=== PATIENT | female | born 1940 | race Caucasian/White ===

== ENCOUNTER → 2016-08-10 | Outpatient (CLI) | payer MEDICARE, BC ==
[~2016-08-10] MED LIST: ACET-2321 PO; ALEN70TA48 PO; AMLO5TAB PO; ASPI81TA84 PO; CALC-586 PO; CHLO25TA2 PO; DICY20TA54 PO; GADOBUTROL 10mMol/10ml INJECTION IV ONE; HYDR-4246 PO; IPRA3AMP AEROSOL; KETO5DRO27 BOTH EYES; LISI-126 PO; LORA10TA44 PO; MELO-267 PO; MULT-795 PO; SALINE FLUSH 10ml SYRINGE ONE; SODI30SP3 EA NOSTRIL; TETR-47 BOTH EYES
--- NOTE | 2016-08-10 16:51 | DI ---
EXAM: MRI SHOULDER RIGHT W/WO CONTRA LOCATION OF DICTATION: [place] HISTORY: ITS.REASON: M75.91 Shoulder lesion, unspecified, right shoulder COMPARISON: No prior studies available for comparison. FINDINGS: There is diffusely abnormal increased heterogeneous signal demonstrated within the right proximal humeral diaphysis and metaphysis extending up to the humeral neck. There are three focal T1 hypointense, T2 hyperintense lesions within the humeral head all of which measure approximately 1 cm maximum diameter suspicious for malignancy such as lymphoma, myeloma, or metastases. There is moderate soft tissue edema edema surrounding the proximal right humerus. No clear evidence for pathologic fracture. 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 Rotator cuff tendons and labrum appear to be intact. Impression: 1. Diffuse abnormal heterogeneous increased signal throughout the right proximal humeral diaphysis/metaphysis extending to the humeral neck. Within the humeral head there are three suspicious bone lesions correlating with the lytic structures noted on the prior CT scan. Leading consideration is involvement by malignancy such as lymphoma, myeloma, or metastases. No clear evidence for pathologic fracture. .
--- NOTE | 2016-08-10 17:13 | DI ---
EXAM: NM BONE SCAN, WHOLE BODY LOCATION OF DICTATION: [place] HISTORY: ITS.REASON: M75.91 Shoulder lesion, unspecified, right shoulder COMPARISON: No prior studies available for comparison. TECHNIQUE: 27 mCi of Tc-99m MDP was administered intravenously. Anterior and posterior planar whole-body and spot images were obtained. FINDINGS: There is normal physiologic uptake within the bilateral kidneys. There are numerous foci of radiotracer uptake demonstrated scattered throughout the axial and appendicular skeleton including the majority of the thoracic and lumbar vertebra, bilateral ribs, pelvis particularly on the right, proximal right humerus, calvarium, and proximal bilateral femurs and hips. Findings are compatible with widespread osseous metastases. The greatest involvement appears to overlie the proximal right humerus, spine, and right iliac bone. Impression: Numerous osseous metastases involving the axial and appendicular skeleton. .
== END ==
LOC: IMA 08:12
PROVIDERS: ATTEND Orthopaedic Surgery
DX: C79.51 Secondary malignant neoplasm of bone (principal); R93.7 Abnormal findings on diagnostic imaging of other parts of musculoskeletal system; M75.91 Shoulder lesion, unspecified, right shoulder
CPT/HCPCS: 73223; 78306; A9503; A9585

== ENCOUNTER → 2016-08-13 | Outpatient (CLI) | payer MEDICARE, BC ==
[~2016-08-13] MED LIST changes: -GADOBUTROL 10mMol/10ml INJECTION IV ONE; +IOHEXOL 300 MG/ML 75ml INJECTION ONE; +NORMAL SALINE 100 ML ONE
[2016-08-13 11:51] LABS: BASOPHILS # (AUTO) 0.1 T/MM3 (0-0.2); BASOPHILS % (AUTO) 0.5 % (0-2); EOSINOPHILS # (AUTO) 0.3 T/MM3 (0-0.5); EOSINOPHILS % (AUTO) 2.3 % (0-4); HCT - HEMATOCRIT 37.5 % (36-46); HGB - HEMOGLOBIN 12.8 GM/DL (12-16); IMMATURE GRANULOCYTE # (AUTO) 0.04 T/MM3 (0.00-0.03); IMMATURE GRANULOCYTE % (AUTO) 0.3 % (0.0-0.5); LYMPHOCYTES # (AUTO) 1.9 T/MM3 (1-4.8); LYMPHOCYTES % (AUTO) 13.5 % (23-45); MEAN CORPUSCULAR HGB 29.1 UUG (26-34); MEAN CORPUSCULAR HGB CONC(MCHC 34.1 GM/DL (31-37); MEAN CORPUSCULAR VOLUME 85.2 UM3 (80-100); MEAN PLATELET VOLUME 10.5 UM3 (9.4-12.4); MONOCYTES # (AUTO) 1.3 T/MM3 (0-0.8); MONOCYTES % (AUTO) 9.7 % (0-9.0); NEUTROPHILS #(AUTO)-ABSOLUTE 10.1 T/MM3 (1.8-7.7); NEUTROPHILS % (AUTO) 73.7 % (33-66); WBC - WHITE BLOOD COUNT 13.7 T/MM3 (4.5-11.0)
[2016-08-13 12:02] LABS: ALBUMIN 3.8 G/DL (3.5-5.0); ALKALINE PHOSPHATASE 114 U/L (38-126); ALT (SGPT) 29 U/L (9-52); ANION GAP 10 MEQ/L (5-15); AST (SGOT) 29 U/L (14-36); BUN/CREATININE RATIO 24 RATIO (6-26); CALCIUM 9.5 MG/DL (8.4-10.2); CHLORIDE 90 MEQ/L (98-107); CO2 - CARBON DIOXIDE 34 MEQ/L (22-30); CREATININE 0.7 MG/DL (0.7-1.2); GLOMERULAR FILTRATION RATE 81; GLUCOSE 127 MG/DL (65-110); LDH 474 U/L (313-618); POTASSIUM 3.7 MEQ/L (3.6-5); SODIUM 134 MEQ/L (134-144); TOTAL PROTEIN 7.7 G/DL (6.3-8.2)
--- NOTE | 2016-08-13 14:01 | DI ---
EXAM: CT CHEST/ABD/PELVIS WC IV contrast COMPARISON: None available. HISTORY: ITS.REASON: R93.7 Abnormal findings on diagnostic imaging of other parts of m LOCATION OF DICTATION: [facility] [place] TECHNIQUE: With administration of 67 cc Omnipaque 300 helically acquired scans were obtained from the lung apices through the domes of the diaphragms. The study is reviewed in soft tissue, bone and lung windows. The study is reconstructed in thinner axial sections and in coronal reformations. The current CT scan was performed using radiation dose-reduction techniques. FINDINGS: SOFT TISSUES: There are two borderline right axillary lymph nodes noted with one measuring 7 mm x 1.3 cm and the other measuring 9 mm x 1.2 cm . There is bulky lymphadenopathy at the right superior mediastinum at the right paratracheal space with an ovoid soft tissue density structure measuring 3.3 x 4.0 cm. Enlarged precarinal lymph node is also noted measuring 3.5 cm AP x 3.8 cm transverse. There is a borderline right hilar lymph node measuring 9 mm in short axis. Small left hilar lymph nodes are noted. Pericardial reflections are seen. CHEST WALL: Unremarkable. BONES: Multiple lytic and sclerotic lesions are noted . Lytic and sclerotic lesion is seen at the inferior aspect of the T11 vertebral body with slight and cavity to the inferior endplate. At T10 there is a lytic lesion at the right anterolateral aspect of the superior endplate. There is likely concavity to superior endplate of T10. Probable hemangioma is seen within T9 vertebral body. At T8 there is compression deformity with a mixed lytic and sclerotic lesion of the anterior two thirds of the T8 vertebral body. There is 15% loss of height of this vertebral body. Compression deformity is noted at T7 with mixed lytic and sclerotic lesion within the anterior two thirds. There is a pathologic fracture of the posterior right sixth rib with a mixed lytic and sclerotic lesion. Scapula and clavicles visualized appear to be intact. There is also lucency of the posterior aspect of the right third and fourth ribs and fifth ribs, but is uncertain whether the finding represents vessel foramen or fractures. There is a mottled appearance to the proximal diaphysis of the right humerus likely representing metastatic lesion as well. Scattered areas of sclerosis and lucency also seen of the ribs. LUNGS: Centrilobular emphysematous changes are noted. There is an ovoid soft tissue density lesion at the medial aspect of the right upper lobe measuring 1.4 x 1.8 cm. Platelike opacity seen right midlung likely representing atelectasis. Linear atelectatic changes or scarring is also seen at the lung bases. CHEST IMPRESSION: 1. Ovoid soft tissue density seen at the medial aspect of the right upper lobe measuring 1.4 x 1.8 cm. This could represent a bronchogenic lesion. 2. Bulky lymphadenopathy is noted at the right superior mediastinum at the right paratracheal region and precarinal region likely representing metastatic disease. 3. Borderline right axillary lymph nodes are noted. 4. Chronic and edematous changes. 5. Extensive osseous metastasis involving multiple thoracic vertebral bodies, and ribs, and proximal right humerus. Including compression deformities of T7 and T8 and inferior endplate of T11, and a lytic lesion within the T10 vertebral body. Pathologic fracture is noted of the posterior right sixth rib. ABDOMEN AND PELVIS FINDINGS: LIVER: There is an ovoid hypodense lesion at the right lobe of the liver measuring 2.8 x 2.4 cm which could represent a metastatic lesion. Within the lateral segment of the left lobe of the liver there is a rounded hypodense lesion measuring approximately 1.8 cm and has somewhat close to fluid density measurements and may represent a cyst. GALLBLADDER: There is a 7 mm calcific density at the neck of the gallbladder. No other signs of acute cholecystitis is identified. SPLEEN: Unremarkable. PANCREAS: Unremarkable. ADRENAL GLANDS: Unremarkable. AORTA/IVC/VASCULATURE: Calcific atherosclerotic changes is seen of the aorta without evidence for aneurysm. The IVC is unremarkable. LYMPH NODES: No lymphadenopathy is identified. Small lymph nodes are noted, but are not pathologically enlarged. GENITOURINARY: Unremarkable. No renal calculi or obstructive uropathy. The bladder and ureters appear unremarkable. The kidneys perfuse symmetrically. The uterus is unremarkable. No adnexal masses are appreciated. BOWEL: Unremarkable. The stomach, duodenum, small bowel, and colon appear unremarkable. Sigmoid diverticulosis is noted without evidence for acute diverticulitis. Scattered diverticula are also seen within the remainder of the colon. The terminal ileum is unremarkable. Appendix is not visualized with certainty. Small bowel is unremarkable. The stomach and duodenum are unremarkable. ABDOMINAL/PELVIC WALL: Small umbilical defect without herniated loops of bowel. BONES: Pathologic compression deformity is are seen of the L1 and L2 vertebral bodies with underlying mixed lytic and sclerotic lesions. There may be some retropulsion of the superior endplate of L1 flattening the anterior thecal sac. A mixed lytic and sclerotic lesion is seen at the anterolateral aspect of the right L2 vertebral body and there may be a pathologic compression deformity. There is also a lytic lesion at superior endplate of the L4 vertebral body. Lytic and sclerotic lesion is seen within the right iliac bone adjacent to the SI joint. Sclerotic lesion is seen within the left symphysis. There is a sclerotic lesion within the posterior column of the right acetabulum. ABDOMEN AND PELVIS IMPRESSION: 1. 2.8 cm ovoid hypodense lesion is seen at the right lobe of the liver which may represent a metastatic lesion. There is also a 1.8 cm rounded hypodense lesion at the lateral segment of the left lobe of the liver but could represent a cyst. 2. Multiple osseous metastasis involving L1 and L2 vertebral bodies with slight compression deformity, superior endplate of L4, the right iliac bone adjacent to the SI joint, posterior, right acetabulum, the left symphysis. 3. Cholelithiasis without other signs of acute cholecystitis. 4. Colonic diverticula without evidence for acute diverticulitis. NOTE: The results were discussed with the ordering clinician, BRENDEN MCNEIL on 08/13/2016 at noon. .
== END ==
LOC: IMA 09:22
PROVIDERS: ATTEND Internal Medicine Hematology & Oncology
DX: C79.51 Secondary malignant neoplasm of bone (principal); K57.30 Diverticulosis of large intestine without perforation or abscess without bleeding; K76.9 Liver disease, unspecified; K80.20 Calculus of gallbladder without cholecystitis without obstruction; R59.0 Localized enlarged lymph nodes; R60.0 Localized edema; R93.7 Abnormal findings on diagnostic imaging of other parts of musculoskeletal system
CPT/HCPCS: 36415; 71260; 74177; 80053; 83615; 83735; 85025; J7050; Q9967

== ENCOUNTER → 2016-08-16 | Outpatient (CLI) | payer MEDICARE, BC ==
[~2016-08-16] MED LIST changes: +BUPIVACAINE 0.25% (2.5mg/ml) INJ 30ml SDV ONE; +CYCL-375 PO; +HYDR-4072 PO; -IOHEXOL 300 MG/ML 75ml INJECTION ONE; +LIDOCAINE 1% (10mg/ml) 5ml VIAL ONE; -NORMAL SALINE 100 ML ONE; -SALINE FLUSH 10ml SYRINGE ONE
--- NOTE | 2016-08-16 17:34 | DI ---
Indication:ITS.REASON: R93.7 ABN FINDINGS Procedure:CT BIOPSY BN,ILIUM,RODRIGUEZ.RIBSP CT GUIDED BONE BIOPSY/ASPIRATION: The procedure including the benefits, risks, and alternatives were explained in detail to the patient. All of her questions were answered. They stated that they understood and wished to proceed. Informed consent was obtained. A pre-procedural timeout was done to verify the correct patient and procedure. Using sterile technique, local Xylocaine and Marcaine anesthesia, and CT guidance, an 11-gauge bone biopsy needle is advanced from a posterior approach into the sclerotic and lytic lesion located in the posterior aspect of the right iliac bone. A core biopsy, which consisted of a portion of soft tissue and a bone core, was taken and placed in formalin. The needle was removed. There was no complication. Hemostasis was obtained and a compression bandage was applied. Following this the patient was monitored in the CT department for 15 min. They then left the radiology department in good condition. Impression: Successful core biopsy of the mixed lytic and sclerotic lesion seen at the lateral aspect of the right iliac bone. Erick Woodson RPA/SOO performed this under my personal supervision. .
== END ==
LOC: IMA 15:23
PROVIDERS: ATTEND Internal Medicine Hematology & Oncology
DX: C79.51 Secondary malignant neoplasm of bone (principal); R93.7 Abnormal findings on diagnostic imaging of other parts of musculoskeletal system
CPT/HCPCS: 20220; 88307; 88311; 88341; 88342

== ENCOUNTER → 2016-08-19 | Outpatient (CLI) | payer MEDICARE, BC ==
[~2016-08-19] MED LIST changes: -BUPIVACAINE 0.25% (2.5mg/ml) INJ 30ml SDV ONE; -LIDOCAINE 1% (10mg/ml) 5ml VIAL ONE
--- NOTE | 2016-08-19 13:00 | DI ---
Indication: ITS.REASON: C79.51 Secondary malignant neoplasm of bone Comparison: CT chest, abdomen and pelvis dated August 13, 2016 PROCEDURE: CT of the chest without contrast. Technique: Axial CT images were performed through the chest without intravenous contrast. Coronal and sagittal two-dimensional reformats. Automated Exposure Control and Iterative Reconstruction dose lowering techniques were utilized. Findings: Exam is performed for radiation therapy treatment planning purposes. Emphysema is noted. Medial right upper lobe irregular lung nodule is again seen as described on the recent diagnostic CT comparison report. Large right paratracheal lymph nodes are redemonstrated, better seen on the recent contrast-enhanced study. Small pericardial effusion. The visualized upper abdomen shows a probable cyst in the left lobe of the liver and a metastatic focus in the posterior right lobe of the liver. Bone windows show probable pathologic fractures in the midthoracic spine at T7 and T8 with other sclerotic metastatic foci seen in the thoracic and lumbar vertebra. There are also endplate fractures at T11, L1 and L2. There is also a nondisplaced fracture of the right humeral diaphysis with a lytic osseous destructive process seen in the proximal diaphysis. Impression: Radiation therapy treatment planning exam with findings as above. .
== END ==
LOC: IMA 12:25
PROVIDERS: ATTEND Radiology Radiation Oncology
DX: C79.51 Secondary malignant neoplasm of bone (principal); I31.3 Pericardial effusion (noninflammatory)

== ENCOUNTER → 2016-08-23 | Outpatient (CLI) | payer MEDICARE, BC ==
[2016-08-23 11:53] LABS: IGA - IMMUNOGLOBULIN A 311.14 MG/DL (70-400); IGG - IMMUNOGLOBULIN G 1129.45 MG/DL (700-1600); IGM - IMMUNOGLOBULIN M 75.09 MG/DL (40-230)
== END ==
LOC: LAB 10:56
PROVIDERS: ATTEND Internal Medicine Hematology & Oncology
DX: D89.2 Hypergammaglobulinemia, unspecified (principal)
CPT/HCPCS: 36415; 82232; 82784; 82785; 83883; 84155; 84165; 86334

== ENCOUNTER → 2016-08-23 | Outpatient (CLI) | payer MEDICARE, BC ==
[2016-08-23 13:31] LABS: HCT - HEMATOCRIT 35.9 % (36-46); MEAN CORPUSCULAR HGB 28.2 UUG (26-34); MEAN CORPUSCULAR HGB CONC(MCHC 33.4 GM/DL (31-37); MEAN CORPUSCULAR VOLUME 84.5 UM3 (80-100); MEAN PLATELET VOLUME 10.1 UM3 (9.4-12.4); RED BLOOD COUNT 4.25 M/MM3 (4.00-5.20); WBC - WHITE BLOOD COUNT 16.2 T/MM3 (4.5-11.0)
[2016-08-23 13:43] LABS: ALBUMIN 3.6 G/DL (3.5-5.0); ALBUMIN/GLOBULIN RATIO 0.9 RATIO (1.1-2.2); ALKALINE PHOSPHATASE 153 U/L (38-126); AST (SGOT) 24 U/L (14-36); BUN/CREATININE RATIO 16 RATIO (6-26); CALCIUM 9.7 MG/DL (8.4-10.2); CHLORIDE 95 MEQ/L (98-107); CREATININE 0.8 MG/DL (0.7-1.2); GLOMERULAR FILTRATION RATE 70; GLUCOSE 106 MG/DL (65-110); MAGNESIUM 2.1 MG/DL (1.6-2.3); POTASSIUM 4.6 MEQ/L (3.6-5); SODIUM 138 MEQ/L (134-144); TOTAL PROTEIN 7.4 G/DL (6.3-8.2)
[2016-08-23 13:59] LABS: ANION GAP 11 MEQ/L (5-15); BAND NEUTROPHILS # 0.2 T/MM3; CO2 - CARBON DIOXIDE 32 MEQ/L (22-30); EOSINOPHILS # (MANUAL) 0.5 T/MM3 (0-0.5); LYMPHOCYTES # (MANUAL) 3.1 T/MM3 (1-4.8); MONOCYTES # (MANUAL) 1.8 T/MM3 (0-0.8); NEUTROPHILS #(MANUAL)-ABSOLUTE 10.7 T/MM3 (1.8-7.7); TOTAL CELLS COUNTED 100 %
[2016-08-23 14:04] LABS: ALT (SGPT) 31 U/L (9-52); LDH 628 U/L (313-618)
[2016-08-23 23:45] LABS: PHOSPHORUS 4.9 MG/DL (2.5-4.5)
== END ==
LOC: LABN 13:21
PROVIDERS: ATTEND Internal Medicine Hematology & Oncology
DX: C34.11 Malignant neoplasm of upper lobe, right bronchus or lung (principal)
CPT/HCPCS: 80053; 82378; 83615; 83735; 84100; 85025

== ENCOUNTER → 2016-08-23 | Outpatient (CLI) | payer MEDICARE, BC ==
--- NOTE | 2016-08-24 11:55 | DI ---
Indication: ITS.REASON: C79.51 Secondary malignant neoplasm of bone Comparison: CT chest, abdomen and pelvis dated August 13, 2016 PROCEDURE: CT of the abdomen and pelvis without contrast. Technique: Axial CT images were performed through the abdomen and pelvis without intravenous contrast. Coronal and sagittal two-dimensional reformats. Automated Exposure Control and Iterative Reconstruction dose lowering techniques were utilized. Findings: There is a scarring or atelectasis in both lower lobes. The unenhanced contours of the liver show an irregular low-attenuation mass in the posterior right lobe along with a probable cyst in the anterior left lobe. Gallstones again noted. Motion artifact is present. Solid organs are better evaluated on the recent contrast-enhanced diagnostic CT. No definite acute changes from that exam. Bone windows again show multiple lytic and sclerotic foci with pathologic fractures at the L1 and L2 vertebra and the inferior endplate of T11. Sclerotic metastases also noted within the L3-L5 vertebra and sacrum. Prominent area of involvement in the anterosuperior endplate of L4. Lytic and sclerotic lesions in both iliac wings and bones, right greater than left. Sclerotic focus in the left pubic symphysis. Impression: Radiation therapy treatment planning exam with findings as above. .
== END ==
LOC: IMA 13:24
PROVIDERS: ATTEND Radiology Radiation Oncology
DX: C79.51 Secondary malignant neoplasm of bone (principal)

== ENCOUNTER 2016-08-24 13:34 | Observation (INO) | payer MEDICARE, BC ==
[~2016-08-24] VITALS: Ht 149.9 cm; Wt 54.5 kg
[~2016-08-24 13:34] MED LIST changes: -CYCL-375 PO; -HYDR-4072 PO
--- OUTSIDE RECORDS SUMMARY | 2016-08-24 13:38 | XMS REPORT | Continuity of Care Document ---
Author Author [facility] Organization [facility] Address Unknown Phone Unavailable Support Name Relationship Address Phone DEBORAH AMAYA MD Caregiver [facility] [address] [place] [address] Unavailable ANDREW FELICIANO MD Caregiver [address] [place] [address] [place] [phone] SIMI JUAREZ Next Of Kin [address] [place] [address] C Insurance Providers Payer Name Policy Number Subscriber Name Relationship Medicare [id number] Harriet Juarez 18 Self [facility] [id number] Harriet Juarez 18 Self Advance Directives Directive Response Recorded Date/Time Advanced Directives Type None 07/26/14 1:25am Problems Medical Problems Problem Onset Date Status Pharyngitis Unknown Active Sinusitis Unknown Active Anxiety Unknown Active Night terror Unknown Active Tachycardia Unknown Active Medications Medication Dose Route Sig Days/Qty Instructions Order Date Discontinued Date Status Amlodipine Besylate 5 Mg PO DAILY 08/10/08 Active Aspirin 81 Mg PO DAILY 08/10/08 Active Calcium Carbonate/Vitamin D3 2 Tab PO DAILY 08/10/08 Active Multivitamins W-Minerals/Lut 1 Tab PO DAILY 08/10/08 Active Dicyclomine Hcl 20 Mg PO THREE TIMES A DAY 08/10/08 Active Lisinopril 20 Mg PO DAILY 08/10/08 Active Ipratropium [place] 2 [place] EA NOSTRIL NEEDED 08/30/10 Active Social History Social History Problem Response Recorded Date/Time Chewing Tobacco Status No 07/26/2014 1:30am Hx Substance Use No 07/26/2014 1:30am Hx Alcohol Use Y DAILY BEER 07/26/2014 1:30am Query Response Start Date Stop Date Smoking Status Never smoker Hospital Discharge Instructions No hospital discharge instructions. Plan of Care No plan of care. Functional Status Query Response Date Recorded Physical Hygiene Self July 26, 2014 1:30am Disabilities Visual July 26, 2014 1:30am Devices Used Glasses July 26, 2014 1:30am Dressing Self July 26, 2014 1:30am Ambulation Self July 26, 2014 1:30am Diet Self July 26, 2014 1:30am Mental Status Alert July 26, 2014 2:33am Disabilities Visual July 26, 2014 1:30am Devices Used Glasses July 26, 2014 1:30am Physical Hygiene Self July 26, 2014 1:30am Dressing Self July 26, 2014 1:30am Ambulation Self July 26, 2014 1:30am Diet Self July 26, 2014 1:30am Allergies, Adverse Reactions, Alerts Allergen Type Severity Reaction Status Last Updated No Known Drug Allergies Allergy Unknown Active 07/11/11 Immunizations Name Given Type Hx Influenza Vaccination Y 03/11 Historical Hx Pneumococcal Vaccination Y 02/24/11 Historical Hx Influenza Vaccination Y 03/11 Historical Hx Tetanus Diptheria Y 08/10/08 Historical Vital Signs Acute Vital Signs Vital Response Date/Time Temperature (Fahrenheit) 96.4 deg F (96.8 - 99.1) Temperature (Calculated Celsius) 35.17827 degrees C (36.0 - 37.3) Pulse Rate (adult) 78 bpm (60 - 100) Respiratory Rate 16 breaths/min (10 - 20) O2 Sat by Pulse Oximetry 100 % (90 - 100) Blood Pressure 136/72 mm Hg Height 5 ft 0 in Weight 145 lb Body Mass Index 28.0 kg/m^2 Results Test Source Date Result Interp. Ref. Range Comments Alanine Aminotransferase (ALT/SGPT) July 26, 2014 1:52am 22 U/L N 9- 52 Aspartate Amino Transf (AST/SGOT) July 26, 2014 1:52am 22 U/L N 14- 36 Albumin/Globulin Ratio July 26, 2014 1:52am 1.3 RATIO N 1.1-2.2 Globulin July 26, 2014 1:52am 3.2 G/DL N 2.4-3.6 Albumin July 26, 2014 1:52am 4.2 G/DL N 3.5-5.0 Total Protein July 26, 2014 1:52am 7.4 G/DL N 6.3-8.2 Alkaline Phosphatase July 26, 2014 1:52am 55 U/L N 38-126 Total Bilirubin July 26, 2014 1:52am 0.30 MG/DL N 0.20-1.30 Calcium Level July 26, 2014 1:52am 8.9 MG/DL N 8.4-10.2 Calculated Osmolality July 26, 2014 1:52am 276 MOSM/KG N 261-280 Glucose Level July 26, 2014 1:52am 104 MG/DL N 65-110 Glomerular Filtration Rate Calc July 26, 2014 1:52am 82 - BUN/Creatinine Ratio July 26, 2014 1:52am 16 RATIO N 6-26 Creatinine July 26, 2014 1:52am 0.7 MG/DL N 0.7-1.2 Blood Urea Nitrogen July 26, 2014 1:52am 11.0 MG/DL N 7-17 Anion Gap July 26, 2014 1:52am 10 MEQ/L N 5-15 Carbon Dioxide Level July 26, 2014 1:52am 29 MEQ/L N 22-30 Chloride Level July 26, 2014 1:52am 105 MEQ/L N 98-107 Potassium Level July 26, 2014 1:52am 3.7 MEQ/L N 3.6-5 Sodium Level July 26, 2014 1:52am 144 MEQ/L N 134-144 Turbidity July 26, 2014 1:52am < 20 0-20 Chemistry Specimen Hemolysis July 26, 2014 1:52am < 15 0-25 0-25 : No Hemolysis.26-70: Slight Hemolysis - can falsely elevate K and Urine Protein. 71-285: Moderate Hemolysis - can falsely elevate K, Troponin I, CA 19-9, PTH, CSF GLucose, and Urine Protein, and can falsely decrease Phenytoin. 286-999: Gross Hemolysis - can falsely elevate K, Troponin I, CA 19-9, PTH, CSF Glucose, and Urine Protine, and can falsely decrease Phenytoin. Recommend specimen recollection. Icterus Index July 26, 2014 1:52am < 2 0-7 Immature Granulocyte # (Auto) July 26, 2014 1:52am 0.02 T/MM3 N 0.00 -0.03 Basophils # (Auto) July 26, 2014 1:52am 0.1 T/MM3 N 0-0.2 Eosinophils # (Auto) July 26, 2014 1:52am 0.5 T/MM3 N 0-0.5 Monocytes # (Auto) July 26, 2014 1:52am 0.8 T/MM3 N 0-0.8 Lymphocytes # (Auto) July 26, 2014 1:52am 3.0 T/MM3 N 1-4.8 Neutrophils # (Auto) July 26, 2014 1:52am 6.1 T/MM3 N 1.8-7.7 Immature Granulocyte % (Auto) July 26, 2014 1:52am 0.2 % N 0.0-0.5 Basophils (%) (Auto) July 26, 2014 1:52am 0.5 % N 0-2 Eosinophils (%) (Auto) July 26, 2014 1:52am 4.9 % H 0-4 Monocytes (%) (Auto) July 26, 2014 1:52am 7.7 % N 0-9.0 Lymphocytes (%) (Auto) July 26, 2014 1:52am 28.8 % N 23-45 Neutrophils (%) (Auto) July 26, 2014 1:52am 57.9 % N 33-66 Mean Platelet Volume July 26, 2014 1:52am 10.9 UM3 N 9.4-12.4 Platelet Count July 26, 2014 1:52am 254 T/MM3 N 130-400 RDW Standard Deviation July 26, 2014 1:52am 42.8 FL N 36.9-50.2 Mean Corpuscular Hemoglobin Concent July 26, 2014 1:52am 35.4 GM/DL N 31-37 Mean Corpuscular Hemoglobin July 26, 2014 1:52am 31.8 UUG N 26-34 Mean Corpuscular Volume July 26, 2014 1:52am 89.7 UM3 N 80-100 Hematocrit July 26, 2014 1:52am 42.6 % N 36-46 Hemoglobin July 26, 2014 1:52am 15.1 GM/DL N 12-16 Red Blood Count July 26, 2014 1:52am 4.75 M/MM3 N 4.00-5.20 White Blood Count July 26, 2014 1:52am 10.6 T/MM3 N 4.5-11.0 Group A Streptococcus Screen May 30, 2013 10:10am Negative - Strep culture confirmation to follow Influenza Type A Antigen May 30, 2013 10:10am Negative - Negative for Flu A protein antigen. Assay sensitivity isbetween 65-83%. A negative result does not exclude influenza virus infection. "Influenza FA" may be ordered if clinical presentation warrants confirmatory testing. Influenza Type B Antigen May 30, 2013 10:10am Negative - Negative for Flu B protein antigen. Assay sensitivity isbetween 65-83%. A negative result does not exclude influenza virus infection. "Influenza FA" may be ordered if clinical presentation warrants confirmatory testing. Urine Bacteria August 10, 2008 5:07pm Trace - Has specimen been collected/obtained? Y Urine Bilirubin August 10, 2008 5:07pm Negative - Has specimen been collected/obtained? Y Urine Blood August 10, 2008 5:07pm Negative - Has specimen been collected/obtained? Y Urine Collection Type August 10, 2008 5:07pm Voided - Has specimen been collected/obtained? Y Urine Color August 10, 2008 5:07pm Yellow - Has specimen been collected/obtained? Y Urine Glucose (UA) August 10, 2008 5:07pm Negative - Has specimen been collected/obtained? Y Urine Ketones August 10, 2008 5:07pm Negative - Has specimen been collected/obtained? Y Urine Leukocyte Esterase August 10, 2008 5:07pm 1+ H - Has specimen been collected/obtained? Y Urine Nitrite August 10, 2008 5:07pm Negative - Has specimen been collected/obtained? Y Urine Protein August 10, 2008 5:07pm Negative - Has specimen been collected/obtained? Y Urine RBC August 10, 2008 5:07pm 0-1 /HPF - Has specimen been collected/obtained? Y Urine Specific [place] August 10, 2008 5:07pm 1.015 - Has specimen been collected/obtained? Y Urine Squamous Epithelial Cells August 10, 2008 5:07pm Few - Has specimen been collected/obtained? Y Urine Turbidity August 10, 2008 5:07pm Clear - Has specimen been collected/obtained? Y Urine Urobilinogen August 10, 2008 5:07pm Normal EU/DL - Has specimen been collected/obtained? Y Urine WBC August 10, 2008 5:07pm 1-3 /HPF - Has specimen been collected/obtained? Y Urine pH August 10, 2008 5:07pm 8.0 - Has specimen been collected/ obtained? Y Group A Streptococcus Culture Throat May 30, 2013 10:27am Procedures No known history of procedures. Encounters Encounter Location Date/Time Departed Emergency Room [facility] 07/26/14 1:25am Recent Diagnosis
--- OUTSIDE RECORDS SUMMARY | 2016-08-24 13:38 | XMS REPORT | Continuity of Care Document ---
Author Author [facility] Organization [facility] Address Unknown Phone Unavailable Support Name Relationship Address Phone MUKUND HOPKINS II, MD Caregiver [address] [place] [address] Unavailable SEPTEMBERLASHONDA DO Caregiver [address] [place] [address] Unavailable SIMI JUAREZ Next Of Kin [address] [place] [address] [phone] c Insurance Providers Guarantor Harriet Juarez Address [address] [place] [address] C Email DENIED/NO TO PORTAL 16 [employer] Policy Number [id number] Subscriber's Name Harriet Juarez Relationship 18 Self Group Number [id number] Payer Medicare Policy Number [id number] Subscriber's Name Harriet Juarez Relationship 18 Self Advance Directives Directive Response Recorded Date/Time Advanced Directives Type None 08/03/16 8:10pm Chief Complaint and Reason for Visit Chief Complaint Upper Extremity Pain Reason for Visit [id number] Problems Active Problems Medical Problem Onset Date Status Anxiety Unknown Acute Back pain Unknown Acute Low back strain Unknown Acute Night terror Unknown Acute Pharyngitis Unknown Acute Sinusitis Unknown Acute Tachycardia Unknown Acute Past Problems Medical Problem Onset Date Flank pain Unknown Lumbar strain Unknown Right humeral fracture Unknown Tick bite with subsequent removal of tick Unknown Medications Current Home Medications Medication Dose Units Route Directions Days Qty Instructions Start Date Acetaminophen (Tylenol) 325 Mg Tablet 1 Tab Oral Every 4 Hours Prn 30 Tablet 08/03/16 Alendronate Sodium 70 Mg Tablet 70 Mg Oral Weekly 11/05/15 Amlodipine Besylate (Norvasc) 5 Mg Tablet 5 Mg Oral Daily Aspirin (Beronica) 81 Mg Tablet. 81 Mg Oral Daily 08/10/08 Calcium Carbonate/Vitamin D3 (Calcium + D 600 Mg Tablet) 1 Tab Tablet 2 Tab Oral Qd 08/10/08 Chlorthalidone 25 Mg Tablet 12.5 Mg Oral Give With Breakfast 01/12 Dicyclomine Hcl 20 Mg Tablet 20 Mg Oral Three Times A Day Hydrocodone/Acetaminophen ([place]et 5-325 Tablet) 5-325 Tablet 1 Tab Oral Every 6 Hours as needed for Pain 15 Tablet 08/03/16 Ipratropium/Albuterol Sulfate (Iprat-Albut 0.5-3(2.5) Mg/3 Ml) 3 Ml Ampul.neb 1 Vial Aerosol Tx. Every 6 Hours 11/05/15 Ketotifen Fumarate (Eye Itch Relief) 5 Ml Drops 1 Drop Both Eyes Twice A Day 11/05/15 Lisinopril 20 Mg Tablet 20 Mg Oral Daily 08/10/08 Loratadine (Allergy) 10 Mg Tablet 10 Mg Oral Daily 11/05/15 Meloxicam 15 Mg Tablet 15 Mg Oral Qd 08/03/16 Multivitamins W-Minerals/Lut (Centrum Silver Tablet) 1 Tab Tablet 1 Tab Oral Daily 08/10/08 Sodium Chloride (Saline Nasal [place]) 30 Ml [place] 1 [place] Each Nostril Four Times Daily as needed for Prn Orders 11/05/15 Tetrahydrozoline Hcl (Eye Drops) 15 Ml Drops 1 Drop Both Eyes Daily as needed for Prn Orders 11/05/15 Social History Social History Problem Response Recorded Date/Time Onset Date Status Chewing Tobacco Status No 08/03/2016 8:32pm Not Applicable Not Applicable Hx Substance Use No 08/03/2016 8:32pm Not Applicable Not Applicable Hx Alcohol Use Y DAILY BEER 08/03/2016 8:32pm Not Applicable Not Applicable Tobacco Usage none 11/05/2015 12:26pm Not Applicable Not Applicable Query Response Start Date Stop Date Smoking Status Former smoker Hospital Discharge Instructions No hospital discharge instructions. Plan of Care Discharge Date 08/03/16 10:00pm Disposition 01 DISCHARGED HOME, SELF-CARE Condition at Discharge Stable Instructions/Education Provided Proximal Humerus Fracture (ED) Prescriptions See Medication Section Referrals MUKUND HOPKINS II, MD Address: [address] [place] [address] [place] [address] Additional Instructions/Education Keep the sling on until you follow up with orthopedics. Call Dr Barba's office at [phone]. I do want you to follow up with Dr. Hopkins as well to have a further workup to rule out possible causes of the bone having a mottled and irregular appearance at the site of the fracture. Use the [place] as needed for pain. May continue to take all of your other medications as prescribed. Care Plan and Goals Physician Care Plan Problem:Right humeral fracture Goal: Follow up with primary care provider Instructions: Take medications and follow care plan as discussed/written Functional Status No functional status results. Allergies, Adverse Reactions, Alerts Allergen Type Severity Reaction Status Last Updated No Known Drug Allergies Allergy Unknown Active 05/13/16 Immunizations Query Response on File Recorded Date/Time Hx Influenza Vaccination Y 03/1107/26/14 1:30am Hx Pneumococcal Vaccination Y 02/24/11 07/26/14 1:30am Hx Influenza Vaccination Y 03/1107/26/14 1:30am Hx Tetanus Diptheria Y 08/10/08 07/26/14 1:30am Influenza Vaccine Hx 03/11/16 08/03/16 8:32pm Pneumococcal PCV13 Vaccine Hx 02/24/11 08/03/16 8:31pm Tdap Vaccine Hx 08/10/08 08/03/16 8:31pm Vital Signs Acute Vital Signs Vital Response Date/Time Temperature (Fahrenheit) 98.3 deg F (96.8 - 99.1) 08/03/2016 10:00pm Temperature (Calculated Celsius) 36.65308 degrees C (36.0 - 37.3) 08/03/2016 10:00pm Pulse Rate (adult) 92 bpm (60 - 100) 08/03/2016 10:00pm Respiratory Rate 20 breaths/min (10 - 20) 08/03/2016 10:00pm O2 Sat by Pulse Oximetry 91 % (90 - 100) 08/03/2016 10:00pm Blood Pressure 145/65 mm Hg 08/03/2016 10:00pm Height (Feet) 5 feet 08/03/2016 8:10pm Height (Inches) 0 inches 08/03/2016 8:10pm Weight (Kilograms) 58.700 kg 08/03/2016 8:10pm Body Mass Index (BMI) 25.0 08/03/2016 8:10pm Results Laboratory Results Test Name Result Units Flags Reference Collection Date/Time Result Date/ Time Comments Urine Collection Type VOIDED-NOT CC-MIDSTR 05/13/2016 11:41pm 05/13 11:55pm Urine Color YELLOW YELLOW 05/13/2016 11:41pm 05/13/2016 11:55pm Urine Turbidity CLEAR CLEAR 05/13/2016 11:41pm 05/13/2016 11:55pm Urine Specific [place] 1.010 L 1.015-1.025 05/13/2016 11:41pm 2015 11:55pm Urine pH 7.5 5.0-8.0 05/13/2016 11:41pm 05/13/2016 11:55pm Urine Leukocyte Esterase TRACE A NEGATIVE 05/13/2016 11:41pm 2015 11:55pm Urine Nitrite NEGATIVE NEGATIVE 05/13/2016 11:41pm 05/13/2016 11: 55pm Urine Protein NEGATIVE NEGATIVE 05/13/2016 11:41pm 05/13/2016 11: 55pm Urine Glucose (UA) NEGATIVE NEGATIVE 05/13/2016 11:41pm 05/13/2016 11 :55pm Urine Ketones NEGATIVE NEGATIVE 05/13/2016 11:41pm 05/13/2016 11: 55pm Urine Urobilinogen 0.2 EU/DL NORMAL 05/13/2016 11:41pm 05/13/2016 11: 55pm Urine Bilirubin NEGATIVE NEGATIVE 05/13/2016 11:41pm 05/13/2016 11: 55pm Urine Blood NEGATIVE NEGATIVE 05/13/2016 11:41pm 05/13/2016 11:55pm Urinalysis Comment MICROSCOPIC NOT IND. 05/13/2016 11:41pm 2015 11:55pm Procedures Procedure Status Date Provider(s) X-ray exam l-s spine 2/3 vws Completed 05/13/16 Urinalysis auto w/o scope Completed 05/13/16 Emergency dept visit Completed 05/13/16 [id number] ITEM OR SERVICE Completed 05/13/16 PREDNISONE, 10 MG TAB Completed 05/13/16 X-ray exam hip uni 2-3 views Completed 06/11/16 Encounters Encounter Location Arrival/Admit Date Discharge/Depart Date Attending Provider Departed Emergency Room [facility] 08/03/16 8:08pm 08/03/16 10: 00pm SEPTEMBERLASHONDA DO Registered Clinic [facility] 06/11/16 2:00pm MUKUND HOPKINS II, MD Departed Emergency Room [facility] 05/13/16 10:46pm 05/14/16 1: 55am MARCIE SANTANA MD Recent Diagnosis
--- NOTE | 2016-08-24 13:50 | ERPDOC ---
Departure Disposition Decision Date: Aug 24, 2016 Disposition Decision Time: 16:34 (FIONA,LYDIA Rodriguez APRN) Disposition: 01 DISCHARGED HOME, SELF-CARE Impression Impression (FIONA,LYDIA Rodriguez APRN) Impression: Primary Impression: Hypoxia Additional Impression: COPD (chronic obstructive pulmonary disease) COPD type: emphysema Emphysema type: unspecified Qualified Codes: J43.9 - Emphysema, unspecified Severity: Moderate (NOLYDIA ROY APRN) Condition: Stable Seen By: Mid-level only (LYDIA JAIMES APRN) Referrals: MUKUND HOPKINS II, MD (Family) Problems/Meds/Labs Reviewed?: Yes Medications reviewed and manag: Yes (NOLYDIA ROY APRN) Follow up care ordered?: Yes Mental Status: Alert (NOXOCHILT ROYA Michael RICH) HPI - Dyspnea General Chief Complaint: Dyspnea/Respdistress Stated Complaint: NAUSEA,VOMITING,SOB Time Seen by Provider: 13:37 Source: patient, EMS Exam Limitations: no limitations (LYDIA JAIMES APRN) Time Seen by Provider: 13:37 (AYLA BUSH MD) HPI - Dyspnea Initial Comments She had radiation therapy done this morning at Dr Pelayo's office. They did radiation to the right side of her chest as well as her pelvis. She got home and was feeling nauseated and vomited a few times. She felt SOA during the episode of emesis so she called EMS. Was given Zofran en route and her nausea is improved. Has felt well otherwise today. Denies any abdominal pain or chest pain. Occurred At: home Onset/Timing: Rapid Duration: 1-3 hrs Severity: moderate Activities at Onset: none Prior Episodes/Possible Cause: no prior episodes Associated Symptoms: cough, loss of appetite, nausea/vomiting, shortness of breath, DENIES: chest pain, diaphoresis, fever/chills, headaches, malaise, rash , seizure, syncope, weakness Aspirin Treatment Today: unknown Hx of Similar Symptoms: No (NOXOCHILT ROYA N OFFICE RUNNER) Allergies: Coded Allergies: No Known Drug Allergies (Verified Allergy, Unknown, 05/13/16) Past History Past Medical History Metabolic: hypertension ENMT: other Respiratory: COPD GI: IBS (LYDIA JAIMES APRN) Surgical History General: colonoscopy, exploratory laparotomy (NOLD,LYDIA N OFFICE RUNNER) Family History Family PMH: FOUND: other (NOLD,LYDIA N OFFICE RUNNER) Vaccines Hx Influenza Vaccination: Yes (03/11) Hx Pneumococcal Vaccination: Yes (02/24/11) Hx Tetanus Diptheria: Yes (08/10/08) (NOLD,LYDIA N OFFICE RUNNER) Social History Current Occupational Status: retired (NOLD,LYDIA N OFFICE RUNNER) Review of Systems Constitutional Constitutional: DENIES: appetite decrease, chills, dizziness, fatigue, fever, weakness (NOLD,LYDIA N OFFICE RUNNER) Eyes Vision: DENIES: blurring, double vision (NOLD,LYDIA N OFFICE RUNNER) ENMT Ears: DENIES: drainage, pain Sinuses: DENIES: congestion, rhinorrhea Mouth/Throat: DENIES: painful swallowing, scratchy throat, sore throat (NOLD, LYDIA N OFFICE RUNNER) Cardiovascular Cardiac: DENIES: chest pain, dyspnea on exertion, orthopnea Rhythm/Rate: DENIES: irregular beat, palpitations Vascular: DENIES: pedal edema, unilateral swelling (NOLD,LYDIA N OFFICE RUNNER) Pulmonary Respiratory: cough, dyspnea, sputum, DENIES: tachypnea (NOLD,LYDIA N OFFICE RUNNER) GI Upper Abdomen: nausea, vomiting, DENIES: pain Lower Abdomen: DENIES: constipation, diarrhea, pain (NOLD,LYDIA N OFFICE RUNNER) Integumentary Skin: DENIES: rash (NOLD,LYDIA N OFFICE RUNNER) Neurological General: DENIES: headache, numbness, tingling, weakness (NOLD,LYDIA N OFFICE RUNNER) Physical Exam General General Nourishment: well nourished, well developed, appears stated age, no acute distress, adult General Body Habitus: well groomed (NOLD,LYDIA N OFFICE RUNNER) Vitals and Pain First Documented Vital Signs Date Time Temp Pulse Resp B/P Pulse Ox O2 Delivery O2 Flow Rate FiO2 08/24/16 13:35 98.0 106 18 116/57 87 Room Air 08/24/16 13:40 4.00 (AYLA BUSH MD) Vitals and Pain Weight: Kilograms: Height (feet): 5 Height (inches): 0 Triage Pain Scale: (NOLD,LYDIA N OFFICE RUNNER) RN VS reviewed by Provider: Yes (LYDIA JAIMES APRN) Normal Exams: Neck: Full range of motion, without adenopathy, JVD, bruits or thyromegaly Chest/Resp: Clear all marie, with good airflow, and symmetry bilaterally CV: Regular rate and rhythm, without murmur or gallop, Pulses 2+ all extremities, capillary refill, <2 seconds all ext., no pedal edema noted Abdomen: Bowel sounds positive, soft, non-tender, non-distended, no hepatosplenomegaly, masses or bruits noted Lymphatic: No lymphadenopathy, or lymphedema noted Integumentary: No rashes, hives, or bruising noted Neurologic: Patient is alert, and oriented Psychiatric: Patient exhibits, appropriate attention, emotion and affect (LYDIA JAIMES APRN) Differential Diagnoses Considering: Acute Bronchitis, Acute RI, Acute Respiratory Failure, CHF, Pneumonia, Viral Syndrome (LYDIA JAIMES APRN) Progress Results/Orders Orders Procedure Category Date Status Time EKG EKG 08/24/16 Taken Iv Lock (Ed Only) EDM 08/24/16 Transmitted 13:43 Cbc W/Auto LAB 08/24/16 Complete Diff-Reflex Manual Bmp - Basic Metabolic LAB 08/24/16 Complete Panel Troponin I W LAB 08/24/16 Complete Hemolysis Index Chest 1 View RAD 08/24/16 Resulted UA, LAB 08/24/16 Complete Dip&Micro(Complete) & 15:49 Blood Culture CHRIS 08/24/16 In Process 16:19 Lactate - Lactic Acid LAB 08/24/16 In Process Lactate - Lactic Acid LAB 08/24/16 Logged 20:49 Procalcitonin LAB 08/24/16 In Process 16:19 Albuterol/Ipratropium PHA 08/24/16 Complete (Duoneb) 16:30 Methylprednisolone PHA 08/24/16 Complete Sod Succ (Solu-Medrol 16:30 Place In Facility As: ADMIT 08/24/16 Transmitted (AYLA BUSH MD) Lab Results Laboratory Tests Test 08/24/16 13:47 08/24/16 15:49 White Blood Count 18.7T/MM3 Red Blood Count 4.34M/MM3 Hemoglobin 12.3GM/DL Hematocrit 36.6% Mean Corpuscular Volume 84.3UM3 Mean Corpuscular Hemoglobin 28.3UUG Mean Corpuscular Hemoglobin Concent 33.6GM/DL RDW Standard Deviation 43.6FL Platelet Count 670T/MM3 Mean Platelet Volume 10.2UM3 Immature Granulocyte % (Auto) % Neutrophils (%) (Auto) % Lymphocytes (%) (Auto) % Monocytes (%) (Auto) % Eosinophils (%) (Auto) % Basophils (%) (Auto) % Absolute Immature Granulocyte (auto T/MM3 Absolute Neutrophils (auto) T/MM3 Absolute Lymphocytes (auto) T/MM3 Absolute Monocytes (auto) T/MM3 Absolute Eosinophils (auto) T/MM3 Absolute Basophils (auto) T/MM3 Neutrophils % (Manual) 69.0% Lymphocytes % (Manual) 18.0% Monocytes % (Manual) 5.0% Eosinophils % (Manual) 6.0% Basophils % (Manual) 2.0% Absolute Neutrophils (Manual) 12.9T/MM3 Lymphocytes # (Manual) 3.4T/MM3 Monocytes # (Manual) 0.9T/MM3 Eosinophils # (Manual) 1.1T/MM3 Basophils # (Manual) 0.4T/MM3 Red Cell Morphology Comment Normal Turbidity < 20 Sodium Level 137MEQ/L Potassium Level 4.8MEQ/L Chloride Level 95MEQ/L Carbon Dioxide Level 31MEQ/L Anion Gap 11MEQ/L Blood Urea Nitrogen 13.0MG/DL Creatinine 0.8MG/DL Glomerular Filtration Rate Calc 70 BUN/Creatinine Ratio 16RATIO Glucose Level 113MG/DL Calculated Osmolality 265MOSM/KG Calcium Level 10.0MG/DL Icterus Index < 2 Troponin I < 0.012ng/ml Chemistry Specimen Hemolysis < 15 Urine Collection Type Voided-not cc-midstr Urine Color Yellow Urine Turbidity Clear Urine pH 7.0 Urine Specific [place] 1.010 Urine Protein Negative Urine Glucose (UA) Negative Urine Ketones Negative Urine Blood Negative Urine Nitrite Negative Urine Bilirubin Negative Urine Urobilinogen 0.2EU/DL Urine Leukocyte Esterase 1+ Urine RBC 0-1/HPF Urine WBC 1-3/HPF Urine Squamous Epithelial Cells 0-5 Urine Bacteria Trace Urine Culture Indicated Cult not indicated (AYLA BUSH MD) Lab Results Laboratory Tests Test 08/24/16 13:47 08/24/16 15:49 White Blood Count 18.7T/MM3 Red Blood Count 4.34M/MM3 Hemoglobin 12.3GM/DL Hematocrit 36.6% Mean Corpuscular Volume 84.3UM3 Mean Corpuscular Hemoglobin 28.3UUG Mean Corpuscular Hemoglobin Concent 33.6GM/DL RDW Standard Deviation 43.6FL Platelet Count 670T/MM3 Mean Platelet Volume 10.2UM3 Immature Granulocyte % (Auto) % Neutrophils (%) (Auto) % Lymphocytes (%) (Auto) % Monocytes (%) (Auto) % Eosinophils (%) (Auto) % Basophils (%) (Auto) % Absolute Immature Granulocyte (auto T/MM3 Absolute Neutrophils (auto) T/MM3 Absolute Lymphocytes (auto) T/MM3 Absolute Monocytes (auto) T/MM3 Absolute Eosinophils (auto) T/MM3 Absolute Basophils (auto) T/MM3 Neutrophils % (Manual) 69.0% Lymphocytes % (Manual) 18.0% Monocytes % (Manual) 5.0% Eosinophils % (Manual) 6.0% Basophils % (Manual) 2.0% Absolute Neutrophils (Manual) 12.9T/MM3 Lymphocytes # (Manual) 3.4T/MM3 Monocytes # (Manual) 0.9T/MM3 Eosinophils # (Manual) 1.1T/MM3 Basophils # (Manual) 0.4T/MM3 Red Cell Morphology Comment Normal Turbidity < 20 Sodium Level 137MEQ/L Potassium Level 4.8MEQ/L Chloride Level 95MEQ/L Carbon Dioxide Level 31MEQ/L Anion Gap 11MEQ/L Blood Urea Nitrogen 13.0MG/DL Creatinine 0.8MG/DL Glomerular Filtration Rate Calc 70 BUN/Creatinine Ratio 16RATIO Glucose Level 113MG/DL Calculated Osmolality 265MOSM/KG Calcium Level 10.0MG/DL Icterus Index < 2 Troponin I < 0.012ng/ml Chemistry Specimen Hemolysis < 15 Urine Collection Type Voided-not cc-midstr Urine Color Yellow Urine Turbidity Clear Urine pH 7.0 Urine Specific [place] 1.010 Urine Protein Negative Urine Glucose (UA) Negative Urine Ketones Negative Urine Blood Negative Urine Nitrite Negative Urine Bilirubin Negative Urine Urobilinogen 0.2EU/DL Urine Leukocyte Esterase 1+ Urine RBC 0-1/HPF Urine WBC 1-3/HPF Urine Squamous Epithelial Cells 0-5 Urine Bacteria Trace Urine Culture Indicated Cult not indicated (NOLD,LYDIA N OFFICE RUNNER) Medications Current ED Medications Albuterol/ Ipratropium (Duoneb) 3 ml O ONCE AEROSOL Last administered on t 16:26; Start 08/24/16 at 16:30; Stop 08/24/16 at 16:31; Status DC Methylprednisolone Sodium Succinate (Solu-Medrol) 125 mg O ONCE IV ; Start at 16:30; Stop 08/24/16 at 16:31; Status DC (LYDIA JAIMES APRN) Progress Progress Has had no further vomiting in er or nausea. WBC is 18.7 with 69% neutrophils. No bands. I did review labs from the last month and WBC has been elevated up to 14.5. BMP and troponin are normal. UA with 1+LE and trace bacteria. I did attempt to turn off her O2 and sats did drop to 88%. Turned back up to 3L per NC and sats 92%. Her baseline O2 sats from previous ER admits has been 92-93% on RA. Did dicuss with Dr Chapman, will admit at this time. Did draw blood cultures and lactate and procalcitonin in ER. (LYDIA JAIMES APRN) Progress Patient's history and exam discussed with LAYLA. Labs and imaging reviewed. EKG interpreted. Agree with care given in ER and need to admit. (AYLA BUSH MD) EKG EKG : Rate: >100 (103) Rhythm: sinus [place]: normal QRS: normal Intervals: normal ST/T: normal Interpreted by: signing physician (AYLA BUSH MD) Xray Xray : Reason for Exam: dypsnea Xray: CXR PA/Lat Interpretation: Normal (LYDIA JAIMES APRN) LYDIA JAIMES APRN Aug 24, 2016 13:50 AYLA BUSH MD Aug 24, 2016 14:30
[2016-08-24 13:53] LABS: HCT - HEMATOCRIT 36.6 % (36-46); HGB - HEMOGLOBIN 12.3 GM/DL (12-16); MEAN CORPUSCULAR HGB 28.3 UUG (26-34); MEAN CORPUSCULAR HGB CONC(MCHC 33.6 GM/DL (31-37); MEAN CORPUSCULAR VOLUME 84.3 UM3 (80-100); MEAN PLATELET VOLUME 10.2 UM3 (9.4-12.4); RED BLOOD COUNT 4.34 M/MM3 (4.00-5.20); WBC - WHITE BLOOD COUNT 18.7 T/MM3 (4.5-11.0)
--- OUTSIDE RECORDS SUMMARY | 2016-08-24 13:59 | XMS REPORT | Continuity of Care Document ---
Author Author [facility] Organization [facility] Address Unknown Phone Unavailable Support Name Relationship Address Phone DEBORAH AMAYA MD Caregiver [facility] [address] [place] [address] Unavailable ANDREW FELICIANO MD Caregiver [address] [place] [address] [place] [phone] SIMI JUAREZ Next Of Kin [address] [place] [address] C Insurance Providers Payer Name Policy Number Subscriber Name Relationship Medicare [id number] Harriet Juarez 18 Self [facility] [id number] Harriet Juarez 18 Self Advance Directives Directive [...] 20 Mg PO DAILY 08/10/08 Active Ipratropium [place] 2 [place] EA NOSTRIL NEEDED 08/30/10 Active Social History [...] F (96.8 - 99.1) Temperature (Calculated Celsius) 35.17114 degrees C (36.0 - 37.3) Pulse Rate [...] Has specimen been collected/obtained? Y Urine Specific [place] August 10, 2008 5:07pm 1.015 - Has [...] Encounters Encounter Location Date/Time Departed Emergency Room [facility] 07/26/14 1:25am Recent Diagnosis
--- NOTE | 2016-08-24 14:02 | NUR ---
X-RAY TRANSPORTED TO X-RAY VIA STRETCHER PER X-RAY TECH.
[2016-08-24] MEDS ORDERED: HYDR-4072 PO (14:10)
[2016-08-24] MEDS ORDERED: CYCL-375 PO (14:10)
[2016-08-24 14:11] LABS: ANION GAP 11 MEQ/L (5-15); BUN/CREATININE RATIO 16 RATIO (6-26); CHLORIDE 95 MEQ/L (98-107); CO2 - CARBON DIOXIDE 31 MEQ/L (22-30); CREATININE 0.8 MG/DL (0.7-1.2); GLOMERULAR FILTRATION RATE 70; GLUCOSE 113 MG/DL (65-110); POTASSIUM 4.8 MEQ/L (3.6-5); SODIUM 137 MEQ/L (134-144)
--- NOTE | 2016-08-24 14:12 | NUR ---
RETURN RETURNED FROM X-RAY.
--- NOTE | 2016-08-24 14:20 | DI ---
Indication: ITS.REASON: cough, dyspnea PROCEDURE: CHEST 1 VIEW: Encounter: Initial Comparison: Chest CT dated August 13, 2016 Findings: Right upper lobe mass better seen on CT. There is thickening of the right paratracheal stripe consistent with the adenopathy seen on the comparison CT. Emphysema is again noted along with areas of linear scarring in the right upper lobe and lung bases. No pneumothorax or definite pleural effusion. No focal consolidative pneumonia. Heart size and pulmonary vascularity are within normal limits. Bony metastatic disease better evaluated on the CT. Impression: Overall stable appearance of the chest without acute cardiopulmonary disease. .
[2016-08-24 14:23] LABS: BASOPHILS # (MANUAL) 0.4 T/MM3 (0-0.2); EOSINOPHILS # (MANUAL) 1.1 T/MM3 (0-0.5); LYMPHOCYTES # (MANUAL) 3.4 T/MM3 (1-4.8); MONOCYTES # (MANUAL) 0.9 T/MM3 (0-0.8); NEUTROPHILS #(MANUAL)-ABSOLUTE 12.9 T/MM3 (1.8-7.7); TOTAL CELLS COUNTED 100 %
--- NOTE | 2016-08-24 15:45 | NUR ---
ACTIVITY PATIENT AMBULATED TO BATHROOM. UPON ARRIVAL BACK TO ROOM PATIENT'S PULSE OX IN THE 70'S. OXYGEN PLACED BACK ON BACK AND SATURATION BACK UP TO 90'S.
[2016-08-24 15:55] LABS: BLOOD, URINE NEGATIVE (NEGATIVE); COLOR,URINE YELLOW (YELLOW); LEUKOCYTE ESTERASE ,URINE 1+ (NEGATIVE); NITRITE,URINE NEGATIVE (NEGATIVE); UROBILINOGEN,URINE 0.2 EU/DL (NORMAL)
[2016-08-24 16:06] LABS: SQUAMOUS EPITHELIAL CELL,UR 0-5
[2016-08-24 16:07] LABS: BACTERIA,URINE TRACE (NEGATIVE); RBC,URINE 0-1 /HPF (0-3)
[2016-08-24] MEDS ORDERED: ALBUTEROL/IPRATROPIUM INHAL. 2.5mg-0.5mg/3ml Neb. AEROSOL ONE (16:30)
--- OUTSIDE RECORDS SUMMARY | 2016-08-24 16:42 | XMS REPORT | Continuity of Care Document ---
Author Author [facility] Organization [facility] Address Unknown Phone Unavailable Support Name Relationship Address Phone DEBORAH AMAYA MD Caregiver [facility] [address] [place] [address] Unavailable ANDREW FELICIANO MD Caregiver [address] [place] [address] [place] [phone] SIMI JUAREZ Next Of Kin [address] [place] [address] C Insurance Providers Payer Name Policy Number Subscriber Name Relationship Medicare [id number] Harriet Juarez 18 Self [facility] [id number] Harriet Juarez 18 Self Advance Directives Directive [...] 20 Mg PO DAILY 08/10/08 Active Ipratropium [place] 2 [place] EA NOSTRIL NEEDED 08/30/10 Active Social History [...] F (96.8 - 99.1) Temperature (Calculated Celsius) 35.27149 degrees C (36.0 - 37.3) Pulse Rate [...] Has specimen been collected/obtained? Y Urine Specific [place] August 10, 2008 5:07pm 1.015 - Has [...] Encounters Encounter Location Date/Time Departed Emergency Room [facility] 07/26/14 1:25am Recent Diagnosis
--- NOTE | 2016-08-24 16:45 | NUR ---
ADMISSION PATIENT TO BE ADMITTED TO ROOM 132. RUBI DELGADO TO TAKE REPORT AT EXTENSION [id number].
[2016-08-24 17:09] VITALS: BP 115/54; PULSE 103; RESP 20; TEMP 97.8; O2SAT 93
--- NOTE | 2016-08-24 17:10 | NUR ---
ADMISSION PT TO ROOM 132. PT AMBULATED FROM CART TO BED. INITIAL ASSESSMENT DONE. PT ON 3L O2, TOLERATING WELL. LUNGS CTA. FAMILY IN ROOM. PT RESTING IN BED WITH ALARM. CALL LIGHT WITHIN REACH. WILL CONTINUE TO MONITOR.
[2016-08-24 17:15] VITALS: Ht 149.9 cm; Wt 54.5 kg
[2016-08-24 17:20] VITALS: PULSE 103; RESP 20
[2016-08-24] MEDS ORDERED: ONDANSETRON 4mg/2ml INJECTION IV PRN (17:45)
[2016-08-24 20:09] VITALS: BP 122/60; PULSE 97; RESP 20; TEMP 96.7; O2SAT 92
[2016-08-24 21:00] VITALS: PULSE 90; RESP 18
[2016-08-24] MEDS ORDERED: CYCLOBENZAPRINE 10 MG TABLET PO SCH (21:00)
[2016-08-24] MEDS ORDERED: DICYCLOMINE 20 MG TABLET PO SCH (21:00)
[2016-08-24] MEDS: KETOTIFEN 0.025% EYE DROPS 5ml BOTH EYES SCH (21:00)
[2016-08-24] MEDS: ALBUTEROL/IPRATROPIUM INHAL. 2.5mg-0.5mg/3ml Neb. AEROSOL SCH (21:00)
[2016-08-24] MEDS ORDERED: TETRAHYDROZOLINE 0.05% EYE DROP 15ml BOTH EYES PRN (21:00)
[2016-08-24] MEDS ORDERED: HYDROCODONE/APAP 5 mg/325 mg TABLET PO PRN (21:00)
[2016-08-24] MEDS ORDERED: ACETAMINOPHEN 325 MG TABLET PO PRN (21:00)
--- NOTE | 2016-08-24 21:16 | HPPDOC ---
HPI - Adult Date DATE: 08/24/16 TIME: 20:58 General Chief Complaint: I was very short of breath. History of Present Illness I saw Mrs. Juarez in her room today for her history and physical. She has metastatic lung cancer and had received a radiation treatment to her right upper ribs and her right pelvis had the office of her oncologist today. After she left and was going to [facility] she began throwing up. She had at least 3 serious episodes of emesis and then started having the dry heaves. She fell she could not breathe. This all began around 12:30 PM today. She has never had any sort of ill exams after radiation treatment before and this is about her third or fourth radiation treatment. She had manual Betts to the ER they assessed her and decided that she should be admitted to the hospital. Past Medical History Past Medical History Patient has a relatively brief past medical history she does have diagnosed lung cancer with widespread metastasis; she has a spastic colon after her colon was perforated during a colonoscopy; she has hypertension; and she has COPD. Surgical History Patient's Surgical History: Patient surgical history is brief: She has had trigger finger operations on both hands; she has had a pus pocket removed from her right neck; and has had her tubes tied in 1971. She also has surgery for a perforated bowel, cause during a colonoscopy and 2004. Current Medications Home Meds Reported Medications Hydrocodone/Acetaminophen (Hydrocodon-Acetaminoph 7.5-325) 7.5-325 Tablet, 1 TAB PO Q6H Y for PAIN 08/24/16 Cyclobenzaprine HCl (Cyclobenzaprine HCl) 10 Mg Tablet, 5 MG PO TID 08/24/16 Acetaminophen (Tylenol) 325 Mg Tablet, 325 MG PO Q4HR Y for PAIN 08/03/16 Meloxicam (Meloxicam) 15 Mg Tablet, 15 MG PO DAILY 08/03/16 Sodium Chloride (Saline Nasal [place]) 30 Ml [place], 1 SPRAY EA NOSTRIL QID Y for PRN ORDERS 11/05/15 Tetrahydrozoline HCl (Eye Drops) 15 Ml Drops, 1 DROP BOTH EYES DAILY Y for PRN ORDERS 11/05/15 Ketotifen Fumarate (Eye Itch Relief) 5 Ml Drops, 1 DROP BOTH EYES BID 11/05/15 Loratadine (Allergy) 10 Mg Tablet, 10 MG PO DAILY 11/05/15 Ipratropium/Albuterol Sulfate (Iprat-Albut 0.5-3(2.5) mg/3 ml) 3 Ml Ampul.neb, 1 VIAL AEROSOL Q6H 11/05/15 Chlorthalidone (Chlorthalidone) 25 Mg Tablet, 12.5 MG PO WB 11/05/15 Alendronate Sodium (Alendronate Sodium) 70 Mg Tablet, 70 MG PO WEEKLY 11/05/15 Lisinopril (Lisinopril) 20 Mg Tablet, 20 MG PO HS 08/10/08 Dicyclomine Hcl (Dicyclomine Hcl) 20 Mg Tablet, 20 MG PO TID 08/10/08 Multivitamins W-Minerals/Lut (Centrum Silver Tablet) 1 Tab Tablet, 1 TAB PO DAILY 08/10/08 Calcium Carbonate/Vitamin D3 (Calcium + D 600 Mg Tablet) 1 Tab Tablet, 2 TAB PO DAILY 08/10/08 Aspirin (Beronica) 81 Mg Tablet.dr, 81 MG PO DAILY 08/10/08 Amlodipine (Norvasc) 5 Mg Tablet, 5 MG PO HS 08/10/08 Allergies: Coded Allergies: No Known Drug Allergies (Verified Allergy, Unknown, 05/13/16) Family History Family History: Family history tells us that her mother at age 74 from a myocardial infarction and her father of an acute appendicitis attack at age 74. Family history otherwise noncontributory Social History Smoking Status: Former smoker Does patient use chewing tobac: No Second Hand Exposure: No Quit Date: May 30, 2004 Substance Use Type: does not use Alcohol Intake: occasionally Marital Status: Sexuality: male partner Housing: house Number of Children: 4 Service: No Current Occupational Status: retired Occupational Hazard: No Advance Directives: Yes DPOA for Healthcare Only (SIMI JUAREZ) Review of Systems Constitutional: REPORTS: weight loss, DENIES: difficulty falling asleep, early awakening, insomnia Eyes General: DENIES: burning, itching, pain Lids/Accessories: DENIES: erythema, swelling Vision: DENIES: acuity, change in color ENMT Ears: DENIES: drainage, erythema, foreign body, pain Hearing: REPORTS: hearing loss Balance: DENIES: ataxia, falling to one side, vertigo Sinuses: NOT FOUND: rhinorrhea Nose: NOT FOUND: change in smell, pain Mouth/Throat: DENIES: pain, scratchy throat, sore throat ENMT Teeth: DENIES: pain Jaw: DENIES: clicking, limited opening of mouth Cardiovascular DENIES: chest pain, orthopnea, paroxysmal nocturnal dysp Rhythm/Rate: DENIES: irregular beat, palpitations, tachycardia Vascular: DENIES: Raynaud's, atrophy, intermittent claudication Pulmonary Respiratory: cough, DENIES: dyspnea, hyperventilation, tachypnea GI Upper Abdomen: DENIES: dysphagia, food intolerances, nausea Lower Abdomen: DENIES: blood in stool, pain General: DENIES: dysuria, frequency, urgency Female: menopause, DENIES: menometrorrhagia, menorrhagia, metrorrhagia, usual length of period : see HPI Musculoskeletal General: DENIES: cramps, pain, weakness Lumbar: DENIES: pain, spasm Integumentary Skin: DENIES: color change, itching, rash Hair: DENIES: alopecia, dandruff Nails: DENIES: paronychia, subungal hematoma Breasts: lumps Psychiatric Psychiatric: DENIES: anxiety, depression, emotional instability, irritability, nervousness, suicidal ideation/attempt Endocrine DENIES: heat/cold intolerance Hematologic/Lymphatic DENIES: anemia, easy bruising Allergic/Immunological DENIES: sneezing All Other Systems All Other Systems: Reviewed (remainder of 10-point ROS Neg.) Physical Exam General General Nourishment: well nourished, well developed General Body Habitus: well groomed Vital Signs Vital Signs Date Time Temp Pulse Resp B/P Pulse Ox O2 Delivery O2 Flow Rate FiO2 08/24/16 20:09 96.7 97 20 122/60 92 Nasal Cannula 4.00 Height (Feet): 4 Height (Inches): 11.00 Telemetry Rhythm: Sinus Rhythm Eyes Brief: FOUND: PERRL ENMT Brief: NOT FOUND: nasal erythema, nasal exudate, nasal swelling, normal dentition Comments Patient has bilateral hearing aids ENMT Ear/Canal/Mastoid: FOUND: normal color, NOT FOUND: cavities, missing teeth Tympanic Membrane: Both: Normal Hearing: FOUND: normal acuity Nose: NOT FOUND: bleeding, turbinates red Mouth/Dental/Tongue: FOUND: mucosa moist, normal color Pharynx: FOUND: tonsil color, tonsil size Jaw: NOT FOUND: TMJ clicking, tenderness, trismus Neck Brief: NOT FOUND: adenopathy, carotid bruits, thyromegaly Respiratory Brief: FOUND: clear all marie, NOT FOUND: symmetrical, tenderness , wheezes Cardiovascular (brief) Cardiac Brief: FOUND: regular rate, regular rhythm, NOT FOUND: gallop, murmur, pedal edema Abdomen (brief) Abdominal Brief: NOT FOUND: BS normo active x4 Lymphatic (brief) Lymphatic Brief: NOT FOUND: adenopathy, lymphedema Musculoskeletal (brief) Musculoskeletal Brief: NOT FOUND: deformity, spasm, tenderness Neurologic (brief) Neurological Brief: FOUND: cranial 2-12 intact Neurologic RN Documented GCS Eye Opening: Verbal: Motor: Total: Psychiatric (brief) FOUND: alert, attentive, normal affect, oriented Laboratory Laboratory Tests Test 08/24/16 13:47 08/24/16 15:49 08/24/16 16:37 08/24/16 20:34 White Blood Count 18.7T/MM3 Red Blood Count 4.34M/MM3 Hemoglobin 12.3GM/DL Hematocrit 36.6% Mean Corpuscular Volume 84.3UM3 Mean Corpuscular Hemoglobin 28.3UUG Mean Corpuscular Hemoglobin Concent 33.6GM/DL RDW Standard Deviation 43.6FL Platelet Count 670T/MM3 Mean Platelet Volume 10.2UM3 Immature Granulocyte % (Auto) % Neutrophils (%) (Auto) % Lymphocytes (%) (Auto) % Monocytes (%) (Auto) % Eosinophils (%) (Auto) % Basophils (%) (Auto) % Absolute Immature Granulocyte (auto T/MM3 Absolute Neutrophils (auto) T/MM3 Absolute Lymphocytes (auto) T/MM3 Absolute Monocytes (auto) T/MM3 Absolute Eosinophils (auto) T/MM3 Absolute Basophils (auto) T/MM3 Neutrophils % (Manual) 69.0% Lymphocytes % (Manual) 18.0% Monocytes % (Manual) 5.0% Eosinophils % (Manual) 6.0% Basophils % (Manual) 2.0% Absolute Neutrophils (Manual) 12.9T/MM3 Lymphocytes # (Manual) 3.4T/MM3 Monocytes # (Manual) 0.9T/MM3 Eosinophils # (Manual) 1.1T/MM3 Basophils # (Manual) 0.4T/MM3 Red Cell Morphology Comment Normal Turbidity < 20 Sodium Level 137MEQ/L Potassium Level 4.8MEQ/L Chloride Level 95MEQ/L Carbon Dioxide Level 31MEQ/L Anion Gap 11MEQ/L Blood Urea Nitrogen 13.0MG/DL Creatinine 0.8MG/DL Glomerular Filtration Rate Calc 70 BUN/Creatinine Ratio 16RATIO Glucose Level 113MG/DL Calculated Osmolality 265MOSM/KG Calcium Level 10.0MG/DL Icterus Index < 2 Troponin I < 0.012ng/ml Chemistry Specimen Hemolysis < 15 Urine Collection Type Voided-not cc-midstr Urine Color Yellow Urine Turbidity Clear Urine pH 7.0 Urine Specific [place] 1.010 Urine Protein Negative Urine Glucose (UA) Negative Urine Ketones Negative Urine Blood Negative Urine Nitrite Negative Urine Bilirubin Negative Urine Urobilinogen 0.2EU/DL Urine Leukocyte Esterase 1+ Urine RBC 0-1/HPF Urine WBC 1-3/HPF Urine Squamous Epithelial Cells 0-5 Urine Bacteria Trace Urine Culture Indicated Cult not indicated Plasma Lactate 0.8MMOL/L 1.3MMOL/L Procalcitonin 0.06NG/ML Sepsis Diagnostic Criteria Sepsis Confirmed/Suspected Infection: No SIRS Criteria: Pulse >= 90 beats/min, WBC >=12,000 or <=4,000 Severe Sepsis None Seen Assessment & Plan Problems: (1) Nausea & vomiting Status: Resolved (2) Tachycardia Status: Resolved (3) COPD (chronic obstructive pulmonary disease) Status: Chronic Qualifiers: COPD type: emphysema Emphysema type: unspecified Qualified Codes: J43.9 - Emphysema, unspecified (4) Hypoxia Status: Acute (5) Flank pain Status: Chronic (6) Lumbar strain Status: Acute (7) Right humeral fracture Status: Acute Qualifiers: Humerus Location: distal Fracture type: closed Fracture alignment: nondisplaced Fracture healing: with nonunion (8) Tick bite with subsequent removal of tick Status: Resolved Assessment So the diagnoses for Mrs. Juarez are as follows: 1 hypoxia after several episodes of emesis and dry heaves; nausea and vomiting, currently resolved; and 3 COPD, chronic 4. Recent fracture of the distal right humerus. 5. Pulmonary cancer with widespread metastasis, currently being treated with radiation Code Status Full Code Hospital Course Summary Disclaimer The hospital course summary below is not to be considered part of the above Progress Note. GABRIELLE FREEMAN DO Aug 24, 2016 21:01
[2016-08-24] MEDS ORDERED: AMLODIPINE 5 MG TABLET PO SCH (22:00)
[2016-08-24] MEDS ORDERED: LISINOPRIL 20 MG TABLET PO SCH (22:00)
[2016-08-25 04:03] VITALS: BP 101/51; PULSE 79; RESP 16; TEMP 97.5; O2SAT 95
[2016-08-25 05:40] VITALS: O2SAT 96
[2016-08-25] MEDS: ALBUTEROL/IPRATROPIUM INHAL. 2.5mg-0.5mg/3ml Neb. AEROSOL SCH ×2 (05:42→10:24)
--- NOTE | 2016-08-25 05:47 | NUR ---
SHIFT SUMMARY PT ALERT AND ORIENTED X3, VITAL SIGNS STABLE ON 3L 02 VIA NC. DENIES C/P,N/V AND SOA. PT AMBULATES TO AND FROM THE BATHROOM WITH A STANDBY ASSIST. PT HAS HAD MILD PAIN UNDER THE RIGHT RIBCAGE, PT STATES THIS IS FROM FX RIBS THAT OCCURRED DURING A PREVIOUS FALL WHICH CAUSED THE HUMERUS FX IN RT ARM. PRN PAIN MEDICATION GIVEN. WILL CONTINUE TO MONITOR.
[2016-08-25] MEDS ORDERED: CHLORTHALIDONE 25 MG TABLET PO SCH (08:00)
[2016-08-25] MEDS ORDERED: MELOXICAM 15 MG TABLET PO SCH (08:00)
[2016-08-25] MEDS ORDERED: MULTIVITAMIN + MINERAL TABLET PO SCH (09:00)
[2016-08-25] MEDS ORDERED: CYCLOBENZAPRINE 5 MG TABLET PO SCH (09:00)
[2016-08-25] MEDS ORDERED: LORATADINE 10 MG TABLET PO SCH (09:00)
[2016-08-25] MEDS ORDERED: ASPIRIN *EC* 81mg TABLET PO SCH (09:00)
[2016-08-25] MEDS: DICYCLOMINE 20 MG TABLET PO SCH ×2 (10:02→12:06)
[2016-08-25] MEDS: KETOTIFEN 0.025% EYE DROPS 5ml BOTH EYES SCH (10:06)
[2016-08-25 10:24] VITALS: O2SAT 90
[2016-08-25 10:25] VITALS: PULSE 95; RESP 20
[2016-08-25 10:55] VITALS: PULSE 102
--- NOTE | 2016-08-25 10:55 | NUR ---
Resting room air saturation 87%, O2 placed back on and saturation allowed to recover to 92%. Reviewed pursed lip breathing with saturation 93-94% briefly. Upon standing and walking 4 feet saturation decreased to 87% while on 2 LPM. O2 increased to 3 LPM and saturation allowed to recover to 94%. Patient resumed ambulation and walked almost 150 feet with lowest saturation 91% while on 3 LPM. Patient returned to bedside chair with saturation 92-93% while sitting at rest wearing O2 at 3 LPM. O2 setting left at 3 LPM.
--- NOTE | 2016-08-25 11:47 | NUR ---
ANIVAL CM VISITED PT AND DAUGHTER. CM EXPLAINED ROLE AND PROVIDED CONTACT INFORMATION. PT PLANS TO RETURN HOME WITH DAUGHTER WHO IS STAYING WITH HER POST STAY AT [facility] [place]. PT IS AWARE THAT SHE MAY NEED OXYGEN. PT WILL USE [facility] DUE TO SHE HAS A NEBULIZER FROM THERE ALREADY. PT IS AWARE THAT CM WILL SET UP OXYGEN NEEDS. PT/DAUGHTER AWARE TO CONTACT CM IF NEEDS [facility].
[2016-08-25 12:23] VITALS: BP 109/60; PULSE 95; RESP 26; TEMP 96.6; O2SAT 96
--- NOTE | 2016-08-25 13:10 | NUR ---
ANIVAL CM VISITED PT AND EXPLAINED THAT PT WILL NEED HOME OXYGEN. PT IS AWARE THAT SHE WILL D/C HOME TODAY PER DR FREEMAN. PT IS AWARE THAT [facility] WILL [place] [facility] [place]. PT IS AWARE THAT [facility] WILL TAKE CONCENTRATOR TO HER HOME AND ANSWER QUESTIONS RELATED TO EQUIPMENT AND PROVIDED CONTACT INFORMATION. PT IS AWARE TO CONTACT CM IF NEEDS [facility].
--- NOTE | 2016-08-25 13:34 | DSPDOC ---
General Date Date DATE: 08/25/16 TIME: 13:21 Attending Physician Gabrielle Freeman DO Admitting Physician Gabrielle Freeman DO Consulting Physician Admitting Diagnosis hypoxia, cough Discharge Diagnosis hypoxia;nausea and emesis and copd Laboratory Laboratory Tests Test 08/24/16 13:47 08/24/16 15:49 08/24/16 16:37 08/24/16 20:34 White Blood Count 18.7T/MM3 (4.5-11.0) Red Blood Count 4.34M/MM3 (4.00-5.20) Hemoglobin 12.3GM/DL (12-16) Hematocrit 36.6% (36-46) Mean Corpuscular Volume 84.3UM3 (80-100) Mean Corpuscular Hemoglobin 28.3UUG (26-34) Mean Corpuscular Hemoglobin Concent 33.6GM/DL (31-37) RDW Standard Deviation 43.6FL (36.9-50.2) Platelet Count 670T/MM3 (130-400) Mean Platelet Volume 10.2UM3 (9.4-12.4) Immature Granulocyte % (Auto) % (0.0-0.5) Neutrophils (%) (Auto) % (33-66) Lymphocytes (%) (Auto) % (23-45) Monocytes (%) (Auto) % (0-9.0) Eosinophils (%) (Auto) % (0-4) Basophils (%) (Auto) % (0-2) Absolute Immature Granulocyte (auto T/MM3 (0.00-0.03) Absolute Neutrophils (auto) T/MM3 (1.8-7.7) Absolute Lymphocytes (auto) T/MM3 (1-4.8) Absolute Monocytes (auto) T/MM3 (0-0.8) Absolute Eosinophils (auto) T/MM3 (0-0.5) Absolute Basophils (auto) T/MM3 (0-0.2) Neutrophils % (Manual) 69.0% (33-66) Lymphocytes % (Manual) 18.0% (23-45) Monocytes % (Manual) 5.0% (0-9.0) Eosinophils % (Manual) 6.0% (0-4) Basophils % (Manual) 2.0% (0-2) Absolute Neutrophils (Manual) 12.9T/MM3 (1.8-7.7) Lymphocytes # (Manual) 3.4T/MM3 (1-4.8) Monocytes # (Manual) 0.9T/MM3 (0-0.8) Eosinophils # (Manual) 1.1T/MM3 (0-0.5) Basophils # (Manual) 0.4T/MM3 (0-0.2) Red Cell Morphology Comment Normal Turbidity < 20 (0-20) Sodium Level 137MEQ/L (134-144) Potassium Level 4.8MEQ/L (3.6-5) Chloride Level 95MEQ/L (98-107) Carbon Dioxide Level 31MEQ/L (22-30) Anion Gap 11MEQ/L (5-15) Blood Urea Nitrogen 13.0MG/DL (7-17) Creatinine 0.8MG/DL (0.7-1.2) Glomerular Filtration Rate Calc 70 BUN/Creatinine Ratio 16RATIO (6-26) Glucose Level 113MG/DL (65-110) Calculated Osmolality 265MOSM/KG (261-280) Calcium Level 10.0MG/DL (8.4-10.2) Icterus Index < 2 (0-7) Troponin I < 0.012ng/ml (0-0.12) Chemistry Specimen Hemolysis < 15 (0-25) Urine Collection Type Voided-not cc-midstr Urine Color Yellow (YELLOW) Urine Turbidity Clear (CLEAR) Urine pH 7.0 (5.0-8.0) Urine Specific [place] 1.010 (1.015-1.025) Urine Protein Negative (NEGATIVE) Urine Glucose (UA) Negative (NEGATIVE) Urine Ketones Negative (NEGATIVE) Urine Blood Negative (NEGATIVE) Urine Nitrite Negative (NEGATIVE) Urine Bilirubin Negative (NEGATIVE) Urine Urobilinogen 0.2EU/DL (NORMAL) Urine Leukocyte Esterase 1+ (NEGATIVE) Urine RBC 0-1/HPF (0-3) Urine WBC 1-3/HPF (0-5) Urine Squamous Epithelial Cells 0-5 Urine Bacteria Trace (NEGATIVE) Urine Culture Indicated Cult not indicated Plasma Lactate 0.8MMOL/L (0.6-2.2) 1.3MMOL/L (0.6-2.2) Procalcitonin 0.06NG/ML Microbiology Microbiology Date/Time Source Procedure Growth Status 08/24/16 16:38 Peripheral/Iv Start Blood Culture - Preliminary CULTURE INITIATED - RESULTS PENDING Resulted 08/24/16 16:37 Peripheral/Iv Start Blood Culture - Preliminary CULTURE INITIATED - RESULTS PENDING Resulted History of Present Illness I saw Mrs. Juarez in her room today for her history and physical. She has metastatic lung cancer and had received a radiation treatment to her right upper ribs and her right pelvis had the office of her oncologist today. After she left and was going to [facility] she began throwing up. She had at least 3 serious episodes of emesis and then started having the dry heaves. She fell she could not breathe. This all began around 12:30 PM today. She has never had any sort of ill exams after radiation treatment before and this is about her third or fourth radiation treatment. She had manual Betts to the ER they assessed her and decided that she should be admitted to the hospital. Hospital Course pt had a quiet, uneventful night and is ready to go back home today Problems: (1) Nausea & vomiting Status: Resolved (2) Tachycardia Status: Resolved (3) COPD (chronic obstructive pulmonary disease) Status: Chronic (4) Hypoxia Status: Acute (5) Flank pain Status: Chronic (6) Lumbar strain Status: Acute (7) Right humeral fracture Status: Acute (8) Tick bite with subsequent removal of tick Status: Resolved Code Status Full Code Home Meds Reported Medications Hydrocodone/Acetaminophen (Hydrocodon-Acetaminoph 7.5-325) 7.5-325 Tablet, 1 TAB PO Q6H Y for PAIN 08/24/16 Cyclobenzaprine HCl (Cyclobenzaprine HCl) 10 Mg Tablet, 5 MG PO TID 08/24/16 Acetaminophen (Tylenol) 325 Mg Tablet, 325 MG PO Q4HR Y for PAIN 08/03/16 Meloxicam (Meloxicam) 15 Mg Tablet, 15 MG PO DAILY 08/03/16 Sodium Chloride (Saline Nasal [place]) 30 Ml [place], 1 SPRAY EA NOSTRIL QID Y for PRN ORDERS 11/05/15 Tetrahydrozoline HCl (Eye Drops) 15 Ml Drops, 1 DROP BOTH EYES DAILY Y for PRN ORDERS 11/05/15 Ketotifen Fumarate (Eye Itch Relief) 5 Ml Drops, 1 DROP BOTH EYES BID 11/05/15 Loratadine (Allergy) 10 Mg Tablet, 10 MG PO DAILY 11/05/15 Ipratropium/Albuterol Sulfate (Iprat-Albut 0.5-3(2.5) mg/3 ml) 3 Ml Ampul.neb, 1 VIAL AEROSOL Q6H 11/05/15 Chlorthalidone (Chlorthalidone) 25 Mg Tablet, 12.5 MG PO WB 11/05/15 Alendronate Sodium (Alendronate Sodium) 70 Mg Tablet, 70 MG PO WEEKLY 11/05/15 Lisinopril (Lisinopril) 20 Mg Tablet, 20 MG PO HS 08/10/08 Dicyclomine Hcl (Dicyclomine Hcl) 20 Mg Tablet, 20 MG PO TID 08/10/08 Multivitamins W-Minerals/Lut (Centrum Silver Tablet) 1 Tab Tablet, 1 TAB PO DAILY 08/10/08 Calcium Carbonate/Vitamin D3 (Calcium + D 600 Mg Tablet) 1 Tab Tablet, 2 TAB PO DAILY 08/10/08 Aspirin (Beronica) 81 Mg Tablet.dr, 81 MG PO DAILY 08/10/08 Amlodipine (Norvasc) 5 Mg Tablet, 5 MG PO HS 08/10/08 Face to Face Encounter I met with patient on the day of dismissal and discussed follow up appointments , medications, and safety plan. Discharge Disposition pt to home. I saw Mrs. Sujata Juarez in her room today were she spent an uneventful night. We read the restrictive therapy evaluate her for home oxygen and she will have 3 L at home to help her scarred lungs. She is angry when I come into the room because her breakfast is late, however she denies shortness of breath since she does have O2 on, she denies chest pain, she denies any abdominal pain or problems, and denies any confusion or unmet requests. She does continue to complain of various aches and pains in her right arm, her right flank, her back, her low back, and pretty much every worse she has metastases from her lung cancer. Exam shows her lungs to be clear with a few crackles in the bases, heart demonstrates regular rate and rhythm, abdomen is soft, nontender and bowel sounds are physiologic, extremities show no clubbing no cyanosis and no edema , her right arm is in a sling because of the distal humerus fracture which I don't believe liver heel and she says it hurts pretty much all the time integument is pink warm dry and the shows no rash or bruising. Her diagnoses remain as follows: Hypoxemia, 2. Nausea and vomiting, resolved 3. COPD, chronic 4. Flank pain, secondary to bone metastasis I'm sure. 5. Back pain, once again due to metastasis ablated 6. Right distal humerus fracture, nonhealing 7. Tobacco dependence, for greater than 50 years plan is to discharge her to home today, her daughter is staying there with her, and we will have her own personal doctor prescribed her home oxygen for full-time use. I believe again is set at 3 L a minute. Prognosis is very guarded GABRIELLE FREEMAN DO Aug 25, 2016 13:24
--- NOTE | 2016-08-25 14:19 | NUR ---
Upon start of shift pt in bed sitting with legs elevated. O2 on at 2L/NC. O2 sat between 88 and 90%. Dgtr here mid am. Pt seem to have slight increased anxiety with company. A/O x3. Speech is clear, able to voice needs. Lung marie noted with expiratory wheezes. Respirations even, unlabored, shallow. Normoactive BS x4 quads, abd soft, nontender. Trace pitting edema noted at this time. IV lock to left hand flushed, patent, and removed. at 1415
--- NOTE | 2016-08-25 14:32 | NUR ---
DISCHARGE PATIENT IS ALERT AND ORIENTED X3. PATIENT DISCHARGE INSTRUCTIONS INCLUDE: CONTINUED MEDICATIONS, REASONS TO CALL PRIMARY DOCTOR, AND/OR SEEK IMMEDIATE CARE, OXYGEN THERAPY, AND DI FOR HYPOXIA. PERSONAL BELONGINGS RETURNED AND ID BANDS REMOVED. PATIENT LEFT VIA WHEELCHAIR FROM FRONT ENTRANCE WITH NURSING STAFF. PATIENT WAS TRANSPORTED HOME FOR SELF CARE.
--- NOTE | 2016-08-26 16:06 | NUR ---
CM CM LVM
== END 2016-08-25 14:32 | disposition home or self-care (01) ==
LOC: ED 13:34 → EDHOLD 16:26 → SRG 17:50
DX: R09.02 Hypoxemia (principal); J43.9 Emphysema, unspecified; R11.2 Nausea with vomiting, unspecified; R00.0 Tachycardia, unspecified; S39.012A Strain of muscle, fascia and tendon of lower back, initial encounter; X58.XXXA Exposure to other specified factors, initial encounter; Y93.89 Activity, other specified; Y92.89 Other specified places as the place of occurrence of the external cause; Y99.8 Other external cause status; I10 Essential (primary) hypertension; K58.9 Irritable bowel syndrome, unspecified; C34.91 Malignant neoplasm of unspecified part of right bronchus or lung; C79.89 Secondary malignant neoplasm of other specified sites; Z79.1 Long term (current) use of non-steroidal anti-inflammatories (NSAID); Z79.82 Long term (current) use of aspirin; Z79.899 Other long term (current) drug therapy; Z87.891 Personal history of nicotine dependence; S42.401K Unspecified fracture of lower end of right humerus, subsequent encounter for fracture with nonunion; X58.XXXD Exposure to other specified factors, subsequent encounter
CPT/HCPCS: 36415; 71010; 80048; 81001; 83605; 84145; 84484; 85025; 87040; 93005; 94640; 94761; 99284; A9270; G0378; 99218

== ENCOUNTER → 2016-08-30 | Outpatient (CLI) | payer MEDICARE, BC ==
[~2016-08-30] MED LIST changes: +CYCL-375 PO; +HYDR-4072 PO; -HYDR-4246 PO; +IOHEXOL 300 MG/ML 50ml INJECTION ONE; +NORMAL SALINE 100 ML ONE; +SALINE FLUSH 10ml SYRINGE ONE
[2016-08-30 11:56] LABS: BASOPHILS # (AUTO) 0.1 T/MM3 (0-0.2); BASOPHILS % (AUTO) 0.5 % (0-2); EOSINOPHILS # (AUTO) 0.3 T/MM3 (0-0.5); HCT - HEMATOCRIT 34.2 % (36-46); HGB - HEMOGLOBIN 11.5 GM/DL (12-16); IMMATURE GRANULOCYTE # (AUTO) 0.07 T/MM3 (0.00-0.03); IMMATURE GRANULOCYTE % (AUTO) 0.7 % (0.0-0.5); LYMPHOCYTES % (AUTO) 9.5 % (23-45); MEAN CORPUSCULAR HGB 28.6 UUG (26-34); MEAN CORPUSCULAR HGB CONC(MCHC 33.6 GM/DL (31-37); MEAN CORPUSCULAR VOLUME 85.1 UM3 (80-100); MEAN PLATELET VOLUME 9.8 UM3 (9.4-12.4); MONOCYTES # (AUTO) 0.8 T/MM3 (0-0.8); MONOCYTES % (AUTO) 7.6 % (0-9.0); NEUTROPHILS #(AUTO)-ABSOLUTE 8.4 T/MM3 (1.8-7.7); NEUTROPHILS % (AUTO) 78.7 % (33-66); RED BLOOD COUNT 4.02 M/MM3 (4.00-5.20); WBC - WHITE BLOOD COUNT 10.7 T/MM3 (4.5-11.0)
[2016-08-30 12:05] LABS: ALBUMIN 3.9 G/DL (3.5-5.0); ALBUMIN/GLOBULIN RATIO 1.1 RATIO (1.1-2.2); ALKALINE PHOSPHATASE 122 U/L (38-126); ALT (SGPT) 32 U/L (9-52); ANION GAP 11 MEQ/L (5-15); AST (SGOT) 24 U/L (14-36); BUN/CREATININE RATIO 22 RATIO (6-26); CALCIUM 9.8 MG/DL (8.4-10.2); CHLORIDE 94 MEQ/L (98-107); CO2 - CARBON DIOXIDE 32 MEQ/L (22-30); CREATININE 0.6 MG/DL (0.7-1.2); GLOMERULAR FILTRATION RATE 97; GLUCOSE 110 MG/DL (65-110); LDH 455 U/L (313-618); PHOSPHORUS 4.2 MG/DL (2.5-4.5); POTASSIUM 4.3 MEQ/L (3.6-5); SODIUM 137 MEQ/L (134-144); TOTAL PROTEIN 7.5 G/DL (6.3-8.2)
--- NOTE | 2016-08-30 12:34 | DI ---
Indication: ITS.REASON: C34.11 PROCEDURE: CT HEAD W/WO CONTRAST: Comparison: None Technique: Axial CT images through the head were performed without and with IV contrast. Iterative Reconstruction dose reducing technique was utilized. Contrast: Omnipaque 300 50mL FINDINGS: The ventricles are of normal size, shape, and contour for the patient's age. Extensive frontoparietal periventricular white matter low-attenuation is seen consistent with advanced small vessel ischemic disease. The brainstem, cerebellum, and cerebral hemispheres have a normal morphology and CT attenuation. No hemorrhage, mass effect, mass lesions, or edema is evident. No areas of abnormal enhancement are seen. The visualized portions of the skull base, sinuses, and calvarium demonstrate no abnormality. IMPRESSION: No acute intracranial abnormality. No evidence of intracranial metastatic disease. .
== END ==
LOC: IMA 11:35
PROVIDERS: ATTEND Internal Medicine Hematology & Oncology
DX: C34.11 Malignant neoplasm of upper lobe, right bronchus or lung (principal); D89.2 Hypergammaglobulinemia, unspecified
CPT/HCPCS: 36415; 70470; 80053; 83615; 83735; 84100; 85025; J7050; Q9967

== ENCOUNTER 2016-09-13 05:41 | Day surgery (SDC) | payer MEDICARE, BC ==
[2016-09-13] VITALS (10 sets, daily range): BP systolic 103–144; BP diastolic 39–65; PULSE 88–98; RESP 16–24; TEMP 97.5–97.8; O2SAT 92–100; Ht 149.9 cm; Wt 53.9 kg
[~2016-09-13] VITALS: Ht 149.9 cm; Wt 53.9 kg
[~2016-09-13 05:41] MED LIST changes: -ACET-2321 PO; +FOLI1TAB15 PO; -IOHEXOL 300 MG/ML 50ml INJECTION ONE; -MELO-267 PO; +METO-230 PO; -NORMAL SALINE 100 ML ONE; -SALINE FLUSH 10ml SYRINGE ONE
--- OUTSIDE RECORDS SUMMARY | 2016-09-13 05:46 | XMS REPORT | Continuity of Care Document ---
Author Author [facility] Organization [facility] Address Unknown Phone Unavailable Support Name Relationship Address Phone DEBORAH AMAYA MD Caregiver [facility] [address] [place] [address] Unavailable ANDREW FELICIANO MD Caregiver [address] [place] [address] [place] [phone] SIMI JUAREZ Next Of Kin [address] [place] [address] C Insurance Providers Payer Name Policy Number Subscriber Name Relationship Medicare [id number] Harriet Juarez 18 Self [facility] [id number] Harriet Juarez 18 Self Advance Directives Directive [...] 20 Mg PO DAILY 08/10/08 Active Ipratropium [place] 2 [place] EA NOSTRIL NEEDED 08/30/10 Active Social History [...] F (96.8 - 99.1) Temperature (Calculated Celsius) 35.28638 degrees C (36.0 - 37.3) Pulse Rate [...] Has specimen been collected/obtained? Y Urine Specific [place] August 10, 2008 5:07pm 1.015 - Has [...] Encounters Encounter Location Date/Time Departed Emergency Room [facility] 07/26/14 1:25am Recent Diagnosis
--- OUTSIDE RECORDS SUMMARY | 2016-09-13 05:46 | XMS REPORT | Continuity of Care Document ---
Author Author [facility] Organization [facility] Address Unknown Phone Unavailable Support Name Relationship Address Phone AYLA BUSH MD Caregiver [address] [place] [address] Unavailable MUKUND HOPKINS II, MD Caregiver [address] [place] [address] Unavailable GABRIELLE CHAPMAN DO Caregiver [address] [place] [address] Unavailable GABRIELLE CHAPMAN DO Caregiver [address] [place] [address] Unavailable SIMI JUAREZ DPOA Next Of Kin [address] [place] [address] C Insurance Providers Guarantor Harriet Juarez Address [address] [place] [address] C Email DENIED 16 Payer [facility] Policy Number [id number] Subscriber's Name Harriet Juarez Relationship 18 Self Group Number [id number] Payer Medicare Policy Number [id number] Subscriber's Name Harriet Juarez Relationship 18 Self Advance Directives Directive Response Recorded Date/Time Advanced Directives Type None 08/24/16 1:35pm Ordered Resuscitation Status Full Code 08/24/16 4:26pm Resuscitation Documents on File Yes 08/24/16 5:17pm DPOA for Healthcare Only Y SIMI JUAREZ 08/24/16 9:16pm Living Will Yes 08/24/16 5:17pm Advanced Directive or Resuscitation Comments PARTIAL, NO VENTILATOR 08/24/16 5:17pm Problems Active Problems Medical Problem Onset Date Status Anxiety Unknown Acute Back pain Unknown Acute Low back strain Unknown Acute Nausea & vomiting Unknown Resolved Night terror Unknown Acute Pharyngitis Unknown Acute Sinusitis Unknown Acute Tachycardia Unknown Resolved Past Problems Medical Problem Onset Date COPD (chronic obstructive pulmonary disease) Unknown Flank pain Unknown Hypoxia Unknown Lumbar strain Unknown Right humeral fracture Unknown Tick bite with subsequent removal of tick Unknown Medications Current Home Medications Medication Dose Units Route Directions Days Qty Instructions Start Date Acetaminophen (Tylenol) 325 Mg Tablet 325 Mg Oral Every 4 Hours as needed for Pain 08/03/16 Alendronate Sodium 70 Mg Tablet 70 Mg Oral Weekly 11/05/15 Amlodipine Besylate (Norvasc) 5 Mg Tablet 5 Mg Oral Bedtime 08/10 Aspirin (Beronica) 81 Mg Tablet.dr 81 Mg Oral Daily 08/10/08 Calcium Carbonate/Vitamin D3 (Calcium + D 600 Mg Tablet) 1 Tab Tablet 2 Tab Oral Daily 08/10/08 Chlorthalidone 25 Mg Tablet 12.5 Mg Oral Give With Breakfast 01/12 Cyclobenzaprine Hcl 10 Mg Tablet 5 Mg Oral Three Times A Day Dicyclomine Hcl 20 Mg Tablet 20 Mg Oral Three Times A Day Hydrocodone/Acetaminophen (Hydrocodon-Acetaminoph 7.5-325) 7.5-325 Tablet 1 Tab Oral Every 6 Hours as needed for Pain 08/24/16 Ipratropium/Albuterol Sulfate (Iprat-Albut 0.5-3(2.5) Mg/3 Ml) 3 Ml Ampul.neb 1 Vial Aerosol Tx. Every 6 Hours 11/05/15 Ketotifen Fumarate (Eye Itch Relief) 5 Ml Drops 1 Drop Both Eyes Twice A Day 11/05/15 Lisinopril 20 Mg Tablet 20 Mg Oral Bedtime 08/10/08 Loratadine (Allergy) 10 Mg Tablet 10 Mg Oral Daily 11/05/15 Meloxicam 15 Mg Tablet 15 Mg Oral Daily 08/03/16 Multivitamins W-Minerals/Lut (Centrum Silver Tablet) 1 Tab Tablet 1 Tab Oral Daily 08/10/08 Sodium Chloride (Saline Nasal [place]) 30 Ml [place] 1 [place] Each Nostril Four Times Daily as needed for Prn Orders 11/05/15 Tetrahydrozoline Hcl (Eye Drops) 15 Ml Drops 1 Drop Both Eyes Daily as needed for Prn Orders 11/05/15 Social History Social History Problem Response Recorded Date/Time Onset Date Status Reason for Hospitalization HYPOXIA 08/25/2016 2:19pm Not Applicable Not Applicable Hx Substance Use No 08/24/2016 1:35pm Not Applicable Not Applicable Hx Alcohol Use Y DAILY BEER 08/24/2016 1:35pm Not Applicable Not Applicable Has the pt used tobacco in the last 12 months Yes 08/24/2016 5:24pm Not Applicable Not Applicable Tobacco Usage none 11/05/2015 12:26pm Not Applicable Not Applicable Query Response Start Date Stop Date Smoking Status Former smoker Hospital Discharge Instructions Instructions: Care Instructions: I was in the hospital because (patient own words): "BECASUE I WAS THROWING UP VIOLENTLY AND AT ONE POINT I COULDNT CATCH MY BR Discharge Diet: soft Discharge Activity: as tolerated Follow Up Appointments: pt. wants to make it. Pending Lab / Results: No Pending Lab Expected Signs/Symptoms: possible return of nausea and emesis Notify Physician If: you begin feeling ill During Business Hours:: Please call the physician's office at After Business Hours:: Please call [phone] and have the train brake operator page the physician. Pain Management/Treatment: n/a Pain Scale Utilized to Educate Patient: 0-10 Pain Scale Wound/Incision Care: n/a Condition at time of discharge: Good Plan of Care Discharge Date 08/25/16 2:32pm Disposition 01 DISCHARGED HOME, SELF-CARE Instructions/Education Provided Hypoxia (ED) Prescriptions See Medication Section Care Plan and Goals See Discharge Instructions Section Functional Status Query Response Date Recorded Mobility Status Ambulatory August 24, 2016 5:09pm Assistive Devices None August 24, 2016 5:09pm Activity Limitations Weakness Pain August 24, 2016 5:09pm Feeding Ability Independent August 24, 2016 5:09pm Toileting Ability Independent August 24, 2016 5:09pm Grooming Ability Independent August 24, 2016 5:09pm Dressing Ability Independent August 24, 2016 5:09pm Driving Ability Dependent August 24, 2016 5:09pm Housework Ability Assist August 24, 2016 5:09pm Meal Preparation Ability Assist August 24, 2016 5:09pm Stair Climbing Ability Independent August 24, 2016 5:09pm Ability to complete ADL's impeded by Impaired Mobility August 24, 2016 5:17pm Cognitive/Perceptual Impairments Impaired vision August 24, 2016 5:09pm Visual Assistive Devices Glasses August 24, 2016 5:09pm Preferred Method of Learning Reading Pictures August 24, 2016 5:09pm Allergies, Adverse Reactions, Alerts Allergen Type Severity Reaction Status Last Updated No Known Drug Allergies Allergy Unknown Active 05/13/16 Immunizations Query Response on File Recorded Date/Time Hx Influenza Vaccination Y 03-11-16 08/24/16 5:24pm Hx Pneumococcal Vaccination Y 02-24-11,02-11-15 08/24/16 5:24pm Hx Influenza Vaccination Y 03-11-16 08/24/16 5:24pm Hx Tetanus Diptheria Y 08/10/08 07/26/14 1:30am Influenza Vaccine Hx 03/11/16 08/24/16 1:35pm Pneumococcal PCV13 Vaccine Hx 02/24/11 08/03/16 8:31pm Tdap Vaccine Hx 08/10/08 08/03/16 8:31pm Vital Signs Acute Vital Signs Vital Response Date/Time Temperature (Fahrenheit) 96.6 deg F (96.8 - 99.1) 08/25/2016 12:23pm Temperature (Calculated Celsius) 35.81085 degrees C (36.0 - 37.3) 08/25/2016 12:23pm Pulse Rate (adult) 95 bpm (60 - 100) 08/25/2016 12:23pm Respiratory Rate 26 breaths/min (10 - 20) 08/25/2016 12:23pm O2 Sat by Pulse Oximetry 96 % (90 - 100) 08/25/2016 12:23pm Oxygen Delivery Method Nasal Cannula 08/24/2016 8:57pm Oxygen Delivery Method Nasal Cannula 08/25/2016 12:23pm Oxygen Flow Rate 3.00 L/min 08/25/2016 12:23pm Blood Pressure 109/60 mm Hg 08/25/2016 12:23pm Blood Pressure Source Automatic Cuff 08/25/2016 12:23pm Height (Feet) 4 feet 08/24/2016 9:16pm Height (Inches) 11.00 inches 08/24/2016 9:16pm Weight (Kilograms) 54.500 kg 08/25/2016 8:24am Body Mass Index (BMI) 24.6 08/24/2016 5:15pm Results Laboratory Results Test Name Result Units Flags Reference Collection Date/Time Result Date/ Time Comments C-Reactive Protein 57.2 MG/L H 0-9 08/05/2016 12:43pm 08/05/2016 1:05pm Erythrocyte Sedimentation Rate 22 mm/h 0-23 08/05/2016 12:43pm 2016 12:39am Sedimentation Rate performed at [facility] Reference [facility], [address] [place] [address] Vessel Scrapper Helper Bandar Wesley DO Neutrophils (%) (Auto) 73.7 % H 33-66 08/13/2016 11:42am 08/13/2016 11: 51am Lymphocytes (%) (Auto) 13.5 % L 23-45 08/13/2016 11:42am 08/13/2016 11: 51am Monocytes (%) (Auto) 9.7 % H 0-9.0 08/13/2016 11:42am 08/13/2016 11: 51am Eosinophils (%) (Auto) 2.3 % 0-4 08/13/2016 11:42am 08/13/2016 11:51am Basophils (%) (Auto) 0.5 % 0-2 08/13/2016 11:42am 08/13/2016 11:51am Immature Granulocyte % (Auto) 0.3 % 0.0-0.5 08/13/2016 11:42am 2016 11:51am Absolute Neutrophils (auto) 10.1 T/MM3 H 1.8-7.7 08/13/2016 11:42am 11:51am Absolute Lymphocytes (auto) 1.9 T/MM3 1-4.8 08/13/2016 11:42am 2016 11:51am Absolute Monocytes (auto) 1.3 T/MM3 H 0-0.8 08/13/2016 11:42am 2016 11:51am Absolute Eosinophils (auto) 0.3 T/MM3 0-0.5 08/13/2016 11:42am 2016 11:51am Absolute Basophils (auto) 0.1 T/MM3 0-0.2 08/13/2016 11:42am 2016 11:51am Absolute Immature Granulocyte (auto 0.04 T/MM3 H 0.00-0.03 08/13/2016 11: 42am 08/13/2016 11:51am Immunoglobulin G 1129.45 MG/DL 700-1600 08/23/2016 11:12am 08/23/2016 11:53am Immunoglobulin A 311.14 MG/DL 70-400 08/23/2016 11:12am 08/23/2016 11: 53am Immunoglobulin M 75.09 MG/DL 40-230 08/23/2016 11:12am 08/23/2016 11: 53am Fufj-6-Xyseatdcxwcqw 3.16 mcg/mL H 08/23/2016 11:12am 08/25/2016 1: 07pm Reference Range: 1.21 - 2.70 Test Performed by: [facility] [address] [place] [address] Beta-2 Microglobulin, S performed at [facility], [address] [place] [address] Vessel Scrapper Helper Juliana Rob MD Immunoglobulin D 6 mg/dL <=10 08/23/2016 11:12am 08/25/2016 1:54pm Test Performed by: [facility] [address] [place] [address] Immunoglobulin D performed at [facility], [address] [place] [address] Vessel Scrapper Helper Juliana Rob MD Immunoglobulin E 58 IU/mL 0-100 08/23/2016 11:12am 08/23/2016 9:51pm IgE (Immunoglobulin E) performed at [facility], [address] [place] [address] Vessel Scrapper Helper Bandar Wesley DO Serum Total Protein 6.6 g/dL 6.0-7.6 08/23/2016 11:12am 08/23/2016 9: 51pm Immunoelectrophoresis, no IMQ performed at [facility], [address] [place] [address] Vessel Scrapper Helper Bandar Wesley DO Albumin (PEP) 2.9 g/dL 2.6-4.5 08/23/2016 11:1208/25/2016 1:19pm Osjjq-4-Ctegcuasl 0.7 g/dL H 0.3-0.5 08/23/2016 11:1208/25/2016 1: 19pm Beuar-2-Oaqfqvotg 1.1 g/dL 0.6-1.2 08/23/2016 11:1208/25/2016 1: 19pm Ghuo-1-Goseskio 0.4 g/dL 0.4-0.6 08/23/2016 11:1208/25/2016 1:19pm Vtta-4-Hqrzohdy 0.4 g/dL 0.2-0.5 08/23/2016 11:1208/25/2016 1:19pm Gamma Globulins 1.1 g/dL 0.4-1.7 08/23/2016 11:1208/25/2016 1:19pm Albumin % (PEP) 44.1 % L 48.7-61.8 08/23/2016 11:12am 08/25/2016 1:19pm Maeyx-0-Jqxbxhvrm (%) 10.3 % H 3.4-8.3 08/23/2016 11:12am 08/25/2016 1: 19pm Xhgox-3-Bbssejblo (%) 16.6 % 8.4-17.5 08/23/2016 11:12am 08/25/2016 1: 19pm Xyjx-5-Qojubakt (%) 5.6 % 5.4-8.9 08/23/2016 11:12am 08/25/2016 1:19pm Kqsl-4-Olvqvzhc (%) 6.1 % 3.8-7.7 08/23/2016 11:12am 08/25/2016 1:19pm Gamma Globulins (%) 17.3 % 8.1-23.0 08/23/2016 11:12am 08/25/2016 1: 19pm Immunoelectrophoresis, no IMQ performed at [facility], [address] [place] [address] Vessel Scrapper Helper Bandar Wesley DO Protein Electrophoresis Comment - 08/23/2016 11:12am 08/25/2016 1: 19pm Increased alpha-1 fraction. No monoclonal peaks or restricted areas observed by immunofixation. Free Homer/Lambda Light Chain Ratio 1.94 H 08/23/2016 11:12am 2016 1:22pm Reference Range: 0.2600-1.65 Test Performed by: [address] [address] Immunoglobulin Free Light Chains, Serum performed at [facility], [address] [place] [address] Vessel Scrapper Helper Juliana Rob MD Free Homer Light Chains 5.46 mg/dL H 08/23/2016 11:12am 08/25/2016 1: 22pm Reference Range: 0.3300-1.94 Free Lambda Light Chains 2.82 mg/dL H () 08/23/2016 11:12am 08/25/2016 1 :22pm Reference Range: 0.5700-2.63 Test Performed by: [facility] [address] [place] [address] Immunoglobulin Free Light Chains, Serum performed at [facility], [address] [place] [address] Vessel Scrapper Helper Juliana Rob MD Reference Range: 0.5700-2.63 --- 08/25/16 1322 --- IFLCLA previously reported as: 2.82 H mg/dL Reference Range: 0.5700-2.63 Test Performed by: [address] [address] Immunoglobulin Free Light Chains, Serum performed at [facility], [address] [place], [place] [id number] Vessel Scrapper Helper Juliana Rob MD Band Neutrophils % 1.0 % 0-6 08/23/2016 12:45pm 08/23/2016 2:00pm Band Neutrophils # 0.2 T/MM3 08/23/2016 12:45pm 08/23/2016 2:00pm Phosphorus Level 4.9 MG/DL H 2.5-4.5 08/23/2016 12:45pm 08/23/2016 11: 45pm Total Bilirubin 0.60 MG/DL 0.20-1.30 08/23/2016 12:45pm 08/23/2016 1: 43pm Alkaline Phosphatase 153 U/L H 38-126 08/23/2016 12:45pm 08/23/2016 1: 43pm Total Protein 7.4 G/DL 6.3-8.2 08/23/2016 12:45pm 08/23/2016 1:43pm Albumin 3.6 G/DL 3.5-5.0 08/23/2016 12:45pm 08/23/2016 1:43pm Globulin 3.8 G/DL H 2.4-3.6 08/23/2016 12:45pm 08/23/2016 1:43pm Albumin/Globulin Ratio 0.9 RATIO L 1.1-2.2 08/23/2016 12:45pm 2016 1:43pm Aspartate Amino Transf (AST/SGOT) 24 U/L 14-36 08/23/2016 12:45pm 08/23 1:43pm Alanine Aminotransferase (ALT/SGPT) 31 U/L 9-52 08/23/2016 12:45pm 2:04pm Lactate Dehydrogenase 628 U/L H 313-618 08/23/2016 12:45pm 08/23/2016 2: 04pm Magnesium Level 2.1 MG/DL 1.6-2.3 08/23/2016 12:45pm 08/23/2016 1:43pm Carcinoembryonic Antigen 103.00 UG/L H 0-3.0 08/23/2016 12:45pm 2016 2:48pm White Blood Count 18.7 T/MM3 H 4.5-11.0 08/24/2016 1:47pm 08/24/2016 2: 12pm Red Blood Count 4.34 M/MM3 4.00-5.20 08/24/2016 1:47pm 08/24/2016 2: 12pm Hemoglobin 12.3 GM/DL 12-16 08/24/2016 1:47pm 08/24/2016 2:12pm Hematocrit 36.6 % 36-46 08/24/2016 1:47pm 08/24/2016 2:12pm Mean Corpuscular Volume 84.3 UM3 80-100 08/24/2016 1:47pm 08/24/2016 2: 12pm Mean Corpuscular Hemoglobin 28.3 UUG 26-34 08/24/2016 1:47pm 2016 2:12pm Mean Corpuscular Hemoglobin Concent 33.6 GM/DL 31-37 08/24/2016 1:47pm 08/24/2016 2:12pm RDW Standard Deviation 43.6 FL 36.9-50.2 08/24/2016 1:47pm 08/24/2016 2 :12pm Platelet Count 670 T/MM3 H 130-400 08/24/2016 1:47pm 08/24/2016 2:12pm Mean Platelet Volume 10.2 UM3 9.4-12.4 08/24/2016 1:47pm 08/24/2016 2: 12pm Neutrophils % (Manual) 69.0 % H 33-66 08/24/2016 1:47pm 08/24/2016 2: 25pm Lymphocytes % (Manual) 18.0 % L 23-45 08/24/2016 1:47pm 08/24/2016 2: 25pm Monocytes % (Manual) 5.0 % 0-9.0 08/24/2016 1:47pm 08/24/2016 2:25pm Eosinophils % (Manual) 6.0 % H 0-4 08/24/2016 1:47pm 08/24/2016 2:25pm Basophils % (Manual) 2.0 % 0-2 08/24/2016 1:47pm 08/24/2016 2:25pm Absolute Neutrophils (Manual) 12.9 T/MM3 H 1.8-7.7 08/24/2016 1:47pm 2:25pm Lymphocytes # (Manual) 3.4 T/MM3 1-4.8 08/24/2016 1:47pm 08/24/2016 2: 25pm Monocytes # (Manual) 0.9 T/MM3 H 0-0.8 08/24/2016 1:47pm 08/24/2016 2: 25pm Eosinophils # (Manual) 1.1 T/MM3 H 0-0.5 08/24/2016 1:47pm 08/24/2016 2: 25pm Basophils # (Manual) 0.4 T/MM3 H 0-0.2 08/24/2016 1:47pm 08/24/2016 2: 25pm Red Cell Morphology Comment NORMAL 08/24/2016 1:47pm 08/24/2016 2: 25pm Icterus Index < 2 0-7 08/24/2016 1:47pm 08/24/2016 2:11pm Chemistry Specimen Hemolysis < 15 0-25 08/24/2016 1:pm 08/24/2016 2 :11pm 0-25: Specimen Exhibited No Hemolysis. Turbidity < 20 0-20 08/24/2016 1:47pm 08/24/2016 2:11pm Sodium Level 137 MEQ/L 134-144 08/24/2016 1:47pm 08/24/2016 2:11pm Potassium Level 4.8 MEQ/L 3.6-5 08/24/2016 1:4708/24/2016 2:11pm Chloride Level 95 MEQ/L L 98-107 08/24/2016 1:47pm 08/24/2016 2:11pm Carbon Dioxide Level 31 MEQ/L H 22-30 08/24/2016 1:47pm 08/24/2016 2: 11pm Anion Gap 11 MEQ/L 5-15 08/24/2016 1:47pm 08/24/2016 2:11pm Blood Urea Nitrogen 13.0 MG/DL 7-17 08/24/2016 1:47pm 08/24/2016 2: 11pm Creatinine 0.8 MG/DL 0.7-1.2 08/24/2016 1:47pm 08/24/2016 2:11pm BUN/Creatinine Ratio 16 RATIO 6-26 08/24/2016 1:47pm 08/24/2016 2:11pm Glomerular Filtration Rate Calc 70 08/24/2016 1:47pm 08/24/2016 2: 11pm Glucose Level 113 MG/DL H 65-110 08/24/2016 1:47pm 08/24/2016 2:11pm Calculated Osmolality 265 MOSM/KG 261-280 08/24/2016 1:47pm 08/24/2016 2:11pm Calcium Level 10.0 MG/DL 8.4-10.2 08/24/2016 1:47pm 08/24/2016 2:11pm Troponin I < 0.012 ng/ml 0-0.12 08/24/2016 1:47pm 08/24/2016 2:22pm Troponin values with a difference of 55% increase from orginal troponin value represent a true biological DELTA value. (%increase Calc=Orginal Troponin value, divided by subsequent Troponin value, multiplied by 100) Plasma Lactate 1.3 MMOL/L 0.6-2.2 08/24/2016 8:34pm 08/24/2016 8:49pm Procalcitonin 0.06 NG/ML 08/24/2016 4:37pm 08/24/2016 5:16pm PCT </= 0.5 ng/mL - sepsis not likely; PCT >0.5 and </=2 ng/mL - sepsis possible; PCT >2 ng/mL - sepsis likely; PCT >/=10 ng/mL - systemic inflammatory response - sepsis or septic shock highly indicated. Urine Collection Type VOIDED-NOT CC-MIDSTR 08/24/2016 3:49pm 2016 3:55pm Urine Color YELLOW YELLOW 08/24/2016 3:49pm 08/24/2016 3:55pm Urine Turbidity CLEAR CLEAR 08/24/2016 3:49pm 08/24/2016 3:55pm Urine Specific [place] 1.010 L 1.015-1.025 08/24/2016 3:49pm 2016 3:55pm Urine pH 7.0 5.0-8.0 08/24/2016 3:49pm 08/24/2016 3:55pm Urine Leukocyte Esterase 1+ A NEGATIVE 08/24/2016 3:49pm 08/24/2016 3: 55pm Urine Nitrite NEGATIVE NEGATIVE 08/24/2016 3:49pm 08/24/2016 3:55pm Urine Protein NEGATIVE NEGATIVE 08/24/2016 3:49pm 08/24/2016 3:55pm Urine Glucose (UA) NEGATIVE NEGATIVE 08/24/2016 3:49pm 08/24/2016 3: 55pm Urine Ketones NEGATIVE NEGATIVE 08/24/2016 3:49pm 08/24/2016 3:55pm Urine Urobilinogen 0.2 EU/DL NORMAL 08/24/2016 3:49pm 08/24/2016 3: 55pm Urine Bilirubin NEGATIVE NEGATIVE 08/24/2016 3:49pm 08/24/2016 3: 55pm Urine Blood NEGATIVE NEGATIVE 08/24/2016 3:49pm 08/24/2016 3:55pm Urine WBC 1-3 /HPF 0-5 08/24/2016 3:49pm 08/24/2016 4:07pm Urine RBC 0-1 /HPF 0-3 08/24/2016 3:49pm 08/24/2016 4:07pm Urine Squamous Epithelial Cells 0-5 08/24/2016 3:49pm 08/24/2016 4: 07pm Urine Bacteria TRACE H NEGATIVE 08/24/2016 3:49pm 08/24/2016 4:07pm Urine Culture Indicated CULT NOT INDICATED 08/24/2016 3:49pm 2016 4:07pm Microbiology Results Procedure Source Organism/Result Collection Date/Time Result Date/Time Result Status Blood Culture Peripheral/Iv Start CULTURE INITIATED - RESULTS PENDING 08/24 4:38pm 08/24/2016 4:42pm Preliminary Name: HARRIET JUAREZ Unit #: [id number] : [id number] Sex: F DISCHARGE SUMMARY Admit Date: 08/24/16 Report #: [id number] [facility] General Date Date DATE: 3/29/17 TIME: 13:21 Attending Physician Gabrielle Chapman DO Admitting Physician Gabrielle Chapman DO Consulting Physician Admitting Diagnosis hypoxia, cough Discharge Diagnosis hypoxia;nausea and emesis and copd Laboratory Laboratory Tests Test 08/24/16 13:47 08/24/16 15:49 08/24/16 16:37 08/24/16 20:34 White Blood Count 18.7T/MM3 (4.5-11.0) Red Blood Count 4.34M/MM3 (4.00-5.20) Hemoglobin 12.3GM/DL (12-16) Hematocrit 36.6% (36-46) Mean Corpuscular Volume 84.3UM3 (80-100) Mean Corpuscular Hemoglobin 28.3UUG (26-34) Mean Corpuscular Hemoglobin Concent 33.6GM/DL (31-37) RDW Standard Deviation 43.6FL (36.9-50.2) Platelet Count 670T/MM3 (130-400) Mean Platelet Volume 10.2UM3 (9.4-12.4) Immature Granulocyte % (Auto) % (0.0-0.5) Neutrophils (%) (Auto) % (33-66) Lymphocytes (%) (Auto) % (23-45) Monocytes (%) (Auto) % (0-9.0) Eosinophils (%) (Auto) % (0-4) Basophils (%) (Auto) % (0-2) Absolute Immature Granulocyte (auto T/MM3 (0.00-0.03) Absolute Neutrophils (auto) T/MM3 (1.8-7.7) Absolute Lymphocytes (auto) T/MM3 (1-4.8) Absolute Monocytes (auto) T/MM3 (0-0.8) Absolute Eosinophils (auto) T/MM3 (0-0.5) Absolute Basophils (auto) T/MM3 (0-0.2) Neutrophils % (Manual) 69.0% (33-66) Lymphocytes % (Manual) 18.0% (23-45) Monocytes % (Manual) 5.0% (0-9.0) Eosinophils % (Manual) 6.0% (0-4) Basophils % (Manual) 2.0% (0-2) Absolute Neutrophils (Manual) 12.9T/MM3 (1.8-7.7) Lymphocytes # (Manual) 3.4T/MM3 (1-4.8) Monocytes # (Manual) 0.9T/MM3 (0-0.8) Eosinophils # (Manual) 1.1T/MM3 (0-0.5) Basophils # (Manual) 0.4T/MM3 (0-0.2) Red Cell Morphology Comment Normal Turbidity < 20 (0-20) Sodium Level 137MEQ/L (134-144) Potassium Level 4.8MEQ/L (3.6-5) Chloride Level 95MEQ/L (98-107) Carbon Dioxide Level 31MEQ/L (22-30) Anion Gap 11MEQ/L (5-15) Blood Urea Nitrogen 13.0MG/DL (7-17) Creatinine 0.8MG/DL (0.7-1.2) Glomerular Filtration Rate Calc 70 BUN/Creatinine Ratio 16RATIO (6-26) Glucose Level 113MG/DL (65-110) Calculated Osmolality 265MOSM/KG (261-280) Calcium Level 10.0MG/DL (8.4-10.2) Icterus Index < 2 (0-7) Troponin I < 0.012ng/ml (0-0.12) Chemistry Specimen Hemolysis < 15 (0-25) Urine Collection Type Voided-not cc-midstr Urine Color Yellow (YELLOW) Urine Turbidity Clear (CLEAR) Urine pH 7.0 (5.0-8.0) Urine Specific [place] 1.010 (1.015-1.025) Urine Protein Negative (NEGATIVE) Urine Glucose (UA) Negative (NEGATIVE) Urine Ketones Negative (NEGATIVE) Urine Blood Negative (NEGATIVE) Urine Nitrite Negative (NEGATIVE) Urine Bilirubin Negative (NEGATIVE) Urine Urobilinogen 0.2EU/DL (NORMAL) Urine Leukocyte Esterase 1+ (NEGATIVE) Urine RBC 0-1/HPF (0-3) Urine WBC 1-3/HPF (0-5) Urine Squamous Epithelial Cells 0-5 Urine Bacteria Trace (NEGATIVE) Urine Culture Indicated Cult not indicated Plasma Lactate 0.8MMOL/L (0.6-2.2) 1.3MMOL/L (0.6-2.2) Procalcitonin 0.06NG/ML Microbiology Microbiology Date/Time Source Procedure Growth Status 08/24/16 16:38 Peripheral/Iv Start Blood Culture - Preliminary CULTURE INITIATED - RESULTS PENDING Resulted 08/24/16 16:37 Peripheral/Iv Start Blood Culture - Preliminary CULTURE INITIATED - RESULTS PENDING Resulted History of Present Illness I saw Mrs. Juarez in her room today for her history and physical. She has metastatic lung cancer and had received a radiation treatment to her right upper ribs and her right pelvis had the office of her oncologist today. After she left and was going to [facility] she began throwing up. She had at least 3 serious episodes of emesis and then started having the dry heaves. She fell she could not breathe. This all began around 12:30 PM today. She has never had any sort of ill exams after radiation treatment before and this is about her third or fourth radiation treatment. She had manual Betts to the ER they assessed her and decided that she should be admitted to the hospital. Hospital Course pt had a quiet, uneventful night and is ready to go back home today Problems: (1) Nausea & vomiting Status: Resolved (2) Tachycardia Status: Resolved (3) COPD (chronic obstructive pulmonary disease) Status: Chronic (4) Hypoxia Status: Acute (5) Flank pain Status: Chronic (6) Lumbar strain Status: Acute (7) Right humeral fracture Status: Acute (8) Tick bite with subsequent removal of tick Status: Resolved Code Status Full Code Home Meds Reported Medications Hydrocodone/Acetaminophen (Hydrocodon-Acetaminoph 7.5-325) 7.5-325 Tablet, 1 TAB PO Q6H Y for PAIN 08/24/16 Cyclobenzaprine HCl (Cyclobenzaprine HCl) 10 Mg Tablet, 5 MG PO TID 08/24/16 Acetaminophen (Tylenol) 325 Mg Tablet, 325 MG PO Q4HR Y for PAIN 08/03/16 Meloxicam (Meloxicam) 15 Mg Tablet, 15 MG PO DAILY 08/03/16 Sodium Chloride (Saline Nasal [place]) 30 Ml [place], 1 SPRAY EA NOSTRIL QID Y for PRN ORDERS 11/05/15 Tetrahydrozoline HCl (Eye Drops) 15 Ml Drops, 1 DROP BOTH EYES DAILY Y for PRN ORDERS 11/05/15 Ketotifen Fumarate (Eye Itch Relief) 5 Ml Drops, 1 DROP BOTH EYES BID 11/05/15 Loratadine (Allergy) 10 Mg Tablet, 10 MG PO DAILY 11/05/15 Ipratropium/Albuterol Sulfate (Iprat-Albut 0.5-3(2.5) mg/3 ml) 3 Ml Ampul.neb, 1 VIAL AEROSOL Q6H 11/05/15 Chlorthalidone (Chlorthalidone) 25 Mg Tablet, 12.5 MG PO WB 11/05/15 Alendronate Sodium (Alendronate Sodium) 70 Mg Tablet, 70 MG PO WEEKLY 11/05/15 Lisinopril (Lisinopril) 20 Mg Tablet, 20 MG PO HS 08/10/08 Dicyclomine Hcl (Dicyclomine Hcl) 20 Mg Tablet, 20 MG PO TID 08/10/08 Multivitamins W-Minerals/Lut (Centrum Silver Tablet) 1 Tab Tablet, 1 TAB PO DAILY 08/10/08 Calcium Carbonate/Vitamin D3 (Calcium + D 600 Mg Tablet) 1 Tab Tablet, 2 TAB PO DAILY 08/10/08 Aspirin (Beronica) 81 Mg Tablet.dr, 81 MG PO DAILY 08/10/08 Amlodipine (Norvasc) 5 Mg Tablet, 5 MG PO HS 08/10/08 Face to Face Encounter I met with patient on the day of dismissal and discussed follow up appointments , medications, and safety plan. Discharge Disposition pt to home. I saw Mrs. Sujata Juarez in her room today were she spent an uneventful night. We read the restrictive therapy evaluate her for home oxygen and she will have 3 L at home to help her scarred lungs. She is angry when I come into the room because her breakfast is late, however she denies shortness of breath since she does have O2 on, she denies chest pain, she denies any abdominal pain or problems, and denies any confusion or unmet requests. She does continue to complain of various aches and pains in her right arm, her right flank, her back , her low back, and pretty much every worse she has metastases from her lung cancer. Exam shows her lungs to be clear with a few crackles in the bases, heart demonstrates regular rate and rhythm, abdomen is soft, nontender and bowel sounds are physiologic, extremities show no clubbing no cyanosis and no edema , her right arm is in a sling because of the distal humerus fracture which I don' t believe liver heel and she says it hurts pretty much all the time integument is pink warm dry and the shows no rash or bruising. Her diagnoses remain as follows: Hypoxemia, 2. Nausea and vomiting, resolved 3. COPD, chronic 4. Flank pain, secondary to bone metastasis I'm sure. 5. Back pain, once again due to metastasis ablated 6. Right distal humerus fracture, nonhealing 7. Tobacco dependence, for greater than 50 years plan is to discharge her to home today, her daughter is staying there with her, and we will have her own personal doctor prescribed her home oxygen for full-time use. I believe again is set at 3 L a minute. Prognosis is very guarded GABRIELLE CHAPMAN DO Aug 25, 2016 13:24 Procedures Procedure Status Date Provider(s) X-ray exam hip uni 2-3 views Completed 06/11/16 X-ray exam of humerus Completed 08/03/16 Ct upper extremity w/o dye Completed 08/03/16 Emergency dept visit Completed 08/03/16 Mri joint upr extr w/o&w/dye Completed 08/10/16 Bone imaging whole body Completed 08/10/16 [id number]"TECHNETIUM TC-99M MEDRONATE, DIAGNOSTIC, PER STUDY DO Completed GADAVIST 10ML SDV - Contrast,Gadavist 10ml Completed 08/10/16 Routine venipuncture Completed 08/05/16 Comprehen metabolic panel Completed 08/05/16 Lactate (ld) (ldh) enzyme Completed 08/05/16 Complete cbc w/auto diff wbc Completed 08/05/16 Rbc sed rate automated Completed 08/05/16 C-reactive protein Completed 08/05/16 Routine venipuncture Completed 08/13/16 Ct thorax w/dye Completed 08/13/16 Ct abd & pelv w/contrast Completed 08/13/16 Comprehen metabolic panel Completed 08/13/16 Lactate (ld) (ldh) enzyme Completed 08/13/16 Assay of magnesium Completed 08/13/16 Complete cbc w/auto diff wbc Completed 08/13/16 [id number]"INFUSION, NORMAL SALINE SOLUTION , 250 CC" Completed 08/13/16 [id number]"LOW OSMOLAR CONTRAST MATERIAL, 300-399 MG/ML IODINE C Completed Bone biopsy trocar/needle Completed 08/16/[address] scan for needle biopsy Completed 08/16/16 Tissue exam by pathologist Completed 08/16/16 Decalcify tissue Completed 08/16/16 Immunohisto antb addl slide Completed 08/16/16 Immunohisto antb 1st stain Completed 08/16/16 Encounters Encounter Location Arrival/Admit Date Discharge/Depart Date Attending Provider Discharged Inpatient (obs) [facility] 08/24/16 4:26pm 08/25/16 2: 32pm GABRIELLE CHAPMAN DO Registered [facility] 08/23/16 1:24pm EDMUND DONAHUE MD Registered [facility] 08/23/16 1:21pm BRENDEN MCNEIL Registered [facility] 08/23/16 10:56am BRENDEN MCNEIL Registered [facility] 08/19/16 12:25pm EDMUND DONAHUE MD Registered [facility] 08/16/16 3:23pm BRENDEN MCNEIL Registered [facility] 08/13/16 9:22am BRENDEN MCNEIL Registered [facility] 08/10/16 8:12am CELESTINE RUBIN MD Registered [facility] 08/05/16 11:28am CELESTINE RUBIN MD Departed Emergency Room [facility] 08/03/16 8:08pm 08/03/16 10: 00pm LASHONDA BRANNON DO Registered [facility] 06/11/16 2:00pm MUKUND HOPKINS II, MD
[2016-09-13 06:34] LABS: BASOPHILS # (AUTO) 0.1 T/MM3 (0-0.2); BASOPHILS % (AUTO) 0.7 % (0-2); EOSINOPHILS # (AUTO) 0.9 T/MM3 (0-0.5); EOSINOPHILS % (AUTO) 11.6 % (0-4); HCT - HEMATOCRIT 29.7 % (36-46); IMMATURE GRANULOCYTE # (AUTO) 0.08 T/MM3 (0.00-0.03); LYMPHOCYTES # (AUTO) 0.5 T/MM3 (1-4.8); LYMPHOCYTES % (AUTO) 6.7 % (23-45); MEAN CORPUSCULAR HGB 28.7 UUG (26-34); MEAN CORPUSCULAR HGB CONC(MCHC 33.7 GM/DL (31-37); MEAN CORPUSCULAR VOLUME 85.3 UM3 (80-100); MEAN PLATELET VOLUME 10.1 UM3 (9.4-12.4); MONOCYTES # (AUTO) 0.9 T/MM3 (0-0.8); NEUTROPHILS #(AUTO)-ABSOLUTE 5.6 T/MM3 (1.8-7.7); RED BLOOD COUNT 3.48 M/MM3 (4.00-5.20); WBC - WHITE BLOOD COUNT 8.1 T/MM3 (4.5-11.0)
[2016-09-13] MEDS ORDERED: DEXA4TAB PO (06:36)
[2016-09-13] MEDS ORDERED: BUPIVACAINE 0.25%/EPI 1:200,000 30ml SDV ONE (06:36)
[2016-09-13] MEDS ORDERED: SALINE FLUSH *Sterile Field* 10ml SYRINGE ONE (06:36)
[2016-09-13] MEDS ORDERED: LIDOCAINE 1% (10mg/ml) 2ml SDV INJ ONE (07:00)
[2016-09-13] MEDS ORDERED: LR 1,000 ML IV SCH (07:00)
--- NOTE | 2016-09-13 07:13 | ANESPREOP ---
Anesthesia Record Date and Time DATE: 09/13/16 TIME: 07:11 Pre-Op Diagnosis lung ca Proposed Surgical Procedure POWER PORT INSERTION Allergies: Coded Allergies: No Known Drug Allergies (Verified Allergy, Unknown, 09/13/16) Ht/Wt/BMI Height: 4 ' 11.00 " Weight: 53.900 kg BMI: 24.0 kg/m2 Vital Signs Date Time Temp Pulse Resp B/P Pulse Ox O2 Delivery O2 Flow Rate FiO2 09/13/16 06:16 97.8 98 16 122/58 92 Nasal Cannula 2.00 Medications Inpatient Medications Current Medications Medications (Trade) Dose Ordered Sig/Ryan Start Time Stop Time Status Last Admin Dose Admin Lactated Ringer's (Lactated Ringers) 1,000 ml @ 50 mls/hr Q20H 09/13/16 07:00 09/13/16 06:58 50 MLS/HR Amlodipine (Norvasc) 5 Mg Tablet, 5 MG PO HS, (Reported) Last Taken: on 09/12/16 1800 Aspirin (Beronica) 81 Mg Tablet.dr, 81 MG PO DAILY , (Reported) Last Taken: on 09/08/16 Calcium Carbonate/Vitamin D3 (Calcium + D 600 Mg Tablet) 1 Tab Tablet, 2 TAB PO DAILY, (Reported) Last Taken: on 09/12/16 1200 Chlorthalidone (Chlorthalidone) 25 Mg Tablet, 12.5 MG PO WB, (Reported) Last Taken: on 09/12/16 0800 Cyclobenzaprine HCl (Cyclobenzaprine HCl) 10 Mg Tablet, 0.5 MG PO BID PRN for MUSCLE PAIN, (Reported) Last Taken: on Unknown Date & Time Dexamethasone (Dexamethasone) 4 Mg Tablet, 1 TAB PO DAILY, (Reported) Dicyclomine Hcl (Dicyclomine Hcl) 20 Mg Tablet, 20 MG PO TID, (Reported) Last Taken: on 09/12/16 1800 Folic Acid (Folic Acid) 1 Mg Tablet, 1 TAB PO NOON, (Reported) Last Taken: on 09/12/16 1200 Hydrocodone/Acetaminophen (Hydrocodon- Acetaminoph 7.5-325) 7.5-325 Tablet, 1 TAB PO Q6H PRN for PAIN, (Reported) Last Taken: on 09/13/16 0355 Ipratropium/Albuterol Sulfate (Iprat-Albut 0.5- 3(2.5) mg/3 ml) 3 Ml Ampul.neb, 1 VIAL AEROSOL Q6H, (Reported) Last Taken: on 09/13/16 0300 Ketotifen Fumarate (Eye Itch Relief) 5 Ml Drops , 1 DROP BOTH EYES BID PRN for ITCHING, (Reported) Last Taken: on Unknown Date & Time Lisinopril (Lisinopril) 20 Mg Tablet, 20 MG PO HS, (Reported) Last Taken: on 09/12/16 1800 Loratadine (Allergy) 10 Mg Tablet, 10 MG PO DAILY PRN for ALLERY SYMPTOMS, (Reported) Last Taken: on Unknown Date & Time Metoclopramide HCl (Reglan) 10 Mg Tablet , 10 MG PO Q6-8HPRN, (Reported) Take 1 tablet, by mouth, 4 times a day (with meals and bedtime). Last Taken: on 09/12/16 0800 Multivitamins W-Minerals/Lut (Centrum Silver Tablet) 1 Tab Tablet, 1 TAB PO DAILY, (Reported) Last Taken: on 09/12/16 1800 Sodium Chloride (Saline Nasal [place]) 30 Ml [place], 1 SPRAY EA NOSTRIL QID PRN for PRN ORDERS, (Reported) Last Taken: on Unknown Date & Time Discontinued Medications Alendronate Sodium (Alendronate Sodium) 70 Mg Tablet, 70 MG PO WEEKLY, (Reported ) Tetrahydrozoline HCl (Eye Drops) 15 Ml Drops, 1 DROP BOTH EYES DAILY PRN for PRN ORDERS, (Reported) Currently on Beta Ruy: No Medical/Surgical History Anesthesia PMH: Reports: *Dyspnea (AT TIMES), *Hypertension, Arthritis, COPD, Cancer (LUNG METASTISIZED TO BONE, LIVER, LYMPH NODES, SPINE), Denies: *Angina, *Diabetes, *MT, Anesthesia Reactions (NO AIRWAY ISSUES), Asthma, Blood Transfusion Reac, CHF, CVA/Stroke/TIA, Cardiac Arrythmia, Glaucoma, Hepatitis, Hiatal Hernia, Malignant Hyperthermia, Pacemaker, Pneumonia, Reflux, Renal Disease, Rheumatic Fever, Seizures, Sleep Apnea, Thyroid Disease, Tuberculosis Smoking Status: Former smoker Has pt. smoked today?: No Use Chewing Tobacco?: No Second Hand Exposure: No Quit Date: May 30, 2004 Substance Use Type: does not use Substance last used: unknown Alcohol Intake: a few times a month Last Drink: unknown HX of Last Menstrual Period: PT STATES SHE WAS IN HER 40-50'S Past Surgical History Orthopedic Surgeries: Yes - TRIGGER FINGER RELEASE Abdominal Surgeries: Yes Genitourinary Surgeries: No Cardiac Surgeries: No Endocrine Surgeries: No Reproductive Surgeries: Yes - TUBALIGATION 1972 Neurological Surgeries: No Ear Surgeries: No Nose Surgeries: No Throat Surgeries: No Other Surgeries: No - COLONOSCOPY WITH BOWEL PERF. Anesthesia Adverse Reactions: FOUND none Family Hx of Anesthesia Advers: none Hx of Motion Sickness: No Pertinent Findings Laboratory Tests 09/13/16 06:26 EKG Rhythm: Sinus Rhythm Physical Exam Respiratory: Lungs clear Cardiovascular: FOUND Regular rate, rhythm, FOUND No murmur Airway Assessment Mallampati Score: I TMD: 3 Fingerbreadths Neck Extension: Good Teeth: Upper Dentures, Lower Dentures Overall Assessment: No Airway Concerns ASA: 2 Plan Anesthesia Plan: TIVA Discussion Discussed risks/options/alternatives of anesthesia and questions answered. Patient consents. Nursing pain assessment noted. Present: Children Attestation Statement Prior to the delivery of any anesthetic medication, I examined the patient, developed the plan, obtained the patient's consent and discussed the risk and benefits of the procedure with the patient/guardian. NEWTON CANO CRNA Sep 13, 2016 07:13
[2016-09-13] MEDS ORDERED: PROPOFOL 500mg 50 ML IV ONE (07:39)
[2016-09-13] MEDS ORDERED: LIDOCAINE 2% (20mg/ml) 5ml PF SDV ONE (07:39)
[2016-09-13] MEDS ORDERED: FENTANYL 100mcg/2ml INJECTION ONE ×2 (07:41→08:06)
[2016-09-13] MEDS ORDERED: ROCURONIUM 50mg/5ml INJECTION IV ONE (07:43)
[2016-09-13] MEDS ORDERED: ONDANSETRON 4mg/2ml INJECTION ONE (07:51)
[2016-09-13] MEDS ORDERED: GLYCOPYRROLATE 0.4mg/2ml INJECTION ONE (07:51)
[2016-09-13] MEDS ORDERED: CEFAZOLIN 1 GRAM INJECTION IV ONE (08:00)
[2016-09-13] MEDS ORDERED: EPHEDRINE SULFATE 50mg/ml INJECTION ONE (08:17)
[2016-09-13] MEDS ORDERED: SUGAMMADEX 200 MG/2 ML INJECTION IV ONE (08:37)
--- NOTE | 2016-09-13 09:18 | DI ---
EXAM: PORTACATH W FLUORO W 1V CXR LOCATION OF DICTATION: [place] HISTORY: ITS.REASON: PORT INSERTION COMPARISON: No prior studies available for comparison. TECHNIQUE: FINDINGS: Heart size is normal. 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 Mediastinal configuration is within normal limits. Right-sided chest port in place with the tip of the catheter overlying the upper SVC. The lungs are clear. No evidence for pneumothorax or hemothorax. There is a suspected acute/recent nondisplaced fracture involving the right proximal humerus. Subtle callus formation suggest about the fracture site. IMPRESSION: 1. Heart size is normal. Lungs are clear. 2. Right-sided chest port in place with the tip of the catheter overlying the upper SVC. 3. Suspected acute/subacute nondisplaced proximal right humeral fracture. .
[2016-09-13] MEDS: HYDROCODONE/APAP 5 mg/325 mg TABLET PO PRN ×2 (09:30→10:26)
[2016-09-13] MEDS ORDERED: ALBUTEROL/IPRATROPIUM INHAL. 2.5mg-0.5mg/3ml Neb. AEROSOL ONE (09:45)
--- NOTE | 2016-09-13 10:06 | ANESPO ---
Post-Op Note Date 09/13/16 Time: 10:05 Status Pt Participated in Evaluation: Pt participated in person Vital Signs Date Time Temp Pulse Resp B/P Pulse Ox O2 Delivery O2 Flow Rate FiO2 09/13/16 09:44 20 98 09/13/16 08:52 97.5 91 113/39 Nasal Cannula 3.00 Respiratory Function: Airway patent, Regular respirations Cardiovascular Function: Regular pulse Mental Status: Alert/oriented Pain Level Intensity: 4 (4) Hydration: Taking po fluids, IV infusing Complications during Recovery None apparent Post-Anesthesia Notes pt. [email or web address]. well Follow-Up Instructions Instructions Per Surgeon Additional Information none NEWTON CANO CRNA Sep 13, 2016 10:06
[2016-09-13] MEDS ORDERED: KETOROLAC 15mg/ml INJECTION IV PRN (10:15)
--- NOTE | 2016-09-13 11:24 | OPNOTEF ---
DATE OF SERVICE 09/13/2016 SURGEON Silvestre Myrick MD PREOPERATIVE DIAGNOSIS Personal history for metastatic lung cancer, need for long-term central venous access to facilitate chemotherapy. POSTOPERATIVE DIAGNOSIS Personal history for metastatic lung cancer, need for long-term central venous access to facilitate chemotherapy. PROCEDURE Insertion of PowerPort catheter. ANESTHESIA TIVA/local BRIEF HISTORY/INDICATIONS Mrs. Juarez is a 76-year-old female who presents today to [facility] to undergo placement of a PowerPort catheter. The patient has the misfortune of developing metastatic lung cancer. For completeness please refer to notes included in the patient's chart. DESCRIPTION OF OPERATION After informed consent was obtained, the patient was brought to the operative suite, placed on the table in supine fashion. The right lateral neck and anterior chest were then prepped and draped in a sterile fashion. First, the patient was placed in Trendelenburg position and ultrasonography was performed along the right lateral neck. One could see a round hypoechoic structure which collapsed with pressure applied via the ultrasound transducer. This corresponded with the internal jugular vein. 0.25% Marcaine with epinephrine was injected overlying the anatomic location of the internal jugular vein. A Cook needle was then introduced through the area of analgesia and into the underlying internal jugular vein under sonographic guidance. A guidewire was advanced through the Cook needle and the Cook needle was then removed. Fluoroscopy was then performed which revealed the guidewire to be within the atrium and right ventricle. A 5-6 mm incision was then made adjacent to the exit site of the guidewire and extended out laterally. Additional 0.25% Marcaine with epinephrine was injected about two fingerbreadths below the right clavicle. A 3 cm incision was then made through the area of analgesia. A subcutaneous pocket was then created just inferior or caudad to this incision. A PowerPort reservoir was then brought forth into the operative field and placed within the subcutaneous pocket and subsequently imbricated to the underlying pectoralis fascia in a triangulated fashion by placing three simple interrupted sutures of 0-Prolene through the underlying pectoralis fascia and subsequently through the holes within the reservoir itself. The catheter was then tunneled between the two incisions. A dilator and tear-away sheath were then advanced over the guidewire. The guidewire and dilator were then removed. The catheter was then quickly advanced in the tear-away sheath and the tear-away sheath was then removed. Under fluoroscopy, the tip of the catheter was then placed near the junction between the superior vena cava and right atrium and cut to the appropriate length and subsequently attached to the PowerPort reservoir. The PowerPort reservoir was then accessed and was easily aspirated and flushed with heparinized saline. Both skin incisions were then closed in a subcuticular fashion with 4-0 Monocryl. The patient tolerated the procedure without difficulty. A post procedure chest x-ray will be obtained postoperatively. The results of this film are pending at the time of dictation. KURT
== END 2016-09-13 11:10 | disposition home or self-care (01) ==
LOC: SCU 05:41
PROVIDERS: ATTEND Surgery
DX: Z45.2 Encounter for adjustment and management of vascular access device (principal); C34.11 Malignant neoplasm of upper lobe, right bronchus or lung; C79.51 Secondary malignant neoplasm of bone; C78.7 Secondary malignant neoplasm of liver and intrahepatic bile duct; J44.9 Chronic obstructive pulmonary disease, unspecified; I10 Essential (primary) hypertension; Z79.82 Long term (current) use of aspirin; Z79.899 Other long term (current) drug therapy; Z87.891 Personal history of nicotine dependence
CPT/HCPCS: 36415; 36561; 77001; 85025; 94640; A9270; C1788; J0690; J1642; J1885; J2405; J3010; J7120

== ENCOUNTER → 2016-09-22 | Outpatient (CLI) | payer MEDICARE, BC ==
[~2016-09-22] MED LIST changes: -ALEN70TA48 PO; +DEXA4TAB PO; +ONDA-56 PO; +PANT40TA27 PO
[2016-09-22 11:27] LABS: HCT - HEMATOCRIT 30.2 % (36-46); HGB - HEMOGLOBIN 9.9 GM/DL (12-16); MEAN CORPUSCULAR HGB 28.4 UUG (26-34); MEAN CORPUSCULAR HGB CONC(MCHC 32.8 GM/DL (31-37); MEAN CORPUSCULAR VOLUME 86.8 UM3 (80-100); MEAN PLATELET VOLUME 9.3 UM3 (9.4-12.4); RED BLOOD COUNT 3.48 M/MM3 (4.00-5.20); WBC - WHITE BLOOD COUNT 9.7 T/MM3 (4.5-11.0)
[2016-09-22 11:36] LABS: ALBUMIN 3.4 G/DL (3.5-5.0); ALBUMIN/GLOBULIN RATIO 1.3 RATIO (1.1-2.2); ALKALINE PHOSPHATASE 90 U/L (38-126); ALT (SGPT) 35 U/L (9-52); ANION GAP 12 MEQ/L (5-15); AST (SGOT) 29 U/L (14-36); BUN/CREATININE RATIO 45 RATIO (6-26); CHLORIDE 96 MEQ/L (98-107); CO2 - CARBON DIOXIDE 31 MEQ/L (22-30); CREATININE 0.6 MG/DL (0.7-1.2); GLOMERULAR FILTRATION RATE 97; GLUCOSE 115 MG/DL (65-110); LDH 522 U/L (313-618); MAGNESIUM 1.7 MG/DL (1.6-2.3); SODIUM 139 MEQ/L (134-144); TOTAL PROTEIN 6.1 G/DL (6.3-8.2)
[2016-09-22 11:38] LABS: BAND NEUTROPHILS # 0.2 T/MM3; EOSINOPHILS # (MANUAL) 0.4 T/MM3 (0-0.5); LYMPHOCYTES # (MANUAL) 0.1 T/MM3 (1-4.8); MONOCYTES # (MANUAL) 0.2 T/MM3 (0-0.8); NEUTROPHILS #(MANUAL)-ABSOLUTE 8.8 T/MM3 (1.8-7.7); TOTAL CELLS COUNTED 100 %
[2016-09-22 11:39] LABS: ANISOCYTOSIS 1+
== END ==
LOC: LABN 11:22
PROVIDERS: ATTEND Internal Medicine Hematology & Oncology
DX: C34.11 Malignant neoplasm of upper lobe, right bronchus or lung (principal)
CPT/HCPCS: 80053; 83615; 83735; 85025

== ENCOUNTER 2016-09-25 16:46 | Inpatient (IN) | payer MEDICARE, BC ==
[~2016-09-25] VITALS: Ht 149.9 cm; Wt 54.1 kg
[~2016-09-25 16:46] MED LIST changes: -ONDA-56 PO; -PANT40TA27 PO; -TETR-47 BOTH EYES
--- NOTE | 2016-09-25 17:00 | NUR ---
PROVIDER Lawrence JAIMES HYDROELECTRIC SYSTEMS TECHNICIAN IN TO SEE PATIENT.
--- NOTE | 2016-09-25 17:04 | ERPDOC ---
Departure Disposition Decision Date: Sep 25, 2016 Disposition Decision Time: 19:30 (LYDIA JAIMES APRN) Disposition: 02 TO [facility] Impression Impression (LYDIA JAIMES APRN) Impression: Primary Impression: Neutropenic fever Severity: Moderate (LYDIA JAIMES APRN) Condition: Stable Seen By: Mid-level only (LYDIA JAIMES APRN) Referrals: MUKUND HOPKINS II, MD (Family) Problems/Meds/Labs Reviewed?: Yes Medications reviewed and manag: Yes (LYDIA JAIMES APRN) Follow up care ordered?: Yes Mental Status: Alert (LYDIA JAIMES APRN) HPI - General Medical General Chief Complaint: SEPSIS Stated Complaint: VOMITING Time Seen by Provider: 16:52 Source: patient Exam Limitations: no limitations (LYDIA JAIMES APRN) Time Seen by Provider: 16:52 (JEFFERY LEACH MD) HPI - General Medical Initial Comments She has a history of lung cancer with mets to the bone. Was at home today and had onset of nausea/vomiting around 1200pm. She has vomited several times since then with nausea between episodes. Has had some diarrhea but denies any abdominal pain or fever. She has been having chills off and on but they checked her temp at home and she did not have a fever. She did not take her RT tx at 1400 so she is wheezing and noted O2 sats are low on the 2L per NC that she typically wears. Occurred At: home Onset: Gradual Duration: 4-6 hrs (for the last 5 hours) Severity: moderate Associated Symptoms: fever/chills (chills, no fever), nausea/vomiting, shortness of breath, DENIES: chest pain, cough, diaphoresis, headaches, loss of appetite, malaise, rash, seizure, syncope, weakness Hx of Similar Symptoms: No (LYDIA JAIMES APRN) Allergies: Coded Allergies: No Known Drug Allergies (Verified Allergy, Unknown, 09/25/16) Past History Patient Surgical History Patient surgical history is brief: She has had trigger finger operations on both hands; she has had a pus pocket removed from her right neck; and has had her tubes tied in 1971. She also has surgery for a perforated bowel, cause during a colonoscopy and 2004. Right proximal humeral fracture due to bone cancer, lung cancer (NOLD,LYDIA N ANTISQUEAK FILLER) Past Medical History Metabolic: cancer, hypertension ENMT: other Respiratory: COPD GI: IBS (NOLD,LYDIA N ANTISQUEAK FILLER) Surgical History General: colonoscopy, exploratory laparotomy (NOLD,LYDIA N ANTISQUEAK FILLER) Family History Family PMH: FOUND: other (NOLD,LYDIA N ANTISQUEAK FILLER) Vaccines Hx Influenza Vaccination: Yes (03-11-16) Hx Pneumococcal Vaccination: Yes (02-24-11,02-11-15) Hx Tetanus Diptheria: Yes (08/10/08) (NOLD,LYDIA N ANTISQUEAK FILLER) Social History Does patient use chewing tobac: No Second Hand Exposure: No Quit Date: May 30, 2004 Substance Use Type: does not use Substance last used: unknown Alcohol Intake: occasionally Last Drink: unknown Marital Status: Sexuality: male partner Housing: house Number of Children: 4 Service: No Current Occupational Status: retired Occupational Hazard: No (NOLD,LYDIA N ANTISQUEAK FILLER) Review of Systems Constitutional Constitutional: appetite decrease, chills, fatigue, weakness, DENIES: dizziness , fever (NOLD,LYDIA N ANTISQUEAK FILLER) Cardiovascular Cardiac: DENIES: chest pain, orthopnea Rhythm/Rate: DENIES: irregular beat, palpitations (NOLD,LYDIA N ANTISQUEAK FILLER) Pulmonary Respiratory: DENIES: cough, dyspnea, sputum, tachypnea (NOLD,LYDIA N ANTISQUEAK FILLER) GI Upper Abdomen: nausea, vomiting, DENIES: pain Lower Abdomen: DENIES: constipation, diarrhea, pain (NOLD,LYDIA N ANTISQUEAK FILLER) Integumentary Skin: DENIES: rash (NOLD,LYDIA N ANTISQUEAK FILLER) Neurological General: DENIES: headache, numbness, tingling, weakness (NOLD,LYDIA N ANTISQUEAK FILLER) Physical Exam General General Nourishment: well nourished, well developed, appears stated age, no acute distress, adult General Body Habitus: well groomed (NOLD,LYDIA N ANTISQUEAK FILLER) Vitals and Pain First Documented Vital Signs Date Time Temp Pulse Resp B/P Pulse Ox O2 Delivery O2 Flow Rate FiO2 09/25/16 16:48 100.2 106 22 116/52 92 Room Air 09/25/16 17:52 3.00 (JEFFERY LEACH MD) Vitals and Pain Weight: Kilograms: Height (feet): 4 Height (inches): 11.00 Triage Pain Scale: (LYDIA JAIMES APRN) RN VS reviewed by Provider: Yes (LYDIA JAIMES APRN) Normal Exams: Neck: Full range of motion, without adenopathy, JVD, bruits or thyromegaly CV: Regular rate and rhythm, without murmur or gallop, Pulses 2+ all extremities, capillary refill, <2 seconds all ext., no pedal edema noted Abdomen: Bowel sounds positive, soft, non-tender, non-distended, no hepatosplenomegaly, masses or bruits noted Lymphatic: No lymphadenopathy, or lymphedema noted Integumentary: No rashes, hives, or bruising noted Neurologic: Patient is alert, and oriented Psychiatric: Patient exhibits, appropriate attention, emotion and affect (LYDIA JAIMES APRN) Respiratory (brief) Respiratory: FOUND: wheezes (throughout all lobes) (LYDIA JAIMES APRN) Differential Diagnoses Considering: Hypo/Hyperglycemia, Hypo/Hyperkalemia, Hypo/Hypernatremia, Metabolic, Pneumonia, UTI, Other (gastorenteritis, dehydration, pancreatitis) (LYDIA JAIMES APRN) Progress Results/Orders Orders Procedure Category Date Status Time Cbc W/Auto LAB 09/25/16 Complete Diff-Reflex Manual Cmp - Comprehensive LAB 09/25/16 Complete Metabolic Lipase LAB 09/25/16 Complete Iv Lock (Ed Only) EDM 09/25/16 Transmitted 17:01 Ua, Dip Wreflex LAB 09/25/16 Complete Microsc & Whipped Topping Finisher 17:01 Chest 1 View RAD 09/25/16 Taken Normal Saline (Normal PHA 09/25/16 Complete Saline Iv) 17:15 Ondansetron Inj PHA 09/25/16 Complete (Zofran) 17:15 Albuterol/Ipratropium PHA 09/25/16 Complete (Duoneb) 17:15 Prochlorperazine PHA 09/25/16 Complete (Compazine) 17:45 Blood Culture CHRIS 09/25/16 In Process 18:32 Lactate - Lactic Acid LAB 09/25/16 Complete Procalcitonin LAB 09/25/16 Complete 18:32 Lactate - Lactic Acid LAB 09/25/16 Complete 23:02 Implement/Maintain SHMUEL 09/25/16 In Process Precautions 18:43 Cefepime (Maxipime) PHA 09/25/16 Complete 19:00 Tbo-Filgrastim PHA 09/25/16 Complete (Granix) 19:00 Place In Facility As: ADMIT 09/25/16 Transmitted (JEFFERY LEACH MD) Lab Results Laboratory Tests Test 09/25/16 17:27 09/25/16 18:20 09/25/16 19:01 09/25/16 19:05 White Blood Count 1.0T/MM3 Red Blood Count 2.89M/MM3 Hemoglobin 8.2GM/DL Hematocrit 24.6% Mean Corpuscular Volume 85.1UM3 Mean Corpuscular Hemoglobin 28.4UUG Mean Corpuscular Hemoglobin Concent 33.3GM/DL RDW Standard Deviation 53.5FL Platelet Count 132T/MM3 Mean Platelet Volume 9.5UM3 Immature Granulocyte % (Auto) % Neutrophils (%) (Auto) % Lymphocytes (%) (Auto) % Monocytes (%) (Auto) % Eosinophils (%) (Auto) % Basophils (%) (Auto) % Absolute Immature Granulocyte (auto T/MM3 Absolute Neutrophils (auto) T/MM3 Absolute Lymphocytes (auto) T/MM3 Absolute Monocytes (auto) T/MM3 Absolute Eosinophils (auto) T/MM3 Absolute Basophils (auto) T/MM3 Neutrophils % (Manual) 44.0% Band Neutrophils % 2.0% Lymphocytes % (Manual) 10.0% Reactive Lymphocytes % 4.0% Monocytes % (Manual) 6.0% Eosinophils % (Manual) 34.0% Absolute Neutrophils (Manual) 0.4T/MM3 Band Neutrophils # 0.0T/MM3 Lymphocytes # (Manual) 0.1T/MM3 Reactive Lymphocytes # 0.0T/MM3 Monocytes # (Manual) 0.1T/MM3 Eosinophils # (Manual) 0.3T/MM3 Poikilocytosis 1+ Anisocytosis 1+ Red Cell Morphology Comment Abnormal Turbidity < 20 Sodium Level 134MEQ/L Potassium Level 3.7MEQ/L Chloride Level 93MEQ/L Carbon Dioxide Level 30MEQ/L Anion Gap 11MEQ/L Blood Urea Nitrogen 9.0MG/DL Creatinine 0.5MG/DL Glomerular Filtration Rate Calc 120 BUN/Creatinine Ratio 18RATIO Glucose Level 122MG/DL Calculated Osmolality 258MOSM/KG Calcium Level 7.5MG/DL Total Bilirubin 0.90MG/DL Icterus Index < 2 Aspartate Amino Transf (AST/SGOT) 26U/L Alanine Aminotransferase (ALT/SGPT) 41U/L Alkaline Phosphatase 92U/L Total Protein 5.8G/DL Albumin 3.0G/DL Globulin 2.8G/DL Albumin/Globulin Ratio 1.1RATIO Lipase 78U/L Chemistry Specimen Hemolysis < 15 Urine Collection Type Cleancatch-midstream Urine Color Yellow Urine Turbidity Clear Urine pH 6.5 Urine Specific Russell 1.010 Urine Protein Negative Urine Glucose (UA) Negative Urine Ketones 3+ Urine Blood Negative Urine Nitrite Negative Urine Bilirubin Negative Urine Urobilinogen 0.2EU/DL Urine Leukocyte Esterase Negative Urinalysis Comment Microscopic not ind. Plasma Lactate 0.6MMOL/L Procalcitonin 0.07NG/ML (JEFFERY LEACH MD) Medications Current ED Medications Sodium Chloride (Normal Saline IV) 1,000 ml @ 500 mls/hr Q2H ONCE IV Last administered on 09/25/16 17:30; Start 09/25/16 at 17:15; Stop 09/25/16 at 19:14 ; Status DC Ondansetron HCl (Zofran) 4 mg O ONCE IV Last administered on 09/25/16 17:21; Start 09/25/16 at 17:15; Stop 09/25/16 at 17:16; Status DC Albuterol/ Ipratropium (Duoneb) 3 ml O ONCE AEROSOL Last administered on 17:12; Start 09/25/16 at 17:15; Stop 09/25/16 at 17:16; Status DC Prochlorperazine Edisylate 10 mg 10 mg O ONCE IV Last administered on 17:41; Start 09/25/16 at 17:45; Stop 09/25/16 at 17:46; Status DC Cefepime HCl/ Sodium Chloride (Maxipime/NS) 100 ml @ 200 mls/hr O ONCE IV Last administered on 09/25/16 19:05; Start 09/25/16 at 19:00; Stop 09/25/16 at 19:29; Status DC Tbo-Filgrastim (Granix) 300 mcg O ONCE SQ Last administered on 09/25/16t 19:20 ; Start 09/25/16 at 19:00; Stop 09/25/16 at 19:01; Status DC (JEFFERY LEACH MD) Progress Progress 1833- WBC back and is 1.0. Differential is pending. Pulse has decreased from initial VS to the 90s. Blood pressure is stable in the 110 range. Nausea is improved. Recognize risk for sepsis and blood cultures and lactate ordered. She has been vomiting and is likely dehydrated and temp of 100.2 so elevated pulse could be due to these as well as potential elevated lactate. 1852- Did speak with Dr Dorsey. Given neutropenia and frailty of patient would like her admitted to hospitalist for neutropenic fever. 1932- Lactate today is negative. Procalcitonin is pending. Did speak with Dr Bergman who will admit at this time. (LYDIA JAIMES APRN) Xray Xray : Reason for Exam: neutropenic fever Xray: CXR Portable Interpretation: Normal (LYDIA JAIMES APRN) LYDIA JAIMES APRN Sep 25, 2016 17:04 JEFFERY LEACH MD Sep 26, 2016 06:46
--- NOTE | 2016-09-25 17:08 | NUR ---
XRAY PORTABLE BEING DONE AT THIS TIME.
[2016-09-25] MEDS ORDERED: ONDA-56 PO (17:13)
[2016-09-25] MEDS ORDERED: PANT40TA27 PO (17:13)
[2016-09-25] MEDS ORDERED: ONDANSETRON 4mg/2ml INJECTION IV ONE (17:15)
[2016-09-25] MEDS ORDERED: ALBUTEROL/IPRATROPIUM INHAL. 2.5mg-0.5mg/3ml Neb. AEROSOL ONE (17:15)
[2016-09-25] MEDS ORDERED: NORMAL SALINE 1,000 ML IV ONE (17:15)
[2016-09-25] MEDS ORDERED: TETR-47 BOTH EYES (17:17)
--- OUTSIDE RECORDS SUMMARY | 2016-09-25 17:27 | XMS REPORT | Continuity of Care Document ---
Author Author [facility] Organization [facility] Address Unknown Phone Unavailable Support Name Relationship Address Phone DEBORAH AMAYA MD Caregiver [facility] [address] [place] [address] Unavailable ANDREW FELICIANO MD Caregiver [address] [place] [address] [place] [phone] SIMI JUAREZ Next Of Kin [address] [place] [address] C Insurance Providers Payer Name Policy Number Subscriber Name Relationship Medicare [id number] Harriet Juarez [address] [facility] [id number] Harriet Juarez 18 Self Advance Directives Directive [...] 20 Mg PO DAILY 08/10/08 Active Ipratropium [place] 2 [place] EA NOSTRIL NEEDED 08/30/10 Active Social History [...] F (96.8 - 99.1) Temperature (Calculated Celsius) 35.42808 degrees C (36.0 - 37.3) Pulse Rate [...] Has specimen been collected/obtained? Y Urine Specific [place] August 10, 2008 5:07pm 1.015 - Has [...] Encounters Encounter Location Date/Time Departed Emergency Room [facility] 07/26/14 1:25am Recent Diagnosis
--- OUTSIDE RECORDS SUMMARY | 2016-09-25 17:27 | XMS REPORT | Continuity of Care Document ---
Author Author [facility] Organization [facility] Address Unknown Phone Unavailable Support Name Relationship Address Phone MUKUND HOPKINS II, MD Caregiver [address] [facility] [address] [place] [address] Unavailable ELI LEONG FACS, MD Caregiver [address] [place] [address] [place] [address] Unavailable LAWRENCE JUAREZ DPOA Next Of Kin [address] [place], [place] [address] C Insurance Providers Guarantor Nitish Juarez Address [address] [place] [address] C Email DENIED 16 Payer [facility] Policy Number [id number] Subscriber's Name Nitish Juarez Relationship 18 Self Group Number [id number] Payer Medicare Policy Number [id number] Subscriber's Name Nitish Juarez Relationship 18 Self Advance Directives Directive Response Recorded Date/Time Ordered Resuscitation Status Full Code 09/10/16 1:54pm Resuscitation Documents on File Yes 09/13/16 6:49am DPOA for Healthcare Only Y Lawrence Juarez 09/13/16 6:49am Living Will No 09/13/16 6:49am Problems Active Problems Medical Problem Onset Date Status Anxiety Unknown Acute Back pain Unknown Acute COPD (chronic obstructive pulmonary disease) Unknown Chronic HTN (hypertension) Unknown Chronic Low back strain Unknown Acute Lung cancer Unknown Nausea & vomiting Unknown Resolved Night terror Unknown Acute Pharyngitis Unknown Acute Sinusitis Unknown Acute Spastic colon Unknown Tachycardia Unknown Resolved Past Problems Medical Problem Onset Date COPD (chronic obstructive pulmonary disease) Unknown Flank pain Unknown Hypoxia Unknown Lumbar strain Unknown Right humeral fracture Unknown Tick bite with subsequent removal of tick Unknown Medications Current Home Medications Medication Dose Units Route Directions Days Qty Instructions Start Date Amlodipine Besylate (Norvasc) 5 Mg Tablet 5 Mg Oral Bedtime 08/10 Aspirin (Beronica) 81 Mg Tablet. 81 Mg Oral Daily 08/10/08 Calcium Carbonate/Vitamin D3 (Calcium + D 600 Mg Tablet) 1 Tab Tablet 2 Tab Oral Daily 08/10/08 Chlorthalidone 25 Mg Tablet 12.5 Mg Oral Give With Breakfast 01/12 Cyclobenzaprine Hcl 10 Mg Tablet 0.5 Mg Oral Twice A Day as needed for Muscle Pain 08/24/16 Dexamethasone 4 Mg Tablet 1 Tab Oral Daily 09/13/16 Dicyclomine Hcl 20 Mg Tablet 20 Mg Oral Three Times A Day Folic Acid 1 Mg Tablet 1 Tab Oral Give At Noon 09/10/16 Hydrocodone/Acetaminophen (Hydrocodon-Acetaminoph 7.5-325) 7.5-325 Tablet 1 Tab Oral Every 6 Hours as needed for Pain 08/24/16 Ipratropium/Albuterol Sulfate (Iprat-Albut 0.5-3(2.5) Mg/3 Ml) 3 Ml Ampul.neb 1 Vial Aerosol Tx. Every 6 Hours 11/05/15 Ketotifen Fumarate (Eye Itch Relief) 5 Ml Drops 1 Drop Both Eyes Twice A Day as needed for Itching 11/05/15 Lisinopril 20 Mg Tablet 20 Mg Oral Bedtime 08/10/08 Loratadine (Allergy) 10 Mg Tablet 10 Mg Oral Daily as needed for Allery Symptoms 11/05/15 Metoclopramide Hcl (Reglan) 10 Mg Tablet 10 Mg Oral Every 6-8 Hours Prn Take 1 tablet, by mouth, 4 times a day (with meals and bedtime). 09/10/16 Multivitamins W-Minerals/Lut (Centrum Silver Tablet) 1 Tab Tablet 1 Tab Oral Daily 08/10/08 Sodium Chloride (Saline Nasal [place]) 30 Ml [place] 1 [place] Each Nostril Four Times Daily as needed for Prn Orders 11/05/15 Past Home Medications Medication Directions Ordered Status Alendronate Sodium 70 Mg Tablet, 70 Mg Oral Weekly 11/05/15 Discontinued Tetrahydrozoline Hcl (Eye Drops) 15 Ml Drops, 1 Drop Both Eyes Daily as needed for Prn Orders 11/05/15 Discontinued Social History Social History Problem Response Recorded Date/Time Onset Date Status Reason for Hospitalization PLACEMENT OF POWER PORT 09/13/2016 10:32am Not Applicable Not Applicable Hx Substance Use No 09/10/2016 10:59am Not Applicable Not Applicable Hx Alcohol Use Y BEER VERY OCC. 09/10/2016 10:59am Not Applicable Not Applicable Has the pt used tobacco in the last 12 months Yes 09/10/2016 10:59am Not Applicable Not Applicable Tobacco Usage none 11/05/2015 12:26pm Not Applicable Not Applicable Query Response Start Date Stop Date Smoking Status Former smoker Hospital Discharge Instructions Instructions: Care Instructions: I was in the hospital because (patient own words): "place a port" Discharge Diet: REGULAR Discharge Activity: Do not drive, operate machinery for 24 hours after surgery or while taking pain medication. Follow Up Appointments: Follow up with Jacqueline Ojeda APRN/Dr. Leong in 2-3 Weeks Pending Lab / Results: No Pending Lab Expected Signs/Symptoms: tenderness at port site for a week or so. Notify Physician If: 1. Call your surgeon if you are having problems relating to your surgery at [phone]. 2. Problems such as: Temp above 101.5 degrees You develop redness, excessive swelling of the incision, increasing pain or excessive foul smelling drainage. 3. If the office is closed, call [facility] at [phone] and have your Surgeon paged. During Business Hours:: Call your surgeon at at [phone]. After Business Hours:: If the office is closed, call [facility] at [phone] and have your Surgeon paged. Pain Management/Treatment: Follow prescriptions as prescribed Wound/Incision Care: Leave incision open to air. Do not pick or rub off the glue. May shower starting tomorrow Condition at time of discharge: Good Plan of Care Discharge Date 09/13/16 11:10am Instructions/Education Provided [facility] Prescriptions See Medication Section Functional Status Query Response Date Recorded Ability to complete ADL's impeded by No change September 13, 2016 6:49am Allergies, Adverse Reactions, Alerts Allergen Type Severity Reaction Status Last Updated No Known Drug Allergies Allergy Unknown Active 09/13/16 Immunizations Query Response on File Recorded Date/Time Hx Influenza Vaccination Y 03-11-16 09/10/16 10:59am Hx Pneumococcal Vaccination Y 02-24-11,02-11-15 09/10/16 10:59am Hx Influenza Vaccination Y 03-11-16 09/10/16 10:59am Hx Tetanus Diptheria Y 08/10/08 07/26/14 1:30am Influenza Vaccine Hx 03/11/16 08/24/16 1:35pm Pneumococcal PCV13 Vaccine Hx 02/24/11 08/03/16 8:31pm Tdap Vaccine Hx 08/10/08 08/03/16 8:31pm Vital Signs Acute Vital Signs Vital Response Date/Time Temperature (Fahrenheit) 97.5 deg F (96.8 - 99.1) 09/13/2016 8:52am Temperature (Calculated Celsius) 36.28855 degrees C (36.0 - 37.3) 09/13/2016 8:52am Temperature Source Oral 09/13/2016 8:52am Pulse Rate (adult) 95 bpm (60 - 100) 09/13/2016 10:45am Respiratory Rate 22 breaths/min (10 - 20) 09/13/2016 10:45am O2 Sat by Pulse Oximetry 95 % (90 - 100) 09/13/2016 10:45am Oxygen Delivery Method Nasal Cannula 08/24/2016 8:57pm Oxygen Delivery Method Nasal Cannula 09/13/2016 10:45am Oxygen Flow Rate 2.00 L/min 09/13/2016 10:45am Blood Pressure 144/65 mm Hg 09/13/2016 10:45am Blood Pressure Source Automatic Cuff 09/13/2016 10:45am Height (Feet) 4 feet 09/13/2016 6:15am Height (Inches) 11.00 inches 09/13/2016 6:15am Weight (Kilograms) 53.900 kg 09/13/2016 6:15am Body Mass Index (BMI) 24.0 09/13/2016 6:15am Results Laboratory Results Test Name Result Units Flags Reference Collection Date/Time Result Date/ Time Comments C-Reactive Protein 57.2 MG/L H 0-9 08/05/2016 12:43pm 08/05/2016 1:05pm Erythrocyte Sedimentation Rate 22 mm/h 0-23 08/05/2016 12:43pm 2016 12:39am Sedimentation Rate performed at [facility] Reference Lab, [place] [address] Receivable Clerk Bandar Wesley DO Immunoglobulin G 1129.45 MG/DL 700-1600 08/23/2016 11:12am 08/23/2016 11:53am Immunoglobulin A 311.14 MG/DL 70-400 08/23/2016 11:12am 08/23/2016 11: 53am Immunoglobulin M 75.09 MG/DL 40-230 08/23/2016 11:12am 08/23/2016 11: 53am Ieot-6-Ezsjwmalpltkn 3.16 mcg/mL H 08/23/2016 11:12am 08/25/2016 1: 07pm Reference Range: 1.21 - 2.70 Test Performed by: [facility] [address] [place] [address] Beta-2 Microglobulin, S performed at [facility], [address] [place] [address] Receivable Clerk Juliana Rob MD Immunoglobulin D 6 mg/dL <=10 08/23/2016 11:12am 08/25/2016 1:54pm Test Performed by: [facility] [address] [place] [address] Immunoglobulin D performed at [facility], [address] [place] [address] Receivable Clerk Juliana Rob MD Immunoglobulin E 58 IU/mL 0-100 08/23/2016 11:12am 08/23/2016 9:51pm IgE (Immunoglobulin E) performed at [facility] Reference Lab, [address] [place] [address] Receivable Clerk Bandar Wesley DO Serum Total Protein 6.6 g/dL 6.0-7.6 08/23/2016 11:12am 08/23/2016 9: 51pm Immunoelectrophoresis, no IMQ performed at [facility] Reference Lab, [address] [place] [address] Receivable Clerk Bandar Wesley DO Albumin (PEP) 2.9 g/dL 2.6-4.5 08/23/2016 11:12am 08/25/2016 1:19pm Hmgym-5-Hejktplcl 0.7 g/dL H 0.3-0.5 08/23/2016 11:1208/25/2016 1: 19pm Ganeb-7-Sxvjnumik 1.1 g/dL 0.6-1.2 08/23/2016 11:1208/25/2016 1: 19pm Lamo-7-Pehpujpa 0.4 g/dL 0.4-0.6 08/23/2016 11:1208/25/2016 1:19pm Wmpy-4-Kcwurzlz 0.4 g/dL 0.2-0.5 08/23/2016 11:1208/25/2016 1:19pm Gamma Globulins 1.1 g/dL 0.4-1.7 08/23/2016 11:1208/25/2016 1:19pm Albumin % (PEP) 44.1 % L 48.7-61.8 08/23/2016 11:1208/25/2016 1:19pm Ndvqt-3-Wjarwagle (%) 10.3 % H 3.4-8.3 08/23/2016 11:1208/25/2016 1: 19pm Oluug-5-Zuhbmvenl (%) 16.6 % 8.4-17.5 08/23/2016 11:1208/25/2016 1: 19pm Wnps-1-Yimcrnjh (%) 5.6 % 5.4-8.9 08/23/2016 11:1208/25/2016 1:19pm Nmxs-7-Jgzpydlg (%) 6.1 % 3.8-7.7 08/23/2016 11:1208/25/2016 1:19pm Gamma Globulins (%) 17.3 % 8.1-23.0 08/23/2016 11:1208/25/2016 1: 19pm Immunoelectrophoresis, no IMQ performed at [facility] Reference Lab, [address] [place] [address] Receivable Clerk Bandar Wesley DO Protein Electrophoresis Comment - 08/23/2016 11:12am 08/25/2016 1: 19pm Increased alpha-1 fraction. No monoclonal peaks or restricted areas observed by immunofixation. Free [place]/Lambda Light Chain Ratio 1.94 H 08/23/2016 11:122016 1:22pm Reference Range: 0.2600-1.65 Test Performed by: [facility] [address] [place] [address] Immunoglobulin Free Light Chains, Serum performed at [facility], [address] [place] [address] Receivable Clerk Juliana Rob MD Free [place] Light Chains 5.46 mg/dL H 08/23/2016 11:12am 08/25/2016 1: 22pm Reference Range: 0.3300-1.94 Free Lambda Light Chains 2.82 mg/dL H () 08/23/2016 11:1208/25/2016 1 :22pm Reference Range: 0.5700-2.63 Test Performed by: [facility] [address] [place] [address] Immunoglobulin Free Light Chains, Serum performed at [facility], [address] [place] [address] Receivable Clerk Juliana Rob MD Reference Range: 0.5700-2.63 --- 08/25/16 1322 --- IFLCLA previously reported as: 2.82 H mg/dL Reference Range: 0.5700-2.63 Test Performed by: [facility] [address] [place] [address] Immunoglobulin Free Light Chains, Serum performed at [facility], [address] [place] [address] Receivable Clerk Juliana Rob MD Band Neutrophils % 1.0 % 0-6 08/23/2016 12:45pm 08/23/2016 2:00pm Band Neutrophils # 0.2 T/MM3 08/23/2016 12:45pm 08/23/2016 2:00pm Phosphorus Level 4.2 MG/DL 2.5-4.5 08/30/2016 11:51am 08/30/2016 12: 05pm Neutrophils % (Manual) 69.0 % H 33-66 [...] Comment NORMAL 08/24/2016 1:47pm 08/24/2016 2: 25pm Troponin I < 0.012 ng/ml 0-0.12 08/24/2016 [...] CLEAR 08/24/2016 3:49pm 08/24/2016 3:55pm Urine Specific [place] 1.010 L 1.015-1.025 08/24/2016 3:49pm 2016 3:55pm [...] CULT NOT INDICATED 08/24/2016 3:49pm 2016 4:07pm Icterus Index < 2 0-7 09/06/2016 9:18am 09/06/2016 9:34am Chemistry Specimen Hemolysis < 15 0-25 09/06/2016 9:18am 09/06/2016 9 :34am 0-25: Specimen Exhibited No Hemolysis. Turbidity < 20 0-20 09/06/2016 9:18am 09/06/2016 9:34am Sodium Level 142 MEQ/L 134-144 09/06/2016 9:1809/06/2016 9:34am Potassium Level 4.0 MEQ/L 3.6-5 09/06/2016 9:18am 09/06/2016 9:34am Chloride Level 96 MEQ/L L 98-107 09/06/2016 9:1809/06/2016 9:34am Carbon Dioxide Level 32 MEQ/L H 22-30 09/06/2016 9:18am 09/06/2016 9: 34am Anion Gap 14 MEQ/L 5-15 09/06/2016 9:18am 09/06/2016 9:34am Blood Urea Nitrogen 20.0 MG/DL H 7-17 09/06/2016 9:1809/06/2016 9: 34am Creatinine 0.7 MG/DL 0.7-1.2 09/06/2016 9:1809/06/2016 9:34am BUN/Creatinine Ratio 29 RATIO H 6-26 09/06/2016 9:09/06/2016 9: 34am Glomerular Filtration Rate Calc 81 09/06/2016 9:09/06/2016 9: 34am Glucose Level 167 MG/DL H 65-110 09/06/2016 9:1809/06/2016 9:34am Calculated Osmolality 280 MOSM/KG 261-280 09/06/2016 9:09/06/2016 9:34am Calcium Level 9.0 MG/DL 8.4-10.2 09/06/2016 9:09/06/2016 9:34am Total Bilirubin 0.70 MG/DL 0.20-1.30 09/06/2016 9:09/06/2016 9: 34am Alkaline Phosphatase 103 U/L 38-126 09/06/2016 9:09/06/2016 9: 34am Total Protein 7.2 G/DL 6.3-8.2 09/06/2016 9:09/06/2016 9:34am Albumin 3.7 G/DL 3.5-5.0 09/06/2016 9:09/06/2016 9:34am Globulin 3.5 G/DL 2.4-3.6 09/06/2016 9:09/06/2016 9:34am Albumin/Globulin Ratio 1.1 RATIO 1.1-2.2 09/06/2016 9:09/06/2016 9 :34am Aspartate Amino Transf (AST/SGOT) 19 U/L 14-36 09/06/2016 9:2016 9:34am Alanine Aminotransferase (ALT/SGPT) 38 U/L 9-52 09/06/2016 9:09/06 9:34am Lactate Dehydrogenase 365 U/L 313-618 09/06/2016 9:1809/06/2016 9: 34am Magnesium Level 2.0 MG/DL 1.6-2.3 09/06/2016 9:09/06/2016 9:34am Carcinoembryonic Antigen 118.00 UG/L H 0-3.0 09/06/2016 9:2016 10:11am White Blood Count 8.1 T/MM3 4.5-11.0 09/13/2016 6:09/13/2016 6: 34am Red Blood Count 3.48 M/MM3 L 4.00-5.20 09/13/2016 6:09/13/2016 6: 34am Hemoglobin 10.0 GM/DL L 12-16 09/13/2016 6:09/13/2016 6:34am Hematocrit 29.7 % L 36-46 09/13/2016 6:09/13/2016 6:34am Mean Corpuscular Volume 85.3 UM3 80-100 09/13/2016 6:09/13/2016 6: 34am Mean Corpuscular Hemoglobin 28.7 UUG 26-34 09/13/2016 6:2016 6:34am Mean Corpuscular Hemoglobin Concent 33.7 GM/DL 31-37 09/13/2016 6:09/13/2016 6:34am RDW Standard Deviation 49.9 FL 36.9-50.2 09/13/2016 6:09/13/2016 6 :34am Platelet Count 184 T/MM3 130-400 09/13/2016 6:09/13/2016 6:34am Mean Platelet Volume 10.1 UM3 9.4-12.4 09/13/2016 6:09/13/2016 6: 34am Neutrophils (%) (Auto) 69.0 % H 33-66 09/13/2016 6:09/13/2016 6: 34am Lymphocytes (%) (Auto) 6.7 % L 23-45 09/13/2016 6:09/13/2016 6: 34am Monocytes (%) (Auto) 11.0 % H 0-9.0 09/13/2016 6:09/13/2016 6:34am Eosinophils (%) (Auto) 11.6 % H 0-4 09/13/2016 6:09/13/2016 6:34am Basophils (%) (Auto) 0.7 % 0-2 09/13/2016 6:09/13/2016 6:34am Immature Granulocyte % (Auto) 1.0 % H 0.0-0.5 09/13/2016 6:2016 6:34am Absolute Neutrophils (auto) 5.6 T/MM3 1.8-7.7 09/13/2016 6:2016 6:34am Absolute Lymphocytes (auto) 0.5 T/MM3 L 1-4.8 09/13/2016 6:2016 6:34am Absolute Monocytes (auto) 0.9 T/MM3 H 0-0.8 09/13/2016 6:2016 6:34am Absolute Eosinophils (auto) 0.9 T/MM3 H 0-0.5 09/13/2016 6:2016 6:34am Absolute Basophils (auto) 0.1 T/MM3 0-0.2 09/13/2016 6:09/13/2016 6:34am Absolute Immature Granulocyte (auto 0.08 T/MM3 H 0.00-0.03 09/13/2016 6: 09/13/2016 6:34am Microbiology Results Procedure Source Organism/Result Collection Date/Time Result Date/Time Result Status Blood Culture Peripheral/Iv Start NO GROWTH AFTER 5 DAYS 08/24/2016 4:38pm 08/29/2016 4:41pm Final Name: NITISH JUAREZ Unit #: [id number] : 1940 Sex: F Admit Date: Loc / Svc: SCU Discharge Date: DIAGNOSTIC IMAGING REPORT Report #: [id number] [facility] JOE [place] EXAM: PORTACATH W FLUORO W 1V CXR LOCATION OF DICTATION: [place] HISTORY: ITS.REASON: PORT INSERTION COMPARISON: No prior studies available for comparison. TECHNIQUE: FINDINGS: Heart size is normal. 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 Mediastinal configuration is within normal limits. Right-sided chest port in place with the tip of the catheter overlying the upper SVC. The lungs are clear. No evidence for pneumothorax or hemothorax. There is a suspected acute/recent nondisplaced fracture involving the right proximal humerus. Subtle callus formation suggest about the fracture site. IMPRESSION: 1. Heart size is normal. Lungs are clear. 2. Right-sided chest port in place with the tip of the catheter overlying the upper SVC. 3. Suspected acute/subacute nondisplaced proximal right humeral fracture. . Procedures Procedure Status Date Provider(s) X-ray exam of humerus Completed 08/03/16 Ct upper extremity w/o dye Completed 08/03/16 Emergency dept visit Completed 08/03/16 Mri joint upr extr w/o&w/dye Completed 08/10/16 Bone imaging whole body Completed 08/10/16 305740"TECHNETIUM TC-99M MEDRONATE, DIAGNOSTIC, PER STUDY DO Completed [...] Complete cbc w/auto diff wbc Completed 08/13/16 [id number]"INFUSION, NORMAL SALINE SOLUTION , 250 CC" Completed 08/13/16 [id number]"LOW OSMOLAR CONTRAST MATERIAL, 300-399 MG/ML IODINE C Completed Bone biopsy trocar/needle Completed 08/16/[address] scan for needle biopsy Completed 08/16/16 Tissue exam by pathologist Completed 08/16/16 Decalcify tissue Completed 08/16/16 Immunohisto antb addl slide Completed 08/16/16 Immunohisto antb 1st stain Completed 08/16/16 Cat scan follow-up study Completed 08/19/16 Routine venipuncture Completed 08/23/16 Assay of beta-2 protein Completed 08/23/16 Assay iga/igd/igg/igm each Completed 08/23/16 Assay iga/igd/igg/igm each Completed 08/23/16 Assay iga/igd/igg/igm each Completed 08/23/16 Assay iga/igd/igg/igm each Completed 08/23/16 Assay of ige Completed 08/23/16 Assay nephelometry not spec Completed 08/23/16 Assay nephelometry not spec Completed 08/23/16 Assay of protein serum Completed 08/23/16 Protein e-phoresis serum Completed 08/23/16 Immunofix e-phoresis serum Completed 08/23/16 Cat scan follow-up study Completed 08/23/16 Comprehen metabolic panel Completed 08/23/16 Carcinoembryonic antigen Completed 08/23/16 Lactate (ld) (ldh) enzyme Completed 08/23/16 Assay of magnesium Completed 08/23/16 Assay of phosphorus Completed 08/23/16 Complete cbc w/auto diff wbc Completed 08/23/16 Routine venipuncture Completed 08/30/16 Ct head/brain w/o & w/dye Completed 08/30/16 Comprehen metabolic panel Completed 08/30/16 Lactate (ld) (ldh) enzyme Completed 08/30/16 Assay of magnesium Completed 08/30/16 Assay of phosphorus Completed 08/30/16 Complete cbc w/auto diff wbc Completed 08/30/16 114209"INFUSION, NORMAL SALINE SOLUTION , 250 CC" Completed 08/30/16 [id number]"LOW OSMOLAR CONTRAST MATERIAL, 300-399 MG/ML IODINE C Completed Routine venipuncture Completed 08/24/16 Routine venipuncture Completed 08/24/16 Chest x-ray 1 view frontal Completed 08/24/16 Metabolic panel total ca Completed 08/24/16 Urinalysis auto w/scope Completed 08/24/16 Assay of lactic acid Completed 08/24/16 Assay of lactic acid Completed 08/24/16 Procalcitonin (pct) Completed 08/24/16 Assay of troponin quant Completed 08/24/16 Complete cbc w/auto diff wbc Completed 08/24/16 Blood culture for bacteria Completed 08/24/16 Blood culture for bacteria Completed 08/24/16 Electrocardiogram tracing Completed 08/24/16 Airway inhalation treatment Completed 08/24/16 Airway inhalation treatment Completed 08/24/16 Airway inhalation treatment Completed 08/24/16 Airway inhalation treatment Completed 08/24/16 Measure blood oxygen level Completed 08/24/16 Emergency dept visit Completed 08/24/16 [id number] ITEM OR SERVICE Completed 08/24/16 [id number] ITEM OR SERVICE Completed 08/24/16 [id number] ITEM OR SERVICE Completed 08/24/16 [id number] ITEM OR SERVICE Completed 08/24/16 [id number] ITEM OR SERVICE Completed 08/24/16 [id number] ITEM OR SERVICE Completed 08/24/16 [id number] ITEM OR SERVICE Completed 08/24/16 [id number] ITEM OR SERVICE Completed 08/24/16 [id number] ITEM OR SERVICE Completed 08/24/16 [id number] ITEM OR SERVICE Completed 08/24/16 [id number] ITEM OR SERVICE Completed 08/24/16 [id number]"HOSPITAL OBSERVATION SERVICE, PER HOUR" Completed 08/24/16 [id number]"HOSPITAL OBSERVATION SERVICE, PER HOUR" Completed 08/24/16 [id number]"HOSPITAL OBSERVATION SERVICE, PER HOUR" Completed 08/24/16 Insertion of vascular catheter Completed 09/13/16 ELI LEONG MD, FACS , JOHN Encounters Encounter Location Arrival/Admit Date Discharge/Depart Date Attending Provider Departed [facility] Day [facility] 09/13/16 5:41am 09/13/16 11 :10am ELI LEONG FACS, MD Registered [facility] 09/06/16 9:04am BRENDEN MCNEIL [facility] 08/30/16 11:35am BRENDEN MCNEIL Discharged Inpatient (obs) [facility] 08/24/16 4:26pm 08/25/16 2: 32pm GABRIELLE FREEMAN DO [facility] 08/23/16 1:24pm EDMUND DONAHUE MD [facility] 08/23/16 1:21pm BRENDEN MCNEIL [facility] 08/23/16 10:56am BRENDEN MCNEIL [facility] 08/19/16 12:25pm EDMUND DONAHUE MD Registered Clinic [facility] 08/16/16 3:23pm BRENDEN MCNEIL Registered [facility] 08/13/16 9:22am BRENDEN MCNEIL Registered [facility] 08/10/16 8:12am CELESTINE RUBIN MD Registered [facility] 08/05/16 11:28am CELESTINE RUBIN MD Departed Emergency Room [facility] 08/03/16 8:08pm 08/03/16 10: 00pm LASHONDA BRANNON DO
--- OUTSIDE RECORDS SUMMARY | 2016-09-25 17:30 | XMS REPORT | Continuity of Care Document ---
Author Author [facility] Organization [facility] Address Unknown Phone Unavailable Support Name Relationship Address Phone DEBORAH AMAYA MD Caregiver [facility] [address] [place] [address] Unavailable ANDREW FELICIANO MD Caregiver [address] [place] [address] [place] [phone] SIMI JUAREZ Next Of Kin [address] [place] [address] C Insurance Providers Payer Name Policy Number Subscriber Name Relationship Medicare [id number] Harriet Juarez 18 Self [facility] [id number] Harriet Juarez 18 Self Advance Directives Directive [...] 20 Mg PO DAILY 08/10/08 Active Ipratropium [place] 2 [place] EA NOSTRIL NEEDED 08/30/10 Active Social History [...] F (96.8 - 99.1) Temperature (Calculated Celsius) 35.62092 degrees C (36.0 - 37.3) Pulse Rate [...] Has specimen been collected/obtained? Y Urine Specific [place] August 10, 2008 5:07pm 1.015 - Has [...] Encounters Encounter Location Date/Time Departed Emergency Room [facility] 07/26/14 1:25am Recent Diagnosis
[2016-09-25 17:36] LABS: HCT - HEMATOCRIT 24.6 % (36-46); HGB - HEMOGLOBIN 8.2 GM/DL (12-16); MEAN CORPUSCULAR HGB 28.4 UUG (26-34); MEAN CORPUSCULAR HGB CONC(MCHC 33.3 GM/DL (31-37); MEAN CORPUSCULAR VOLUME 85.1 UM3 (80-100); MEAN PLATELET VOLUME 9.5 UM3 (9.4-12.4); RED BLOOD COUNT 2.89 M/MM3 (4.00-5.20)
[2016-09-25 17:42] LABS: ALBUMIN/GLOBULIN RATIO 1.1 RATIO (1.1-2.2); ALKALINE PHOSPHATASE 92 U/L (38-126); ALT (SGPT) 41 U/L (9-52); ANION GAP 11 MEQ/L (5-15); AST (SGOT) 26 U/L (14-36); BUN/CREATININE RATIO 18 RATIO (6-26); CALCIUM 7.5 MG/DL (8.4-10.2); CHLORIDE 93 MEQ/L (98-107); CO2 - CARBON DIOXIDE 30 MEQ/L (22-30); CREATININE 0.5 MG/DL (0.7-1.2); GLOMERULAR FILTRATION RATE 120; GLUCOSE 122 MG/DL (65-110); LIPASE 78 U/L (23-300); POTASSIUM 3.7 MEQ/L (3.6-5); SODIUM 134 MEQ/L (134-144); TOTAL PROTEIN 5.8 G/DL (6.3-8.2)
[2016-09-25] MEDS ORDERED: PROCHLORPERAZINE 10mg/2ml INJECTION IV ONE (17:45)
--- NOTE | 2016-09-25 17:54 | NUR ---
UA PATIENT IS EDUCATED ON NEED FOR UA SPECIMEN. PATIENT REFUSED STRAIGHT CATH AND STATED THAT SHE WOULD TRY TO URINATE VIA BSC SOON SHE COULD.
--- NOTE | 2016-09-25 18:22 | NUR ---
ELIMINATION PATIENT UP TO BSC TO VOID. UA COLLECTED. FAMILY BACK IN ROOM AT BEDSIDE.
[2016-09-25 18:34] LABS: BLOOD, URINE NEGATIVE (NEGATIVE); COLOR,URINE YELLOW (YELLOW); LEUKOCYTE ESTERASE ,URINE NEGATIVE (NEGATIVE); NITRITE,URINE NEGATIVE (NEGATIVE); UROBILINOGEN,URINE 0.2 EU/DL (NORMAL)
[2016-09-25 18:46] LABS: EOSINOPHILS # (MANUAL) 0.3 T/MM3 (0-0.5); LYMPHOCYTES # (MANUAL) 0.1 T/MM3 (1-4.8); MONOCYTES # (MANUAL) 0.1 T/MM3 (0-0.8); NEUTROPHILS #(MANUAL)-ABSOLUTE 0.4 T/MM3 (1.8-7.7); TOTAL CELLS COUNTED 50 %
[2016-09-25 18:47] LABS: ANISOCYTOSIS 1+; POIKILOCYTOSIS 1+
[2016-09-25] MEDS ORDERED: TBO-FILGRASTIM 300mcg/0.5ml INJECTION SQ ONE (19:00)
[2016-09-25] MEDS ORDERED: CEFEPIME 1 G in NORMAL SALINE 100 ML IV ONE ×2 (19:00→20:45)
--- NOTE | 2016-09-25 19:28 | NUR ---
PROVIDER Lawrence JAIMES [employer]LECT[employer]SEM[employer] AND TESTER IN TO SEE PATIENT.
--- OUTSIDE RECORDS SUMMARY | 2016-09-25 19:39 | XMS REPORT | Continuity of Care Document ---
Author Author [facility] Organization [facility] Address Unknown Phone Unavailable Support Name Relationship Address Phone DEBORAH AMAYA MD Caregiver [facility] [address] [place] [address] Unavailable ANDREW FELICIANO MD Caregiver [address] [place] [address] [place] [phone] SIMI JUAREZ Next Of Kin [address] [place] [address] C Insurance Providers Payer Name Policy Number Subscriber Name Relationship Medicare [id number] Harriet Juarez 18 Self [facility] [id number] Harriet Juarez 18 Self Advance Directives Directive [...] 20 Mg PO DAILY 08/10/08 Active Ipratropium Tenstrike 2 Valentines EA NOSTRIL NEEDED 08/30/10 Active Social History [...] F (96.8 - 99.1) Temperature (Calculated Celsius) 35.54350 degrees C (36.0 - 37.3) Pulse Rate [...] Has specimen been collected/obtained? Y Urine Specific [place] August 10, 2008 5:07pm 1.015 - Has [...] Encounters Encounter Location Date/Time Departed Emergency Room [facility] 07/26/14 1:25am Recent Diagnosis
[2016-09-25] MEDS ORDERED: VANCOMYCIN 1,000 MG in NORMAL SALINE 250 ML IV ONE (19:45)
[2016-09-25] MEDS ORDERED: HYDROMORPHONE 2mg/ml INJECTION IV PRN (19:45)
[2016-09-25] MEDS ORDERED: CYCLOBENZAPRINE 10 MG TABLET PO PRN (19:45)
--- NOTE | 2016-09-25 19:47 | NUR ---
REPORT GIVEN TO BABATUNDE VENEGAS. NO QUESTIONS NOTED.
--- NOTE | 2016-09-25 19:55 | NUR ---
Accepted patient from ER per cart. Pt walks from cart to bed without difficulty. Pt is very weak. Pt has fx to her right upper arm. Has been using a sling to her arm and developed an abrasion under her right upper arm. Sling is off, a pillow is supporting her arm at this time.
[2016-09-25 20:03] VITALS: Ht 149.9 cm; Wt 54.1 kg
[2016-09-25] MEDS: NORMAL SALINE 1,000 ML IV SCH (20:25)
[2016-09-25 20:27] VITALS: BP 112/50; PULSE 100; RESP 16; TEMP 99.7; O2SAT 96
[2016-09-25 20:44] VITALS: O2SAT 97
[2016-09-25] MEDS: ALBUTEROL/IPRATROPIUM INHAL. 2.5mg-0.5mg/3ml Neb. AEROSOL SCH (20:44)
--- NOTE | 2016-09-25 20:54 | HPPDOC ---
TONI FRIAS MD 09/25/165: HPI - Adult Date DATE: 09/25/16 TIME: 20:42 General Chief Complaint: nausea and vomiting History of Present Illness This is a 76-year-old female who was recently diagnosed with metastatic lung carcinoma to her pelvis and to her right humerus. The patient is currently receiving chemotherapy. Her first round of chemotherapy was started approximately one week ago. Since beginning her chemotherapy patients had recurrent episodes of nausea and vomiting and diarrhea. During this past week patient was treated in the oncology clinic 3 with IV fluids. The patient continues to have nausea and vomiting and diarrhea. The patients increasing weakness. The patient had low-grade fever chills and sweats at home. Temperature documented as high as 100.2. The patient was referred into the emergency department for evaluation. In the emergency department the patients workup was unremarkable except for neutropenia. The ER provider discussed the case with the on-call oncologist. It was recommended that the patient be admitted for a fever and neutropenia workup. The patients chest x-ray was unremarkable. The patients urine was negative. The patients physical examination does not lend itself to any obvious source of infection other than the nausea and vomiting. Past Medical History Past Medical History Patient has a relatively brief past medical history she does have diagnosed lung cancer with widespread metastasis; she has a spastic colon after her colon was perforated during a colonoscopy; she has hypertension; and she has COPD. Surgical History Patient's Surgical History: Patient surgical history is brief: She has had trigger finger operations on both hands; she has had a pus pocket removed from her right neck; and has had her tubes tied in 1971. She also has surgery for a perforated bowel, cause during a colonoscopy and 2004. Right proximal humeral fracture due to bone cancer, lung cancer Current Medications Home Meds Reported Medications Tetrahydrozoline HCl (Eye Drops) 15 Ml Drops, 1 DROP BOTH EYES DAILY Y for DRY EYES 09/25/16 Pantoprazole Sodium (Pantoprazole Sodium) 40 Mg Tablet.dr, 40 MG PO DAILY 09/25/16 Ondansetron HCl (Ondansetron HCl) 8 Mg Tablet, 8 MG PO Q8H Y for NAUSEA &/OR VOMITING 09/25/16 Dexamethasone (Dexamethasone) 4 Mg Tablet, 4 MG PO as directed TAKE 2 DAYS BEFORE AND AFTER CHEMO 09/13/16 Folic Acid (Folic Acid) 1 Mg Tablet, 1 MG PO NOON 09/10/16 Metoclopramide HCl (Reglan) 10 Mg Tablet, 10 MG PO Q6-8HPRN 09/10/16 Hydrocodone/Acetaminophen (Hydrocodon-Acetaminoph 7.5-325) 7.5-325 Tablet, 1 TAB PO Q6H Y for PAIN 08/24/16 Cyclobenzaprine HCl (Cyclobenzaprine HCl) 10 Mg Tablet, 5 MG PO TID Y for MUSCLE PAIN 08/24/16 Sodium Chloride (Saline Nasal [place]) 30 Ml [place], 1 SPRAY EA NOSTRIL QID Y for PRN ORDERS 11/05/15 Ketotifen Fumarate (Eye Itch Relief) 5 Ml Drops, 1 DROP BOTH EYES BID Y for ITCHING 11/05/15 Loratadine (Allergy) 10 Mg Tablet, 10 MG PO DAILY Y for ALLERY SYMPTOMS 11/05/15 Ipratropium/Albuterol Sulfate (Iprat-Albut 0.5-3(2.5) mg/3 ml) 3 Ml Ampul.neb, 1 VIAL AEROSOL Q6H 11/05/15 Chlorthalidone (Chlorthalidone) 25 Mg Tablet, 12.5 MG PO WB 11/05/15 Lisinopril (Lisinopril) 20 Mg Tablet, 20 MG PO HS 08/10/08 Dicyclomine Hcl (Dicyclomine Hcl) 20 Mg Tablet, 20 MG PO TID 08/10/08 Multivitamins W-Minerals/Lut (Centrum Silver Tablet) 1 Tab Tablet, 1 TAB PO HS 08/10/08 Calcium Carbonate/Vitamin D3 (Calcium + D 600 Mg Tablet) 1 Tab Tablet, 2 TAB PO DAILY 08/10/08 Aspirin (Beronica) 81 Mg Tablet.dr, 81 MG PO DAILY 08/10/08 Amlodipine (Norvasc) 5 Mg Tablet, 5 MG PO HS 08/10/08 Allergies: Coded Allergies: No Known Drug Allergies (Verified Allergy, Unknown, 09/25/16) Family History Family History: Family history tells us that her mother at age 74 from a myocardial infarction and her father of an acute appendicitis attack at age 74. Family history otherwise noncontributory Social History Smoking Status: Former smoker Does patient use chewing tobac: No Second Hand Exposure: No Quit Date: May 30, 2004 Substance Use Type: does not use Substance last used: unknown Alcohol Intake: occasionally Last Drink: unknown Marital Status: Sexuality: male partner Housing: house Number of Children: 4 Service: No Current Occupational Status: retired Occupational Hazard: No Advance Directives: Yes DPOA for Healthcare Only Review of Systems All Other Systems All Other Systems: Reviewed (remainder of 10-point ROS Neg.) Comments No headache, no change in vision, no ear pain, no sore throat or sores in the mouth, no pain with swallowing, no neck pain, no chest pain, no cough, is mildly short of breath, the patient uses oxygen 2 L chronical the patient has had nausea and vomiting at least 8 episodes today, but over the past week numerous episodes of emesis, no blood in emesis, the patient has mild abdominal cramping one or 2 days ago but this is improved, the patient had several loose stools, patient with a history of hemorrhoids and therefore her stools do have blood mixed in, patient denies any skin rashes, denies any focal neurological complaints, his pain the right upper arm status post pathological fracture, a 10 point review of systems is otherwise negative except for described above Physical Exam General General Nourishment: well nourished, thin, apparent age, adult General Body Habitus: well groomed Vital Signs Vital Signs Date Time Temp Pulse Resp B/P Pulse Ox O2 Delivery O2 Flow Rate FiO2 09/25/16 20:27 99.7 100 16 112/50 96 Nasal Cannula 2.50 Height (Feet): 4 Height (Inches): 11.00 Telemetry Rhythm: Sinus Rhythm Eyes Brief: FOUND: PERRL, NOT FOUND: scleral icterus Neck Brief: FOUND: carotid bruits, midline, NOT FOUND: JVD, nuchal rigidity, other, spasm, tenderness, tracheal deviation Comments scattered rhonchi in both lung baes, no whezes, dminished in general Cardiovascular (brief) Cardiac Brief: FOUND: regular rate, regular rhythm, NOT FOUND: click, gallop, murmur, other, pedal edema, peripheral edema, rub Capillary Refill: <2 sec Abdomen (brief) Abdominal Brief: FOUND: BS normo active x4, soft, NOT FOUND: distended, tender Musculoskeletal (brief) Musculoskeletal Brief: NOT FOUND: deformity, extremities move equally, loss of motion, other, spasm, tenderness Integumentary (brief) Integumentary Brief: FOUND: dry, pink, warm Neurologic (brief) Comments no focal deficits Neurologic RN Documented GCS Eye Opening: (4)Spontaneous Verbal: (5)Oriented Motor: (6)Obeys Commands Total: Psychiatric (brief) FOUND: alert, normal affect, oriented Laboratory Laboratory Tests Test 09/25/16 17:27 09/25/16 18:20 09/25/16 19:01 09/25/16 19:05 White Blood Count 1.0T/MM3 Red Blood Count 2.89M/MM3 Hemoglobin 8.2GM/DL Hematocrit 24.6% Mean Corpuscular Volume 85.1UM3 Mean Corpuscular Hemoglobin 28.4UUG Mean Corpuscular Hemoglobin Concent 33.3GM/DL RDW Standard Deviation 53.5FL Platelet Count 132T/MM3 Mean Platelet Volume 9.5UM3 Immature Granulocyte % (Auto) % Neutrophils (%) (Auto) % Lymphocytes (%) (Auto) % Monocytes (%) (Auto) % Eosinophils (%) (Auto) % Basophils (%) (Auto) % Absolute Immature Granulocyte (auto T/MM3 Absolute Neutrophils (auto) T/MM3 Absolute Lymphocytes (auto) T/MM3 Absolute Monocytes (auto) T/MM3 Absolute Eosinophils (auto) T/MM3 Absolute Basophils (auto) T/MM3 Neutrophils % (Manual) 44.0% Band Neutrophils % 2.0% Lymphocytes % (Manual) 10.0% Reactive Lymphocytes % 4.0% Monocytes % (Manual) 6.0% Eosinophils % (Manual) 34.0% Absolute Neutrophils (Manual) 0.4T/MM3 Band Neutrophils # 0.0T/MM3 Lymphocytes # (Manual) 0.1T/MM3 Reactive Lymphocytes # 0.0T/MM3 Monocytes # (Manual) 0.1T/MM3 Eosinophils # (Manual) 0.3T/MM3 Poikilocytosis 1+ Anisocytosis 1+ Red Cell Morphology Comment Abnormal Turbidity < 20 Sodium Level 134MEQ/L Potassium Level 3.7MEQ/L Chloride Level 93MEQ/L Carbon Dioxide Level 30MEQ/L Anion Gap 11MEQ/L Blood Urea Nitrogen 9.0MG/DL Creatinine 0.5MG/DL Glomerular Filtration Rate Calc 120 BUN/Creatinine Ratio 18RATIO Glucose Level 122MG/DL Calculated Osmolality 258MOSM/KG Calcium Level 7.5MG/DL Total Bilirubin 0.90MG/DL Icterus Index < 2 Aspartate Amino Transf (AST/SGOT) 26U/L Alanine Aminotransferase (ALT/SGPT) 41U/L Alkaline Phosphatase 92U/L Total Protein 5.8G/DL Albumin 3.0G/DL Globulin 2.8G/DL Albumin/Globulin Ratio 1.1RATIO Lipase 78U/L Chemistry Specimen Hemolysis < 15 Urine Collection Type Cleancatch-midstream Urine Color Yellow Urine Turbidity Clear Urine pH 6.5 Urine Specific [place] 1.010 Urine Protein Negative Urine Glucose (UA) Negative Urine Ketones 3+ Urine Blood Negative Urine Nitrite Negative Urine Bilirubin Negative Urine Urobilinogen 0.2EU/DL Urine Leukocyte Esterase Negative Urinalysis Comment Microscopic not ind. Plasma Lactate 0.6MMOL/L Procalcitonin 0.07NG/ML Radiology CXR no acute process, port appreciated, copd changes, no discrete infiltratte. Sepsis Diagnostic Criteria Sepsis SIRS Criteria: Pulse >= 90 beats/min, WBC >=12,000 or <=4,000 Severe Sepsis None Seen Assessment & Plan Assessment 1. Fever and neutropenia acute present on admission: Linda the patients absolute neutrophil count is 460, patients MAXIMUM TEMPERATURE is 100.2, oncology recommended treating as a fever and neutropenic patient. Patient had blood cultures obtained. Chest x-ray is negative as noted above. Urinalysis is negative as noted above. Well cover with cefepime, Levaquin, and vancomycin , these have been recommended per oncology. Well adjust as indicated by oncology. Note that patient did receive an injection of a GM CSF agent in the ED to stim WBC production 2. Metastatic lung carcinoma acute present on admission: At this time patient s last chemotherapy was 1 week ago. Obviously no chemotherapy scheduled acutely. To be followed per oncology. Status post radiation therapy to her right humerus and pelvis. 3. COPD chronic present on admission: Patient will continue on DuoNebs, albuterol when necessary, patients chronically O2 dependent, O2 requirement is slightly increased at 3 L. Patient is not exacerbated and does not need steroids currently. 4. Hypertension chronic present on admission: Currently well hold the patient s NELLY inhibitor and Norvasc. Adjust medications as indicated. 5. Sepsis acute present on admission: This is based on low white count, tachycardia. Lactic acid reassuring. IV fluids, repeat markers in the morning 6. Anemia chronic present on admission: Status post chemotherapy, most likely cause, no transfusion indicated 7. Intractable nausea and vomiting acute present on admission: Patient is requiring numerous medications to manage her symptoms. Most likely related to her chemotherapy. Cannot exclude the possibility of an infectious process. See #1. Well follow 8. DVT prophylaxis: SCDs, Lovenox 9. Gastric prophylaxis: PPI DVT Prophylaxis: SCD'S, Lovenox Code Status Do Not Resuscitate Hospital Course Summary Disclaimer The hospital course summary below is not to be considered part of the above Progress Note. CAYETANO DONALDSON MD 09/26/16 1238: Past Medical History Current Medications Home Meds Reported Medications Tetrahydrozoline HCl (Eye Drops) 15 Ml Drops, 1 DROP BOTH EYES DAILY Y for DRY EYES 09/25/16 Pantoprazole Sodium (Pantoprazole Sodium) 40 Mg Tablet.dr, 40 MG PO DAILY 09/25/16 Ondansetron HCl (Ondansetron HCl) 8 Mg Tablet, 8 MG PO Q8H Y for NAUSEA &/OR VOMITING 09/25/16 Dexamethasone (Dexamethasone) 4 Mg Tablet, 4 MG PO as directed TAKE 2 DAYS BEFORE AND AFTER CHEMO 09/13/16 Folic Acid (Folic Acid) 1 Mg Tablet, 1 MG PO NOON 09/10/16 Metoclopramide HCl (Reglan) 10 Mg Tablet, 10 MG PO Q6-8HPRN 09/10/16 Hydrocodone/Acetaminophen (Hydrocodon-Acetaminoph 7.5-325) 7.5-325 Tablet, 1 TAB PO Q6H Y for PAIN 08/24/16 Cyclobenzaprine HCl (Cyclobenzaprine HCl) 10 Mg Tablet, 5 MG PO TID Y for MUSCLE PAIN 08/24/16 Sodium Chloride (Saline Nasal [place]) 30 Ml [place], 1 SPRAY EA NOSTRIL QID Y for PRN ORDERS 11/05/15 Ketotifen Fumarate (Eye Itch Relief) 5 Ml Drops, 1 DROP BOTH EYES BID Y for ITCHING 11/05/15 Loratadine (Allergy) 10 Mg Tablet, 10 MG PO DAILY Y for ALLERY SYMPTOMS 11/05/15 Ipratropium/Albuterol Sulfate (Iprat-Albut 0.5-3(2.5) mg/3 ml) 3 Ml Ampul.neb, 1 VIAL AEROSOL Q6H 11/05/15 Chlorthalidone (Chlorthalidone) 25 Mg Tablet, 12.5 MG PO WB 11/05/15 Lisinopril (Lisinopril) 20 Mg Tablet, 20 MG PO HS 08/10/08 Dicyclomine Hcl (Dicyclomine Hcl) 20 Mg Tablet, 20 MG PO TID 08/10/08 Multivitamins W-Minerals/Lut (Centrum Silver Tablet) 1 Tab Tablet, 1 TAB PO HS 08/10/08 Calcium Carbonate/Vitamin D3 (Calcium + D 600 Mg Tablet) 1 Tab Tablet, 2 TAB PO DAILY 08/10/08 Aspirin (Beronica) 81 Mg Tablet.dr, 81 MG PO DAILY 08/10/08 Amlodipine (Norvasc) 5 Mg Tablet, 5 MG PO HS 08/10/08 Allergies: Coded Allergies: No Known Drug Allergies (Verified Allergy, Unknown, 09/25/16) Assessment & Plan Problems: (1) Neutropenic fever Status: Acute (2) Sepsis Status: Acute Assessment & Plan: Source undetermined. Manifestations: Temp elevation, Tachycardia, Neutropenia (3) Nausea & vomiting Status: Acute Qualifiers: Vomiting type: unspecified Vomiting Intractability: unspecified Qualified Codes: R11.2 - Nausea with vomiting, unspecified (4) Lung cancer Status: Chronic Assessment & Plan: Started chemo 09/20 (5) COPD (chronic obstructive pulmonary disease) Status: Chronic Qualifiers: COPD type: emphysema Emphysema type: unspecified Qualified Codes: J43.9 - Emphysema, unspecified (6) Chronic respiratory insufficiency Status: Chronic Assessment & Plan: Home O2 at 2L per NC. (7) HTN (hypertension) Status: Chronic Qualifiers: Hypertension type: essential hypertension Qualified Codes: I10 - Essential (primary) hypertension (8) Pancytopenia Status: Acute (9) Irritable bowel syndrome (IBS) Status: Chronic Plan/Intensity of Service Have independently interviewed and examined pt. Chart reviewed. Above note reviewed and concur. CC: Nausea/vomiting HPI: 76 y/o WF presents to [facility] ED secondary to n/v and temp elevation. Started Chemo for lung CA 09/20. With treatment for CA, feels breathing better (less congested and SOA). However, has been having significant nausea and vomiting. Received IVF in Onc clinic 3 times. Appetite decreased before chemo and worse since. Anytime tries to eat of drink she becomes very nauseated. Emesis became intractable on 09/25. Also noting f/c. Stools loose - reports bowel movement anytime she goes to urinate. Ab feels very gassy and bloated, but not painful per se. No increase acid reflux or pain with swallowing. No mouth pain. Weak in general, but not falls. In ED, temp elevated and pt neutropenic. Admitted for treatment of neutropenic fever. PMHx: COPD, Chronic resp insufficiency (O2 at 2L), HTN, Irritable bowel, Pathologic arm fracture. Allergies/Meds: reviewed. SHx: . Lives in [place] independently. Quit smoking 2004. Sees Leonarda for PCP and Gita for Onc. FHx: 3 sisters with emphysema (smoked). Daughter with breast CA. Mother diet [address] Father 74 of acute appendicitis ROS: as above. GEN: f/c, weakness, decrease appetite. HEENT: Dry nose with O2, no significant sinus pressure/pain/drainage. No pain with swallowing. Lungs: Denies cough, congestion or pain with breathing. CV: no chest pressure, pain, palpitations. Neuro: globalized weakness without localizing symptoms. Remainder of 10 point ROS reviewed and neg. EXAM: Gen: WDWNWF A&O Communicated well. HEENT: NC/AT PERRLA EOMI MMM No thrush Neck: midline, supple, no tracheal deviation LUNGS: decreased bilaterally. No crackles, wheezes, rhonchi. No distress on O2 CV: regular rate and rhythm AB: soft nt/nd BS present EXT: no clubbing, cyanosis, or edema NEURO: CN II-XII intact. No focal deficits. Psych: awake alert appropriate. Thoughts linear. Communicates well. Skin: warm and dry. Assessment : as above. Plan: Inpatient admission for treatment of neutropenic fever-anticipate greater than 2 midnight of care needed. Neutropenic precautions. Start cefepime, vancomycin, and levofloxacin for empiric antimicrobial coverage. Granix to help increase WBC. IVF for volume support secondary to n/v. Zofran prn nausea. Hold antihypertensives due to sepsis syndrome - monitor BP. SCD and Lovenox for DVT prevention due to CA. Continue supplemental O2 and Neb treatments. Consult with Dr Pelayo for ONC eval. Monitor lab. DNR as per pt's request. Care to return to Dr Brower at time of discharge. Hospital Course Summary Hospital Course Summary 09/25 Inpatient admission for treatment of neutropenic fever-anticipate greater than 2 midnight of care needed. Neutropenic precautions. Start cefepime, vancomycin, and levofloxacin for empiric antimicrobial coverage. Granix to help increase WBC. IVF for volume support secondary to n/v. Zofran prn nausea. Hold antihypertensives due to sepsis syndrome - monitor BP. SCD and Lovenox for DVT prevention due to CA. Continue supplemental O2 and Neb treatments. Consult with Dr Pelayo for ONC eval. Monitor lab. DNR as per pt's request. Care to return to Dr Brower at time of discharge. TONI FRIAS MD Sep 25, 2016 20:45 CAYETANO DONALDSON MD Sep 26, 2016 12:38
[2016-09-25] MEDS ORDERED: DICYCLOMINE 20 MG TABLET PO SCH (21:00)
[2016-09-25] MEDS ORDERED: CEFEPIME IV SCH (21:00)
[2016-09-25] MEDS ORDERED: NORMAL SALINE IV SCH (21:00)
[2016-09-25] MEDS: ENOXAPARIN 40 MG/0.4 ML INJECTION SQ SCH (22:13)
[2016-09-26] VITALS (9 sets, daily range): BP systolic 106–121; BP diastolic 49–60; PULSE 84–97; RESP 16–28; TEMP 96.3–99.7; O2SAT 95–97
[2016-09-26] MEDS: ALBUTEROL/IPRATROPIUM INHAL. 2.5mg-0.5mg/3ml Neb. AEROSOL SCH ×4 (03:02→19:00)
[2016-09-26 05:13] LABS: HCT - HEMATOCRIT 20.6 % (36-46); HGB - HEMOGLOBIN 6.8 GM/DL (12-16); MEAN CORPUSCULAR HGB 28.3 UUG (26-34); MEAN CORPUSCULAR VOLUME 85.8 UM3 (80-100); MEAN PLATELET VOLUME 9.8 UM3 (9.4-12.4)
[2016-09-26 05:25] LABS: ANION GAP 10 MEQ/L (5-15); BUN/CREATININE RATIO 18 RATIO (6-26); CALCIUM 6.8 MG/DL (8.4-10.2); CHLORIDE 98 MEQ/L (98-107); CO2 - CARBON DIOXIDE 27 MEQ/L (22-30); CREATININE 0.4 MG/DL (0.7-1.2); GLOMERULAR FILTRATION RATE 155; GLUCOSE 86 MG/DL (65-110); POTASSIUM 3.3 MEQ/L (3.6-5); SODIUM 135 MEQ/L (134-144)
[2016-09-26] MEDS: NORMAL SALINE 1,000 ML IV SCH (05:35)
[2016-09-26 06:01] LABS: WBC - WHITE BLOOD COUNT 0.9 T/MM3 (4.5-11.0)
[2016-09-26 06:16] LABS: ANISOCYTOSIS 1+; EOSINOPHILS # (MANUAL) 0.3 T/MM3 (0-0.5); HYPOCHROMASIA 1+; LYMPHOCYTES # (MANUAL) 0.1 T/MM3 (1-4.8); NEUTROPHILS #(MANUAL)-ABSOLUTE 0.5 T/MM3 (1.8-7.7); POIKILOCYTOSIS 1+; TOTAL CELLS COUNTED 100 %
[2016-09-26] MEDS: PANTOPRAZOLE 40 MG TABLET PO SCH (06:54)
[2016-09-26] MEDS: LEVOFLOXACIN 750 mg IVPB 750 MG in D5W 150 ML IV SCH (06:56)
--- NOTE | 2016-09-26 07:33 | NUR ---
VANCOMYCIN CONSULT (Day 2) S: 76 y/o F with metastatic lung cancer admitted for neutropenic fever. First round of chemotherapy was approximately 1 week ago. Since that round pt received IV fluids at the oncology clinic three times. Pt with nausea, vomiting, and diarrhea for past week. Increasing weakness. Pt presented to the ED due to low grade fevers, highest being reported as 100.2F. Started on vancomycin, cefepime, and levofloxacin empirically for neutropenic fever. Pharmacy consulted to manage vancomycin therapy. O: Ht=59 inches, Wt=54 kg, adjusted BW~47 kg SCr=0.4 mg/dL, CrCl~90 mL/min WBC=0.9 T/mm3; EQP=067 24-h Xhxs=223.2F UA: no indication of infection, ketones 3 + Blood cultures, 2 of 2: pending A/P: Day 2 vancomycin, cefepime, and levofloxacin empirically for neutropenic fever. Goal vancomycin trough concentration 15-20 mcg/mL. Will order vancomycin 1 g IV q12h, estimated to provide a trough concentration of ~15-17 mcg/mL. Will continue to follow renal function, clinical status, and await cultures. Thank you for the consult, Uma Kruse, PharmD, BCPS
[2016-09-26] MEDS: ENOXAPARIN 40 MG/0.4 ML INJECTION SQ SCH (08:35)
[2016-09-26] MEDS: ASPIRIN *EC* 81mg TABLET PO SCH (08:35)
[2016-09-26] MEDS: DICYCLOMINE 20 MG TABLET PO SCH ×3 (08:35→16:51)
[2016-09-26] MEDS: VANCOMYCIN 1 G in NORMAL SALINE 250 ML IV SCH ×2 (08:36→20:27)
[2016-09-26] MEDS ORDERED: TBO-FILGRASTIM 300mcg/0.5ml INJECTION SQ ONE (09:30)
--- NOTE | 2016-09-26 09:30 | DI ---
Indication: ITS.REASON: chills, vomiting PROCEDURE: CHEST 1 VIEW: Encounter: Initial Comparison: August 24, 2016 Findings: Linear areas of atelectasis or scarring in the left upper and right lower lobes. No focal consolidative pneumonia or pneumothorax. Heart size and mediastinal contours are stable. Probable emphysema. Impression: No pneumonia. .
[2016-09-26] MEDS ORDERED: DiphenhydrAMINE 25 MG CAPSULE PO ONE (09:45)
[2016-09-26] MEDS: CEFEPIME 1 G in NORMAL SALINE 100 ML IV SCH ×3 (10:01→21:11)
[2016-09-26 10:32] LABS: ABSOLUTE RETICS # 0.0029 T/MM3 (0.0300-0.0900); RETICULOCYTE % 0.1 % (0.6-1.7)
--- NOTE | 2016-09-26 10:41 | NUR ---
Order Clarification Per lab's request, RN called physician to clarify what type of blood should be ordered for blood transfusion. Lab stated CMV neg is normally for transplant patients only. This was relayed to physician. Received order to change blood product to packed red blood cells irradiated and leukoreduced. Order changed and lab notified.
[2016-09-26] MEDS: NS KCL 20 MEQ 1,000 ML IV SCH (11:36)
[2016-09-26] MEDS: FOLIC ACID 1 MG TABLET PO SCH (11:47)
[2016-09-26] MEDS: NORMAL SALINE 500 ML IV SCH (11:48)
[2016-09-26] MEDS ORDERED: POTASSIUM CHLORIDE 20 MEQ TABLET PO ONE (12:30)
[2016-09-26] MEDS ORDERED: MAGNESIUM OXIDE 400 MG TABLET PO ONE (12:30)
--- NOTE | 2016-09-26 15:00 | NUR ---
PRBC's Patient received one unit of PRBC's this afternoon. Premedicated with benadryl. Patient tolerated transfusion well without any signs/symptoms of reaction.
--- NOTE | 2016-09-26 15:40 | PNPDOC ---
Subjective Date DATE: 09/26/16 TIME: 15:29 Subjective F/U: Neutropenic Fever Doing okay this afternoon. Not having f/c. Loose stool has stopped - no bowel movements. Feels some rumbling in ab, like she could have stool soon. Nausea decreased. Ate 25% of breakfast and 50% of lunch. Breathing stable - not feeling increased SOA or congestion with IVF. Objective Vital Signs Vital signs Vital Signs Date Time Temp Pulse Resp B/P Pulse Ox O2 Delivery O2 Flow Rate FiO2 09/26/16 15:12 97.9 92 18 115/60 97 Nasal Cannula 2.00 Telemetry Rhythm: Sinus Rhythm Height (Feet): 4 Height (Inches): 11.00 Weight (Kilograms): 53.200 General General Appearance: Alert, Orientated x 3, Well Nourished, Well Developed, Cooperative, Looks Stated Age Eyes (Brief) Eyes: FOUND: EOMI, PERRL, NOT FOUND: scleral icterus ENMT (Brief) ENMT: FOUND: hearing intact, mucosa moist Neck (Brief) Neck: FOUND: midline, NOT FOUND: nuchal rigidity, spasm Respiratory (Brief) Respiratory: FOUND: equal bilaterally, other (No distress on O2 ), NOT FOUND: clear all marie (Decreased breath sounds. ), rales, wheezes Cardiovascular (Brief) Cardiac: FOUND: regular rate, regular rhythm, NOT FOUND: pedal edema Abdomen (Brief) Abdominal: FOUND: BS normo active x4, soft, NOT FOUND: distended, tender Extremities (Brief) Extremity : Side: Bilateral Extremity: leg Extremity Finding: NOT FOUND: edema Musculoskeletal (Brief) Musculoskeletal: FOUND: extremities move equally, NOT FOUND: deformity, spasm Integumentary (Brief) Integumentary: FOUND: dry, warm Neurologic (Brief) Neurological: FOUND: cranial 2-12 intact, motor (Intact ) Psychiatric (Brief) Psychiatric: FOUND: alert, attentive, normal affect, oriented Laboratory Laboratory Laboratory Tests 09/25/16 17:27 09/26/16 03:59 Laboratory Tests 09/25/16 17:27 09/26/16 03:59 Microbiology Microbiology Microbiology Date/Time Source Procedure Growth Status 09/25/16 19:05 Peripheral/Iv Start Blood Culture - Preliminary CULTURE INITIATED - RESULTS PENDING Resulted 09/25/16 19:01 Peripheral/Iv Start Blood Culture - Preliminary CULTURE INITIATED - RESULTS PENDING Resulted Sepsis Diagnostic Criteria Sepsis SIRS Criteria: Pulse >= 90 beats/min, WBC >=12,000 or <=4,000 Severe Sepsis None Seen Assessment & Plan Problems: (1) Neutropenic fever Status: Acute (2) Sepsis Status: Acute Assessment & Plan: Source undetermined. Manifestations: Temp elevation, Tachycardia, Neutropenia (3) Nausea & vomiting Status: Acute Qualifiers: Vomiting type: unspecified Vomiting Intractability: unspecified Qualified Codes: R11.2 - Nausea with vomiting, unspecified (4) Lung cancer Status: Chronic Assessment & Plan: Started chemo 09/20 (5) COPD (chronic obstructive pulmonary disease) Status: Chronic Qualifiers: COPD type: emphysema Emphysema type: unspecified Qualified Codes: J43.9 - Emphysema, unspecified (6) Chronic respiratory insufficiency Status: Chronic Assessment & Plan: Home O2 at 2L per NC. (7) HTN (hypertension) Status: Chronic Qualifiers: Hypertension type: essential hypertension Qualified Codes: I10 - Essential (primary) hypertension (8) Pancytopenia Status: Acute (9) Irritable bowel syndrome (IBS) Status: Chronic Plan/Intensity of Service Continue cefepime, vancomycin, and levofloxacin for empiric antimicrobial coverage. Continue neutropenic precautions. Respiratory PCR panel negative. Stool PCR panel pending (pt not produced sample). Granix 300mcg given this am due to decreased WBC - recheck CBC in am to monitor response. Continue IVF for volume support secondary to n/v. HGB with decreased from admission - transfuse 1 unit pRBC. Hold antihypertensives due to sepsis syndrome - monitor BP. Continue supplemental O2 and Neb treatments. Add nasal saline due to dry nasal passages from O2. Consult with Dr Pelayo for ONC eval. Recheck BMP in am due to medication and IVF use. Repeat CBC in am due to neutropenic fever. DVT Prophylaxis: SCD'S, Lovenox Code Status Do Not Resuscitate Hospital Course Summary Disclaimer The hospital course summary below is not to be considered part of the above Progress Note. Hospital Course Summary 09/25 Admit Inpatient admission for treatment of neutropenic fever-anticipate greater than 2 midnight of care needed. Neutropenic precautions. Start cefepime, vancomycin, and levofloxacin for empiric antimicrobial coverage. Granix to help increase WBC. IVF for volume support secondary to n/v. Zofran prn nausea. Hold antihypertensives due to sepsis syndrome - monitor BP. SCD and Lovenox for DVT prevention due to CA. Continue supplemental O2 and Neb treatments. Consult with Dr Pelayo for ONC eval. Monitor lab. DNR as per pt's request. Care to return to Dr Brower at time of discharge. 09/26 Doing okay this afternoon. Not having f/c. Loose stool has stopped - no bowel movements. Feels some rumbling in ab, like she could have stool soon. Nausea decreased. Ate 25% of breakfast and 50% of lunch. Breathing stable - not feeling increased SOA or congestion with IVF. Continue cefepime, vancomycin, and levofloxacin for empiric antimicrobial coverage. Continue neutropenic precautions. Respiratory PCR panel negative. Stool PCR panel pending (pt not produced sample). Granix 300mcg given this am due to decreased WBC - recheck CBC in am to monitor response. Continue IVF for volume support secondary to n/v. HGB with decreased from admission - transfuse 1 unit pRBC. Hold antihypertensives due to sepsis syndrome - monitor BP. Continue supplemental O2 and Neb treatments. Add nasal saline due to dry nasal passages from O2. Consult with Dr Pelayo for ONC eval. Recheck BMP in am due to medication and IVF use. Repeat CBC in am due to neutropenic fever. CAYETANO DONALDSON MD Sep 26, 2016 15:33
[2016-09-26] MEDS: SALINE NASAL SPRAY 45ml EA NOSTRIL SCH ×2 (16:51→21:12)
--- NOTE | 2016-09-26 17:46 | NUR ---
Status Patient has been resting quietly in bed most of shift. Few visitors in and out today. Appetite has slowly increased today. Denies nausea or pain throughout shift. Ambulates to bathroom with stand by assist. Continent of bowel and bladder. Patient has not had a stool to collect sample yet. Call light within reach.
[2016-09-27] VITALS (12 sets, daily range): BP systolic 117–130; BP diastolic 54–65; PULSE 82–103; RESP 14–26; TEMP 96.1–98; O2SAT 96–98
[2016-09-27 02:03] LABS: IRON 96 UG/DL (37-170)
[2016-09-27 03:12] LABS: FOLATE > 20.0 NG/ML (2.76-20); VITAMIN B12 - BATCH 633 PG/ML (239-931)
[2016-09-27] MEDS: NS KCL 20 MEQ 1,000 ML IV SCH ×3 (03:33→10:45)
[2016-09-27] MEDS: CEFEPIME 1 G in NORMAL SALINE 100 ML IV SCH ×4 (03:33→22:24)
--- NOTE | 2016-09-27 04:05 | NUR ---
RT notified that patient is needing a breathing treatment she has some wheezing. RT will be over to do treatment.
[2016-09-27] MEDS: ALBUTEROL INH.SOLN. 2.5mg/3ml (0.083%) Neb. AEROSOL PRN (04:10)
[2016-09-27 04:22] LABS: FERRITIN 1060 NG/ML (11-264)
[2016-09-27 04:45] LABS: HCT - HEMATOCRIT 22.8 % (36-46); HGB - HEMOGLOBIN 7.7 GM/DL (12-16); MEAN CORPUSCULAR HGB 28.3 UUG (26-34); MEAN CORPUSCULAR HGB CONC(MCHC 33.8 GM/DL (31-37); MEAN CORPUSCULAR VOLUME 83.8 UM3 (80-100); MEAN PLATELET VOLUME 9.6 UM3 (9.4-12.4); RED BLOOD COUNT 2.72 M/MM3 (4.00-5.20)
[2016-09-27 04:51] LABS: ANION GAP 8 MEQ/L (5-15); BUN/CREATININE RATIO 18 RATIO (6-26); CALCIUM 6.7 MG/DL (8.4-10.2); CHLORIDE 103 MEQ/L (98-107); CO2 - CARBON DIOXIDE 27 MEQ/L (22-30); CREATININE 0.4 MG/DL (0.7-1.2); GLOMERULAR FILTRATION RATE 155; GLUCOSE 91 MG/DL (65-110); MAGNESIUM 1.7 MG/DL (1.6-2.3); POTASSIUM 3.1 MEQ/L (3.6-5); SODIUM 138 MEQ/L (134-144)
--- NOTE | 2016-09-27 05:57 | NUR ---
PT did well overnight. She remained on 2 L of oxygen. PT states she takes breathing treatments every 6 hours at home and would like to continue that here. PT states she gets nose bleeds at home. PT had a nose bleed after doing her nasal spray. PT did her own spray and nose started bleeding at this time. RN was called to room. RN kept trying to hold pressure to stop bleed patient kept putting a wet wash cloth and klenex up her nose, once it would stop bleeding she would then shove another klenex up her nostril. RN instructed patient to stop and RN placed a clamp and ice on patient nose and bleeding stopped quickly after and no other bleeding was noted. PT ambulated to restroom without issues. RN called pharmacy about Granix this morning, pharmacy states wants lovenox on hold and wants day RN to discuss nose bleed and the lovenox with hospitalist. RN will pass on in report.
[2016-09-27 05:59] LABS: WBC - WHITE BLOOD COUNT 0.8 T/MM3 (4.5-11.0)
[2016-09-27] MEDS ORDERED: TBO-FILGRASTIM 300mcg/0.5ml INJECTION SQ ONE (06:15)
--- NOTE | 2016-09-27 06:26 | NUR ---
Lab drawn from kath cath at this time. helpdesk technician called lab to verify that it did not need to be a venous stick due to pt/inr. Lab told tech that it is okay to draw from the port.
[2016-09-27 06:27] LABS: RETICULOCYTE % 0.2 % (0.6-1.7); RETICULOCYTE HGB 28.4 PG (30.8-36.6)
[2016-09-27] MEDS: LEVOFLOXACIN 750 mg IVPB 750 MG in D5W 150 ML IV SCH (06:32)
[2016-09-27] MEDS: PANTOPRAZOLE 40 MG TABLET PO SCH (06:32)
[2016-09-27 06:42] LABS: INR 1.37 (0.76-1.04); PROTHROMBIN TIME 14.9 SEC (9.31-12.49)
[2016-09-27 06:43] LABS: EOSINOPHILS # (MANUAL) 0.3 T/MM3 (0-0.5); LYMPHOCYTES # (MANUAL) 0.1 T/MM3 (1-4.8); MONOCYTES # (MANUAL) 0.1 T/MM3 (0-0.8); NEUTROPHILS #(MANUAL)-ABSOLUTE 0.3 T/MM3 (1.8-7.7); TOTAL CELLS COUNTED 50 %
[2016-09-27 06:46] LABS: HELMET CELLS 1+; POIKILOCYTOSIS 1+
[2016-09-27] MEDS: ALBUTEROL/IPRATROPIUM INHAL. 2.5mg-0.5mg/3ml Neb. AEROSOL SCH ×4 (06:46→20:40)
--- NOTE | 2016-09-27 07:02 | CONSPD ---
Consultation Info Date DATE: 09/27/16 TIME: 05:50 Date of Consultation: September 27, 2016 Attending Physician: Dr. Andrews Reason for Consultation: Lung cancer Neutropenia HPI - Adult Date DATE: 09/27/16 TIME: 05:50 General Chief Complaint: nausea and vomiting History of Present Illness This is a 76-year-old female who was recently diagnosed with metastatic lung carcinoma to her pelvis and to her right humerus. The patient is currently receiving chemotherapy. Her first round of chemotherapy was started approximately one week ago. Since beginning her chemotherapy patients had recurrent episodes of nausea and vomiting and diarrhea. During this past week patient was treated in the oncology clinic 3 with IV fluids. The patient continues to have nausea and vomiting and diarrhea. The patients increasing weakness. The patient had low-grade fever chills and sweats at home. Temperature documented as high as 100.2. The patient was referred into the emergency department for evaluation. In the emergency department the patients workup was unremarkable except for neutropenia. The ER provider discussed the case with the on-call oncologist. It was recommended that the patient be admitted for a fever and neutropenia workup. The patients chest x-ray was unremarkable. The patients urine was negative. The patients physical examination does not lend itself to any obvious source of infection other than the nausea and vomiting. Past Medical History Past Medical History Patient has a relatively brief past medical history she does have diagnosed lung cancer with widespread metastasis; she has a spastic colon after her colon was perforated during a colonoscopy; she has hypertension; and she has COPD. Surgical History Patient's Surgical History: Patient surgical history is brief: She has had trigger finger operations on both hands; she has had a pus pocket removed from her right neck; and has had her tubes tied in 1971. She also has surgery for a perforated bowel, cause during a colonoscopy and 2004. Right proximal humeral fracture due to bone cancer, lung cancer Current Medications Home Meds Reported Medications Tetrahydrozoline HCl (Eye Drops) 15 Ml Drops, 1 DROP BOTH EYES DAILY Y for DRY EYES 09/25/16 Pantoprazole Sodium (Pantoprazole Sodium) 40 Mg Tablet.dr, 40 MG PO DAILY 09/25/16 Ondansetron HCl (Ondansetron HCl) 8 Mg Tablet, 8 MG PO Q8H Y for NAUSEA &/OR VOMITING 09/25/16 Dexamethasone (Dexamethasone) 4 Mg Tablet, 4 MG PO as directed TAKE 2 DAYS BEFORE AND AFTER CHEMO 09/13/16 Folic Acid (Folic Acid) 1 Mg Tablet, 1 MG PO NOON 09/10/16 Metoclopramide HCl (Reglan) 10 Mg Tablet, 10 MG PO Q6-8HPRN 09/10/16 Hydrocodone/Acetaminophen (Hydrocodon-Acetaminoph 7.5-325) 7.5-325 Tablet, 1 TAB PO Q6H Y for PAIN 08/24/16 Cyclobenzaprine HCl (Cyclobenzaprine HCl) 10 Mg Tablet, 5 MG PO TID Y for MUSCLE PAIN 08/24/16 Sodium Chloride (Saline Nasal [place]) 30 Ml [place], 1 SPRAY EA NOSTRIL QID Y for PRN ORDERS 11/05/15 Ketotifen Fumarate (Eye Itch Relief) 5 Ml Drops, 1 DROP BOTH EYES BID Y for ITCHING 11/05/15 Loratadine (Allergy) 10 Mg Tablet, 10 MG PO DAILY Y for ALLERY SYMPTOMS 11/05/15 Ipratropium/Albuterol Sulfate (Iprat-Albut 0.5-3(2.5) mg/3 ml) 3 Ml Ampul.neb, 1 VIAL AEROSOL Q6H 11/05/15 Chlorthalidone (Chlorthalidone) 25 Mg Tablet, 12.5 MG PO WB 11/05/15 Lisinopril (Lisinopril) 20 Mg Tablet, 20 MG PO HS 08/10/08 Dicyclomine Hcl (Dicyclomine Hcl) 20 Mg Tablet, 20 MG PO TID 08/10/08 Multivitamins W-Minerals/Lut (Centrum Silver Tablet) 1 Tab Tablet, 1 TAB PO HS 08/10/08 Calcium Carbonate/Vitamin D3 (Calcium + D 600 Mg Tablet) 1 Tab Tablet, 2 TAB PO DAILY 08/10/08 Aspirin (Beronica) 81 Mg Tablet.dr, 81 MG PO DAILY 08/10/08 Amlodipine (Norvasc) 5 Mg Tablet, 5 MG PO HS 08/10/08 Allergies: Coded Allergies: No Known Drug Allergies (Verified Allergy, Unknown, 09/25/16) Family History Family History: Family history tells us that her mother at age 74 from a myocardial infarction and her father of an acute appendicitis attack at age 74. Family history otherwise noncontributory Social History Smoking Status: Former smoker Does patient use chewing tobac: No Second Hand Exposure: No Quit Date: May 30, 2004 Substance Use Type: does not use Substance last used: unknown Alcohol Intake: occasionally Last Drink: unknown Marital Status: Sexuality: male partner Housing: house Number of Children: 4 Service: No Current Occupational Status: retired Occupational Hazard: No Advance Directives: Yes DPOA for Healthcare Only Review of Systems Constitutional: REPORTS: fatigue, weakness, weight loss Eyes Lids/Accessories: DENIES: swelling Vision: REPORTS: acuity (Blurring) ENMT Nose: FOUND: nosebleeds Mouth/Throat: DENIES: sore throat, sores Cardiovascular DENIES: chest pain, orthopnea Pulmonary Respiratory: DENIES: cough, dyspnea GI Upper Abdomen: DENIES: vomiting Lower Abdomen: DENIES: diarrhea General: DENIES: burning, hematuria, urgency Musculoskeletal General: other (Fracture right humerus), DENIES: pain Integumentary Skin: DENIES: itching, rash Neurological General: numbness, DENIES: seizures Endocrine DENIES: heat/cold intolerance Hematologic/Lymphatic anemia, frequent nosebleeds Physical Exam General General Nourishment: apparent age Vital Signs Vital Signs Date Time Temp Pulse Resp B/P Pulse Ox O2 Delivery O2 Flow Rate FiO2 09/27/16 04:13 84 09/27/16 04:04 20 09/27/16 04:00 97.4 123/62 96 Nasal Cannula 2.00 Height (Feet): 4 Height (Inches): 11.00 Telemetry Rhythm: Sinus Rhythm Eyes Brief: FOUND: EOMI, PERRL, NOT FOUND: scleral icterus ENMT Brief: FOUND: lesions ([place] soft palate), NOT FOUND: mucosa moist Neck Brief: NOT FOUND: adenopathy, thyromegaly Respiratory Brief: FOUND: equal bilaterally, other (decreased breath sounds with rhonchi) Cardiovascular (brief) Cardiac Brief: FOUND: regular rate, regular rhythm, NOT FOUND: murmur, pedal edema Abdomen (brief) Abdominal Brief: FOUND: BS normo active x4, soft, NOT FOUND: hepatosplenomegaly , tender Lymphatic (brief) Lymphatic Brief: FOUND: adenopathy Musculoskeletal (brief) Musculoskeletal Brief: FOUND: other (Limited mothion of right arm from fracture of humerus) Integumentary (brief) Integumentary Brief: FOUND: dry, warm Neurologic (brief) Neurological Brief: FOUND: cranial 2-12 intact, motor Neurologic RN Documented GCS Eye Opening: (4)Spontaneous Verbal: (5)Oriented Motor: (6)Obeys Commands Total: Psychiatric (brief) FOUND: alert, oriented Laboratory Item Value Date Time White Blood Count 1.0 T/MM3 *L # 09/25/16 1727 White Blood Count 0.9 T/MM3 *L 09/26/16 0359 Hemoglobin 8.2 GM/DL L # 09/25/16 1727 Hemoglobin 6.8 GM/DL L # 09/26/16 0359 Hemoglobin 9.0 GM/DL L # 09/26/16 1632 Platelet Count 132 T/MM3 09/25/16 1727 Platelet Count 99 T/MM3 L 09/26/16 0359 Neutrophils % (Manual) 44.0 % 09/25/16 172 Neutrophils % (Manual) 56.0 % 09/26/16 035 Absolute Neutrophils (Manual) 0.4 T/MM3 L 09/25/16 172 Absolute Neutrophils (Manual) 0.5 T/MM3 L 09/26/16 0359 Calcium Level 6.8 MG/DL L # 09/26/16 0359 Calcium Level 6.7 MG/DL L 09/27/16 0420 Ferritin 1060 NG/ML H 09/26/16 1021 Iron Level 96 UG/DL 09/26/16 1021 Vitamin B12 Level 633 PG/ML 09/26/16 1021 Folate > 20.0 NG/ML H 09/26/16 1021 Creatinine 0.4 MG/DL L 09/27/16 0420 Potassium Level 3.1 MEQ/L L 09/27/16 0420 Calcium Level 7.5 MG/DL L 09/25/16 1727 Albumin 3.0 G/DL L 09/25/16 1727 Laboratory Tests Test 09/25/16 17:27 09/25/16 18:20 09/25/16 19:01 09/25/16 19:05 White Blood Count 1.0T/MM3 Red Blood Count 2.89M/MM3 Hemoglobin 8.2GM/DL Hematocrit 24.6% Mean Corpuscular Volume 85.1UM3 Mean Corpuscular Hemoglobin 28.4UUG Mean Corpuscular Hemoglobin Concent 33.3GM/DL RDW Standard Deviation 53.5FL Platelet Count 132T/MM3 Mean Platelet Volume 9.5UM3 Immature Granulocyte % (Auto) % Neutrophils (%) (Auto) % Lymphocytes (%) (Auto) % Monocytes (%) (Auto) % Eosinophils (%) (Auto) % Basophils (%) (Auto) % Absolute Immature Granulocyte (auto T/MM3 Absolute Neutrophils (auto) T/MM3 Absolute Lymphocytes (auto) T/MM3 Absolute Monocytes (auto) T/MM3 Absolute Eosinophils (auto) T/MM3 Absolute Basophils (auto) T/MM3 Neutrophils % (Manual) 44.0% Band Neutrophils % 2.0% Lymphocytes % (Manual) 10.0% Reactive Lymphocytes % 4.0% Monocytes % (Manual) 6.0% Eosinophils % (Manual) 34.0% Absolute Neutrophils (Manual) 0.4T/MM3 Band Neutrophils # 0.0T/MM3 Lymphocytes # (Manual) 0.1T/MM3 Reactive Lymphocytes # 0.0T/MM3 Monocytes # (Manual) 0.1T/MM3 Eosinophils # (Manual) 0.3T/MM3 Poikilocytosis 1+ Anisocytosis 1+ Red Cell Morphology Comment Abnormal Turbidity < 20 Sodium Level 134MEQ/L Potassium Level 3.7MEQ/L Chloride Level 93MEQ/L Carbon Dioxide Level 30MEQ/L Anion Gap 11MEQ/L Blood Urea Nitrogen 9.0MG/DL Creatinine 0.5MG/DL Glomerular Filtration Rate Calc 120 BUN/Creatinine Ratio 18RATIO Glucose Level 122MG/DL Calculated Osmolality 258MOSM/KG Calcium Level 7.5MG/DL Total Bilirubin 0.90MG/DL Icterus Index < 2 Aspartate Amino Transf (AST/SGOT) 26U/L Alanine Aminotransferase (ALT/SGPT) 41U/L Alkaline Phosphatase 92U/L Total Protein 5.8G/DL Albumin 3.0G/DL Globulin 2.8G/DL Albumin/Globulin Ratio 1.1RATIO Lipase 78U/L Chemistry Specimen Hemolysis < 15 Urine Collection Type Cleancatch-midstream Urine Color Yellow Urine Turbidity Clear Urine pH 6.5 Urine Specific Mercedes 1.010 Urine Protein Negative Urine Glucose (UA) Negative Urine Ketones 3+ Urine Blood Negative Urine Nitrite Negative Urine Bilirubin Negative Urine Urobilinogen 0.2EU/DL Urine Leukocyte Esterase Negative Urinalysis Comment Microscopic not ind. Plasma Lactate 0.6MMOL/L Procalcitonin 0.07NG/ML Test 09/25/16 22:39 09/26/16 03:59 09/26/16 10:06 09/26/16 10:21 Plasma Lactate 0.6MMOL/L White Blood Count 0.9T/MM3 Red Blood Count 2.40M/MM3 Hemoglobin 6.8GM/DL Hematocrit 20.6% Mean Corpuscular Volume 85.8UM3 Mean Corpuscular Hemoglobin 28.3UUG Mean Corpuscular Hemoglobin Concent 33.0GM/DL RDW Standard Deviation 54.0FL Platelet Count 99T/MM3 Mean Platelet Volume 9.8UM3 Immature Granulocyte % (Auto) % Neutrophils (%) (Auto) % Lymphocytes (%) (Auto) % Monocytes (%) (Auto) % Eosinophils (%) (Auto) % Basophils (%) (Auto) % Absolute Immature Granulocyte (auto T/MM3 Absolute Neutrophils (auto) T/MM3 Absolute Lymphocytes (auto) T/MM3 Absolute Monocytes (auto) T/MM3 Absolute Eosinophils (auto) T/MM3 Absolute Basophils (auto) T/MM3 Neutrophils % (Manual) 56.0% Lymphocytes % (Manual) 13.0% Eosinophils % (Manual) 31.0% Absolute Neutrophils (Manual) 0.5T/MM3 Lymphocytes # (Manual) 0.1T/MM3 Eosinophils # (Manual) 0.3T/MM3 Hypochromasia 1+ Poikilocytosis 1+ Anisocytosis 1+ Red Cell Morphology Comment Abnormal Turbidity < 20 Sodium Level 135MEQ/L Potassium Level 3.3MEQ/L Chloride Level 98MEQ/L Carbon Dioxide Level 27MEQ/L Anion Gap 10MEQ/L Blood Urea Nitrogen 7.0MG/DL Creatinine 0.4MG/DL Glomerular Filtration Rate Calc 155 BUN/Creatinine Ratio 18RATIO Glucose Level 86MG/DL Calculated Osmolality 257MOSM/KG Calcium Level 6.8MG/DL Icterus Index < 2 Chemistry Specimen Hemolysis < 15 Adenovirus (PCR) Negative Bordetella parapertussis DNA (PCR) Negative Chlamydia pneumoniae DNA (PCR) Negative Coronavirus Type OC43 (PCR) Negative Coronavirus Type HKU1 (PCR) Negative Coronavirus Type 229E (PCR) Negative Coronavirus Type NL63 (PCR) Negative Human Metapneumovirus (PCR) Negative Influenza Virus Type A (PCR) Negative Influenza Virus Type B (PCR) Negative Mycoplasma pneumoniae (PCR) Negative Parainfluenza Type 1 (PCR) Negative Parainfluenza Type 2 (PCR) Negative Parainfluenza Type 3 (PCR) Negative Parainfluenza Type 4 (PCR) Negative Respiratory Syncytial Virus (PCR) Negative Enterovirus/Rhinovirus (PCR) Negative Absolute Reticulocyte Count 0.0029T/MM3 Percent Reticulocyte Count 0.1% Immature Reticulocyte Fraction 4.3% Reticulocyte Hgb Content (CHr) PG Iron Level 96UG/DL Ferritin 1060NG/ML Vitamin B12 Level 633PG/ML Folate > 20.0NG/ML Test 09/26/16 16:32 09/26/16 19:57 09/27/16 04:20 Hemoglobin 9.0GM/DL Stool Cyclospora species Detection Negative Stool Rotavirus A PCR Negative Stool Adenovirus (PCR) Negative Stool Astrovirus (PCR) Negative Stool Campylobacter PCR Negative Stool C. difficile Toxin (PCR) Negative Stool Cryptosporidium PCR Negative Stool E. coli Shiga Toxins Negative Stool E coli O157 PCR N/a Stool Enterotoxigenic Ecoli PCR Negative Stool Enteropathogenic E. coli (PCR N/a Stool Enteroaggregative E. coli PCR Negative Stool Entamoeba (PCR) Negative Stool Giardia Lamblia PCR Negative Stool Salmonella PCR Negative Stool Sapovirus (PCR) Negative Stool Plesiomonas shigelloides PCR Negative Stool Shigella/EIEC (PCR) Negative Stool Yersinia enterocolitica (PCR) Negative Stool Vibrio (PCR) Negative Stool Vibrio cholera (PCR) Negative Stool Norovirus GI/GII PCR Negative Turbidity < 20 Sodium Level 138MEQ/L Potassium Level 3.1MEQ/L Chloride Level 103MEQ/L Carbon Dioxide Level 27MEQ/L Anion Gap 8MEQ/L Blood Urea Nitrogen 7.0MG/DL Creatinine 0.4MG/DL Glomerular Filtration Rate Calc 155 BUN/Creatinine Ratio 18RATIO Glucose Level 91MG/DL Calculated Osmolality 264MOSM/KG Calcium Level 6.7MG/DL Magnesium Level 1.7MG/DL Icterus Index < 2 Chemistry Specimen Hemolysis < 15 Radiology DATE OF EXAM: 09/25/16 ORDERING DOCTOR: LYDIA JAIMES APRN TYPE OF EXAM: CHEST 1 VIEW REASON FOR EXAM: chills, vomiting Indication: ITS.REASON: chills, vomiting PROCEDURE: CHEST 1 VIEW: Encounter: Initial Comparison: August 24, 2016 Findings: Linear areas of atelectasis or scarring in the left upper and right lower lobes. No focal consolidative pneumonia or pneumothorax. Heart size and mediastinal contours are stable. Probable emphysema. Impression: No pneumonia. . Impression/Recommendation Impression 1. Neutropenic fever.Presented on 09/25 with temp of 100.2. Admitted with IV antibiotic coverage to include Vancomycin,Levaquin and Cefapine. Filgastrim given on 09/25 and 09/26. ANC still low 09/27/16 with WBC of 0.8 Diff pending. Afebrile. 2. Eosinophilia of 34 % Question etiology. Allergy to med or reactive. 3. Thrombocytopenia. Post chemotherapy suppression vs DIC Platelets 62K this morning. Will follow . Had chemotherapy on 09/20/16 4. Anemia. Hgb 7.7 on 09/27 after transfusion 8.2 on admission. Dropped to 6.8. 9 after transfusion. Suspect Peptic ulcer disease with acute blood loss. Retic count low at 0.1% suggesting marrow suppression from chemotherapy. Ferritin and B 12 elevated. Nosebleeds also contributing and had nosebleed this morning. Bleeding exacerbated by prophylactic lovenox. She weighs 53Kg and had lovenox 40 mg given on 09/25 late in evening and had another 40 mg given at 9 am on 09/26. Will hold and discuss with hospitalist. Will need trasfusion today and would consider EGD after WBC and PLT recovery. 5. 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 S/P radiation to humerus and painful pelvic mets. Completed XRT mid August and then started systemic therapy with Alimta Carboplatin on 09/20/16. 6. N/V have been problem since diagnosiss and with radiation. Had problems last week after chemotherapy. IV fluids and zofran given on Tue, and Tuesday. She also had famitoldine for burning . This has improved but concern for peptic ulcer disease is present. 7. COPD Oxygen dependent 8. Pathologic fracture right humerus 9. Rash after IV contrast and Xgeva. Suspect contrast allergy. 10. Bone metastasis. Pathologic fracture Irradiated. Xgeva given 08/30/16 Due soon. Recommendation Check DIC profile Hold Lovenox and possibly ASA Follow Counts. Transfusion to keep HGB greater than 8.0 G-CSF Continue antibiotics Supportive care BRENDEN MCNEIL September 27, 2016 05:51
[2016-09-27 07:50] LABS: PTT 28.2 SEC (24-36)
[2016-09-27] MEDS: DICYCLOMINE 20 MG TABLET PO SCH ×3 (08:21→17:34)
[2016-09-27] MEDS: ASPIRIN *EC* 81mg TABLET PO SCH (08:21)
[2016-09-27] MEDS: VANCOMYCIN 1 G in NORMAL SALINE 250 ML IV SCH ×2 (08:21→19:49)
[2016-09-27] MEDS: SALINE NASAL SPRAY 45ml EA NOSTRIL SCH ×4 (09:00→21:00)
[2016-09-27] MEDS: NORMAL SALINE 500 ML IV SCH (09:25)
[2016-09-27] MEDS ORDERED: NORMAL SALINE 500 ML IV SCH (09:40)
[2016-09-27] MEDS ORDERED: DiphenhydrAMINE 25 MG CAPSULE PO ONE (09:45)
--- NOTE | 2016-09-27 10:41 | PNPDOC ---
Subjective Date DATE: 09/27/16 TIME: 10:25 Subjective F/U: Neutropenic Fever Rough night-had nose bleed. Notes congestion to nose, but afraid to blow nose due to worry about resumption of bleeding. Breathing feeling well-not SOA or having cough or congestion. No nausea, but appetite decreased. Food doesn't taste right which decreases her appetite. No ab pain or bloating. Passing flatus. Not had stool today. Urinating well. No mouth pain or pain with swallowing. Objective Vital Signs Vital signs Vital Signs Date Time Temp Pulse Resp B/P Pulse Ox O2 Delivery O2 Flow Rate FiO2 09/27/16 09:11 93 09/27/16 09:00 18 98 09/27/16 07:40 97.8 117/58 Nasal Cannula 2.00 Telemetry Rhythm: Sinus Rhythm Height (Feet): 4 Height (Inches): 11.00 Weight (Kilograms): 53.000 General General Appearance: Alert, Orientated x 3, Well Nourished, Well Developed, Cooperative, Looks Stated Age Eyes (Brief) Eyes: FOUND: EOMI, PERRL, NOT FOUND: scleral icterus ENMT (Brief) ENMT: FOUND: hearing intact, mucosa moist (No thrush ) Neck (Brief) Neck: FOUND: midline, NOT FOUND: nuchal rigidity, spasm Respiratory (Brief) Respiratory: FOUND: equal bilaterally, other (No distress on O2 ), NOT FOUND: clear all marie (Decreased ), rales, wheezes Cardiovascular (Brief) Cardiac: FOUND: regular rate, regular rhythm, NOT FOUND: pedal edema Abdomen (Brief) Abdominal: FOUND: BS normo active x4, soft, NOT FOUND: distended, tender Extremities (Brief) Extremity : Side: Bilateral Extremity: leg Extremity Finding: NOT FOUND: edema Musculoskeletal (Brief) Musculoskeletal: FOUND: extremities move equally, NOT FOUND: deformity, spasm Integumentary (Brief) Integumentary: FOUND: dry, warm Neurologic (Brief) Neurological: FOUND: cranial 2-12 intact, motor (Intact ) Psychiatric (Brief) Psychiatric: FOUND: alert, attentive, normal affect, oriented Laboratory Laboratory Laboratory Tests 09/25/16 17:27 09/26/16 03:59 09/27/16 04:20 Laboratory Tests 09/25/16 17:27 09/26/16 03:59 09/26/16 16:32 09/27/16 04:20 Microbiology Microbiology Microbiology Date/Time Source Procedure Growth Status 09/25/16 19:05 Peripheral/Iv Start Blood Culture - Preliminary NO GROWTH AFTER 24 HOURS Resulted 09/25/16 19:01 Peripheral/Iv Start Blood Culture - Preliminary NO GROWTH AFTER 24 HOURS Resulted Sepsis Diagnostic Criteria Sepsis SIRS Criteria: Pulse >= 90 beats/min, WBC >=12,000 or <=4,000 Severe Sepsis None Seen Assessment & Plan Problems: (1) Neutropenic fever Status: Acute (2) Sepsis Status: Acute Assessment & Plan: Source undetermined. Manifestations: Temp elevation, Tachycardia, Neutropenia (3) Nausea & vomiting Status: Resolved Qualifiers: Vomiting type: unspecified Vomiting Intractability: unspecified Qualified Codes: R11.2 - Nausea with vomiting, unspecified (4) Lung cancer Status: Chronic Assessment & Plan: Started chemo 09/20 (5) COPD (chronic obstructive pulmonary disease) Status: Chronic Qualifiers: COPD type: emphysema Emphysema type: unspecified Qualified Codes: J43.9 - Emphysema, unspecified (6) Chronic respiratory insufficiency Status: Chronic Assessment & Plan: Home O2 at 2L per NC. (7) HTN (hypertension) Status: Chronic Qualifiers: Hypertension type: essential hypertension Qualified Codes: I10 - Essential (primary) hypertension (8) Pancytopenia Status: Acute (9) Irritable bowel syndrome (IBS) Status: Chronic (10) Epistaxis Status: Acute (11) Hypokalemia Status: Acute Assessment & Plan: Not POA Plan/Intensity of Service Continue cefepime, vancomycin, and levofloxacin for empiric antimicrobial coverage. Respiratory PCR panel negative. Stool PCR panel negative. Granix 300mcg given this am due to persistent neutropenia - recheck CBC in am to monitor response. Decrease IVF to 75 cc/hr. HGB decreased to 7.7 - transfuse 1 unit pRBC. ONC recommends keeping HGB greater than 8. Stop Lovenox and ASA due to low platelets and nosebleed. Nursing reports pt refusing SCD due to discomfort. Encourage ambulation. Decrease IVF to 75 cc/hr. Oral drive still decreased. Replace potassium - 20mEg today at noon and evening meal. Will give 400mg MagOx at noon as Mg 1.7. BP stable without medication - will continue to hold. Continue supplemental O2 and Neb treatments. Dr Pelayo did evaluate pt this morning. Case discussed with him. Recheck BMP in am due to medication and IVF use. Repeat CBC in am due to neutropenic fever. Case discussed with CM and Dr Pelayo. Time spent with patient care 35 minutes. DVT Prophylaxis: other (Amulation. Lovenox contraindicated with anemia/ bleeding and low platelets; pt refusing SCD due to discomfort. ) Code Status Do Not Resuscitate Hospital Course Summary Disclaimer The hospital course summary below is not to be considered part of the above Progress Note. Hospital Course Summary 09/25 Admit Inpatient admission for treatment of neutropenic fever-anticipate greater than 2 midnight of care needed. Neutropenic precautions. Start cefepime, vancomycin, and levofloxacin for empiric antimicrobial coverage. Granix to help increase WBC. IVF for volume support secondary to n/v. Zofran prn nausea. Hold antihypertensives due to sepsis syndrome - monitor BP. SCD and Lovenox for DVT prevention due to CA. Continue supplemental O2 and Neb treatments. Consult with Dr Pelayo for ONC eval. Monitor lab. DNR as per pt's request. Care to return to Dr Brower at time of discharge. 09/26 Doing okay this afternoon. Not having f/c. Loose stool has stopped - no bowel movements. Feels some rumbling in ab, like she could have stool soon. Nausea decreased. Ate 25% of breakfast and 50% of lunch. Breathing stable - not feeling increased SOA or congestion with IVF. Continue cefepime, vancomycin, and levofloxacin for empiric antimicrobial coverage. Continue neutropenic precautions. Respiratory PCR panel negative. Stool PCR panel pending (pt not produced sample). Granix 300mcg given this am due to decreased WBC - recheck CBC in am to monitor response. Continue IVF for volume support secondary to n/v. HGB with decreased from admission - transfuse 1 unit pRBC. Hold antihypertensives due to sepsis syndrome - monitor BP. Continue supplemental O2 and Neb treatments. Add nasal saline due to dry nasal passages from O2. Consult with Dr Pelayo for ONC eval. Recheck BMP in am due to medication and IVF use. Repeat CBC in am due to neutropenic fever. 09/27 Rough night-had nose bleed. Notes congestion to nose, but afraid to blow nose due to worry about resumption of bleeding. Breathing feeling well-not SOA or having cough or congestion. No nausea, but appetite decreased. Food doesn't taste right which decreases her appetite. No ab pain or bloating. Passing flatus. Not had stool today. Urinating well. No mouth pain or pain with swallowing. Granix 300mcg given this am due to persistent neutropenia - recheck CBC in am to monitor response. Decrease IVF to 75 cc/hr. HGB decreased to 7.7 - transfuse 1 unit pRBC. ONC recommends keeping HGB greater than 8. Stop Lovenox and ASA due to low platelets and nosebleed. Nursing reports pt refusing SCD due to discomfort. Encourage ambulation. Decrease IVF to 75 cc/hr. Oral drive still decreased. Replace potassium - 20mEg today at noon and evening meal. Will give 400mg MagOx at noon as Mg 1.7. BP stable without medication - will continue to hold. Continue supplemental O2 and Neb treatments. Dr Pelayo did evaluate pt this morning. Case discussed with him. Recheck BMP in am due to medication and IVF use. Repeat CBC in am due to neutropenic fever. CAYETANO DONALDSON MD September 27, 2016 10:28
[2016-09-27] MEDS: FOLIC ACID 1 MG TABLET PO SCH (12:09)
--- NOTE | 2016-09-27 12:28 | NUR ---
CM CM IN TO VISIT PT. CM EXPLAINED ROLE AND PROVIDED CONTACT INFORMATION. PT HAS BEEN STAYING HOME ALONE WITH FAMILY ASSISTANCE, SHE IS UNSURE OF HOW SHE WILL FEEL AT TIME OF DC AND MAY WANT HOME HEALTH. PT DOES USE HOME O2 THROUGH [facility]. PT IS AWARE TO CONTACT CM SHOULD NEEDS [facility].
[2016-09-27] MEDS ORDERED: MAGNESIUM OXIDE 400 MG TABLET PO ONE (12:30)
[2016-09-27] MEDS ORDERED: POTASSIUM CHLORIDE 20 MEQ TABLET PO ONE ×2 (12:30→17:30)
--- NOTE | 2016-09-27 13:07 | NUR ---
BBK #1 pt is to receive PRBCs. baseline vitals were taken and entered. blood is transfusing at a rate of 60/mls hr. will continue to monitor pt.
--- NOTE | 2016-09-27 13:22 | NUR ---
BBK #1 pt is receiving PRBCs. first 15 minutes have passed. vitals were taken and entered. pt is tolerating well. rate changed to 120mls/hr. will continue to monitor pt.
--- NOTE | 2016-09-27 13:31 | NUR ---
RENAL DOSING: Today's SCr = 0.4 mg/dl. Calculated CrCl ~ 50 ml/min. Will continue the Cefepime 1 g iv every 6 hours as currently ordered. The pharmacy will continue to review the renal function and adjust the medications accordingly per Pharmacy Renal Monitoring and Adjustment Program. Thanks, Franklyn Banegas RPh.
[2016-09-27 17:07] LABS: HGB - HEMOGLOBIN 9.7 GM/DL (12-16)
--- NOTE | 2016-09-27 17:40 | NUR ---
Status Patient tolerated PRBC with no reaction. Up with assist of 1 and does educational coordinator room to stretch legs on own. Denies dizziness. Boost given this afternoon, states nothing tastes good. Remains in neutropenic precautions.
[2016-09-27] MEDS: ONDANSETRON 4mg/2ml INJECTION IV PRN (18:29)
[2016-09-28] VITALS (11 sets, daily range): BP systolic 111–137; BP diastolic 59–66; PULSE 87–100; RESP 14–18; TEMP 96–97.8; O2SAT 92–97
[2016-09-28] MEDS: ALBUTEROL/IPRATROPIUM INHAL. 2.5mg-0.5mg/3ml Neb. AEROSOL SCH ×4 (02:05→20:53)
[2016-09-28] MEDS: NS KCL 20 MEQ 1,000 ML IV SCH (02:30)
[2016-09-28] MEDS: CEFEPIME 1 G in NORMAL SALINE 100 ML IV SCH ×4 (03:53→20:30)
[2016-09-28 05:22] LABS: HGB - HEMOGLOBIN 8.4 GM/DL (12-16); MEAN CORPUSCULAR HGB 29.1 UUG (26-34); MEAN PLATELET VOLUME 9.6 UM3 (9.4-12.4); RED BLOOD COUNT 2.89 M/MM3 (4.00-5.20)
[2016-09-28 05:27] LABS: ALBUMIN 2.3 G/DL (3.5-5.0); ALKALINE PHOSPHATASE 64 U/L (38-126); ALT (SGPT) 42 U/L (9-52); ANION GAP 9 MEQ/L (5-15); AST (SGOT) 23 U/L (14-36); BUN/CREATININE RATIO 10 RATIO (6-26); CALCIUM 6.3 MG/DL (8.4-10.2); CHLORIDE 104 MEQ/L (98-107); CO2 - CARBON DIOXIDE 27 MEQ/L (22-30); CREATININE 0.4 MG/DL (0.7-1.2); GLOMERULAR FILTRATION RATE 155; GLUCOSE 82 MG/DL (65-110); LDH 499 U/L (313-618); MAGNESIUM 1.5 MG/DL (1.6-2.3); POTASSIUM 3.2 MEQ/L (3.6-5); SODIUM 140 MEQ/L (134-144); TOTAL PROTEIN 4.7 G/DL (6.3-8.2)
--- NOTE | 2016-09-28 05:28 | NUR ---
SHIFT SUMMARY: PT IS A&OX3, COOPERATIVE; EXTREMELY HARD OF HEARING IF HEARING AIDES ARE NOT IN; UP WITH 1 STANDBY ASSIST TO THE BATHROOM; DENIES PAIN; ON NEUTROPENIC PRECAUTIONS; Q4 VITALS; REFUSES TO WEAR SCD'S; ON 2L NC OXYGEN; RIGHT CHEST SAPNA-CATH FLUSHES AND ASPIRATES WELL WITH FLUIDS RUNNING; CALL LIGHT WITHIN REACH, BED ALARM ON.
[2016-09-28 06:00] LABS: WBC - WHITE BLOOD COUNT 0.9 T/MM3 (4.5-11.0)
[2016-09-28] MEDS: PANTOPRAZOLE 40 MG TABLET PO SCH (06:05)
[2016-09-28] MEDS: LEVOFLOXACIN 750 mg IVPB 750 MG in D5W 150 ML IV SCH (06:06)
[2016-09-28 06:47] LABS: EOSINOPHILS # (MANUAL) 0.2 T/MM3 (0-0.5); LYMPHOCYTES # (MANUAL) 0.1 T/MM3 (1-4.8); MONOCYTES # (MANUAL) 0.1 T/MM3 (0-0.8); NEUTROPHILS #(MANUAL)-ABSOLUTE 0.5 T/MM3 (1.8-7.7); TOTAL CELLS COUNTED 50 %
[2016-09-28 06:48] LABS: HELMET CELLS 1+; POIKILOCYTOSIS 1+
[2016-09-28] MEDS ORDERED: TBO-FILGRASTIM 300mcg/0.5ml INJECTION SQ ONE (08:00)
[2016-09-28] MEDS: DICYCLOMINE 20 MG TABLET PO SCH ×3 (08:14→16:55)
[2016-09-28] MEDS: VANCOMYCIN 1 G in NORMAL SALINE 250 ML IV SCH (08:14)
[2016-09-28] MEDS: ONDANSETRON 4mg/2ml INJECTION IV PRN ×2 (08:39→18:34)
[2016-09-28] MEDS: SALINE NASAL SPRAY 45ml EA NOSTRIL SCH ×4 (08:40→20:30)
[2016-09-28] MEDS: NORMAL SALINE 500 ML IV SCH (09:58)
--- NOTE | 2016-09-28 10:23 | NUR ---
VANCOMYCIN CONSULT: Vancomycin Trough = 11.25 mcg/ml. Today's SCr = 0.4 mg/dl. Will give Vancomycin 1,500 mg IV q12hrs. Will continue to monitor and make adjustments accordingly. Thank you.
[2016-09-28] MEDS: MAGNESIUM SULF 1gm / D5W 100ml 100 ML IV SCH ×2 (10:55→12:57)
--- NOTE | 2016-09-28 12:07 | PNPDOC ---
Subjective Date DATE: 09/28/16 TIME: 11:56 Subjective F/U: Neutropenic Fever Feeling rough. Notes congestion and cough. Stools loose-passed blood. More nausea and less appetite. Tired and weak. Not feeling SOA or having pain with breathing. Denies mouth pain or pain with swallowing. No f/c. Urinating well. Objective Vital Signs Vital signs Vital Signs Date Time Temp Pulse Resp B/P Pulse Ox O2 Delivery O2 Flow Rate FiO2 09/28/16 11:47 96.3 99 18 137/66 97 Nasal Cannula 2.00 Telemetry Rhythm: Sinus Rhythm Height (Feet): 4 Height (Inches): 11.00 Weight (Kilograms): 54.500 General General Appearance: Alert, Orientated x 3, Well Nourished, Well Developed, Cooperative, Mild Distress, Looks Stated Age Eyes (Brief) Eyes: FOUND: EOMI, PERRL, NOT FOUND: scleral icterus ENMT (Brief) ENMT: FOUND: hearing intact (ELIM IRA), mucosa moist (No thrush ) Neck (Brief) Neck: FOUND: midline, NOT FOUND: nuchal rigidity, spasm Respiratory (Brief) Respiratory: FOUND: equal bilaterally, NOT FOUND: clear all marie (Decreased ) , rales, wheezes Cardiovascular (Brief) Cardiac: FOUND: regular rate, regular rhythm, NOT FOUND: pedal edema Abdomen (Brief) Abdominal: FOUND: BS normo active x4, soft, NOT FOUND: distended, tender Extremities (Brief) Extremity : Extremity: leg Extremity Finding: NOT FOUND: edema Musculoskeletal (Brief) Musculoskeletal: FOUND: extremities move equally, NOT FOUND: deformity, spasm Neurologic (Brief) Neurological: FOUND: cranial 2-12 intact, motor (Intact ) Psychiatric (Brief) Psychiatric: FOUND: alert, normal affect, oriented Laboratory Laboratory Laboratory Tests 09/27/16 04:20 09/28/16 04:12 Laboratory Tests 09/26/16 16:32 09/27/16 04:20 09/27/16 16:46 09/28/16 04:12 Microbiology Microbiology Microbiology Date/Time Source Procedure Growth Status 09/25/16 19:05 Peripheral/Iv Start Blood Culture - Preliminary NO GROWTH AFTER 48 HOURS Resulted 09/25/16 19:01 Peripheral/Iv Start Blood Culture - Preliminary NO GROWTH AFTER 48 HOURS Resulted Sepsis Diagnostic Criteria Sepsis SIRS Criteria: Pulse >= 90 beats/min, WBC >=12,000 or <=4,000 Severe Sepsis None Seen Assessment & Plan Problems: (1) Neutropenic fever Status: Acute (2) Sepsis Status: Acute Assessment & Plan: Source undetermined. Manifestations: Temp elevation, Tachycardia, Neutropenia (3) Nausea & vomiting Status: Resolved Qualifiers: Vomiting type: unspecified Vomiting Intractability: unspecified Qualified Codes: R11.2 - Nausea with vomiting, unspecified (4) Lung cancer Status: Chronic Assessment & Plan: Started chemo 09/20 (5) COPD (chronic obstructive pulmonary disease) Status: Chronic Qualifiers: COPD type: emphysema Emphysema type: unspecified Qualified Codes: J43.9 - Emphysema, unspecified (6) Chronic respiratory insufficiency Status: Chronic Assessment & Plan: Home O2 at 2L per [place]. (7) HTN (hypertension) Status: Chronic Qualifiers: Hypertension type: essential hypertension Qualified Codes: I10 - Essential (primary) hypertension (8) Pancytopenia Status: Acute (9) Irritable bowel syndrome (IBS) Status: Chronic (10) Epistaxis Status: Acute (11) Hypokalemia Status: Acute Assessment & Plan: Not POA (12) Hypomagnesemia Status: Acute Assessment & Plan: Not POA Plan/Intensity of Service Continue cefepime, vancomycin, and levofloxacin for empiric antimicrobial coverage. Granix 300mcg given this am due to persistent neutropenia - recheck CBC in am to monitor response. Continue IVF at 75 cc/hr. Oral drive still decreased. Replace potassium - 20mEg today at noon and evening meal. IV magnesium 2 grams due to decreased magnesium. BP stable without medication - will continue to hold. Continue supplemental O2 and Neb treatments. Add Mucinex DM BID due to congestion. Change Protonix to 40mg IV BID for enhanced GI protection. Recheck CMP and Mg in am due to medication and IVF use. Repeat CBC in am due to neutropenic fever. Case discussed with CM and nursing. Time spent with patient care 35 minutes. DVT Prophylaxis: other (Ambulation/leg movement: Lovenox contraindicated due to thromobocytopenia and anemia; pt relucant for SCD due to discomfort. ) Code Status Do Not Resuscitate Hospital Course Summary Disclaimer The hospital course summary below is not to be considered part of the above Progress Note. Hospital Course Summary 09/25 Admit Inpatient admission for treatment of neutropenic fever-anticipate greater than 2 midnight of care needed. Neutropenic precautions. Start cefepime, vancomycin, and levofloxacin for empiric antimicrobial coverage. Granix to help increase WBC. IVF for volume support secondary to n/v. Zofran prn nausea. Hold antihypertensives due to sepsis syndrome - monitor BP. SCD and Lovenox for DVT prevention due to CA. Continue supplemental O2 and Neb treatments. Consult with Dr Pelayo for ONC eval. Monitor lab. DNR as per pt's request. Care to return to Dr Brower at time of discharge. 09/26 Doing okay this afternoon. Not having f/c. Loose stool has stopped - no bowel movements. Feels some rumbling in ab, like she could have stool soon. Nausea decreased. Ate 25% of breakfast and 50% of lunch. Breathing stable - not feeling increased SOA or congestion with IVF. Continue cefepime, vancomycin, and levofloxacin for empiric antimicrobial coverage. Continue neutropenic precautions. Respiratory PCR panel negative. Stool PCR panel pending (pt not produced sample). Granix 300mcg given this am due to decreased WBC - recheck CBC in am to monitor response. Continue IVF for volume support secondary to n/v. HGB with decreased from admission - transfuse 1 unit pRBC. Hold antihypertensives due to sepsis syndrome - monitor BP. Continue supplemental O2 and Neb treatments. Add nasal saline due to dry nasal passages from O2. Consult with Dr Pelayo for ONC eval. Recheck BMP in am due to medication and IVF use. Repeat CBC in am due to neutropenic fever. 09/27 Rough night-had nose bleed. Notes congestion to nose, but afraid to blow nose due to worry about resumption of bleeding. Breathing feeling well-not SOA or having cough or congestion. No nausea, but appetite decreased. Food doesn't taste right which decreases her appetite. No ab pain or bloating. Passing flatus. Not had stool today. Urinating well. No mouth pain or pain with swallowing. Granix 300mcg given this am due to persistent neutropenia - recheck CBC in am to monitor response. HGB decreased to 7.7 - transfuse 1 unit pRBC. ONC recommends keeping HGB greater than 8. Stop Lovenox and ASA due to low platelets and nosebleed. Nursing reports pt refusing SCD due to discomfort. Encourage ambulation. Decrease IVF to 75 cc/hr. Oral drive still decreased. Replace potassium - 20mEg today at noon and evening meal. Will give 400mg MagOx at noon as Mg 1.7. BP stable without medication - will continue to hold. Continue supplemental O2 and Neb treatments. Dr Pelayo did evaluate pt this morning. Case discussed with him. Recheck CMP and Mg in am due to medication and IVF use. Repeat CBC in am due to neutropenic fever. 5/2 Feeling rough. Notes congestion and cough. Stools loose-passed blood. More nausea and less appetite. Tired and weak. Not feeling SOA or having pain with breathing. Denies mouth pain or pain with swallowing. No f/c. Urinating well. Magnesium decrease to 1.5. Potassium 3.2. WBC 0.9, HGB 8.4, Platelets 40. Continue cefepime, vancomycin, and levofloxacin for empiric antimicrobial coverage. Granix 300mcg given this am due to persistent neutropenia - recheck CBC in am to monitor response. Continue IVF at 75 cc/hr. Oral drive still decreased. Replace potassium - 20mEg today at noon and evening meal. IV magnesium 2 grams due to decreased magnesium. BP stable without medication - will continue to hold. Continue supplemental O2 and Neb treatments. Add Mucinex DM BID due to congestion. Change Protonix to 40mg IV BID for enhanced GI protection. Recheck CMP and Mg in am due to medication and IVF use. Repeat CBC in am due to neutropenic fever. CAYETANO DONALDSON MD September 28, 2016 11:59
[2016-09-28] MEDS ORDERED: POTASSIUM CHLORIDE 20 MEQ TABLET PO ONE ×2 (12:30→17:30)
[2016-09-28] MEDS: FOLIC ACID 1 MG TABLET PO SCH (12:46)
[2016-09-28] MEDS: GUAIFENESIN DM 600mg/30mg TABLET PO SCH ×2 (12:46→20:29)
[2016-09-28] MEDS: PANTOPRAZOLE 40mg INJECTION IV SCH ×2 (12:47→20:37)
--- NOTE | 2016-09-28 13:04 | PNPDOC ---
KAR GARCIA NECK PINNER 09/28/16 1302: Subjective Date DATE: 09/28/16 TIME: 12:59 Eating lunch at time of intake, reports nausea/vomiting 1 time this morning after breakfast. No nausea/ vomiting currently and has consumed approximately 40 % of her lunch. Intermittent cough, productive at times, but swallows mucus so unsure of color. Shortness of air with exertion, denies currently. No fever or chills. No headache or vision changes. Voiding normally. Reports loose BM 1 today General: No fever, no night sweats Eyes: No redness, no pain, no diplopia ENT: No mouth sores, no trouble swallowing Cardiac: No chest pain no palpitations Pulmonary: Positive intermittent cough, productive at times. Shortness of air with exertion. Abdomen: Positive nausea/vomiting 1 time today. : No urgency, frequency, dysuria, or hematuria Musculoskeletal: No arthritis, no myalgias Neurological: No headaches, no focal weakness Skin: No rash, no sores Psychiatric: No anxiety, no depression Objective Vital Signs Vital Signs 09/28/16 09/28/16 09/28/16 09/28/16 02:04 02:04 02:13 04:23 Temp 97.1 Pulse 86 84 87 Resp 16 16 B/P 120/59 Pulse Ox 96 95 O2 Delivery Nasal Cannula O2 Flow Rate 2.00 09/28/16 09/28/16 09/28/16 09/28/16 07:19 07:45 07:50 09:30 Temp 96.0 Pulse 97 91 100 Resp 18 16 B/P 127/65 Pulse Ox 96 96 O2 Delivery Nasal Cannula O2 Flow Rate 2.00 09/28/16 11:47 Temp 96.3 Pulse 99 Resp 18 B/P 137/66 Pulse Ox 97 O2 Delivery Nasal Cannula O2 Flow Rate 2.00 Height (Feet): 4 Height (Inches): 11.00 Weight (Kilograms): 54.500 General Alert, Orientated x 3, No Acute Distress Eyes (Brief) Eyes: FOUND: EOMI, NOT FOUND: scleral icterus Neck (Brief) Neck: NOT FOUND: adenopathy, tenderness Respiratory (Brief) Respiratory: FOUND: equal bilaterally, other (diminished bilateral posterior throughout. Faint crackles bibasilar) Cardiovascular (Brief) Cardiac: FOUND: regular rate, regular rhythm, NOT FOUND: pedal edema Abdomen (Brief) Abdominal: FOUND: BS normo active x4, soft, NOT FOUND: hepatosplenomegaly Musculoskeletal (Brief) NOT FOUND: tenderness Integumentary (Brief) FOUND: dry, other (pale), warm, NOT FOUND: rash Neurologic (Brief) FOUND: cranial 2-12 intact, motor (no acute motor deficit) Psychiatric (Brief) FOUND: alert, attentive (smiles/interactive), normal affect, oriented Laboratory Laboratory Tests Test 09/27/16 16:46 09/28/16 04:12 09/28/16 06:57 Hemoglobin 9.7GM/DL 8.4GM/DL White Blood Count 0.9T/MM3 Red Blood Count 2.89M/MM3 Hematocrit 24.0% Mean Corpuscular Volume 83.0UM3 Mean Corpuscular Hemoglobin 29.1UUG Mean Corpuscular Hemoglobin Concent 35.0GM/DL RDW Standard Deviation 46.2FL Platelet Count 40T/MM3 Mean Platelet Volume 9.6UM3 Immature Granulocyte % (Auto) % Neutrophils (%) (Auto) % Lymphocytes (%) (Auto) % Monocytes (%) (Auto) % Eosinophils (%) (Auto) % Basophils (%) (Auto) % Absolute Immature Granulocyte (auto T/MM3 Absolute Neutrophils (auto) T/MM3 Absolute Lymphocytes (auto) T/MM3 Absolute Monocytes (auto) T/MM3 Absolute Eosinophils (auto) T/MM3 Absolute Basophils (auto) T/MM3 Neutrophils % (Manual) 56.0% Band Neutrophils % 2.0% Lymphocytes % (Manual) 16.0% Monocytes % (Manual) 6.0% Eosinophils % (Manual) 20.0% Absolute Neutrophils (Manual) 0.5T/MM3 Band Neutrophils # 0.0T/MM3 Lymphocytes # (Manual) 0.1T/MM3 Monocytes # (Manual) 0.1T/MM3 Eosinophils # (Manual) 0.2T/MM3 Poikilocytosis 1+ Helmet Cells 1+ Red Cell Morphology Comment Abnormal Turbidity < 20 Sodium Level 140MEQ/L Potassium Level 3.2MEQ/L Chloride Level 104MEQ/L Carbon Dioxide Level 27MEQ/L Anion Gap 9MEQ/L Blood Urea Nitrogen 4.0MG/DL Creatinine 0.4MG/DL Glomerular Filtration Rate Calc 155 BUN/Creatinine Ratio 10RATIO Glucose Level 82MG/DL Calculated Osmolality 265MOSM/KG Calcium Level 6.3MG/DL Magnesium Level 1.5MG/DL Total Bilirubin 0.70MG/DL Icterus Index < 2 Aspartate Amino Transf (AST/SGOT) 23U/L Alanine Aminotransferase (ALT/SGPT) 42U/L Alkaline Phosphatase 64U/L Lactate Dehydrogenase 499U/L Total Protein 4.7G/DL Albumin 2.3G/DL Globulin 2.4G/DL Albumin/Globulin Ratio 1.0RATIO Chemistry Specimen Hemolysis < 15 Vancomycin Level Trough 11.25UG/ML Microbiology Microbiology Date/Time Source Procedure Growth Status 09/25/16 19:05 Peripheral/Iv Start Blood Culture - Preliminary NO GROWTH AFTER 48 HOURS Resulted 09/25/16 19:01 Peripheral/Iv Start Blood Culture - Preliminary NO GROWTH AFTER 48 HOURS Resulted Sepsis Diagnostic Criteria Sepsis SIRS Criteria: Pulse >= 90 beats/min, WBC >=12,000 or <=4,000 Severe Sepsis None Seen Assessment & Plan Assessment 1. Neutropenic fever.Presented on 09/25 with temp of 100.2. Admitted with IV antibiotic coverage to include Vancomycin,Levaquin and Cefapine. Filgastrim given on 09/25 and 09/26. 2. Eosinophilia of 34 % Question etiology. Allergy to med or reactive. 3. Thrombocytopenia. Post chemotherapy suppression vs DIC Platelets 62K yesterday, 40 K today. Will follow . Had chemotherapy on 09/20/16 4. Anemia. Hgb 7.7 on 09/27 after transfusion 8.2 on admission. Dropped to 6.8. 9 after transfusion. Suspect Peptic ulcer disease with acute blood loss. Retic count low at 0.1% suggesting marrow suppression from chemotherapy. Ferritin and B 12 elevated. Nosebleeds also contributing and had nosebleed this morning. Bleeding exacerbated by prophylactic lovenox. She weighs 53Kg and had lovenox 40 mg given on 09/25 late in evening and had another 40 mg given at 9 am on 09/26. Will hold Lovenox. Consider EGD after WBC and PLT recovery. 5. 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 S/P radiation to humerus and painful pelvic mets. Completed XRT mid August and then started systemic therapy with Alimta Carboplatin on 09/20/16. 6. N/V have been problem since diagnosiss and with radiation. Had problems last week after chemotherapy. IV fluids and zofran given on Tue, and Tuesday. She also had famitoldine for burning . This has improved but concern for peptic ulcer disease is present. 7. COPD Oxygen dependent 8. Pathologic fracture right humerus 9. Rash after IV contrast and Xgeva. Suspect contrast allergy. 10. Bone metastasis. Pathologic fracture Irradiated. Xgeva given 08/30/16 Due soon. Patient asks about Xgeva, likely give as outpatient. Plan/Intensity of Service G-CSF, Granix given yesterday and today. Continue supportive care, antibiotics, close monitoring of CBC, renal and liver function. Code Status Do Not Resuscitate Hospital Course Summary Disclaimer The visit summary below is not to be considered part of the above Progress Note. Hospital Course Summary 09/25 Admit Inpatient admission for treatment of neutropenic fever-anticipate greater than 2 midnight of care needed. Neutropenic precautions. Start cefepime, vancomycin, and levofloxacin for empiric antimicrobial coverage. Granix to help increase WBC. IVF for volume support secondary to n/v. Zofran prn nausea. Hold antihypertensives due to sepsis syndrome - monitor BP. SCD and Lovenox for DVT prevention due to CA. Continue supplemental O2 and Neb treatments. Consult with Dr Pelayo for ONC eval. Monitor lab. DNR as per pt's request. Care to return to Dr Brower at time of discharge. 09/26 Doing okay this afternoon. Not having f/c. Loose stool has stopped - no bowel movements. Feels some rumbling in ab, like she could have stool soon. Nausea decreased. Ate 25% of breakfast and 50% of lunch. Breathing stable - not feeling increased SOA or congestion with IVF. Continue cefepime, vancomycin, and levofloxacin for empiric antimicrobial coverage. Continue neutropenic precautions. Respiratory PCR panel negative. Stool PCR panel pending (pt not produced sample). Granix 300mcg given this am due to decreased WBC - recheck CBC in am to monitor response. Continue IVF for volume support secondary to n/v. HGB with decreased from admission - transfuse 1 unit pRBC. Hold antihypertensives due to sepsis syndrome - monitor BP. Continue supplemental O2 and Neb treatments. Add nasal saline due to dry nasal passages from O2. Consult with Dr Pelayo for ONC eval. Recheck BMP in am due to medication and IVF use. Repeat CBC in am due to neutropenic fever. 5/ Rough night-had nose bleed. Notes congestion to nose, but afraid to blow nose due to worry about resumption of bleeding. Breathing feeling well-not SOA or having cough or congestion. No nausea, but appetite decreased. Food doesn't taste right which decreases her appetite. No ab pain or bloating. Passing flatus. Not had stool today. Urinating well. No mouth pain or pain with swallowing. Granix 300mcg given this am due to persistent neutropenia - recheck CBC in am to monitor response. HGB decreased to 7.7 - transfuse 1 unit pRBC. ONC recommends keeping HGB greater than 8. Stop Lovenox and ASA due to low platelets and nosebleed. Nursing reports pt refusing SCD due to discomfort. Encourage ambulation. Decrease IVF to 75 cc/hr. Oral drive still decreased. Replace potassium - 20mEg today at noon and evening meal. Will give 400mg MagOx at noon as Mg 1.7. BP stable without medication - will continue to hold. Continue supplemental O2 and Neb treatments. Dr Pelayo did evaluate pt this morning. Case discussed with him. Recheck CMP and Mg in am due to medication and IVF use. Repeat CBC in am due to neutropenic fever. 5/ Feeling rough. Notes congestion and cough. Stools loose-passed blood. More nausea and less appetite. Tired and weak. Not feeling SOA or having pain with breathing. Denies mouth pain or pain with swallowing. No f/c. Urinating well. Magnesium decrease to 1.5. Potassium 3.2. WBC 0.9, HGB 8.4, Platelets 40. Continue cefepime, vancomycin, and levofloxacin for empiric antimicrobial coverage. Granix 300mcg given this am due to persistent neutropenia - recheck CBC in am to monitor response. Continue IVF at 75 cc/hr. Oral drive still decreased. Replace potassium - 20mEg today at noon and evening meal. IV magnesium 2 grams due to decreased magnesium. BP stable without medication - will continue to hold. Continue supplemental O2 and Neb treatments. Add Mucinex DM BID due to congestion. Change Protonix to 40mg IV BID for enhanced GI protection. Recheck CMP and Mg in am due to medication and IVF use. Repeat CBC in am due to neutropenic fever. BRENDEN PELAYO 09/28/16 2212: Assessment & Plan Assessment Patient examined at 7:45 am and chart reviewed. Agree with documentation and plan of Suzanne Garcia. I participated in the development of the plan of treatment of this patient. Item Value Date Time Percent Reticulocyte Count 0.1 % L 09/26/16 1021 White Blood Count 0.8 T/MM3 *L 09/27/16 0420 Hemoglobin 7.7 GM/DL L # 09/27/16 0420 Platelet Count 63 T/MM3 L # 09/27/16 0420 Eosinophils % (Manual) 34.0 % H 09/25/16 1727 Eosinophils % (Manual) 31.0 % H 09/26/16 0359 White Blood Count 0.9 T/MM3 *L 09/28/16 0412 Hemoglobin 8.4 GM/DL L # 09/28/16 0412 Platelet Count 40 T/MM3 L # 09/28/16 0412 Eosinophils % (Manual) 40.0 % H 09/27/16 0420 Eosinophils % (Manual) 20.0 % H 09/28/16 0412 Neutrophils % (Manual) 38.0 % 09/27/16 0420 Neutrophils % (Manual) 56.0 % 09/28/16 0412 Absolute Neutrophils (Manual) 0.3 T/MM3 L 09/27/16 0420 Absolute Neutrophils (Manual) 0.5 T/MM3 L 09/28/16 0412 Eosinophilia is decreasing. Platelets decreasing. ANC low but improving. Continue with G CSF. I will be gone till 10/04/16. Dr. Alfredo will cover. Low calcium with no clear etiology. KAR GARCIA APRN September 28, 2016 13:02 BRENDEN PELAYO September 28, 2016 22:12
--- NOTE | 2016-09-28 15:36 | WOUNDPN ---
Nurse to Nurse Wound Consult Pt has rubbed under right arm raw from sling. At this time applied mepilex to that area to protect for rubbing. ERIKA XIONG RN September 28, 2016 15:36
[2016-09-28] MEDS: VANCOMYCIN 1,500 MG in NORMAL SALINE 500 ML IV SCH (16:46)
--- NOTE | 2016-09-28 18:57 | NUR ---
SHIFT SUMMARY PT ALERT AND ORIENTED X3. PT ON 2L/NC, DENIES SOA. PT RATES PAIN /, PRN PAIN MEDS ADMINISTERED EARLIER THIS SHIFT AND PT REPORTS DECREASED PAIN. PRN ZOFRAN AND REGLAN ADMINISTERED FOR N/V. UP WITH STAND BY ASSIST, STEADY ON FEET. IVF INFUSING ORDERED INTO RIGHT CHEST PAC. DRESSINGS TO BUTTOCKS AND UNDER RIGHT ARM C/D/I. ADEQUATE URINE OUTPUT, BMs THIS SHIFT. PT ABLE TO MAKE NEEDS KNOWN. CALL LIGHT WITHIN REACH.
[2016-09-29] VITALS (8 sets, daily range): BP systolic 110–137; BP diastolic 57–67; PULSE 82–102; RESP 18–24; TEMP 96.2–98.4; O2SAT 95–98
[2016-09-29] MEDS: NS KCL 20 MEQ 1,000 ML IV SCH ×4 (02:05→22:47)
[2016-09-29] MEDS: CEFEPIME 1 G in NORMAL SALINE 100 ML IV SCH ×4 (02:28→20:11)
--- NOTE | 2016-09-29 02:29 | NUR ---
STATUS PT UP TO THE BATHROOM WITHOUT DIFFICULT. PT STATES SLEEPING WELL DENIES PAIN. SOA NOTED WHEN UP TO THE BR. WHEN RETURNING TO BED PT ASKED IF RT COULD COME EARLY? CALLED [facility] REQUEST HE COME EARLY PER PT'S.
[2016-09-29] MEDS: ALBUTEROL/IPRATROPIUM INHAL. 2.5mg-0.5mg/3ml Neb. AEROSOL SCH ×4 (02:51→20:25)
[2016-09-29] MEDS: VANCOMYCIN 1,500 MG in NORMAL SALINE 500 ML IV SCH ×2 (03:25→16:22)
--- NOTE | 2016-09-29 03:32 | NUR ---
STATUS PT ALERT AND ORIENTED X 3. PLEASANT AND COOPERATIVE WITH CARES. CALLS FOR ASSIST TO BATHROOM. GAIT IS STEADY WITH STAND BY ASSIST. IVF INFUSING INTO PORT-CATH WITHOUT DIFFICULT. PT DENIES PAIN TO HER RIGHT ARM OR CHEST PAIN. SHE HAD NOSE BLEED THAT STOP BY APPLYING PRESSURE TO BRIDGE OF HER NOSE.
[2016-09-29 05:15] LABS: HCT - HEMATOCRIT 23.6 % (36-46); HGB - HEMOGLOBIN 8.1 GM/DL (12-16); MEAN CORPUSCULAR HGB 28.5 UUG (26-34); MEAN CORPUSCULAR HGB CONC(MCHC 34.3 GM/DL (31-37); MEAN CORPUSCULAR VOLUME 83.1 UM3 (80-100); MEAN PLATELET VOLUME 10.3 UM3 (9.4-12.4); RED BLOOD COUNT 2.84 M/MM3 (4.00-5.20)
[2016-09-29 05:30] LABS: ALBUMIN 2.5 G/DL (3.5-5.0); ALKALINE PHOSPHATASE 67 U/L (38-126); ALT (SGPT) 56 U/L (9-52); ANION GAP 11 MEQ/L (5-15); AST (SGOT) 30 U/L (14-36); BUN/CREATININE RATIO 8 RATIO (6-26); CALCIUM 6.3 MG/DL (8.4-10.2); CHLORIDE 103 MEQ/L (98-107); CO2 - CARBON DIOXIDE 25 MEQ/L (22-30); CREATININE 0.4 MG/DL (0.7-1.2); GLOMERULAR FILTRATION RATE 155; GLUCOSE 88 MG/DL (65-110); LDH 519 U/L (313-618); MAGNESIUM 1.9 MG/DL (1.6-2.3); POTASSIUM 3.1 MEQ/L (3.6-5); SODIUM 139 MEQ/L (134-144); TOTAL PROTEIN 4.9 G/DL (6.3-8.2)
[2016-09-29 05:36] LABS: WBC - WHITE BLOOD COUNT 0.7 T/MM3 (4.5-11.0)
[2016-09-29] MEDS: ONDANSETRON 4mg/2ml INJECTION IV PRN ×3 (05:59→21:33)
--- NOTE | 2016-09-29 06:08 | NUR ---
STATUS NOTIFIED DR DUTTON OF PT'S MORNING LAB. PLT 26, WBC 0.7, Hgb 8.1. NO NEW ORDERS RECEIVED AT THIS TIME. PT UP TO THE BATHROOM, INCONTINENT OF BM, LOOSE STOOL. PT STATES FEELING NAUSEA AND WEAK. STARTING TO HAVE A HEADACHE. REGLAN IV GIVEN FOR NAUSEA.
[2016-09-29] MEDS: LEVOFLOXACIN 750 mg IVPB 750 MG in D5W 150 ML IV SCH (06:55)
[2016-09-29 07:10] LABS: BAND NEUTROPHILS # 0.1 T/MM3; EOSINOPHILS # (MANUAL) 0.2 T/MM3 (0-0.5); MONOCYTES # (MANUAL) 0.2 T/MM3 (0-0.8); NEUTROPHILS #(MANUAL)-ABSOLUTE 0.2 T/MM3 (1.8-7.7); POIKILOCYTOSIS 1+; TOTAL CELLS COUNTED 50 %
[2016-09-29] MEDS: DICYCLOMINE 20 MG TABLET PO SCH ×3 (07:50→17:04)
[2016-09-29] MEDS: PANTOPRAZOLE 40mg INJECTION IV SCH ×2 (09:01→20:12)
[2016-09-29] MEDS: GUAIFENESIN DM 600mg/30mg TABLET PO SCH ×2 (09:01→20:13)
[2016-09-29] MEDS: SALINE NASAL SPRAY 45ml EA NOSTRIL SCH ×4 (09:02→20:13)
[2016-09-29] MEDS: POTASSIUM CHLORIDE 10 MEQ, LIDOCAINE 1% 10 MG in NORMAL SALINE 100 ML IV SCH ×6 (09:58→15:24)
[2016-09-29] MEDS ORDERED: TBO-FILGRASTIM 300mcg/0.5ml INJECTION SQ ONE (11:15)
--- NOTE | 2016-09-29 11:43 | PNPDOC ---
Subjective Date DATE: 09/29/16 TIME: 11:34 Subjective F/U: Neutropenic Fever About the same. Mild, persistent nausea. Minimal appetite. Breathing stable-not having increased SOA, cough or congestion. No chest pressure or pain. Notes some slight swelling to legs. Objective Vital Signs Vital signs Vital Signs Date Time Temp Pulse Resp B/P Pulse Ox O2 Delivery O2 Flow Rate FiO2 09/29/16 08:00 20 96 09/29/16 08:00 100 09/29/16 08:00 Nasal Cannula 2.00 09/29/16 07:57 98.0 134/67 Telemetry Rhythm: Sinus Rhythm Height (Feet): 4 Height (Inches): 11.00 Weight (Kilograms): 55.300 General General Appearance: Alert, Orientated x 3, Well Nourished, Well Developed, Cooperative, Looks Stated Age Eyes (Brief) Eyes: FOUND: EOMI, PERRL, NOT FOUND: scleral icterus ENMT (Brief) ENMT: FOUND: hearing intact, mucosa moist (No thrush ) Neck (Brief) Neck: FOUND: midline, NOT FOUND: nuchal rigidity, spasm Respiratory (Brief) Respiratory: FOUND: equal bilaterally, other (No distress with O2. ), NOT FOUND : clear all marie (Decreased ), rales, wheezes Cardiovascular (Brief) Cardiac: FOUND: pedal edema (Trace ), regular rate, regular rhythm Abdomen (Brief) Abdominal: FOUND: BS normo active x4, soft, NOT FOUND: distended, tender Extremities (Brief) Extremity : Side: Bilateral Extremity: leg Extremity Finding: FOUND: edema (Trace ) Musculoskeletal (Brief) Musculoskeletal: FOUND: extremities move equally, NOT FOUND: deformity, loss of motion, spasm, tenderness Integumentary (Brief) Integumentary: FOUND: dry, warm Neurologic (Brief) Neurological: FOUND: cranial 2-12 intact (Intact ), motor Psychiatric (Brief) Psychiatric: FOUND: alert, attentive, normal affect, oriented Laboratory Laboratory Laboratory Tests 09/28/16 04:12 09/29/16 04:15 Laboratory Tests 09/27/16 16:46 09/28/16 04:12 09/29/16 04:15 Sepsis Diagnostic Criteria Sepsis SIRS Criteria: Pulse >= 90 beats/min, WBC >=12,000 or <=4,000 Severe Sepsis None Seen Assessment & Plan Problems: (1) Neutropenic fever Status: Acute (2) Sepsis Status: Acute Assessment & Plan: Source undetermined. Manifestations: Temp elevation, Tachycardia, Neutropenia (3) Nausea & vomiting Status: Resolved Qualifiers: Vomiting type: unspecified Vomiting Intractability: unspecified Qualified Codes: R11.2 - Nausea with vomiting, unspecified (4) Lung cancer Status: Chronic Assessment & Plan: Started chemo 09/20 (5) COPD (chronic obstructive pulmonary disease) Status: Chronic Qualifiers: COPD type: emphysema Emphysema type: unspecified Qualified Codes: J43.9 - Emphysema, unspecified (6) Chronic respiratory insufficiency Status: Chronic Assessment & Plan: Home O2 at 2L per NC. (7) HTN (hypertension) Status: Chronic Qualifiers: Hypertension type: essential hypertension Qualified Codes: I10 - Essential (primary) hypertension (8) Pancytopenia Status: Acute (9) Irritable bowel syndrome (IBS) Status: Chronic (10) Epistaxis Status: Resolved (11) Hypokalemia Status: Acute Assessment & Plan: Not POA (12) Hypomagnesemia Status: Acute Assessment & Plan: Not POA Plan/Intensity of Service Continue cefepime, vancomycin, and levofloxacin for empiric antimicrobial coverage. Give Granix 300mcg today due to persistent neutropenia. Decrease IVF to 50 cc/hr. Oral drive still decreased. Start Scopolamine patch due to persistent nausea - No Phenergan due to use of Reglan. Replace potassium - IV Boluses x4. Will restart lisinopril at 10mg q hs (home dose 20). Norvasc on hold. Recheck CMP and Mg in am due to medication and IVF use. Repeat CBC in am due to neutropenia. Case discussed with CM and nursing. Time spent with patient care 35 minutes. Code Status Do Not Resuscitate Hospital Course Summary Disclaimer The hospital course summary below is not to be considered part of the above Progress Note. Hospital Course Summary 09/25 Admit Inpatient admission for treatment of neutropenic fever-anticipate greater than 2 midnight of care needed. Neutropenic precautions. Start cefepime, vancomycin, and levofloxacin for empiric antimicrobial coverage. Granix to help increase WBC. IVF for volume support secondary to n/v. Zofran prn nausea. Hold antihypertensives due to sepsis syndrome - monitor BP. SCD and Lovenox for DVT prevention due to CA. Continue supplemental O2 and Neb treatments. Consult with Dr Pelayo for ONC eval. Monitor lab. DNR as per pt's request. Care to return to Dr Brower at time of discharge. 09/26 Doing okay this afternoon. Not having f/c. Loose stool has stopped - no bowel movements. Feels some rumbling in ab, like she could have stool soon. Nausea decreased. Ate 25% of breakfast and 50% of lunch. Breathing stable - not feeling increased SOA or congestion with IVF. Continue cefepime, vancomycin, and levofloxacin for empiric antimicrobial coverage. Continue neutropenic precautions. Respiratory PCR panel negative. Stool PCR panel pending (pt not produced sample). Granix 300mcg given this am due to decreased WBC - recheck CBC in am to monitor response. Continue IVF for volume support secondary to n/v. HGB with decreased from admission - transfuse 1 unit pRBC. Hold antihypertensives due to sepsis syndrome - monitor BP. Continue supplemental O2 and Neb treatments. Add nasal saline due to dry nasal passages from O2. Consult with Dr Pelayo for ONC eval. Recheck BMP in am due to medication and IVF use. Repeat CBC in am due to neutropenic fever. 09/27 Rough night-had nose bleed. Notes congestion to nose, but afraid to blow nose due to worry about resumption of bleeding. Breathing feeling well-not SOA or having cough or congestion. No nausea, but appetite decreased. Food doesn't taste right which decreases her appetite. No ab pain or bloating. Passing flatus. Not had stool today. Urinating well. No mouth pain or pain with swallowing. Granix 300mcg given this am due to persistent neutropenia - recheck CBC in am to monitor response. HGB decreased to 7.7 - transfuse 1 unit pRBC. ONC recommends keeping HGB greater than 8. Stop Lovenox and ASA due to low platelets and nosebleed. Nursing reports pt refusing SCD due to discomfort. Encourage ambulation. Decrease IVF to 75 cc/hr. Oral drive still decreased. Replace potassium - 20mEg today at noon and evening meal. Will give 400mg MagOx at noon as Mg 1.7. BP stable without medication - will continue to hold. Continue supplemental O2 and Neb treatments. Dr Pelayo did evaluate pt this morning. Case discussed with him. Recheck CMP and Mg in am due to medication and IVF use. Repeat CBC in am due to neutropenic fever. 5/2 Feeling rough. Notes congestion and cough. Stools loose-passed blood. More nausea and less appetite. Tired and weak. Not feeling SOA or having pain with breathing. Denies mouth pain or pain with swallowing. No f/c. Urinating well. Magnesium decrease to 1.5. Potassium 3.2. WBC 0.9, HGB 8.4, Platelets 40. Continue cefepime, vancomycin, and levofloxacin for empiric antimicrobial coverage. Granix 300mcg given this am due to persistent neutropenia - recheck CBC in am to monitor response. Continue IVF at 75 cc/hr. Oral drive still decreased. Replace potassium - 20mEg today at noon and evening meal. IV magnesium 2 grams due to decreased magnesium. BP stable without medication - will continue to hold. Continue supplemental O2 and Neb treatments. Add Mucinex DM BID due to congestion. Change Protonix to 40mg IV BID for enhanced GI protection. Recheck CMP and Mg in am due to medication and IVF use. Repeat CBC in am due to neutropenic fever. 09/29 About the same. Mild, persistent nausea. Minimal appetite. Breathing stable-not having increased SOA, cough or congestion. No chest pressure or pain. Some slight swelling to legs. Potassium 3.1. Mg 1.9. WBC 0.7 with ANC 280. HGB 8.1. Platelets 26. Continue cefepime, vancomycin, and levofloxacin for empiric antimicrobial coverage. Give Granix 300mcg today due to persistent neutropenia. Decrease IVF to 50 cc/hr. Oral drive still decreased. Start Scopolamine patch due to persistent nausea - No Phenergan due to use of Reglan. Replace potassium - IV Boluses x4. Will restart lisinopril at 10mg q hs (home dose 20). Norvasc on hold. Recheck CMP and Mg in am due to medication and IVF use. Repeat CBC in am due to neutropenia. CAYETANO DONALDSON MD September 29, 2016 11:38
[2016-09-29] MEDS: SCOPOLAMINE 1.5 MG PATCH TD SCH (12:00)
[2016-09-29] MEDS: FOLIC ACID 1 MG TABLET PO SCH (12:00)
--- NOTE | 2016-09-29 14:12 | PNPDOC ---
Subjective Date DATE: 09/29/16 TIME: 14:00 Sitting on bedside, alone in room. Alert and oriented. Denies chest pain, shortness of air or cough. No further fevers, feels cold often. Intermittent nausea/vomiting persists. Scopolamine has been added. Loose stools. General: No fever, no night sweats Eyes: No redness, no pain, no diplopia ENT: No mouth sores, no trouble swallowing Cardiac: No chest pain no palpitations Pulmonary: No cough, no shortness of breath, no wheezing Abdomen: Positive nausea/vomiting. Positive loose stools. : No urgency, frequency, dysuria, or hematuria Musculoskeletal: No arthritis, no myalgias Neurological: No headaches, no focal weakness Skin: No rash, no sores Psychiatric: No anxiety, no depression Objective Vital Signs Vital Signs 09/29/16 09/29/16 09/29/16 09/29/16 02:46 02:46 02:55 04:00 Temp 97.2 Pulse 113 101 98 Resp 18 18 B/P 137/67 Pulse Ox 95 O2 Delivery Nasal Cannula O2 Flow Rate 2.00 09/29/16 09/29/16 09/29/16 09/29/16 07:57 08:00 08:00 08:00 Temp 98.0 Pulse 102 100 100 Resp 18 B/P 134/67 Pulse Ox 95 O2 Delivery Nasal Cannula Nasal Cannula O2 Flow Rate 2.00 2.00 09/29/16 09/29/16 08:00 11:56 Temp 98.4 Pulse 88 Resp 20 20 B/P 124/62 Pulse Ox 96 98 O2 Delivery Nasal Cannula O2 Flow Rate 2.00 Height (Feet): 4 Height (Inches): 11.00 Weight (Kilograms): 55.300 General Alert, Orientated x 3, No Acute Distress Eyes (Brief) Eyes: FOUND: EOMI, NOT FOUND: scleral icterus ENMT (Brief) ENMT: FOUND: mucosa moist, NOT FOUND: lesions Neck (Brief) Neck: NOT FOUND: adenopathy, tenderness Respiratory (Brief) Respiratory: FOUND: equal bilaterally, other (diminished bilateral posterior throughout. ) Cardiovascular (Brief) Cardiac: FOUND: pedal edema (1+ edema bilateral lower extremities), regular rate, regular rhythm Abdomen (Brief) Abdominal: FOUND: BS normo active x4, soft, NOT FOUND: hepatosplenomegaly Musculoskeletal (Brief) NOT FOUND: tenderness Integumentary (Brief) FOUND: dry, other (pale), warm, NOT FOUND: rash Neurologic (Brief) FOUND: cranial 2-12 intact, motor (no acute motor deficit) Psychiatric (Brief) FOUND: alert, attentive, normal affect, oriented Laboratory Laboratory Tests Test 09/29/16 04:15 White Blood Count 0.7T/MM3 Red Blood Count 2.84M/MM3 Hemoglobin 8.1GM/DL Hematocrit 23.6% Mean Corpuscular Volume 83.1UM3 Mean Corpuscular Hemoglobin 28.5UUG Mean Corpuscular Hemoglobin Concent 34.3GM/DL RDW Standard Deviation 47.9FL Platelet Count 26T/MM3 Mean Platelet Volume 10.3UM3 Immature Granulocyte % (Auto) % Neutrophils (%) (Auto) % Lymphocytes (%) (Auto) % Monocytes (%) (Auto) % Eosinophils (%) (Auto) % Basophils (%) (Auto) % Absolute Immature Granulocyte (auto T/MM3 Absolute Neutrophils (auto) T/MM3 Absolute Lymphocytes (auto) T/MM3 Absolute Monocytes (auto) T/MM3 Absolute Eosinophils (auto) T/MM3 Absolute Basophils (auto) T/MM3 Neutrophils % (Manual) 32.0% Band Neutrophils % 8.0% Monocytes % (Manual) 28.0% Eosinophils % (Manual) 32.0% Absolute Neutrophils (Manual) 0.2T/MM3 Band Neutrophils # 0.1T/MM3 Monocytes # (Manual) 0.2T/MM3 Eosinophils # (Manual) 0.2T/MM3 Poikilocytosis 1+ Red Cell Morphology Comment Abnormal Turbidity < 20 Sodium Level 139MEQ/L Potassium Level 3.1MEQ/L Chloride Level 103MEQ/L Carbon Dioxide Level 25MEQ/L Anion Gap 11MEQ/L Blood Urea Nitrogen 3.0MG/DL Creatinine 0.4MG/DL Glomerular Filtration Rate Calc 155 BUN/Creatinine Ratio 8RATIO Glucose Level 88MG/DL Calculated Osmolality 264MOSM/KG Calcium Level 6.3MG/DL Magnesium Level 1.9MG/DL Total Bilirubin 0.80MG/DL Icterus Index < 2 Aspartate Amino Transf (AST/SGOT) 30U/L Alanine Aminotransferase (ALT/SGPT) 56U/L Alkaline Phosphatase 67U/L Lactate Dehydrogenase 519U/L Total Protein 4.9G/DL Albumin 2.5G/DL Globulin 2.4G/DL Albumin/Globulin Ratio 1.0RATIO Chemistry Specimen Hemolysis < 15 Sepsis Diagnostic Criteria Sepsis SIRS Criteria: Pulse >= 90 beats/min, WBC >=12,000 or <=4,000 Severe Sepsis None Seen Assessment & Plan Assessment 1. Neutropenic fever. Presented on 09/25 with temp of 100.2. Has been afebrile since. Admitted with IV antibiotic coverage to include Vancomycin,Levaquin and Cefapine. Filgastrim given daily since 09/25/2016. 2. Eosinophilia of 34 % Question etiology. Allergy to med or reactive. 3. Thrombocytopenia. Post chemotherapy suppression vs DIC Platelets 62K , 40K 09/28/16, and today platelets 26K Will follow. Alimta/carboplatin chemotherapy, cycle 1 on 09/20/16 4. Anemia. Hgb 7.7 on 09/27 after transfusion 8.2 on admission. Dropped to 6.8. 9 after transfusion. Suspect Peptic ulcer disease with acute blood loss. Retic count low at 0.1% suggesting marrow suppression from chemotherapy. Ferritin and B 12 elevated. Nosebleeds also contributing and had nosebleed this morning. Bleeding exacerbated by prophylactic lovenox. She weighs 53Kg and had lovenox 40 mg given on 09/25 late in evening and had another 40 mg given at 9 am on 09/26. Will hold Lovenox. Consider EGD after WBC and PLT recovery. Hemoglobin 8.1 today, 0503/17. No further nosebleeds. 5. 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 S/P radiation to humerus and painful pelvic mets. Completed XRT mid August and then started systemic therapy with Alimta Carboplatin on 09/20/16. 6. N/V have been problem since diagnosiss and with radiation. Had problems last week after chemotherapy. IV fluids and zofran given on Tue, and Tuesday. She also had famitoldine for burning . This has improved but concern for peptic ulcer disease is present. Continues with intermittent nausea/ vomiting. Scopolamine added today 7. COPD Oxygen dependent 8. Pathologic fracture right humerus 9. Rash after IV contrast and Xgeva. Suspect contrast allergy. 10. Bone metastasis. Pathologic fracture Irradiated. Xgeva given 08/30/16. Plan/Intensity of Service Continue supportive care, antibiotics, close monitoring of CBC, renal and liver function. Granix 300 g given today. Code Status Do Not Resuscitate Hospital Course Summary Disclaimer The visit summary below is not to be considered part of the above Progress Note. Hospital Course Summary 09/25 Admit Inpatient admission for treatment of neutropenic fever-anticipate greater than 2 midnight of care needed. Neutropenic precautions. Start cefepime, vancomycin, and levofloxacin for empiric antimicrobial coverage. Granix to help increase WBC. IVF for volume support secondary to n/v. Zofran prn nausea. Hold antihypertensives due to sepsis syndrome - monitor BP. SCD and Lovenox for DVT prevention due to CA. Continue supplemental O2 and Neb treatments. Consult with Dr Pelayo for ONC eval. Monitor lab. DNR as per pt's request. Care to return to Dr Brower at time of discharge. 09/26 Doing okay this afternoon. Not having f/c. Loose stool has stopped - no bowel movements. Feels some rumbling in ab, like she could have stool soon. Nausea decreased. Ate 25% of breakfast and 50% of lunch. Breathing stable - not feeling increased SOA or congestion with IVF. Continue cefepime, vancomycin, and levofloxacin for empiric antimicrobial coverage. Continue neutropenic precautions. Respiratory PCR panel negative. Stool PCR panel pending (pt not produced sample). Granix 300mcg given this am due to decreased WBC - recheck CBC in am to monitor response. Continue IVF for volume support secondary to n/v. HGB with decreased from admission - transfuse 1 unit pRBC. Hold antihypertensives due to sepsis syndrome - monitor BP. Continue supplemental O2 and Neb treatments. Add nasal saline due to dry nasal passages from O2. Consult with Dr Pelayo for ONC eval. Recheck BMP in am due to medication and IVF use. Repeat CBC in am due to neutropenic fever. 09/27 Rough night-had nose bleed. Notes congestion to nose, but afraid to blow nose due to worry about resumption of bleeding. Breathing feeling well-not SOA or having cough or congestion. No nausea, but appetite decreased. Food doesn't taste right which decreases her appetite. No ab pain or bloating. Passing flatus. Not had stool today. Urinating well. No mouth pain or pain with swallowing. Granix 300mcg given this am due to persistent neutropenia - recheck CBC in am to monitor response. HGB decreased to 7.7 - transfuse 1 unit pRBC. ONC recommends keeping HGB greater than 8. Stop Lovenox and ASA due to low platelets and nosebleed. Nursing reports pt refusing SCD due to discomfort. Encourage ambulation. Decrease IVF to 75 cc/hr. Oral drive still decreased. Replace potassium - 20mEg today at noon and evening meal. Will give 400mg MagOx at noon as Mg 1.7. BP stable without medication - will continue to hold. Continue supplemental O2 and Neb treatments. Dr Pelayo did evaluate pt this morning. Case discussed with him. Recheck CMP and Mg in am due to medication and IVF use. Repeat CBC in am due to neutropenic fever. 09/28 Feeling rough. Notes congestion and cough. Stools loose-passed blood. More nausea and less appetite. Tired and weak. Not feeling SOA or having pain with breathing. Denies mouth pain or pain with swallowing. No f/c. Urinating well. Magnesium decrease to 1.5. Potassium 3.2. WBC 0.9, HGB 8.4, Platelets 40. Continue cefepime, vancomycin, and levofloxacin for empiric antimicrobial coverage. Granix 300mcg given this am due to persistent neutropenia - recheck CBC in am to monitor response. Continue IVF at 75 cc/hr. Oral drive still decreased. Replace potassium - 20mEg today at noon and evening meal. IV magnesium 2 grams due to decreased magnesium. BP stable without medication - will continue to hold. Continue supplemental O2 and Neb treatments. Add Mucinex DM BID due to congestion. Change Protonix to 40mg IV BID for enhanced GI protection. Recheck CMP and Mg in am due to medication and IVF use. Repeat CBC in am due to neutropenic fever. / About the same. Mild, persistent nausea. Minimal appetite. Breathing stable-not having increased SOA, cough or congestion. No chest pressure or pain. Some slight swelling to legs. Potassium 3.1. Mg 1.9. WBC 0.7 with ANC 280. HGB 8.1. Platelets 26. Continue cefepime, vancomycin, and levofloxacin for empiric antimicrobial coverage. Give Granix 300mcg today due to persistent neutropenia. Decrease IVF to 50 cc/hr. Oral drive still decreased. Start Scopolamine patch due to persistent nausea - No Phenergan due to use of Reglan. Replace potassium - IV Boluses x4. Will restart lisinopril at 10mg q hs (home dose 20). Norvasc on hold. Recheck CMP and Mg in am due to medication and IVF use. Repeat CBC in am due to neutropenia. KAR HIRSCH APRN September 29, 2016 14:03
--- NOTE | 2016-09-29 14:47 | NUR ---
CM CM IN TO VISIT PT. PT REQUESTED A CONTACT CARD FOR SON AND THAT I GIVE IT TO HER NURSE. CM PROVIDED CONTACT INFORMATION TO NURSE. PT AWARE TO CONTACT CM SHOULD NEEDS ARISE.
--- NOTE | 2016-09-29 18:28 | NUR ---
status Pt A/O x3, V/S stable on 2L, uses O2 at home. Pt C/O headache, told her not to wait and we can get meds for her, PRN norco given and pt stated it helped with headache. Pt having trouble with occ N/V, seem to coincide with a strong smell, able to eat small amts still. Did teaching on different ideas to help with her nauseas, scolomine patch added but still having emisis. Low appetite but trying to eat at every meal. Ambulating around room with no trouble, denies dizziness or SOA. Urine output good for shift, having loose stools today. PAC flushing and aspirating well. Tolerating ABX and K boluses well today.
[2016-09-29] MEDS: NORMAL SALINE 500 ML IV PRN (20:12)
[2016-09-29] MEDS: CALCIUM 600mg + VIT D 400 TABLET PO SCH (20:13)
[2016-09-29] MEDS ORDERED: LISINOPRIL 10 MG TABLET PO SCH (22:00)
[2016-09-30] VITALS (12 sets, daily range): BP systolic 111–143; BP diastolic 56–71; PULSE 84–108; RESP 14–22; TEMP 95.9–99.4; O2SAT 93–99
[2016-09-30] MEDS: CEFEPIME 1 G in NORMAL SALINE 100 ML IV SCH ×4 (02:57→22:09)
[2016-09-30] MEDS: ALBUTEROL/IPRATROPIUM INHAL. 2.5mg-0.5mg/3ml Neb. AEROSOL SCH ×4 (03:04→21:01)
--- NOTE | 2016-09-30 03:07 | NUR ---
SHIFT SUMMARY PT A/O X3. UP AT [facility]IC IN HER ROOM. ENCOURAGED PT TO CALL FOR STAND BY ASSIST IF SHE FEEL DIZZY OR LITE HEADED. UP TO THE BR TO VOID THROUGH THE NIGHT. NO STOOLS NOTED. REGLAN GIVEN @ 1905 FOR NAUSEA. PT STATES SHE IS UNABLE TO EAT. SHE WAS ABLE TO EAT SOME COOKIES AROUND 2029. STATES FEELING SO MUCH BETTER AND REQUEST TO TAKE BOTH NAUSEA MEDICATIONS TO HELP HER. PT ASKED FOR PAIN MEDICATION FOR HEADACHE RATED 12/06. 3-NORCO 7.5 MG AND ZOFRAN 4 MG GIVEN. REVIEWED WITH PT THE ANTIBIOTIC SHE IS TAKING WITH LOW PLATELETS CAN MAKE HER NAUSEATED AND HAVE A H/A. PT VERBALIZED UNDERSTANDING. STATES SLEEPING WELL SO FAR. PT VISITED WITH FAMILY AND FRIENDS AT THE START OF THE SHIFT. CALL LIGHT WITHIN REACH. BED ALARM OFF, PT REFUSED THE SCD'S STATES IT IS PAINFUL ON HER LEGS.
[2016-09-30] MEDS: VANCOMYCIN 1,500 MG in NORMAL SALINE 500 ML IV SCH ×2 (04:00→17:10)
[2016-09-30 05:37] LABS: HCT - HEMATOCRIT 21.6 % (36-46); HGB - HEMOGLOBIN 7.4 GM/DL (12-16); MEAN CORPUSCULAR HGB 28.6 UUG (26-34); MEAN CORPUSCULAR HGB CONC(MCHC 34.3 GM/DL (31-37); MEAN CORPUSCULAR VOLUME 83.4 UM3 (80-100); MEAN PLATELET VOLUME 9.8 UM3 (9.4-12.4); RED BLOOD COUNT 2.59 M/MM3 (4.00-5.20)
[2016-09-30 05:41] LABS: WBC - WHITE BLOOD COUNT 0.7 T/MM3 (4.5-11.0)
[2016-09-30 05:49] LABS: ALBUMIN 2.4 G/DL (3.5-5.0); ALBUMIN/GLOBULIN RATIO 1.1 RATIO (1.1-2.2); ALKALINE PHOSPHATASE 63 U/L (38-126); ALT (SGPT) 46 U/L (9-52); ANION GAP 7 MEQ/L (5-15); AST (SGOT) 25 U/L (14-36); BLOOD UREA NITROGEN < 2.0 MG/DL (7-17); CHLORIDE 105 MEQ/L (98-107); CO2 - CARBON DIOXIDE 27 MEQ/L (22-30); CREATININE 0.4 MG/DL (0.7-1.2); GLOMERULAR FILTRATION RATE 155; GLUCOSE 92 MG/DL (65-110); LDH 466 U/L (313-618); MAGNESIUM 1.6 MG/DL (1.6-2.3); POTASSIUM 3.2 MEQ/L (3.6-5); SODIUM 139 MEQ/L (134-144); TOTAL PROTEIN 4.6 G/DL (6.3-8.2)
[2016-09-30] MEDS: LEVOFLOXACIN 750 mg IVPB 750 MG in D5W 150 ML IV SCH (06:30)
[2016-09-30 06:42] LABS: BAND NEUTROPHILS # 0.1 T/MM3; EOSINOPHILS # (MANUAL) 0.1 T/MM3 (0-0.5); LYMPHOCYTES # (MANUAL) 0.1 T/MM3 (1-4.8); MONOCYTES # (MANUAL) 0.1 T/MM3 (0-0.8); NEUTROPHILS #(MANUAL)-ABSOLUTE 0.3 T/MM3 (1.8-7.7); TOTAL CELLS COUNTED 50 %
[2016-09-30 06:43] LABS: OVALOCYTES 1+; POIKILOCYTOSIS 1+
--- NOTE | 2016-09-30 07:19 | NUR ---
LAB TIGER TEXT MORNING LABS. NO NEW ORDER RECEIVED. REPORTED TO DAY SHIFT RN.
[2016-09-30] MEDS: DICYCLOMINE 20 MG TABLET PO SCH ×3 (07:54→17:42)
[2016-09-30] MEDS: ONDANSETRON 4mg/2ml INJECTION IV PRN ×2 (07:55→16:34)
[2016-09-30] MEDS ORDERED: NORMAL SALINE 500 ML IV SCH (08:02)
--- NOTE | 2016-09-30 08:14 | NUR ---
blood Suzanne K called with orders for unit of blood and platelets. Ordered and will do when blood received.
[2016-09-30] MEDS ORDERED: ACETAMINOPHEN 325 MG TABLET PO ONE (08:15)
[2016-09-30] MEDS ORDERED: DiphenhydrAMINE 25 MG CAPSULE PO ONE (08:15)
[2016-09-30] MEDS ORDERED: TBO-FILGRASTIM 300mcg/0.5ml INJECTION SQ ONE ×2 (08:15→08:45)
[2016-09-30] MEDS: SALINE NASAL SPRAY 45ml EA NOSTRIL SCH ×4 (08:32→22:10)
[2016-09-30] MEDS: PANTOPRAZOLE 40mg INJECTION IV SCH ×2 (08:32→22:08)
[2016-09-30] MEDS: GUAIFENESIN DM 600mg/30mg TABLET PO SCH ×2 (08:32→22:08)
[2016-09-30] MEDS ORDERED: SPIRONOLACTONE 50 MG TABLET PO ONE (09:00)
[2016-09-30] MEDS: NS KCL 20 MEQ 1,000 ML IV SCH (09:16)
--- NOTE | 2016-09-30 09:40 | PNPDOC ---
Subjective Date DATE: 09/30/16 TIME: 09:12 Subjective F/U: Neutropenic Fever No f/c. Appetite and nausea about the same. Breathing stable without increased congestion or cough. Nasal congestion, but able to use saline without nose bleeds. Urinating well. Note slight increased edema to legs. Not dizzy or unsteady when up. Objective Vital Signs Vital signs Vital Signs Date Time Temp Pulse Resp B/P Pulse Ox O2 Delivery O2 Flow Rate FiO2 09/30/16 08:05 Nasal Cannula 2.00 09/30/16 08:05 99 09/30/16 08:05 18 99 09/30/16 07:59 98.1 131/67 Telemetry Rhythm: Sinus Rhythm Height (Feet): 4 Height (Inches): 11.00 Weight (Kilograms): 57.000 General General Appearance: Alert, Orientated x 3, Well Nourished, Well Developed, Cooperative, Looks Stated Age Eyes (Brief) Eyes: FOUND: EOMI, PERRL, NOT FOUND: scleral icterus ENMT (Brief) ENMT: FOUND: hearing intact, mucosa moist (No thrush ) Neck (Brief) Neck: FOUND: midline, NOT FOUND: nuchal rigidity, spasm Respiratory (Brief) Respiratory: FOUND: equal bilaterally, other (No distress with O2 ), NOT FOUND : clear all marie (Decreased ), rales, wheezes Cardiovascular (Brief) Cardiac: FOUND: pedal edema (+1), regular rate, regular rhythm Abdomen (Brief) Abdominal: FOUND: BS normo active x4, soft, NOT FOUND: distended, tender Extremities (Brief) Extremity : Side: Bilateral Extremity: leg Extremity Finding: FOUND: pain (+1) Musculoskeletal (Brief) Musculoskeletal: FOUND: extremities move equally, NOT FOUND: deformity, loss of motion, spasm, tenderness Integumentary (Brief) Integumentary: FOUND: dry, warm Neurologic (Brief) Neurological: FOUND: cranial 2-12 intact, motor (Intact ) Psychiatric (Brief) Psychiatric: FOUND: alert, attentive, normal affect, oriented Laboratory Laboratory Laboratory Tests 09/29/16 04:15 09/30/16 05:14 Laboratory Tests 09/29/16 04:15 09/30/16 05:14 Sepsis Diagnostic Criteria Sepsis SIRS Criteria: Pulse >= 90 beats/min, WBC >=12,000 or <=4,000 Severe Sepsis None Seen Assessment & Plan Problems: (1) Pancytopenia Status: Acute Assessment & Plan: 09/26: 1 unit pRBC 09/27: 1 unit pRBC 09/30: 1 unit pRBC and platelets (2) Neutropenic fever Status: Resolved Assessment & Plan: Fever resolved - persistent neutropenia. (3) Sepsis Status: Resolved Assessment & Plan: Source undetermined. Manifestations: Temp elevation, Tachycardia, Neutropenia (4) Nausea & vomiting Status: Resolved Qualifiers: Vomiting type: unspecified Vomiting Intractability: unspecified Qualified Codes: R11.2 - Nausea with vomiting, unspecified (5) Lung cancer Status: Chronic Assessment & Plan: Started chemo 09/20 (6) COPD (chronic obstructive pulmonary disease) Status: Chronic Qualifiers: COPD type: emphysema Emphysema type: unspecified Qualified Codes: J43.9 - Emphysema, unspecified (7) Chronic respiratory insufficiency Status: Chronic Assessment & Plan: Home O2 at 2L per NC. (8) HTN (hypertension) Status: Chronic Qualifiers: Hypertension type: essential hypertension Qualified Codes: I10 - Essential (primary) hypertension (9) Irritable bowel syndrome (IBS) Status: Chronic (10) Epistaxis Status: Resolved (11) Hypokalemia Status: Acute Assessment & Plan: Not POA (12) Hypomagnesemia Status: Acute Assessment & Plan: Not POA Plan/Intensity of Service Continue cefepime, vancomycin, and levofloxacin for empiric antimicrobial coverage. Continue Granix 300mcg today due to persistent neutropenia. Transfuse 1 unit of pRBC and Platelets. Decrease IVF to 50 cc/hr. Spironolactone 50mg x1 to help edema and preserve potassium. Will give oral potassium 20mEg with lunch and evening meal today. Increase lisinopril to 20mg q hs. Norvasc on hold. Encourage room activities. Recheck CMP and Mg in am due to medication and IVF use. Repeat CBC in am due to neutropenia. Case discussed with CM. Time spent with patient care 35 minutes. DVT Prophylaxis: other (Ambulation/leg movement: Lovenox contraindicated due to thromobocytopenia and anemia; pt relucant for SCD due to discomfort. ) Code Status Do Not Resuscitate Hospital Course Summary Disclaimer The hospital course summary below is not to be considered part of the above Progress Note. Hospital Course Summary 09/25 Admit Inpatient admission for treatment of neutropenic fever-anticipate greater than 2 midnight of care needed. Neutropenic precautions. Start cefepime, vancomycin, and levofloxacin for empiric antimicrobial coverage. Granix to help increase WBC. IVF for volume support secondary to n/v. Zofran prn nausea. Hold antihypertensives due to sepsis syndrome - monitor BP. SCD and Lovenox for DVT prevention due to CA. Continue supplemental O2 and Neb treatments. Consult with Dr Pelayo for ONC eval. Monitor lab. DNR as per pt's request. Care to return to Dr Brower at time of discharge. 09/26 Doing okay this afternoon. Not having f/c. Loose stool has stopped - no bowel movements. Feels some rumbling in ab, like she could have stool soon. Nausea decreased. Ate 25% of breakfast and 50% of lunch. Breathing stable - not feeling increased SOA or congestion with IVF. Continue cefepime, vancomycin, and levofloxacin for empiric antimicrobial coverage. Continue neutropenic precautions. Respiratory PCR panel negative. Stool PCR panel pending (pt not produced sample). Granix 300mcg given this am due to decreased WBC - recheck CBC in am to monitor response. Continue IVF for volume support secondary to n/v. HGB with decreased from admission - transfuse 1 unit pRBC. Hold antihypertensives due to sepsis syndrome - monitor BP. Continue supplemental O2 and Neb treatments. Add nasal saline due to dry nasal passages from O2. Consult with Dr Pelayo for ONC eval. Recheck BMP in am due to medication and IVF use. Repeat CBC in am due to neutropenic fever. 09/27 Rough night-had nose bleed. Notes congestion to nose, but afraid to blow nose due to worry about resumption of bleeding. Breathing feeling well-not SOA or having cough or congestion. No nausea, but appetite decreased. Food doesn't taste right which decreases her appetite. No ab pain or bloating. Passing flatus. Not had stool today. Urinating well. No mouth pain or pain with swallowing. Granix 300mcg given this am due to persistent neutropenia - recheck CBC in am to monitor response. HGB decreased to 7.7 - transfuse 1 unit pRBC. ONC recommends keeping HGB greater than 8. Stop Lovenox and ASA due to low platelets and nosebleed. Nursing reports pt refusing SCD due to discomfort. Encourage ambulation. Decrease IVF to 75 cc/hr. Oral drive still decreased. Replace potassium - 20mEg today at noon and evening meal. Will give 400mg MagOx at noon as Mg 1.7. BP stable without medication - will continue to hold. Continue supplemental O2 and Neb treatments. Dr Pelayo did evaluate pt this morning. Case discussed with him. Recheck CMP and Mg in am due to medication and IVF use. Repeat CBC in am due to neutropenic fever. 09/28 Feeling rough. Notes congestion and cough. Stools loose-passed blood. More nausea and less appetite. Tired and weak. Not feeling SOA or having pain with breathing. Denies mouth pain or pain with swallowing. No f/c. Urinating well. Magnesium decrease to 1.5. Potassium 3.2. WBC 0.9, HGB 8.4, Platelets 40. Continue cefepime, vancomycin, and levofloxacin for empiric antimicrobial coverage. Granix 300mcg given this am due to persistent neutropenia - recheck CBC in am to monitor response. Continue IVF at 75 cc/hr. Oral drive still decreased. Replace potassium - 20mEg today at noon and evening meal. IV magnesium 2 grams due to decreased magnesium. BP stable without medication - will continue to hold. Continue supplemental O2 and Neb treatments. Add Mucinex DM BID due to congestion. Change Protonix to 40mg IV BID for enhanced GI protection. Recheck CMP and Mg in am due to medication and IVF use. Repeat CBC in am due to neutropenic fever. 09/29 About the same. Mild, persistent nausea. Minimal appetite. Breathing stable-not having increased SOA, cough or congestion. No chest pressure or pain. Some slight swelling to legs. Potassium 3.1. Mg 1.9. WBC 0.7 with ANC 280. HGB 8.1. Platelets 26. Continue cefepime, vancomycin, and levofloxacin for empiric antimicrobial coverage. Give Granix 300mcg today due to persistent neutropenia. Start Scopolamine patch due to persistent nausea - No Phenergan due to use of Reglan. Replace potassium - IV Boluses x4. Will restart lisinopril at 10mg q hs (home dose 20). Norvasc on hold. Recheck CMP and Mg in am due to medication and IVF use. Repeat CBC in am due to neutropenia. 09/30 No f/c. Appetite and nausea about the same. Breathing stable without increased congestion or cough. Nasal congestion, but able to use saline without nose bleeds. Urinating well. Note slight increased edema to legs. Not dizzy or unsteady when up. Continue cefepime, vancomycin, and levofloxacin for empiric antimicrobial coverage. Continue Granix 300mcg today due to persistent neutropenia. Transfuse 1 unit of pRBC and Platelets. Decrease IVF to 50 cc/hr. Spironolactone 50mg x1 to help edema and preserve potassium. Will give oral potassium 20mEg with lunch and evening meal today. Increase lisinopril to 20mg q hs. Norvasc on hold. Encourage room activities. Recheck CMP and Mg in am due to medication and IVF use. Repeat CBC in am due to neutropenia. CAYETANO DONALDSON MD September 30, 2016 09:15
[2016-09-30] MEDS: CALCIUM 600mg + VIT D 400 TABLET PO SCH ×2 (10:01→22:08)
[2016-09-30] MEDS: FOLIC ACID 1 MG TABLET PO SCH (12:10)
--- NOTE | 2016-09-30 12:16 | PNPDOC ---
Subjective Date DATE: 09/30/16 TIME: 12:05 Sitting on bedside, alone in room. Alert and oriented, pleasant affect. Denies fever, chills. Cough intermittently, feels Mucinex is helping "loosen it up." Denies shortness of air, no chest pain. Nausea/vomiting one time this morning before breakfast. None since. Voiding normally. States loose stool one time today. General: No fever, no night sweats Eyes: No redness, no pain, no diplopia ENT: Positive single mouth sore, no trouble swallowing Cardiac: No chest pain no palpitations Pulmonary: Positive intermittent cough, no shortness of breath, no wheezing Abdomen: Nausea/vomiting one time today. Loose stools 1 : No urgency, frequency, dysuria, or hematuria Musculoskeletal: No arthritis, no myalgias Neurological: No headaches, no focal weakness Skin: Small area of skin breakdown knows where nasal cannula rests Psychiatric: No anxiety, no depression Objective Vital Signs Vital Signs 09/30/16 09/30/16 09/30/16 09/30/16 02:59 02:59 03:08 04:00 Temp 97.0 Pulse 90 90 90 Resp 18 20 B/P 134/66 Pulse Ox 96 97 O2 Flow Rate 2.00 09/30/16 09/30/16 09/30/16 09/30/16 07:59 08:05 08:05 08:05 Temp 98.1 Pulse 108 96 99 Resp 16 18 B/P 131/67 Pulse Ox 95 99 O2 Delivery Nasal Cannula O2 Flow Rate 2.00 09/30/16 08:05 O2 Delivery Nasal Cannula O2 Flow Rate 2.00 Height (Feet): 4 Height (Inches): 11.00 Weight (Kilograms): 57.000 General Alert, Orientated x 3, No Acute Distress Eyes (Brief) Eyes: FOUND: EOMI, other (conjunctiva pale), NOT FOUND: scleral icterus ENMT (Brief) ENMT: FOUND: mucosa moist, NOT FOUND: lesions Neck (Brief) Neck: NOT FOUND: adenopathy, tenderness Respiratory (Brief) Respiratory: FOUND: equal bilaterally, other (diminished bilateral posterior throughout. ), NOT FOUND: wheezes Cardiovascular (Brief) Cardiac: FOUND: pedal edema (1+ edema bilateral lower ankles), regular rate, regular rhythm Abdomen (Brief) Abdominal: FOUND: BS normo active x4, soft, NOT FOUND: hepatosplenomegaly Musculoskeletal (Brief) NOT FOUND: tenderness Integumentary (Brief) FOUND: dry, lesions (small area of skin breakdown nose, where nasal cannula rests), other (pale), warm, NOT FOUND: rash Neurologic (Brief) FOUND: cranial 2-12 intact, motor (no acute motor deficit) Psychiatric (Brief) FOUND: alert, attentive, normal affect, oriented Laboratory Laboratory Tests Test 09/30/16 05:14 White Blood Count 0.7T/MM3 Red Blood Count 2.59M/MM3 Hemoglobin 7.4GM/DL Hematocrit 21.6% Mean Corpuscular Volume 83.4UM3 Mean Corpuscular Hemoglobin 28.6UUG Mean Corpuscular Hemoglobin Concent 34.3GM/DL RDW Standard Deviation 48.3FL Platelet Count 13T/MM3 Mean Platelet Volume 9.8UM3 Neutrophils % (Manual) 40.0% Band Neutrophils % 16.0% Lymphocytes % (Manual) 16.0% Monocytes % (Manual) 8.0% Eosinophils % (Manual) 20.0% Absolute Neutrophils (Manual) 0.3T/MM3 Band Neutrophils # 0.1T/MM3 Lymphocytes # (Manual) 0.1T/MM3 Monocytes # (Manual) 0.1T/MM3 Eosinophils # (Manual) 0.1T/MM3 Poikilocytosis 1+ Ovalocytes 1+ Red Cell Morphology Comment Abnormal Turbidity < 20 Sodium Level 139MEQ/L Potassium Level 3.2MEQ/L Chloride Level 105MEQ/L Carbon Dioxide Level 27MEQ/L Anion Gap 7MEQ/L Blood Urea Nitrogen < 2.0MG/DL Creatinine 0.4MG/DL Glomerular Filtration Rate Calc 155 BUN/Creatinine Ratio RATIO Glucose Level 92MG/DL Calculated Osmolality MOSM/KG Calcium Level 6.0MG/DL Magnesium Level 1.6MG/DL Total Bilirubin 0.60MG/DL Icterus Index < 2 Aspartate Amino Transf (AST/SGOT) 25U/L Alanine Aminotransferase (ALT/SGPT) 46U/L Alkaline Phosphatase 63U/L Lactate Dehydrogenase 466U/L Total Protein 4.6G/DL Albumin 2.4G/DL Globulin 2.2G/DL Albumin/Globulin Ratio 1.1RATIO Chemistry Specimen Hemolysis < 15 Sepsis Diagnostic Criteria Sepsis SIRS Criteria: Pulse >= 90 beats/min, WBC >=12,000 or <=4,000 Severe Sepsis None Seen Assessment & Plan Assessment 1. Neutropenic fever. Presented on 09/25 with temp of 100.2. Has been afebrile since. Admitted with IV antibiotic coverage to include Vancomycin,Levaquin and Cefapine. Filgastrim given daily since 09/25/2016. Repeated today. 2. Eosinophilia of 34 % Question etiology. Allergy to med or reactive. 3. Thrombocytopenia. Post chemotherapy suppression vs DIC Platelets 62K , 40K 09/28/16, and today platelets 26K Will follow. Alimta/carboplatin chemotherapy, cycle 1 on 09/20/16. Platelets 13K today. 4. Anemia. Hgb 7.7 on 09/27 after transfusion 8.2 on admission. Dropped to 6.8. 9 after transfusion. Suspect Peptic ulcer disease with acute blood loss. Retic count low at 0.1% suggesting marrow suppression from chemotherapy. Ferritin and B 12 elevated. Nosebleeds also contributing and had nosebleed this morning. Bleeding exacerbated by prophylactic lovenox. She weighs 53Kg and had lovenox 40 mg given on 09/25 late in evening and had another 40 mg given at 9 am on 09/26. Will hold Lovenox. Consider EGD after WBC and PLT recovery. Hemoglobin 8.1 on , 7. 4 today. 5. 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 S/P radiation to humerus and painful pelvic mets. Completed XRT mid August and then started systemic therapy with Alimta Carboplatin on 09/20/16. 6. N/V have been problem since diagnosiss and with radiation. Had problems last week after chemotherapy. IV fluids and zofran given on Tue, and Tuesday. She also had famitoldine for burning . This has improved but concern for peptic ulcer disease is present. Continues with intermittent nausea/ vomiting. Scopolamine added today 7. COPD Oxygen dependent 8. Bone metastasis. Pathologic fracture, right humerus. Irradiated. Xgeva given 08/30/16. 9. Rash after IV contrast and Xgeva. Suspect contrast allergy. Plan/Intensity of Service Continue supportive care, antibiotics. Given 1 unit packed RBCs, 1 unit platelets, and Granix 300 g today. Continue close monitoring of CBC, renal, and liver function. Reinforced to patient report bleeding, new signs/symptoms immediately. Reinforced neutropenic precautions, good handwashing. Do not touch nose lesion with fingers; use Q-tip when applies moisturizer to area. Code Status Do Not Resuscitate Hospital Course Summary Disclaimer The visit summary below is not to be considered part of the above Progress Note. Hospital Course Summary 09/25 Admit Inpatient admission for treatment of neutropenic fever-anticipate greater than 2 midnight of care needed. Neutropenic precautions. Start cefepime, vancomycin, and levofloxacin for empiric antimicrobial coverage. Granix to help increase WBC. IVF for volume support secondary to n/v. Zofran prn nausea. Hold antihypertensives due to sepsis syndrome - monitor BP. SCD and Lovenox for DVT prevention due to CA. Continue supplemental O2 and Neb treatments. Consult with Dr Pelayo for ONC eval. Monitor lab. DNR as per pt's request. Care to return to Dr Brower at time of discharge. 09/26 Doing okay this afternoon. Not having f/c. Loose stool has stopped - no bowel movements. Feels some rumbling in ab, like she could have stool soon. Nausea decreased. Ate 25% of breakfast and 50% of lunch. Breathing stable - not feeling increased SOA or congestion with IVF. Continue cefepime, vancomycin, and levofloxacin for empiric antimicrobial coverage. Continue neutropenic precautions. Respiratory PCR panel negative. Stool PCR panel pending (pt not produced sample). Granix 300mcg given this am due to decreased WBC - recheck CBC in am to monitor response. Continue IVF for volume support secondary to n/v. HGB with decreased from admission - transfuse 1 unit pRBC. Hold antihypertensives due to sepsis syndrome - monitor BP. Continue supplemental O2 and Neb treatments. Add nasal saline due to dry nasal passages from O2. Consult with Dr Pelayo for ONC eval. Recheck BMP in am due to medication and IVF use. Repeat CBC in am due to neutropenic fever. 09/27 Rough night-had nose bleed. Notes congestion to nose, but afraid to blow nose due to worry about resumption of bleeding. Breathing feeling well-not SOA or having cough or congestion. No nausea, but appetite decreased. Food doesn't taste right which decreases her appetite. No ab pain or bloating. Passing flatus. Not had stool today. Urinating well. No mouth pain or pain with swallowing. Granix 300mcg given this am due to persistent neutropenia - recheck CBC in am to monitor response. HGB decreased to 7.7 - transfuse 1 unit pRBC. ONC recommends keeping HGB greater than 8. Stop Lovenox and ASA due to low platelets and nosebleed. Nursing reports pt refusing SCD due to discomfort. Encourage ambulation. Decrease IVF to 75 cc/hr. Oral drive still decreased. Replace potassium - 20mEg today at noon and evening meal. Will give 400mg MagOx at noon as Mg 1.7. BP stable without medication - will continue to hold. Continue supplemental O2 and Neb treatments. Dr Pelayo did evaluate pt this morning. Case discussed with him. Recheck CMP and Mg in am due to medication and IVF use. Repeat CBC in am due to neutropenic fever. / Feeling rough. Notes congestion and cough. Stools loose-passed blood. More nausea and less appetite. Tired and weak. Not feeling SOA or having pain with breathing. Denies mouth pain or pain with swallowing. No f/c. Urinating well. Magnesium decrease to 1.5. Potassium 3.2. WBC 0.9, HGB 8.4, Platelets 40. Continue cefepime, vancomycin, and levofloxacin for empiric antimicrobial coverage. Granix 300mcg given this am due to persistent neutropenia - recheck CBC in am to monitor response. Continue IVF at 75 cc/hr. Oral drive still decreased. Replace potassium - 20mEg today at noon and evening meal. IV magnesium 2 grams due to decreased magnesium. BP stable without medication - will continue to hold. Continue supplemental O2 and Neb treatments. Add Mucinex DM BID due to congestion. Change Protonix to 40mg IV BID for enhanced GI protection. Recheck CMP and Mg in am due to medication and IVF use. Repeat CBC in am due to neutropenic fever. / About the same. Mild, persistent nausea. Minimal appetite. Breathing stable-not having increased SOA, cough or congestion. No chest pressure or pain. Some slight swelling to legs. Potassium 3.1. Mg 1.9. WBC 0.7 with ANC 280. HGB 8.1. Platelets 26. Continue cefepime, vancomycin, and levofloxacin for empiric antimicrobial coverage. Give Granix 300mcg today due to persistent neutropenia. Start Scopolamine patch due to persistent nausea - No Phenergan due to use of Reglan. Replace potassium - IV Boluses x4. Will restart lisinopril at 10mg q hs (home dose 20). Norvasc on hold. Recheck CMP and Mg in am due to medication and IVF use. Repeat CBC in am due to neutropenia. 09/30 No f/c. Appetite and nausea about the same. Breathing stable without increased congestion or cough. Nasal congestion, but able to use saline without nose bleeds. Urinating well. Note slight increased edema to legs. Not dizzy or unsteady when up. Continue cefepime, vancomycin, and levofloxacin for empiric antimicrobial coverage. Continue Granix 300mcg today due to persistent neutropenia. Transfuse 1 unit of pRBC and Platelets. Decrease IVF to 50 cc/hr. Spironolactone 50mg x1 to help edema and preserve potassium. Will give oral potassium 20mEg with lunch and evening meal today. Increase lisinopril to 20mg q hs. Norvasc on hold. Encourage room activities. Recheck CMP and Mg in am due to medication and IVF use. Repeat CBC in am due to neutropenia. KAR HIRSCH APRN September 30, 2016 12:09
[2016-09-30] MEDS: METOCLOPRAMIDE 10mg/2ml INJECTION IV PRN ×2 (12:18→22:08)
[2016-09-30] MEDS ORDERED: MAGNESIUM OXIDE 400 MG TABLET PO ONE (12:30)
[2016-09-30] MEDS ORDERED: POTASSIUM CHLORIDE 20 MEQ TABLET PO ONE ×2 (12:30→17:30)
--- NOTE | 2016-09-30 14:00 | NUR ---
Blood 1 unit of blood started at 1141 and ended at 1330. Pt tolerated well, V/S stable on 2L. Flush ended at 1400, PAC flushing and aspirating good after.
--- NOTE | 2016-09-30 16:30 | NUR ---
platelets Started at 1500, ended at 1600 with flush after. Pt tolerated well, V/S remained stable.
[2016-09-30 17:09] LABS: HGB - HEMOGLOBIN 9.2 GM/DL (12-16)
--- NOTE | 2016-09-30 17:24 | NUR ---
Status Staff alerted patient needed help. RN went to check on patient and patient was founding kneeling on ground by side of bed facing the bed. RN asked what happened and patient stated she bent down to pick something off the floor and was too weak to get back up. She ended up going fully down on knees and waiting for help. Patient denied hitting head or any other symptoms of dizziness. Patient was stood with two assist and assisted back to bed. Neuro assessment unremarkable, extremities checked with normal range of motion noted. Skin dry and intact. Vital signs checked and were stable. Patient's primary nurse present in room and took over care.
--- NOTE | 2016-09-30 20:00 | NUR ---
status Pt A/O x3, V/S stable on 2L. Pain rated at 7/10, PRN meds given 1x with pt stating it helped. C/O N/V with emesis 1x this morning, keeping up with PRN IV nausea meds every few hrs to help. Appetite low, stating doesn't feel hungry and food starting not to taste well. Urine output good for shift, having soft small stools with every time to bathroom. PAC flushing and aspirating well, blood draw from port today. Pt remains on neutro precautions.
--- NOTE | 2016-09-30 20:30 | NUR ---
status Other pt family member alerted to this pt kneeling on floor. Staff to room, helped pt to bed, V/S taken and stable. After talking to pt to find out why she was kneeling of floor, determined not a fall after discussion with community music therapist. Pt had been reaching for something on floor, bending over knees hurt so she knelt down and got on floor to reach item. This is when family member from another room had seen her.
[2016-09-30] MEDS: NORMAL SALINE 500 ML IV PRN (22:09)
[2016-09-30] MEDS: LISINOPRIL 20 MG TABLET PO SCH (22:09)
[2016-10-01] VITALS (10 sets, daily range): BP systolic 115–139; BP diastolic 56–67; PULSE 87–98; RESP 16–24; TEMP 96.9–98.5; O2SAT 94–98
[2016-10-01] MEDS: ONDANSETRON 4mg/2ml INJECTION IV PRN ×2 (00:11→07:58)
[2016-10-01] MEDS: ALBUTEROL/IPRATROPIUM INHAL. 2.5mg-0.5mg/3ml Neb. AEROSOL SCH ×4 (02:55→21:07)
[2016-10-01] MEDS: CEFEPIME 1 G in NORMAL SALINE 100 ML IV SCH ×4 (03:09→20:34)
[2016-10-01] MEDS: VANCOMYCIN 1,500 MG in NORMAL SALINE 500 ML IV SCH ×2 (04:00→16:43)
[2016-10-01] MEDS: NS KCL 20 MEQ 1,000 ML IV SCH ×2 (04:19→06:32)
[2016-10-01 05:30] LABS: HCT - HEMATOCRIT 23.9 % (36-46); HGB - HEMOGLOBIN 8.3 GM/DL (12-16); MEAN CORPUSCULAR HGB 29.3 UUG (26-34); MEAN CORPUSCULAR HGB CONC(MCHC 34.7 GM/DL (31-37); MEAN CORPUSCULAR VOLUME 84.5 UM3 (80-100); MEAN PLATELET VOLUME 8.4 UM3 (9.4-12.4); RED BLOOD COUNT 2.83 M/MM3 (4.00-5.20)
[2016-10-01] MEDS: METOCLOPRAMIDE 10mg/2ml INJECTION IV PRN (05:34)
[2016-10-01 05:38] LABS: WBC - WHITE BLOOD COUNT 1.3 T/MM3 (4.5-11.0)
[2016-10-01 05:43] LABS: ALBUMIN 2.4 G/DL (3.5-5.0); ALKALINE PHOSPHATASE 63 U/L (38-126); ALT (SGPT) 41 U/L (9-52); ANION GAP 10 MEQ/L (5-15); AST (SGOT) 19 U/L (14-36); BLOOD UREA NITROGEN < 2.0 MG/DL (7-17); CALCIUM 6.1 MG/DL (8.4-10.2); CHLORIDE 104 MEQ/L (98-107); CO2 - CARBON DIOXIDE 26 MEQ/L (22-30); CREATININE 0.4 MG/DL (0.7-1.2); GLOMERULAR FILTRATION RATE 155; GLUCOSE 88 MG/DL (65-110); MAGNESIUM 1.3 MG/DL (1.6-2.3); SODIUM 140 MEQ/L (134-144); TOTAL PROTEIN 4.7 G/DL (6.3-8.2)
[2016-10-01 05:48] LABS: POTASSIUM 2.9 MEQ/L (3.6-5)
[2016-10-01] MEDS: LEVOFLOXACIN 750 mg IVPB 750 MG in D5W 150 ML IV SCH (06:32)
[2016-10-01 06:36] LABS: EOSINOPHILS # (MANUAL) 0.1 T/MM3 (0-0.5); LYMPHOCYTES # (MANUAL) 0.2 T/MM3 (1-4.8); MONOCYTES # (MANUAL) 0.2 T/MM3 (0-0.8); NEUTROPHILS #(MANUAL)-ABSOLUTE 0.7 T/MM3 (1.8-7.7); TOTAL CELLS COUNTED 100 %
--- NOTE | 2016-10-01 07:15 | NUR ---
STATUS PT A/Ox3. HAD SOME NAUSEA DURING NIGHT. ADMINISTERED ZOFRAN IV AND REGLAN IV CHARTED. PT HAS PAINFUL HEMORRHOIDS. WET WARM WASHCLOTHS HELPED DECREASE SWELLING AND PAIN, PER PT. PT UP TO TOILET FREQUENTLY WITH LIQUID STOOLS. PAC FLUSHES AND ASPIRATES EASILY. UP WITH SBA DURING NIGHT. PT HAD LOW GRADE FEVER AT 99.4 F AT 0000. PT AFEBRILE THIS MORNING AT 0400. SHIFT REPORT GIVEN TO DAY SHIFT NURSE.
--- NOTE | 2016-10-01 07:45 | NUR ---
STATUS PT FEELING NAUSEOUS, HAD A FEW DRY HEAVE EPISODES, PT WILL BE MEDICATED WITH ZOFRAN IV.
[2016-10-01] MEDS: DICYCLOMINE 20 MG TABLET PO SCH ×3 (07:56→16:44)
[2016-10-01] MEDS: POTASSIUM CHLORIDE 20 MEQ TABLET PO SCH ×3 (07:57→16:44)
[2016-10-01] MEDS: GUAIFENESIN DM 600mg/30mg TABLET PO SCH ×2 (08:00→20:33)
[2016-10-01] MEDS: PANTOPRAZOLE 40mg INJECTION IV SCH ×2 (08:00→20:34)
[2016-10-01] MEDS: CALCIUM 600mg + VIT D 400 TABLET PO SCH ×2 (08:00→20:33)
[2016-10-01] MEDS: SALINE NASAL SPRAY 45ml EA NOSTRIL SCH ×4 (08:01→20:35)
--- NOTE | 2016-10-01 09:30 | NUR ---
STATUS PT TOLERATED BREAKFAST WELL, NO VOMITING EPISODES. PT ALSO PROVIDED WITH A SITZ BATH TO HELP WITH HEMORRHOID PAIN.
[2016-10-01] MEDS: MAGNESIUM SULF 1gm / D5W 100ml 100 ML IV SCH ×2 (10:30→12:40)
--- NOTE | 2016-10-01 11:27 | PNPDOC ---
Subjective Date DATE: 10/01/16 TIME: 11:18 Subjective F/U: Neutropenic Fever, pancytopenia secondary to chemo About the same. No f/c. Breathing stable-starting to mobilize some secretions. No nose bleeds. No nausea, but appetite low. Not having ab pain. Ambulating well -not dizzy or unsteady when up. Objective Vital Signs Vital signs Vital Signs Date Time Temp Pulse Resp B/P Pulse Ox O2 Delivery O2 Flow Rate FiO2 10/01/16 10:12 92 10/01/16 10:01 20 96 10/01/16 08:00 98.5 139/67 Nasal Cannula 2.00 Telemetry Rhythm: Sinus Rhythm Height (Feet): 4 Height (Inches): 11.00 Weight (Kilograms): 58.100 General General Appearance: Alert, Orientated x 3, Well Nourished, Well Developed, Cooperative, Looks Stated Age Eyes (Brief) Eyes: FOUND: EOMI, PERRL, NOT FOUND: scleral icterus ENMT (Brief) ENMT: FOUND: hearing intact, mucosa moist Neck (Brief) Neck: FOUND: midline, NOT FOUND: nuchal rigidity, spasm Respiratory (Brief) Respiratory: FOUND: equal bilaterally, other (No distress ), NOT FOUND: clear all marie (Decreased ), rales, wheezes Cardiovascular (Brief) Cardiac: FOUND: pedal edema (+2 ), regular rate, regular rhythm Abdomen (Brief) Abdominal: FOUND: BS normo active x4, soft, NOT FOUND: distended, tender Extremities (Brief) Extremity : Side: Bilateral Extremity: leg Extremity Finding: NOT FOUND: edema Musculoskeletal (Brief) Musculoskeletal: FOUND: extremities move equally, NOT FOUND: deformity, spasm Integumentary (Brief) Integumentary: FOUND: dry, warm Neurologic (Brief) Neurological: FOUND: cranial 2-12 intact, motor (Intact ) Psychiatric (Brief) Psychiatric: FOUND: alert, attentive, normal affect, oriented Laboratory Laboratory Laboratory Tests 09/30/16 05:14 10/01/16 05:02 Laboratory Tests 09/30/16 05:14 09/30/16 17:01 10/01/16 05:02 Sepsis Diagnostic Criteria Sepsis SIRS Criteria: Pulse >= 90 beats/min, WBC >=12,000 or <=4,000 Severe Sepsis None Seen Assessment & Plan Problems: (1) Pancytopenia Status: Acute Assessment & Plan: 09/26: 1 unit pRBC 09/27: 1 unit pRBC 09/30: 1 unit pRBC and platelets (2) Neutropenic fever Status: Resolved Assessment & Plan: Fever resolved - persistent neutropenia. (3) Sepsis Status: Resolved Assessment & Plan: Source undetermined. Manifestations: Temp elevation, Tachycardia, Neutropenia (4) Nausea & vomiting Status: Resolved Qualifiers: Vomiting type: unspecified Vomiting Intractability: unspecified Qualified Codes: R11.2 - Nausea with vomiting, unspecified (5) Lung cancer Status: Chronic Assessment & Plan: Started chemo 09/20 (6) COPD (chronic obstructive pulmonary disease) Status: Chronic Qualifiers: COPD type: emphysema Emphysema type: unspecified Qualified Codes: J43.9 - Emphysema, unspecified (7) Chronic respiratory insufficiency Status: Chronic Assessment & Plan: Home O2 at 2L per NC. (8) HTN (hypertension) Status: Chronic Qualifiers: Hypertension type: essential hypertension Qualified Codes: I10 - Essential (primary) hypertension (9) Irritable bowel syndrome (IBS) Status: Chronic (10) Epistaxis Status: Resolved (11) Hypokalemia Status: Acute Assessment & Plan: Not POA (12) Hypomagnesemia Status: Acute Assessment & Plan: Not POA Plan/Intensity of Service Continue cefepime, vancomycin, and levofloxacin for empiric antimicrobial coverage. Continue Granix 300mcg SQ daily until ANC greater than 1500. Will give 2 grams magnesium IV due to low magnesium. Potassium IV bolus and start Oral KCl 20mEq TID with meals - monitor potassium due to lisinopril use. Will d/c IVF. Continue lisinopril 20mg q hs. Norvasc on hold. BP stable. Encourage room activities. Recheck CMP and Mg in am due to hypokalemia, hypomagnesemia, and medication use. Repeat CBC in am due to pancytopenia. Case discussed with ANIVAL and Suzanne Garcia with Dr Pelayo. Time spent with patient care 35 minutes. DVT Prophylaxis: other (Ambulation/leg movement: Lovenox contraindicated due to thromobocytopenia and anemia; pt relucant for SCD due to discomfort.) Code Status Do Not Resuscitate Hospital Course Summary Disclaimer The hospital course summary below is not to be considered part of the above Progress Note. Hospital Course Summary 09/25 Admit Inpatient admission for treatment of neutropenic fever-anticipate greater than 2 midnight of care needed. Neutropenic precautions. Start cefepime, vancomycin, and levofloxacin for empiric antimicrobial coverage. Granix to help increase WBC. IVF for volume support secondary to n/v. Zofran prn nausea. Hold antihypertensives due to sepsis syndrome - monitor BP. SCD and Lovenox for DVT prevention due to CA. Continue supplemental O2 and Neb treatments. Consult with Dr Pelayo for ONC eval. Monitor lab. DNR as per pt's request. Care to return to Dr Brower at time of discharge. 09/26 Doing okay this afternoon. Not having f/c. Loose stool has stopped - no bowel movements. Feels some rumbling in ab, like she could have stool soon. Nausea decreased. Ate 25% of breakfast and 50% of lunch. Breathing stable - not feeling increased SOA or congestion with IVF. Continue cefepime, vancomycin, and levofloxacin for empiric antimicrobial coverage. Continue neutropenic precautions. Respiratory PCR panel negative. Stool PCR panel pending (pt not produced sample). Granix 300mcg given this am due to decreased WBC - recheck CBC in am to monitor response. Continue IVF for volume support secondary to n/v. HGB with decreased from admission - transfuse 1 unit pRBC. Hold antihypertensives due to sepsis syndrome - monitor BP. Continue supplemental O2 and Neb treatments. Add nasal saline due to dry nasal passages from O2. Consult with Dr Pelayo for ONC eval. Recheck BMP in am due to medication and IVF use. Repeat CBC in am due to neutropenic fever. 09/27 Rough night-had nose bleed. Notes congestion to nose, but afraid to blow nose due to worry about resumption of bleeding. Breathing feeling well-not SOA or having cough or congestion. No nausea, but appetite decreased. Food doesn't taste right which decreases her appetite. No ab pain or bloating. Passing flatus. Not had stool today. Urinating well. No mouth pain or pain with swallowing. Granix 300mcg given this am due to persistent neutropenia - recheck CBC in am to monitor response. HGB decreased to 7.7 - transfuse 1 unit pRBC. ONC recommends keeping HGB greater than 8. Stop Lovenox and ASA due to low platelets and nosebleed. Nursing reports pt refusing SCD due to discomfort. Encourage ambulation. Decrease IVF to 75 cc/hr. Oral drive still decreased. Replace potassium - 20mEg today at noon and evening meal. Will give 400mg MagOx at noon as Mg 1.7. BP stable without medication - will continue to hold. Continue supplemental O2 and Neb treatments. Dr Pelayo did evaluate pt this morning. Case discussed with him. Recheck CMP and Mg in am due to medication and IVF use. Repeat CBC in am due to neutropenic fever. 09/28 Feeling rough. Notes congestion and cough. Stools loose-passed blood. More nausea and less appetite. Tired and weak. Not feeling SOA or having pain with breathing. Denies mouth pain or pain with swallowing. No f/c. Urinating well. Magnesium decrease to 1.5. Potassium 3.2. WBC 0.9, HGB 8.4, Platelets 40. Continue cefepime, vancomycin, and levofloxacin for empiric antimicrobial coverage. Granix 300mcg given this am due to persistent neutropenia - recheck CBC in am to monitor response. Continue IVF at 75 cc/hr. Oral drive still decreased. Replace potassium - 20mEg today at noon and evening meal. IV magnesium 2 grams due to decreased magnesium. BP stable without medication - will continue to hold. Continue supplemental O2 and Neb treatments. Add Mucinex DM BID due to congestion. Change Protonix to 40mg IV BID for enhanced GI protection. Recheck CMP and Mg in am due to medication and IVF use. Repeat CBC in am due to neutropenic fever. 09/29 About the same. Mild, persistent nausea. Minimal appetite. Breathing stable-not having increased SOA, cough or congestion. No chest pressure or pain. Some slight swelling to legs. Potassium 3.1. Mg 1.9. WBC 0.7 with ANC 280. HGB 8.1. Platelets 26. Continue cefepime, vancomycin, and levofloxacin for empiric antimicrobial coverage. Give Granix 300mcg today due to persistent neutropenia. Start Scopolamine patch due to persistent nausea - No Phenergan due to use of Reglan. Replace potassium - IV Boluses x4. Will restart lisinopril at 10mg q hs (home dose 20). Norvasc on hold. Recheck CMP and Mg in am due to medication and IVF use. Repeat CBC in am due to neutropenia. 09/30 No f/c. Appetite and nausea about the same. Breathing stable without increased congestion or cough. Nasal congestion, but able to use saline without nose bleeds. Urinating well. Note slight increased edema to legs. Not dizzy or unsteady when up. Continue cefepime, vancomycin, and levofloxacin for empiric antimicrobial coverage. Continue Granix 300mcg today due to persistent neutropenia. Transfuse 1 unit of pRBC and Platelets. Decrease IVF to 50 cc/hr. Spironolactone 50mg x1 to help edema and preserve potassium. Will give oral potassium 20mEg with lunch and evening meal today. Increase lisinopril to 20mg q hs. Norvasc on hold. Encourage room activities. Recheck CMP and Mg in am due to medication and IVF use. Repeat CBC in am due to neutropenia. 10/01 About the same. No f/c. Breathing stable-starting to mobilize some secretions. No nose bleeds. No nausea, but appetite low. Not having ab pain. Ambulating well -not dizzy or unsteady when up. LAB: WBC 1.3 with ANC 767. HGB 8.3. Platelets 25. Potassium 2.9. Mg 1.3. Continue cefepime, vancomycin, and levofloxacin for empiric antimicrobial coverage. Continue Granix 300mcg SQ daily until ANC greater than 1500. Will give 2 grams magnesium IV due to low magnesium. Potassium IV bolus and start Oral KCl 20mEq TID with meals - monitor potassium due to lisinopril use. Will d/c IVF. Continue lisinopril 20mg q hs. Norvasc on hold. BP stable. Encourage room activities. Recheck CMP and Mg in am due to hypokalemia, hypomagnesemia, and medication use. Repeat CBC in am due to pancytopenia. CAYETANO DONALDSON MD October 01, 2016 11:22
[2016-10-01] MEDS: FOLIC ACID 1 MG TABLET PO SCH (11:36)
[2016-10-01] MEDS ORDERED: POTASSIUM CHLORIDE 20 MEQ TABLET PO SCH (12:00)
[2016-10-01] MEDS: POTASSIUM CHLORIDE 10 MEQ in WATER FOR INJECTION 100 ML IV SCH ×5 (13:30→23:36)
--- NOTE | 2016-10-01 13:37 | PNPDOC ---
KAR GARCIA DRY [employer] GRADER 10/01/16 1331: Subjective Date DATE: 10/01/16 TIME: 13:28 Reclining in hospital bed, alone in room. Denies fever, chills, night sweats. Complains of generalized fatigue. Denies chest pain. Cough intermittently, productive at times of clear mucus. Continues with intermittent nausea. Denies emesis, no abdominal pain currently. Loose stools persist. Voiding normally. General: No fever, no night sweats Eyes: No redness, no pain, no diplopia ENT: No mouth sores, no trouble swallowing Cardiac: No chest pain no palpitations Pulmonary: Positive cough, no shortness of breath, no wheezing Abdomen: Positive nausea, no vomiting, intermittent watery/loose stools : No urgency, frequency, dysuria, or hematuria Musculoskeletal: No arthritis, no myalgias Neurological: No headaches, no focal weakness Skin: No rash, no sores Psychiatric: No anxiety, no depression Objective Vital Signs Vital Signs 10/01/16 10/01/16 10/01/16 10/01/16 02:51 02:51 03:00 03:39 Temp 97.8 Pulse 85 85 98 Resp 18 20 B/P 127/61 Pulse Ox 98 94 O2 Delivery Room Air O2 Flow Rate 2.00 10/01/16 10/01/16 10/01/16 10/01/16 08:00 08:00 10:01 10:01 Temp 98.5 Pulse 96 96 88 Resp 19 16 20 B/P 139/67 Pulse Ox 96 96 O2 Delivery Nasal Cannula O2 Flow Rate 2.00 10/01/16 10/01/16 10:12 12:00 Temp 97.3 Pulse 92 93 Resp 17 B/P 135/66 Pulse Ox 94 O2 Delivery Nasal Cannula O2 Flow Rate 2.00 Height (Feet): 4 Height (Inches): 11.00 Weight (Kilograms): 58.100 General Alert, Orientated x 3, No Acute Distress Eyes (Brief) Eyes: FOUND: EOMI, NOT FOUND: scleral icterus ENMT (Brief) ENMT: FOUND: mucosa moist Neck (Brief) Neck: NOT FOUND: adenopathy, tenderness Respiratory (Brief) Respiratory: FOUND: equal bilaterally, other Cardiovascular (Brief) Cardiac: FOUND: pedal edema (12 + pedal edema bilateral lower extremities), regular rate, regular rhythm Abdomen (Brief) Abdominal: FOUND: BS normo active x4, soft Lymphatic (Brief) NOT FOUND: adenopathy Musculoskeletal (Brief) NOT FOUND: tenderness Integumentary (Brief) FOUND: dry, warm, NOT FOUND: rash Neurologic (Brief) FOUND: cranial 2-12 intact, NOT FOUND: motor (no acute motor deficit) Psychiatric (Brief) FOUND: alert, attentive, normal affect, oriented Laboratory Laboratory Tests Test 09/30/16 17:01 10/01/16 05:02 Hemoglobin 9.2GM/DL 8.3GM/DL White Blood Count 1.3T/MM3 Red Blood Count 2.83M/MM3 Hematocrit 23.9% Mean Corpuscular Volume 84.5UM3 Mean Corpuscular Hemoglobin 29.3UUG Mean Corpuscular Hemoglobin Concent 34.7GM/DL RDW Standard Deviation 49.5FL Platelet Count 25T/MM3 Mean Platelet Volume 8.4UM3 Neutrophils % (Manual) 56.0% Band Neutrophils % 3.0% Lymphocytes % (Manual) 12.0% Monocytes % (Manual) 15.0% Eosinophils % (Manual) 10.0% Metamyelocytes % 3.0% Myelocytes % 1.0% Absolute Neutrophils (Manual) 0.7T/MM3 Band Neutrophils # 0.0T/MM3 Lymphocytes # (Manual) 0.2T/MM3 Monocytes # (Manual) 0.2T/MM3 Eosinophils # (Manual) 0.1T/MM3 Metamyelocytes # 0.0T/MM3 Myelocytes # 0.0T/MM3 Red Cell Morphology Comment Normal Turbidity < 20 Sodium Level 140MEQ/L Potassium Level 2.9MEQ/L Chloride Level 104MEQ/L Carbon Dioxide Level 26MEQ/L Anion Gap 10MEQ/L Blood Urea Nitrogen < 2.0MG/DL Creatinine 0.4MG/DL Glomerular Filtration Rate Calc 155 BUN/Creatinine Ratio RATIO Glucose Level 88MG/DL Calculated Osmolality MOSM/KG Calcium Level 6.1MG/DL Magnesium Level 1.3MG/DL Total Bilirubin 0.80MG/DL Icterus Index < 2 Aspartate Amino Transf (AST/SGOT) 19U/L Alanine Aminotransferase (ALT/SGPT) 41U/L Alkaline Phosphatase 63U/L Total Protein 4.7G/DL Albumin 2.4G/DL Globulin 2.3G/DL Albumin/Globulin Ratio 1.0RATIO Chemistry Specimen Hemolysis < 15 Sepsis Diagnostic Criteria Sepsis SIRS Criteria: Pulse >= 90 beats/min, WBC >=12,000 or <=4,000 Severe Sepsis None Seen Assessment & Plan Assessment 1. Neutropenic fever. Presented on 09/25 with temp of 100.2. Has been afebrile since. Admitted with IV antibiotic coverage to include Vancomycin,Levaquin and Cefapine. Filgastrim given daily since 09/25/2016. Will continue until ANC is greater than 1.5 2. Eosinophilia of 34 % Question etiology. Allergy to med or reactive. 3. Thrombocytopenia. Post chemotherapy suppression vs DIC Platelets 62K , 40K 09/28/16, and today platelets 26K Will follow. Alimta/carboplatin chemotherapy, cycle 1 on 09/20/16. Platelets 13K yesterday. Was given one unit platelets. Platelets 25K today. 4. Anemia. Hgb 7.7 on 09/27 after transfusion 8.2 on admission. Dropped to 6.8. 9 after transfusion. Suspect Peptic ulcer disease with acute blood loss. Retic count low at 0.1% suggesting marrow suppression from chemotherapy. Ferritin and B 12 elevated. Nosebleeds also contributing and had nosebleed this morning. Bleeding exacerbated by prophylactic lovenox. She weighs 53Kg and had lovenox 40 mg given on 09/25 late in evening and had another 40 mg given at 9 am on 09/26. Will hold Lovenox. Consider EGD after WBC and PLT recovery. Hemoglobin 8.1 on 502/, 7. 4 yesterday. Given 1 unit packed RBCs. Hemoglobin today is 8.3. 5. 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 S/P radiation to humerus and painful pelvic mets. Completed XRT mid August and then started systemic therapy with Alimta Carboplatin on 09/20/16. 6. N/V have been problem since diagnosiss and with radiation. Had problems last week after chemotherapy. IV fluids and zofran given on Tue, and Tuesday. She also had famitoldine for burning . This has improved but concern for peptic ulcer disease is present. Continues with intermittent nausea/ vomiting. Scopolamine added. 7. COPD Oxygen dependent 8. Bone metastasis. Pathologic fracture, right humerus. Irradiated. Xgeva given 4/3/17. 9. Rash after IV contrast and Xgeva. Suspect contrast allergy. Plan/Intensity of Service Continue supportive care, antibiotics. Continue Granix until ANC is greater than 1.5. Follow counts, liver, kidney function closely. Will discuss with Dr. Andrews, patient with persistent loose/watery stools. Consider holding oral magnesium, give IV. Code Status Do Not Resuscitate Hospital Course Summary Disclaimer The visit summary below is not to be considered part of the above Progress Note. Hospital Course Summary 09/25 Admit Inpatient admission for treatment of neutropenic fever-anticipate greater than 2 midnight of care needed. Neutropenic precautions. Start cefepime, vancomycin, and levofloxacin for empiric antimicrobial coverage. Granix to help increase WBC. IVF for volume support secondary to n/v. Zofran prn nausea. Hold antihypertensives due to sepsis syndrome - monitor BP. SCD and Lovenox for DVT prevention due to CA. Continue supplemental O2 and Neb treatments. Consult with Dr Pelayo for ONC eval. Monitor lab. DNR as per pt's request. Care to return to Dr Brower at time of discharge. 09/26 Doing okay this afternoon. Not having f/c. Loose stool has stopped - no bowel movements. Feels some rumbling in ab, like she could have stool soon. Nausea decreased. Ate 25% of breakfast and 50% of lunch. Breathing stable - not feeling increased SOA or congestion with IVF. Continue cefepime, vancomycin, and levofloxacin for empiric antimicrobial coverage. Continue neutropenic precautions. Respiratory PCR panel negative. Stool PCR panel pending (pt not produced sample). Granix 300mcg given this am due to decreased WBC - recheck CBC in am to monitor response. Continue IVF for volume support secondary to n/v. HGB with decreased from admission - transfuse 1 unit pRBC. Hold antihypertensives due to sepsis syndrome - monitor BP. Continue supplemental O2 and Neb treatments. Add nasal saline due to dry nasal passages from O2. Consult with Dr Pelayo for ONC eval. Recheck BMP in am due to medication and IVF use. Repeat CBC in am due to neutropenic fever. 09/27 Rough night-had nose bleed. Notes congestion to nose, but afraid to blow nose due to worry about resumption of bleeding. Breathing feeling well-not SOA or having cough or congestion. No nausea, but appetite decreased. Food doesn't taste right which decreases her appetite. No ab pain or bloating. Passing flatus. Not had stool today. Urinating well. No mouth pain or pain with swallowing. Granix 300mcg given this am due to persistent neutropenia - recheck CBC in am to monitor response. HGB decreased to 7.7 - transfuse 1 unit pRBC. ONC recommends keeping HGB greater than 8. Stop Lovenox and ASA due to low platelets and nosebleed. Nursing reports pt refusing SCD due to discomfort. Encourage ambulation. Decrease IVF to 75 cc/hr. Oral drive still decreased. Replace potassium - 20mEg today at noon and evening meal. Will give 400mg MagOx at noon as Mg 1.7. BP stable without medication - will continue to hold. Continue supplemental O2 and Neb treatments. Dr Pelayo did evaluate pt this morning. Case discussed with him. Recheck CMP and Mg in am due to medication and IVF use. Repeat CBC in am due to neutropenic fever. 09/28 Feeling rough. Notes congestion and cough. Stools loose-passed blood. More nausea and less appetite. Tired and weak. Not feeling SOA or having pain with breathing. Denies mouth pain or pain with swallowing. No f/c. Urinating well. Magnesium decrease to 1.5. Potassium 3.2. WBC 0.9, HGB 8.4, Platelets 40. Continue cefepime, vancomycin, and levofloxacin for empiric antimicrobial coverage. Granix 300mcg given this am due to persistent neutropenia - recheck CBC in am to monitor response. Continue IVF at 75 cc/hr. Oral drive still decreased. Replace potassium - 20mEg today at noon and evening meal. IV magnesium 2 grams due to decreased magnesium. BP stable without medication - will continue to hold. Continue supplemental O2 and Neb treatments. Add Mucinex DM BID due to congestion. Change Protonix to 40mg IV BID for enhanced GI protection. Recheck CMP and Mg in am due to medication and IVF use. Repeat CBC in am due to neutropenic fever. 09/29 About the same. Mild, persistent nausea. Minimal appetite. Breathing stable-not having increased SOA, cough or congestion. No chest pressure or pain. Some slight swelling to legs. Potassium 3.1. Mg 1.9. WBC 0.7 with ANC 280. HGB 8.1. Platelets 26. Continue cefepime, vancomycin, and levofloxacin for empiric antimicrobial coverage. Give Granix 300mcg today due to persistent neutropenia. Start Scopolamine patch due to persistent nausea - No Phenergan due to use of Reglan. Replace potassium - IV Boluses x4. Will restart lisinopril at 10mg q hs (home dose 20). Norvasc on hold. Recheck CMP and Mg in am due to medication and IVF use. Repeat CBC in am due to neutropenia. 09/30 No f/c. Appetite and nausea about the same. Breathing stable without increased congestion or cough. Nasal congestion, but able to use saline without nose bleeds. Urinating well. Note slight increased edema to legs. Not dizzy or unsteady when up. Continue cefepime, vancomycin, and levofloxacin for empiric antimicrobial coverage. Continue Granix 300mcg today due to persistent neutropenia. Transfuse 1 unit of pRBC and Platelets. Decrease IVF to 50 cc/hr. Spironolactone 50mg x1 to help edema and preserve potassium. Will give oral potassium 20mEg with lunch and evening meal today. Increase lisinopril to 20mg q hs. Norvasc on hold. Encourage room activities. Recheck CMP and Mg in am due to medication and IVF use. Repeat CBC in am due to neutropenia. 10/01 About the same. No f/c. Breathing stable-starting to mobilize some secretions. No nose bleeds. No nausea, but appetite low. Not having ab pain. Ambulating well -not dizzy or unsteady when up. LAB: WBC 1.3 with ANC 767. HGB 8.3. Platelets 25. Potassium 2.9. Mg 1.3. Continue cefepime, vancomycin, and levofloxacin for empiric antimicrobial coverage. Continue Granix 300mcg SQ daily until ANC greater than 1500. Will give 2 grams magnesium IV due to low magnesium. Potassium IV bolus and start Oral KCl 20mEq TID with meals - monitor potassium due to lisinopril use. Will d/c IVF. Continue lisinopril 20mg q hs. Norvasc on hold. BP stable. Encourage room activities. Recheck CMP and Mg in am due to hypokalemia, hypomagnesemia, and medication use. Repeat CBC in am due to pancytopenia. ELAMIN,ELSHAMI M MD 10/01/16 5500: Assessment & Plan Plan/Intensity of Service I have seen and examined the patient. I agree with the plan of care outlined by Suzanne Garcia APRN. KAR GARCIA APRN October 01, 2016 13:31 WILMA EDWARDS MD October 01, 2016 18:30
--- NOTE | 2016-10-01 14:05 | NUR ---
CM CM IN TO VISIT WITH PT. PT DENIES NEEDS AT THIS TIME AND IS AWARE TO CONTACT CM SHOULD NEEDS ARISE.
[2016-10-01] MEDS: TBO-FILGRASTIM 300mcg/0.5ml INJECTION SQ SCH (15:41)
--- NOTE | 2016-10-01 16:37 | NUR ---
VANCOMYCIN CONSULT: Vancomycin Trough = 15.3 mcg/ml. Today's SCr = 0.4 mg/dl. Will give Vancomycin 1500 mg IV q12hrs. Will continue to monitor and make adjustments accordingly. Thank you.
--- NOTE | 2016-10-01 17:56 | NUR ---
SHIFT SUMMARY PT HAS BEEN PLEASANT AND COOPERATIVE TODAY. THE CONTINUOUS IV FLUIDS NS WITH 20MEW OF KCL WERE DC'D DURING THE AFTERNOON. PT IS CURRENTLY ON HER SECOND BOLUS OF 10MEQ KCL ON 100ML OF SALINE DUE TO NOT HAVING THE MEDICATION AVAILABLE WHEN SCHEDULED. PT HAS BEEN RECEIVING THE CEFEPIME SCHEDULED. VANCO WAS STARTED ABOUT 40 MINS LATER WAITING FOR VANCO THROUGH CONSULT. PT HAS BEEN TO RESTROOM TO URINATE MULTIPLE TIME DURING THE DAY AND HAS CONTINUES TO HAVE DIARRHEA. PT REPORTED THE USE OF THE SITZ BATH WAS VERY HELPFUL FOR THE HEMORRHOIDS AND WOULD LIKE TO CONTINUE TO USE IT. PT HAS EATEN ALL HER MEALS TODAY AND VISITED WITH FRIENDS AND FAMILY MEMBERS TODAY.WILL CONTINUE TO MONITOR.
[2016-10-01] MEDS: LISINOPRIL 20 MG TABLET PO SCH (20:33)
[2016-10-02] VITALS (12 sets, daily range): BP systolic 121–137; BP diastolic 61–79; PULSE 83–100; RESP 18–24; TEMP 95.9–98.9; O2SAT 92–98
[2016-10-02] MEDS: ALBUTEROL/IPRATROPIUM INHAL. 2.5mg-0.5mg/3ml Neb. AEROSOL SCH ×4 (02:13→20:58)
[2016-10-02] MEDS: CEFEPIME 1 G in NORMAL SALINE 100 ML IV SCH ×2 (03:59→10:11)
[2016-10-02] MEDS: NORMAL SALINE 500 ML IV PRN (04:04)
--- NOTE | 2016-10-02 04:24 | NUR ---
Status Pt continues on 2 L O2. VS's stable. Up with SBA during night and steady on feet. Pt denied nausea during shift so far. Stated that stomach felt better today than it has in several days. Gave PRN [place] for generalized aches and aches in R. Arm. Some relief noted. Good urine output. IV locked. No new concerns at this time.
[2016-10-02] MEDS: VANCOMYCIN 1,500 MG in NORMAL SALINE 500 ML IV SCH (04:58)
[2016-10-02 05:13] LABS: HCT - HEMATOCRIT 24.1 % (36-46); HGB - HEMOGLOBIN 8.4 GM/DL (12-16); MEAN CORPUSCULAR HGB 29.5 UUG (26-34); MEAN CORPUSCULAR HGB CONC(MCHC 34.9 GM/DL (31-37); MEAN CORPUSCULAR VOLUME 84.6 UM3 (80-100); MEAN PLATELET VOLUME 9.8 UM3 (9.4-12.4); RED BLOOD COUNT 2.85 M/MM3 (4.00-5.20); WBC - WHITE BLOOD COUNT 2.2 T/MM3 (4.5-11.0)
[2016-10-02 05:23] LABS: ALBUMIN 2.7 G/DL (3.5-5.0); ALBUMIN/GLOBULIN RATIO 1.3 RATIO (1.1-2.2); ALKALINE PHOSPHATASE 68 U/L (38-126); ALT (SGPT) 43 U/L (9-52); ANION GAP 7 MEQ/L (5-15); AST (SGOT) 18 U/L (14-36); BLOOD UREA NITROGEN < 2.0 MG/DL (7-17); CALCIUM 6.3 MG/DL (8.4-10.2); CHLORIDE 104 MEQ/L (98-107); CO2 - CARBON DIOXIDE 28 MEQ/L (22-30); CREATININE 0.4 MG/DL (0.7-1.2); GLOMERULAR FILTRATION RATE 155; GLUCOSE 93 MG/DL (65-110); MAGNESIUM 1.5 MG/DL (1.6-2.3); POTASSIUM 3.5 MEQ/L (3.6-5); SODIUM 139 MEQ/L (134-144); TOTAL PROTEIN 4.8 G/DL (6.3-8.2)
[2016-10-02 06:21] LABS: BAND NEUTROPHILS # 0.5 T/MM3; LYMPHOCYTES # (MANUAL) 0.2 T/MM3 (1-4.8); MONOCYTES # (MANUAL) 0.2 T/MM3 (0-0.8); NEUTROPHILS #(MANUAL)-ABSOLUTE 1.2 T/MM3 (1.8-7.7); TOTAL CELLS COUNTED 50 %
[2016-10-02] MEDS ORDERED: MAGNESIUM SULFATE 1 G in D5W 100 ML IV ONE (08:00)
[2016-10-02] MEDS: LEVOFLOXACIN 750 mg IVPB 750 MG in D5W 150 ML IV SCH (08:33)
[2016-10-02] MEDS: GUAIFENESIN DM 600mg/30mg TABLET PO SCH ×2 (08:33→22:33)
[2016-10-02] MEDS: CALCIUM 600mg + VIT D 400 TABLET PO SCH ×2 (08:33→22:33)
[2016-10-02] MEDS: DICYCLOMINE 20 MG TABLET PO SCH ×3 (08:33→17:11)
[2016-10-02] MEDS: SALINE NASAL SPRAY 45ml EA NOSTRIL SCH ×4 (08:34→22:34)
[2016-10-02] MEDS ORDERED: NORMAL SALINE 500 ML IV SCH (08:36)
[2016-10-02] MEDS: ALBUTEROL INH.SOLN. 2.5mg/3ml (0.083%) Neb. AEROSOL PRN (09:43)
[2016-10-02] MEDS: PANTOPRAZOLE 40mg INJECTION IV SCH ×2 (10:11→22:32)
[2016-10-02] MEDS: POTASSIUM CHLORIDE 20 MEQ TABLET PO SCH ×2 (10:12→13:13)
[2016-10-02] MEDS: TBO-FILGRASTIM 300mcg/0.5ml INJECTION SQ SCH (10:12)
[2016-10-02] MEDS: SCOPOLAMINE 1.5 MG PATCH TD SCH (10:13)
[2016-10-02] MEDS: SCOPOLAMINE PATCH REMOVAL TD SCH (10:13)
--- NOTE | 2016-10-02 13:07 | PNPDOC ---
CONSTANTINE AGUAYO FINANCIAL CONSULTANT 10/02/16 1236: Subjective Date DATE: 10/02/16 TIME: 12:31 Subjective Harriet is still feeling puny. She is nauseated today, and states she wasn't yesterday. She hasn't felt like eating anything today. She feels very tired today. She still has diarrhea, but denies abdominal pain. She is worried about her right arm - it's more painful and swollen. It became worse 2 days ago. She asks if Dr. Siddiqui could check on it. She also has increased swelling in both legs. She is also worried about her port-a-cath and has a f/u appt scheduled with Dr. Myrick early next week. She denies feeling short of breath. She denies dizziness. Objective Vital Signs Vital signs Vital Signs Date Time Temp Pulse Resp B/P Pulse Ox O2 Delivery O2 Flow Rate FiO2 10/02/16 12:07 95.9 97 20 137/64 92 Nasal Cannula 2.00 Telemetry Rhythm: Sinus Rhythm Height (Feet): 4 Height (Inches): 11.00 Weight (Kilograms): 58.400 General General Appearance: Alert, Orientated x 3, Well Nourished, Well Developed, No Acute Distress Eyes (Brief) Eyes: FOUND: PERRL, NOT FOUND: scleral icterus ENMT (Brief) ENMT: FOUND: mucosa moist, NOT FOUND: lesions, pharnyx erythema Respiratory (Brief) Respiratory: FOUND: clear all marie, equal bilaterally Cardiovascular (Brief) Cardiac: FOUND: regular rate, regular rhythm Abdomen (Brief) Abdominal: FOUND: BS normo active x4 (hypoactive), soft, NOT FOUND: distended, tender Extremities (Brief) Extremity : Comments 2+ b/l pitting edema to both legs swelling to right arm Musculoskeletal (Brief) Musculoskeletal: FOUND: extremities move equally Integumentary (Brief) Integumentary: FOUND: dry, other (petechiae to both feet), warm Psychiatric (Brief) Psychiatric: FOUND: alert, attentive, normal affect, oriented Laboratory Laboratory Laboratory Tests 10/01/16 05:02 10/02/16 04:02 Laboratory Tests 09/30/16 17:01 10/01/16 05:02 10/02/16 04:02 Sepsis Diagnostic Criteria Sepsis SIRS Criteria: Pulse >= 90 beats/min, WBC >=12,000 or <=4,000 Severe Sepsis None Seen Assessment & Plan Problems: (1) Pancytopenia Status: Acute Assessment & Plan: 09/26: 1 unit pRBC 09/27: 1 unit pRBC 09/30: 1 unit pRBC and 1 platelet pack 10/02: 1 platelet pack (2) Hypomagnesemia Status: Acute Assessment & Plan: Not POA (3) Hypokalemia Status: Acute Assessment & Plan: Not POA (4) Neutropenic fever Status: Resolved Assessment & Plan: Fever resolved - persistent neutropenia. (5) Sepsis Status: Resolved Assessment & Plan: Source undetermined. Manifestations: Temp elevation, Tachycardia, Neutropenia (6) Nausea & vomiting Status: Resolved Qualifiers: Vomiting type: unspecified Vomiting Intractability: unspecified Qualified Codes: R11.2 - Nausea with vomiting, unspecified (7) Lung cancer Status: Chronic Assessment & Plan: Started chemo 09/20 On oxygen x3 months (8) COPD (chronic obstructive pulmonary disease) Status: Chronic Qualifiers: COPD type: emphysema Emphysema type: unspecified Qualified Codes: J43.9 - Emphysema, unspecified (9) Chronic respiratory insufficiency Status: Chronic Assessment & Plan: Home O2 at 2L per NC. (10) HTN (hypertension) Status: Chronic Qualifiers: Hypertension type: essential hypertension Qualified Codes: I10 - Essential (primary) hypertension (11) Irritable bowel syndrome (IBS) Status: Chronic (12) Epistaxis Status: Resolved Plan/Intensity of Service Neutropenic fever - no fever since 09/25/16. No evidence of infection. Today tineo day 7 of triple abx therapy. Will DC Vancomycin and Cefepime; continue with Levaquin. Still pancytopenic - platelets are 16K and a platelet pack has been ordered. WBC improved to 2.2 and hgb is 8.4. Rt arm swelling & pain - venous duplex to r/o VTE. Consult Dr. Siddiqui on Tuesday to evaluate. She also has pitting edema to both legs. She is fluid positive 14.6L since admission and her weight has increased by >4 kg. IVF have already been dc'd. Will give Lasix 20 mg IV x1. Hypokalemia and hypomg - continue KDur TID frequency; IV mg has already been ordered by Dr. Forman. Port-a-cath f/u - will need to ask Dr. Myrick about f/u on Tuesday. Nausea - more intense today. Continue PRNs. Start Culturelle d/t diarrhea and abx use. GI panel was negative. Hypocalcemia - continue oral Vit D + Ca. Consider IV replacement. Is receiving Xgeva. D/W Dr. Calle (web content writer for [employer]) - recommends oral replacement (no need for IV) - most important is to replace mg. [facility] records reviewed - last note from Dr. Brower was 07/12/16 when she was dx with back muscle strain and Rx Flexeril Code Status Do Not Resuscitate Hospital Course Summary Disclaimer The hospital course summary below is not to be considered part of the above Progress Note. Hospital Course Summary 09/25 Admit Inpatient admission for treatment of neutropenic fever-anticipate greater than 2 midnight of care needed. Neutropenic precautions. Start cefepime, vancomycin, and levofloxacin for empiric antimicrobial coverage. Granix to help increase WBC. IVF for volume support secondary to n/v. Zofran prn nausea. Hold antihypertensives due to sepsis syndrome - monitor BP. SCD and Lovenox for DVT prevention due to CA. Continue supplemental O2 and Neb treatments. Consult with Dr Pelayo for ONC eval. Monitor lab. DNR as per pt's request. Care to return to Dr Brower at time of discharge. 09/26 Doing okay this afternoon. Not having f/c. Loose stool has stopped - no bowel movements. Feels some rumbling in ab, like she could have stool soon. Nausea decreased. Ate 25% of breakfast and 50% of lunch. Breathing stable - not feeling increased SOA or congestion with IVF. Continue cefepime, vancomycin, and levofloxacin for empiric antimicrobial coverage. Continue neutropenic precautions. Respiratory PCR panel negative. Stool PCR panel pending (pt not produced sample). Granix 300mcg given this am due to decreased WBC - recheck CBC in am to monitor response. Continue IVF for volume support secondary to n/v. HGB with decreased from admission - transfuse 1 unit pRBC. Hold antihypertensives due to sepsis syndrome - monitor BP. Continue supplemental O2 and Neb treatments. Add nasal saline due to dry nasal passages from O2. Consult with Dr Pelayo for ONC eval. Recheck BMP in am due to medication and IVF use. Repeat CBC in am due to neutropenic fever. 5/ Rough night-had nose bleed. Notes congestion to nose, but afraid to blow nose due to worry about resumption of bleeding. Breathing feeling well-not SOA or having cough or congestion. No nausea, but appetite decreased. Food doesn't taste right which decreases her appetite. No ab pain or bloating. Passing flatus. Not had stool today. Urinating well. No mouth pain or pain with swallowing. Granix 300mcg given this am due to persistent neutropenia - recheck CBC in am to monitor response. HGB decreased to 7.7 - transfuse 1 unit pRBC. ONC recommends keeping HGB greater than 8. Stop Lovenox and ASA due to low platelets and nosebleed. Nursing reports pt refusing SCD due to discomfort. Encourage ambulation. Decrease IVF to 75 cc/hr. Oral drive still decreased. Replace potassium - 20mEg today at noon and evening meal. Will give 400mg MagOx at noon as Mg 1.7. BP stable without medication - will continue to hold. Continue supplemental O2 and Neb treatments. Dr Pelayo did evaluate pt this morning. Case discussed with him. Recheck CMP and Mg in am due to medication and IVF use. Repeat CBC in am due to neutropenic fever. / Feeling rough. Notes congestion and cough. Stools loose-passed blood. More nausea and less appetite. Tired and weak. Not feeling SOA or having pain with breathing. Denies mouth pain or pain with swallowing. No f/c. Urinating well. Magnesium decrease to 1.5. Potassium 3.2. WBC 0.9, HGB 8.4, Platelets 40. Continue cefepime, vancomycin, and levofloxacin for empiric antimicrobial coverage. Granix 300mcg given this am due to persistent neutropenia - recheck CBC in am to monitor response. Continue IVF at 75 cc/hr. Oral drive still decreased. Replace potassium - 20mEg today at noon and evening meal. IV magnesium 2 grams due to decreased magnesium. BP stable without medication - will continue to hold. Continue supplemental O2 and Neb treatments. Add Mucinex DM BID due to congestion. Change Protonix to 40mg IV BID for enhanced GI protection. Recheck CMP and Mg in am due to medication and IVF use. Repeat CBC in am due to neutropenic fever. 09/29 About the same. Mild, persistent nausea. Minimal appetite. Breathing stable-not having increased SOA, cough or congestion. No chest pressure or pain. Some slight swelling to legs. Potassium 3.1. Mg 1.9. WBC 0.7 with ANC 280. HGB 8.1. Platelets 26. Continue cefepime, vancomycin, and levofloxacin for empiric antimicrobial coverage. Give Granix 300mcg today due to persistent neutropenia. Start Scopolamine patch due to persistent nausea - No Phenergan due to use of Reglan. Replace potassium - IV Boluses x4. Will restart lisinopril at 10mg q hs (home dose 20). Norvasc on hold. 09/30 No f/c. Appetite and nausea about the same. Breathing stable without increased congestion or cough. Nasal congestion, but able to use saline without nose bleeds. Urinating well. Note slight increased edema to legs. Not dizzy or unsteady when up. Continue cefepime, vancomycin, and levofloxacin for empiric antimicrobial coverage. Continue Granix 300mcg today due to persistent neutropenia. Transfuse 1 unit of pRBC and Platelets. Decrease IVF to 50 cc/hr. Spironolactone 50mg x1 to help edema and preserve potassium. Will give oral potassium 20mEg with lunch and evening meal today. Increase lisinopril to 20mg q hs. Norvasc on hold. 10/01 About the same. No f/c. Breathing stable-starting to mobilize some secretions. No nose bleeds. No nausea, but appetite low. Not having ab pain. Ambulating well -not dizzy or unsteady when up. LAB: WBC 1.3 with ANC 767. HGB 8.3. Platelets 25. Potassium 2.9. Mg 1.3. Continue cefepime, vancomycin, and levofloxacin for empiric antimicrobial coverage. Continue Granix 300mcg SQ daily until ANC greater than 1500. Will give 2 grams magnesium IV due to low magnesium. Potassium IV bolus and start Oral KCl 20mEq TID with meals - monitor potassium due to lisinopril use. Will d/c IVF. Continue lisinopril 20mg q hs. Norvasc on hold. BP stable. 10/02/16 Neutropenic fever - no fever since 09/25/16. No evidence of infection. Today tineo day 7 of triple abx therapy. Will DC Vancomycin and Cefepime; continue with Levaquin. Still pancytopenic - platelets are 16K and a platelet pack has been ordered. WBC improved to 2.2 and hgb is 8.4. Rt arm swelling & pain - venous duplex to r/o VTE. Consult Dr. Siddiqui on Tuesday to evaluate. She also has pitting edema to both legs. She is fluid positive 14.6L since admission and her weight has increased by >4 kg. IVF have already been dc'd. Will give Lasix 20 mg IV x1. Hypokalemia and hypomg - continue KDur TID frequency; IV mg has already been ordered by Dr. Forman. Port-a-cath f/u - will need to ask Dr. Myrick about f/u on Tuesday. Nausea - more intense today. Continue PRNs. Start Culturelle d/t diarrhea and abx use. GI panel was negative. Hypocalcemia - continue oral Vit D + Ca. Consider IV replacement. Is receiving Xgeva. D/W Dr. Calle (web content writer for [facility]) - recommends oral replacement (no need for IV) - most important is to replace mg. [facility] records reviewed - last note from Dr. Brower was 07/12/16 when she was dx with back muscle strain and Rx Flexeril LAUREEN FORMAN MD 10/02/161946: Assessment & Plan Assessment 10/02/2016-I reviewed this chart, the patient history, and the FINANCIAL CONSULTANT's/PA's documented findings as above. We discussed and formulated the assessment and plan as above with the additions below.-Dr. Forman Patient was seen this evening accompanied by her son and [id number]. She states she is feeling okay today. She continues to have some diarrhea. She denies any abdominal pain. She does have some chronic low back pain and some pain from a fracture in her right arm. She states that her right arm has become more edematous. She has edema in the bilateral lower extremities as well and was given Lasix this afternoon with good urine output. She denies any recent problems with feverishness. She's had no reported fevers since she was initially admitted. She had some shortness of breath this morning but that resolved after breathing treatment. She has had no further epistaxis. She denies any other bleeding. On exam she is alert and oriented 3 and in no acute distress. Chest is clear to auscultation. Cardiovascular reveals a regular rate and rhythm. Abdomen is soft and nontender. Extremities reveal +1 edema in the right upper extremity, 2 + edema in the lower extremities bilaterally. Skin is warm and dry. Lab this morning showed white count of 2.2, ANC 1.2, hemoglobin 8.4, platelets 16. I did call and talk with Dr. Cardona and he recommended transfusing with 1 unit of platelets which the patient has received without difficulties. Regarding neutropenic fever, neutropenia has improved with [place] chest and she has had no fever since admission. Blood cultures are negative. Will discontinue Vanco and cefepime which are currently day 7. Will continue Levaquin for now. We'll check a GI panel of the stool because of her diarrhea. Recheck CBC and basic metabolic profile tomorrow. Regarding hypomagnesemia, the patient was given IV magnesium Regarding hypocalcemia, patient is on oral calcium and vitamin D. Patient is on potassium for hypokalemia Continue current treatment for COPD Regarding right upper extremity edema we'll check a venous Doppler Eosinophilia is better today Greater than 40 minutes of time was spent seeing and evaluating the patient, updating family and patient, in reviewing the chart. DVT Prophylaxis: SCD'S CONSTANTINE AGUAYO APRN October 02, 2016 12:36 LAUREEN FORMAN MD October 02, 2016 19:47
--- NOTE | 2016-10-02 13:10 | NUR ---
PRN PT REQUIRED PRN MEDICATION FOR NAUSEA SEE EMAR.
[2016-10-02] MEDS: FOLIC ACID 1 MG TABLET PO SCH (13:13)
--- NOTE | 2016-10-02 13:25 | PNPDOC ---
Subjective Date DATE: 10/02/16 TIME: 13:20 wf with met NSCLC, now s/p XRT. Pt with fever/neutropenia/thrombocytopenia PT on Granix with rising WBC count, Ordered plts today no new c/o. Pt had known bone mets s/p xrt. now s/p chemo with Carbo/alimta. Objective Vital Signs Vital Signs 10/02/16 10/02/16 10/02/16 10/02/16 02:11 02:11 02:21 03:16 Temp 96.5 Pulse 92 88 97 Resp 22 20 B/P 133/67 Pulse Ox 95 95 O2 Delivery Nasal Cannula O2 Flow Rate 2.00 10/02/16 10/02/16 10/02/16 10/02/16 07:10 07:10 08:00 08:00 Temp 96.6 Pulse 91 83 87 Resp 22 24 18 B/P 121/61 Pulse Ox 98 96 O2 Delivery Nasal Cannula O2 Flow Rate 2.00 10/02/16 10/02/16 09:43 12:07 Temp 95.9 Pulse 97 Resp 22 20 B/P 137/64 Pulse Ox 98 92 O2 Delivery Nasal Cannula O2 Flow Rate 2.00 Height (Feet): 4 Height (Inches): 11.00 Weight (Kilograms): 58.400 General Comments no c/o Eyes (Brief) Eyes: FOUND: EOMI, NOT FOUND: scleral icterus ENMT (Brief) ENMT: FOUND: mucosa moist Neck (Brief) Neck: NOT FOUND: adenopathy, tenderness Respiratory (Brief) Respiratory: FOUND: clear all marie, equal bilaterally, other, rales, spasm, symmetrical, tenderness, wheezes Cardiovascular (Brief) Cardiac: FOUND: click, gallop, murmur, other, pedal edema (12 + pedal edema bilateral lower extremities), peripheral edema, regular rate, regular rhythm, rub Abdomen (Brief) Abdominal: FOUND: BS normo active x4, distended, hepatosplenomegaly, other, pulsatile mass, soft, tender Lymphatic (Brief) NOT FOUND: adenopathy Musculoskeletal (Brief) NOT FOUND: tenderness Integumentary (Brief) FOUND: dry, warm, NOT FOUND: rash Neurologic (Brief) FOUND: Babinski, DTR 2/4 all extremities, cerebellar, cranial 2-12 intact, other , patellar DTR 2/4, sensory, NOT FOUND: motor (no acute motor deficit) Psychiatric (Brief) FOUND: alert, attentive, normal affect, oriented Laboratory Laboratory Tests Test 10/01/16 15:40 10/02/16 04:02 Vancomycin Level Trough 15.29UG/ML White Blood Count 2.2T/MM3 Red Blood Count 2.85M/MM3 Hemoglobin 8.4GM/DL Hematocrit 24.1% Mean Corpuscular Volume 84.6UM3 Mean Corpuscular Hemoglobin 29.5UUG Mean Corpuscular Hemoglobin Concent 34.9GM/DL RDW Standard Deviation 50.6FL Platelet Count 16T/MM3 Mean Platelet Volume 9.8UM3 Immature Granulocyte % (Auto) % Neutrophils (%) (Auto) % Lymphocytes (%) (Auto) % Monocytes (%) (Auto) % Eosinophils (%) (Auto) % Basophils (%) (Auto) % Absolute Immature Granulocyte (auto T/MM3 Absolute Neutrophils (auto) T/MM3 Absolute Lymphocytes (auto) T/MM3 Absolute Monocytes (auto) T/MM3 Absolute Eosinophils (auto) T/MM3 Absolute Basophils (auto) T/MM3 Neutrophils % (Manual) 56.0% Band Neutrophils % 24.0% Lymphocytes % (Manual) 8.0% Monocytes % (Manual) 10.0% Eosinophils % (Manual) 2.0% Absolute Neutrophils (Manual) 1.2T/MM3 Band Neutrophils # 0.5T/MM3 Lymphocytes # (Manual) 0.2T/MM3 Monocytes # (Manual) 0.2T/MM3 Eosinophils # (Manual) 0.0T/MM3 Red Cell Morphology Comment Normal Turbidity < 20 Sodium Level 139MEQ/L Potassium Level 3.5MEQ/L Chloride Level 104MEQ/L Carbon Dioxide Level 28MEQ/L Anion Gap 7MEQ/L Blood Urea Nitrogen < 2.0MG/DL Creatinine 0.4MG/DL Glomerular Filtration Rate Calc 155 BUN/Creatinine Ratio RATIO Glucose Level 93MG/DL Calculated Osmolality MOSM/KG Calcium Level 6.3MG/DL Magnesium Level 1.5MG/DL Total Bilirubin 0.80MG/DL Icterus Index < 2 Aspartate Amino Transf (AST/SGOT) 18U/L Alanine Aminotransferase (ALT/SGPT) 43U/L Alkaline Phosphatase 68U/L Total Protein 4.8G/DL Albumin 2.7G/DL Globulin 2.1G/DL Albumin/Globulin Ratio 1.3RATIO Chemistry Specimen Hemolysis < 15 Sepsis Diagnostic Criteria Sepsis SIRS Criteria: Pulse >= 90 beats/min, WBC >=12,000 or <=4,000 Severe Sepsis None Seen Assessment & Plan Assessment 1. Neutropenic fever. Presented on 09/25 with temp of 100.2. Has been afebrile since. Admitted with IV antibiotic coverage to include Vancomycin,Levaquin and Cefapine. Filgastrim given daily since 09/25/2016. Will continue until ANC is greater than 1.5 2. Eosinophilia of 34 % Question etiology. Allergy to med or reactive. 3. Thrombocytopenia. Post chemotherapy suppression vs DIC Platelets 62K , 40K 09/28/16, and today platelets 26K Will follow. Alimta/carboplatin chemotherapy, cycle 1 on 09/20/16. Platelets 13K yesterday. Was given one unit platelets. Platelets 25K today. 4. Anemia. Hgb 7.7 on 09/27 after transfusion 8.2 on admission. Dropped to 6.8. 9 after transfusion. Suspect Peptic ulcer disease with acute blood loss. Retic count low at 0.1% suggesting marrow suppression from chemotherapy. Ferritin and B 12 elevated. Nosebleeds also contributing and had nosebleed this morning. Bleeding exacerbated by prophylactic lovenox. She weighs 53Kg and had lovenox 40 mg given on 09/25 late in evening and had another 40 mg given at 9 am on 09/26. Will hold Lovenox. Consider EGD after WBC and PLT recovery. Hemoglobin 8.1 on , 7. 4 yesterday. Given 1 unit packed RBCs. Hemoglobin today is 8.3. 5. 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 S/P radiation to humerus and painful pelvic mets. Completed XRT mid August and then started systemic therapy with Alimta Carboplatin on 09/20/16. 6. N/V have been problem since diagnosiss and with radiation. Had problems last week after chemotherapy. IV fluids and zofran given on Tue, and Tuesday. She also had famitoldine for burning . This has improved but concern for peptic ulcer disease is present. Continues with intermittent nausea/ vomiting. Scopolamine added. 7. COPD Oxygen dependent 8. Bone metastasis. Pathologic fracture, right humerus. Irradiated. Xgeva given 08/30/16. 9. Rash after IV contrast and Xgeva. Suspect contrast allergy. 10. H/o HTN 10/02/2016 Pt with rising wbc. afebrile pt now to receive plts no new c/o eating well on O2 on IV antibiotics vanc/levaquin/cefapine on granix Consider check IgG levels too. ? has she been a smoker? Plan/Intensity of Service I have seen and examined the patient. I agree with the plan of care outlined by Suzanne Garcia APRN. Code Status Do Not Resuscitate Hospital Course Summary Disclaimer The visit summary below is not to be considered part of the above Progress Note. Hospital Course Summary 09/25 Admit Inpatient admission for treatment of neutropenic fever-anticipate greater than 2 midnight of care needed. Neutropenic precautions. Start cefepime, vancomycin, and levofloxacin for empiric antimicrobial coverage. Granix to help increase WBC. IVF for volume support secondary to n/v. Zofran prn nausea. Hold antihypertensives due to sepsis syndrome - monitor BP. SCD and Lovenox for DVT prevention due to CA. Continue supplemental O2 and Neb treatments. Consult with Dr Pelayo for ONC eval. Monitor lab. DNR as per pt's request. Care to return to Dr Brower at time of discharge. 09/26 Doing okay this afternoon. Not having f/c. Loose stool has stopped - no bowel movements. Feels some rumbling in ab, like she could have stool soon. Nausea decreased. Ate 25% of breakfast and 50% of lunch. Breathing stable - not feeling increased SOA or congestion with IVF. Continue cefepime, vancomycin, and levofloxacin for empiric antimicrobial coverage. Continue neutropenic precautions. Respiratory PCR panel negative. Stool PCR panel pending (pt not produced sample). Granix 300mcg given this am due to decreased WBC - recheck CBC in am to monitor response. Continue IVF for volume support secondary to n/v. HGB with decreased from admission - transfuse 1 unit pRBC. Hold antihypertensives due to sepsis syndrome - monitor BP. Continue supplemental O2 and Neb treatments. Add nasal saline due to dry nasal passages from O2. Consult with Dr Pelayo for ONC eval. Recheck BMP in am due to medication and IVF use. Repeat CBC in am due to neutropenic fever. 09/27 Rough night-had nose bleed. Notes congestion to nose, but afraid to blow nose due to worry about resumption of bleeding. Breathing feeling well-not SOA or having cough or congestion. No nausea, but appetite decreased. Food doesn't taste right which decreases her appetite. No ab pain or bloating. Passing flatus. Not had stool today. Urinating well. No mouth pain or pain with swallowing. Granix 300mcg given this am due to persistent neutropenia - recheck CBC in am to monitor response. HGB decreased to 7.7 - transfuse 1 unit pRBC. ONC recommends keeping HGB greater than 8. Stop Lovenox and ASA due to low platelets and nosebleed. Nursing reports pt refusing SCD due to discomfort. Encourage ambulation. Decrease IVF to 75 cc/hr. Oral drive still decreased. Replace potassium - 20mEg today at noon and evening meal. Will give 400mg MagOx at noon as Mg 1.7. BP stable without medication - will continue to hold. Continue supplemental O2 and Neb treatments. Dr Pelayo did evaluate pt this morning. Case discussed with him. Recheck CMP and Mg in am due to medication and IVF use. Repeat CBC in am due to neutropenic fever. / Feeling rough. Notes congestion and cough. Stools loose-passed blood. More nausea and less appetite. Tired and weak. Not feeling SOA or having pain with breathing. Denies mouth pain or pain with swallowing. No f/c. Urinating well. Magnesium decrease to 1.5. Potassium 3.2. WBC 0.9, HGB 8.4, Platelets 40. Continue cefepime, vancomycin, and levofloxacin for empiric antimicrobial coverage. Granix 300mcg given this am due to persistent neutropenia - recheck CBC in am to monitor response. Continue IVF at 75 cc/hr. Oral drive still decreased. Replace potassium - 20mEg today at noon and evening meal. IV magnesium 2 grams due to decreased magnesium. BP stable without medication - will continue to hold. Continue supplemental O2 and Neb treatments. Add Mucinex DM BID due to congestion. Change Protonix to 40mg IV BID for enhanced GI protection. Recheck CMP and Mg in am due to medication and IVF use. Repeat CBC in am due to neutropenic fever. 09/29 About the same. Mild, persistent nausea. Minimal appetite. Breathing stable-not having increased SOA, cough or congestion. No chest pressure or pain. Some slight swelling to legs. Potassium 3.1. Mg 1.9. WBC 0.7 with ANC 280. HGB 8.1. Platelets 26. Continue cefepime, vancomycin, and levofloxacin for empiric antimicrobial coverage. Give Granix 300mcg today due to persistent neutropenia. Start Scopolamine patch due to persistent nausea - No Phenergan due to use of Reglan. Replace potassium - IV Boluses x4. Will restart lisinopril at 10mg q hs (home dose 20). Norvasc on hold. 09/30 No f/c. Appetite and nausea about the same. Breathing stable without increased congestion or cough. Nasal congestion, but able to use saline without nose bleeds. Urinating well. Note slight increased edema to legs. Not dizzy or unsteady when up. Continue cefepime, vancomycin, and levofloxacin for empiric antimicrobial coverage. Continue Granix 300mcg today due to persistent neutropenia. Transfuse 1 unit of pRBC and Platelets. Decrease IVF to 50 cc/hr. Spironolactone 50mg x1 to help edema and preserve potassium. Will give oral potassium 20mEg with lunch and evening meal today. Increase lisinopril to 20mg q hs. Norvasc on hold. 10/01 About the same. No f/c. Breathing stable-starting to mobilize some secretions. No nose bleeds. No nausea, but appetite low. Not having ab pain. Ambulating well -not dizzy or unsteady when up. LAB: WBC 1.3 with ANC 767. HGB 8.3. Platelets 25. Potassium 2.9. Mg 1.3. Continue cefepime, vancomycin, and levofloxacin for empiric antimicrobial coverage. Continue Granix 300mcg SQ daily until ANC greater than 1500. Will give 2 grams magnesium IV due to low magnesium. Potassium IV bolus and start Oral KCl 20mEq TID with meals - monitor potassium due to lisinopril use. Will d/c IVF. Continue lisinopril 20mg q hs. Norvasc on hold. BP stable. 10/02/16 Neutropenic fever - no fever since 09/25/16. No evidence of infection. Today tineo day 7 of triple abx therapy. Will DC Vancomycin and Cefepime; continue with Levaquin. Still pancytopenic - platelets are 16K and a platelet pack has been ordered. WBC improved to 2.2 and hgb is 8.4. Rt arm swelling & pain - venous duplex to r/o VTE. Consult Dr. Siddiqui on Tuesday to evaluate. She also has pitting edema to both legs. She is fluid positive 14.6L since admission and her weight has increased by >4 kg. IVF have already been dc'd. Will discuss diuresis with Dr. Forman. Hypokalemia and hypomg - continue KDur TID frequency; IV mg has already been ordered by Dr. Forman. Port-a-cath f/u - will need to ask Dr. Myrick about f/u on Tuesday. Nausea - more intense today. Continue PRNs. Start Culturelle d/t diarrhea and abx use. GI panel was negative. Hypocalcemia - continue oral Vit D + Ca. Consider IV replacement. Is receiving Xgeva. [place] records reviewed - last note from Dr. Brower was 07/12/16 when she was dx with back muscle strain and Rx Flexeril SAMANTHA DRUMMOND October 02, 2016 13:24
--- NOTE | 2016-10-02 13:53 | NUR ---
PAC dressing change PAC complete change- needle and dressing. 3/4 in needle used. Pt tolerated well. Sterile technique used.
--- NOTE | 2016-10-02 14:18 | NUR ---
STATUS PT RESTING IN BED WITH EYES CLOSED. PT APPEARS TO BE SLEEPING. PT REMAINS SAFE WITH RAILS UP X2 BED LOW POSITIONS CALL LIGHT IN REACH AND BED ALARM ON DOOR CLOSED TO MINIMIZE DISTRACTIONS.
[2016-10-02] MEDS ORDERED: FUROSEMIDE 20 MG/2 ML INJECTION IV ONE (14:30)
[2016-10-02] MEDS: LACTOBACILLUS (15B cfu) CAPSULE PO SCH (17:12)
--- NOTE | 2016-10-02 18:16 | NUR ---
SUMMARY PT ALERT AND ORIENTED X3. PT PLEASANT AND COOPERATIVE WITH CARE. PT BEING SEEN FOR DIAGNOSIS OF CANCER. PT REPORTS PAIN AND SWELLING IN RIGHT ELBOW, STATUS POST FRACTURE PT HAS NOT SEEN ORTHO DOCTOR FOR FRACTURE YET. PT WEARING 2L NC OXYGEN MAINTAIN SATURATIONS ABOVE 90%. PT HAS PORT IN RIGHT CHEST THAT IS ACCESSED AND FLUSHES FLOWS WELL. PT RECEIVED PLATELETS DUE TO LAB RESULTS. PT COMPLAINT OF NAUSEA GIVEN PRN MEDICATION SEE EMAR. PT HAS BILATERAL FOOT EDEMA, GIVEN DOSE OF LASIX PT URINE OUTPUT HAS DRAMATICALLY IMPROVED SINCE LASIX. PT REPORTS PAIN OCCASIONALLY IN RIGHT ARM AND ABDOMEN. PT DENIED NEED FOR MEDICATION TO CONTROL PAIN. PT REMAINED PLEASANT AND COOPERATIVE. PT AWARE OF HER LIMITATIONS HOWEVER FOLLOWING LASIX PT REPORTS FREQUENT URGE TO USE RESTROOM AND DOES NOT THINK SHE NEEDS TO WAIT FOR HELP. PT AMBULATES WITH STAND BY ASSIST WITH NO DIFFICULTY. PT HAS FAMILY AT BEDSIDE VISITING AT THIS TIME. PT ON NEUTROPENIC PRECAUTIONS.
[2016-10-02] MEDS ORDERED: POTASSIUM CHLORIDE 20 MEQ TABLET PO ONE (18:30)
[2016-10-02] MEDS: LISINOPRIL 20 MG TABLET PO SCH (22:34)
[2016-10-03] VITALS (13 sets, daily range): BP systolic 111–130; BP diastolic 57–68; PULSE 83–101; RESP 16–40; TEMP 96.2–98.3; O2SAT 94–98
[2016-10-03] MEDS: METOCLOPRAMIDE 10mg/2ml INJECTION IV PRN ×2 (01:33→07:53)
[2016-10-03] MEDS: ALBUTEROL/IPRATROPIUM INHAL. 2.5mg-0.5mg/3ml Neb. AEROSOL SCH ×4 (02:39→20:51)
--- NOTE | 2016-10-03 04:15 | NUR ---
PORT-A-CATH Needle and dressing change completed using sterile pack and implementing sterile technique. #20 guage 1-inch needle used, Flushes easily with excellent blood return. Lab in. Blood drawn from portacath without difficulty.
--- NOTE | 2016-10-03 05:11 | NUR ---
Alert and orientated. Air movement through out lung marie diminished, mostly, RRL. Wears O2 at 3/L per NC. Heart rate 90s. Edema in lower legs decreased since yesterday. Uses call light correctly; able to voice needs, thoughts and concerns. Assisted to bathroom; pt. uses walker. Voids without difficulty. Has has a few diarehha stols during the night. Stool sample taken to Lab. Warm moist cloth applied to hemmroids at pt. request. Feels nauseated often. Saltine crackers and lemon-[place] soda given . "Helps some", reports, patient. Portacath needle and dressing changed last night. Abrasion type skin integrity cleansed; Mepalex dressing applied to buttocks crease.
[2016-10-03 05:35] LABS: HCT - HEMATOCRIT 24.5 % (36-46); HGB - HEMOGLOBIN 8.5 GM/DL (12-16); MEAN CORPUSCULAR HGB 29.2 UUG (26-34); MEAN CORPUSCULAR HGB CONC(MCHC 34.7 GM/DL (31-37); MEAN CORPUSCULAR VOLUME 84.2 UM3 (80-100); MEAN PLATELET VOLUME 9.9 UM3 (9.4-12.4); RED BLOOD COUNT 2.91 M/MM3 (4.00-5.20)
[2016-10-03 05:47] LABS: ALBUMIN 2.9 G/DL (3.5-5.0); ANION GAP 9 MEQ/L (5-15); BLOOD UREA NITROGEN < 2.0 MG/DL (7-17); CHLORIDE 103 MEQ/L (98-107); CO2 - CARBON DIOXIDE 29 MEQ/L (22-30); CREATININE 0.4 MG/DL (0.7-1.2); GLOMERULAR FILTRATION RATE 155; GLUCOSE 90 MG/DL (65-110); MAGNESIUM 1.6 MG/DL (1.6-2.3); PHOSPHORUS 1.4 MG/DL (2.5-4.5); POTASSIUM 3.4 MEQ/L (3.6-5); SODIUM 141 MEQ/L (134-144)
[2016-10-03 06:12] LABS: BAND NEUTROPHILS # 0.6 T/MM3; EOSINOPHILS # (MANUAL) 0.2 T/MM3 (0-0.5); LYMPHOCYTES # (MANUAL) 0.6 T/MM3 (1-4.8); MONOCYTES # (MANUAL) 0.3 T/MM3 (0-0.8); NEUTROPHILS #(MANUAL)-ABSOLUTE 2.2 T/MM3 (1.8-7.7); TOTAL CELLS COUNTED 100 %
[2016-10-03] MEDS: LEVOFLOXACIN 750 mg IVPB 750 MG in D5W 150 ML IV SCH (06:54)
[2016-10-03] MEDS ORDERED: POTASSIUM CHLORIDE 20 MEQ TABLET PO ONE ×3 (07:30→18:00)
[2016-10-03] MEDS ORDERED: POTASSIUM PHOSPHATE IV ONE (07:30)
[2016-10-03] MEDS ORDERED: NORMAL SALINE IV ONE (07:30)
[2016-10-03] MEDS: DICYCLOMINE 20 MG TABLET PO SCH ×3 (07:54→17:19)
[2016-10-03] MEDS: TBO-FILGRASTIM 300mcg/0.5ml INJECTION SQ SCH (09:00)
[2016-10-03] MEDS: GUAIFENESIN DM 600mg/30mg TABLET PO SCH ×2 (09:50→21:52)
[2016-10-03] MEDS: CALCIUM 600mg + VIT D 400 TABLET PO SCH ×2 (09:50→21:52)
[2016-10-03] MEDS: PANTOPRAZOLE 40mg INJECTION IV SCH ×2 (09:50→21:51)
[2016-10-03] MEDS: LACTOBACILLUS (15B cfu) CAPSULE PO SCH ×3 (09:51→17:19)
[2016-10-03] MEDS: SALINE NASAL SPRAY 45ml EA NOSTRIL SCH ×4 (09:51→21:52)
--- NOTE | 2016-10-03 10:49 | PNPDOC ---
CONSTANTINE AGUAYO [employer]ARD 10/03/16 1043: Subjective Date DATE: 10/03/16 TIME: 10:40 Subjective Harriet was having her right arm venous doppler being done. She states that her right arm is still painful and is relieved that I consulted Dr. Siddiqui to see her. She doesn't have nausea right now, but did earlier this morning. She notes some reproducible left sternal chest pain - it's come and went for the last 6 months and worsens when she coughs. It also was reproduced by palpation. She added that this was where her cancer was located also. She diuresed well yesterday and her weight has decreased to 56.1 kg. WBC improved to 4. She feels like her leg swelling has improved. Objective Vital Signs Vital signs Vital Signs Date Time Temp Pulse Resp B/P Pulse Ox O2 Delivery O2 Flow Rate FiO2 10/03/16 09:03 16 98 10/03/16 08:59 84 10/03/16 07:43 96.2 127/66 Nasal Cannula 2.00 Telemetry Rhythm: Sinus Rhythm Height (Feet): 4 Height (Inches): 11.00 Weight (Kilograms): 56.100 General General Appearance: Alert, Orientated x 3, Well Nourished, Well Developed, No Acute Distress Eyes (Brief) Eyes: FOUND: PERRL, NOT FOUND: scleral icterus ENMT (Brief) ENMT: FOUND: mucosa moist, NOT FOUND: pharnyx erythema Respiratory (Brief) Respiratory: FOUND: clear all marie, equal bilaterally Cardiovascular (Brief) Cardiac: FOUND: regular rate, regular rhythm Abdomen (Brief) Abdominal: FOUND: BS normo active x4, soft, NOT FOUND: distended, tender Extremities (Brief) Extremity : Side: Bilateral Extremity: leg Extremity Finding: FOUND: edema (1-2+) Musculoskeletal (Brief) Musculoskeletal: NOT FOUND: tenderness Integumentary (Brief) Integumentary: FOUND: dry, other (petechiae to both feet), warm Psychiatric (Brief) Psychiatric: FOUND: alert, attentive, normal affect, oriented Laboratory Laboratory Laboratory Tests 10/02/16 04:02 10/03/16 04:19 Laboratory Tests 10/02/16 04:02 10/03/16 04:19 Sepsis Diagnostic Criteria Sepsis SIRS Criteria: Pulse >= 90 beats/min, WBC >=12,000 or <=4,000 Severe Sepsis None Seen Assessment & Plan Problems: (1) Pancytopenia Status: Acute Assessment & Plan: 09/26: 1 unit pRBC 09/27: 1 unit pRBC 09/30: 1 unit pRBC and 1 platelet pack 10/02: 1 platelet pack (2) Hypomagnesemia Status: Acute Assessment & Plan: Not POA (3) Hypokalemia Status: Acute Assessment & Plan: Not POA (4) Neutropenic fever Status: Resolved Assessment & Plan: Fever resolved - persistent neutropenia. (5) Sepsis Status: Resolved Assessment & Plan: Source undetermined. Manifestations: Temp elevation, Tachycardia, Neutropenia (6) Nausea & vomiting Status: Resolved Qualifiers: Vomiting type: unspecified Vomiting Intractability: unspecified Qualified Codes: R11.2 - Nausea with vomiting, unspecified (7) Lung cancer Status: Chronic Assessment & Plan: Started chemo 09/20 On oxygen x3 months (8) COPD (chronic obstructive pulmonary disease) Status: Chronic Qualifiers: COPD type: emphysema Emphysema type: unspecified Qualified Codes: J43.9 - Emphysema, unspecified (9) Chronic respiratory insufficiency Status: Chronic Assessment & Plan: Home O2 at 2L per NC. (10) HTN (hypertension) Status: Chronic Qualifiers: Hypertension type: essential hypertension Qualified Codes: I10 - Essential (primary) hypertension (11) Irritable bowel syndrome (IBS) Status: Chronic (12) Epistaxis Status: Resolved Plan/Intensity of Service Neutropenic fever - WBC improved to 4 today. Continues on Levaquin; Vanco and cefepime were dc'd yesterday. Afebrile. Platelets improved to 30 following transfusion. Rt arm swelling & pain - venous duplex this morning. Consult Dr. Siddiqui on Tuesday to evaluate. Diuresed well with Lasix 20 mg yesterday. Weight decreased to 56.1 kg. Leg swelling improved. Hypokalemia and hypomg - being replaced IV. Port-a-cath f/u - will need to ask Dr. Myrick about f/u on Tuesday. Nausea - improved today. Continue supportive care. Hypocalcemia - continue oral Vit D + Ca. Improved to 7. Code Status Do Not Resuscitate Hospital Course Summary Disclaimer The hospital course summary below is not to be considered part of the above Progress Note. Hospital Course Summary 09/25 Admit Inpatient admission for treatment of neutropenic fever-anticipate greater than 2 midnight of care needed. Neutropenic precautions. Start cefepime, vancomycin, and levofloxacin for empiric antimicrobial coverage. Granix to help increase WBC. IVF for volume support secondary to n/v. Zofran prn nausea. Hold antihypertensives due to sepsis syndrome - monitor BP. SCD and Lovenox for DVT prevention due to CA. Continue supplemental O2 and Neb treatments. Consult with Dr Pelayo for ONC eval. Monitor lab. DNR as per pt's request. Care to return to Dr Brower at time of discharge. 09/26 Doing okay this afternoon. Not having f/c. Loose stool has stopped - no bowel movements. Feels some rumbling in ab, like she could have stool soon. Nausea decreased. Ate 25% of breakfast and 50% of lunch. Breathing stable - not feeling increased SOA or congestion with IVF. Continue cefepime, vancomycin, and levofloxacin for empiric antimicrobial coverage. Continue neutropenic precautions. Respiratory PCR panel negative. Stool PCR panel pending (pt not produced sample). Granix 300mcg given this am due to decreased WBC - recheck CBC in am to monitor response. Continue IVF for volume support secondary to n/v. HGB with decreased from admission - transfuse 1 unit pRBC. Hold antihypertensives due to sepsis syndrome - monitor BP. Continue supplemental O2 and Neb treatments. Add nasal saline due to dry nasal passages from O2. Consult with Dr Pelayo for ONC eval. Recheck BMP in am due to medication and IVF use. Repeat CBC in am due to neutropenic fever. 09/27 Rough night-had nose bleed. Notes congestion to nose, but afraid to blow nose due to worry about resumption of bleeding. Breathing feeling well-not SOA or having cough or congestion. No nausea, but appetite decreased. Food doesn't taste right which decreases her appetite. No ab pain or bloating. Passing flatus. Not had stool today. Urinating well. No mouth pain or pain with swallowing. Granix 300mcg given this am due to persistent neutropenia - recheck CBC in am to monitor response. HGB decreased to 7.7 - transfuse 1 unit pRBC. ONC recommends keeping HGB greater than 8. Stop Lovenox and ASA due to low platelets and nosebleed. Nursing reports pt refusing SCD due to discomfort. Encourage ambulation. Decrease IVF to 75 cc/hr. Oral drive still decreased. Replace potassium - 20mEg today at noon and evening meal. Will give 400mg MagOx at noon as Mg 1.7. BP stable without medication - will continue to hold. Continue supplemental O2 and Neb treatments. Dr Pelayo did evaluate pt this morning. Case discussed with him. Recheck CMP and Mg in am due to medication and IVF use. Repeat CBC in am due to neutropenic fever. 09/28 Feeling rough. Notes congestion and cough. Stools loose-passed blood. More nausea and less appetite. Tired and weak. Not feeling SOA or having pain with breathing. Denies mouth pain or pain with swallowing. No f/c. Urinating well. Magnesium decrease to 1.5. Potassium 3.2. WBC 0.9, HGB 8.4, Platelets 40. Continue cefepime, vancomycin, and levofloxacin for empiric antimicrobial coverage. Granix 300mcg given this am due to persistent neutropenia - recheck CBC in am to monitor response. Continue IVF at 75 cc/hr. Oral drive still decreased. Replace potassium - 20mEg today at noon and evening meal. IV magnesium 2 grams due to decreased magnesium. BP stable without medication - will continue to hold. Continue supplemental O2 and Neb treatments. Add Mucinex DM BID due to congestion. Change Protonix to 40mg IV BID for enhanced GI protection. Recheck CMP and Mg in am due to medication and IVF use. Repeat CBC in am due to neutropenic fever. 09/29 About the same. Mild, persistent nausea. Minimal appetite. Breathing stable-not having increased SOA, cough or congestion. No chest pressure or pain. Some slight swelling to legs. Potassium 3.1. Mg 1.9. WBC 0.7 with ANC 280. HGB 8.1. Platelets 26. Continue cefepime, vancomycin, and levofloxacin for empiric antimicrobial coverage. Give Granix 300mcg today due to persistent neutropenia. Start Scopolamine patch due to persistent nausea - No Phenergan due to use of Reglan. Replace potassium - IV Boluses x4. Will restart lisinopril at 10mg q hs (home dose 20). Norvasc on hold. 09/30 No f/c. Appetite and nausea about the same. Breathing stable without increased congestion or cough. Nasal congestion, but able to use saline without nose bleeds. Urinating well. Note slight increased edema to legs. Not dizzy or unsteady when up. Continue cefepime, vancomycin, and levofloxacin for empiric antimicrobial coverage. Continue Granix 300mcg today due to persistent neutropenia. Transfuse 1 unit of pRBC and Platelets. Decrease IVF to 50 cc/hr. Spironolactone 50mg x1 to help edema and preserve potassium. Will give oral potassium 20mEg with lunch and evening meal today. Increase lisinopril to 20mg q hs. Norvasc on hold. 10/01 About the same. No f/c. Breathing stable-starting to mobilize some secretions. No nose bleeds. No nausea, but appetite low. Not having ab pain. Ambulating well -not dizzy or unsteady when up. LAB: WBC 1.3 with ANC 767. HGB 8.3. Platelets 25. Potassium 2.9. Mg 1.3. Continue cefepime, vancomycin, and levofloxacin for empiric antimicrobial coverage. Continue Granix 300mcg SQ daily until ANC greater than 1500. Will give 2 grams magnesium IV due to low magnesium. Potassium IV bolus and start Oral KCl 20mEq TID with meals - monitor potassium due to lisinopril use. Will d/c IVF. Continue lisinopril 20mg q hs. Norvasc on hold. BP stable. 10/02/16 Neutropenic fever - no fever since 09/25/16. No evidence of infection. Today tineo day 7 of triple abx therapy. Will DC Vancomycin and Cefepime; continue with Levaquin. Still pancytopenic - platelets are 16K and a platelet pack has been ordered. WBC improved to 2.2 and hgb is 8.4. Rt arm swelling & pain - venous duplex to r/o VTE. Consult Dr. Siddiqui on Tuesday to evaluate. She also has pitting edema to both legs. She is fluid positive 14.6L since admission and her weight has increased by >4 kg. IVF have already been dc'd. Will give Lasix 20 mg IV x1. Hypokalemia and hypomg - continue KDur TID frequency; IV mg has already been ordered by Dr. Forman. Port-a-cath f/u - will need to ask Dr. Myrick about f/u on Tuesday. Nausea - more intense today. Continue PRNs. Start Culturelle d/t diarrhea and abx use. GI panel was negative. Hypocalcemia - continue oral Vit D + Ca. Consider IV replacement. Is receiving Xgeva. 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 [facility] records reviewed - last note from Dr. Brower was 07/12/16 when she was dx with back muscle strain and Rx Flexeril 10/03/16 Neutropenic fever - WBC improved to 4 today. Continues on Levaquin; Vanco and cefepime were dc'd yesterday. Afebrile. Platelets improved to 30 following transfusion. Rt arm swelling & pain - venous duplex this morning. Consult Dr. Siddiqui on Tuesday to evaluate. Diuresed well with Lasix 20 mg yesterday. Weight decreased to 56.1 kg. Leg swelling improved. Hypokalemia and hypomg - being replaced IV. Port-a-cath f/u - will need to ask Dr. Myrick about f/u on Tuesday. Nausea - improved today. Continue supportive care. Hypocalcemia - continue oral Vit D + Ca. Improved to 7. LAUREEN FORMAN MD 10/03/16 1213: Assessment & Plan Assessment 10/03/2016-I reviewed this chart, the patient history, and the [employer]ARD's/PA's documented findings as above. We discussed and formulated the assessment and plan as above with the additions below.-Dr. Forman Patient states she's feeling better today. She feels stronger when she is up and around. She has a chronic cough which is productive and unchanged. She denies any shortness of breath. She is eating okay but trying to eat bland foods. She continues to have some pain in her right arm or she suffered a fracture. She denies any epistaxis or any other bleeding. She diuresed well yesterday with Lasix but still has significant lower extremity edema. On exam she is alert and oriented and in no acute distress. HEENT reveals sclerae to be anicteric and oropharynx is moist. Neck is supple. Chest reveals some mild rhonchi in the bases. Cardiovascular reveals a regular rate and rhythm. Abdomen is soft and nontender. Extremities reveal +1-2 pedal and pretibial edema. Skin is warm and dry. She does have petechiae in the lower legs. GI panel was negative including for all infections tested including C. difficile Venous Doppler of the right upper extremity was negative for DVT Lab shows phosphorus is low at 1.4. Calcium is 7.0. Potassium is 3.4. White count, hemoglobin and platelets are all improved today. ANC is 2.2. Regarding pancytopenia, the patient appears to be improving and she's had no further bleeding. Recheck CBC tomorrow. Regarding low potassium, calcium and phosphorus will replace and recheck tomorrow. The patient was given IV potassium phosphate today. Regarding fluid overload with edema, will give another dose of Lasix today. Increase activity as tolerated. Continue current treatment for COPD. Continue on Levaquin for now, possibly discontinue tomorrow. She is no longer neutropenic. Greater than 35 minutes of time was spent seeing and evaluating the patient, reviewing the chart and making care plans. DVT Prophylaxis: SCD'S CONSTANTINE AGUAYO APRN October 03, 2016 10:43 LAUREEN FORMAN MD October 03, 2016 12:13
[2016-10-03] MEDS ORDERED: FUROSEMIDE 20 MG/2 ML INJECTION IV ONE (12:00)
[2016-10-03] MEDS: FOLIC ACID 1 MG TABLET PO SCH (12:17)
--- NOTE | 2016-10-03 13:31 | PNPDOC ---
Subjective Date DATE: 10/03/16 TIME: 13:25 wf in nad, armindaf[place]. c/o leg edema, elevated now Objective Vital Signs Vital Signs 10/03/16 10/03/16 10/03/16 10/03/16 02:27 02:37 02:37 04:00 Temp 96.9 Pulse 85 86 88 Resp 16 20 B/P 121/59 Pulse Ox 98 95 O2 Delivery Nasal Cannula O2 Flow Rate 2.00 10/03/16 10/03/16 10/03/16 10/03/16 07:43 08:00 08:59 09:03 Temp 96.2 Pulse 94 84 Resp 40 40 16 B/P 127/66 Pulse Ox 94 98 O2 Delivery Nasal Cannula O2 Flow Rate 2.00 10/03/16 12:26 Temp 96.3 Pulse 92 B/P 129/68 Pulse Ox 96 O2 Delivery Nasal Cannula O2 Flow Rate 2.00 Height (Feet): 4 Height (Inches): 11.00 Weight (Kilograms): 56.100 General Comments no c/o , nad Eyes (Brief) Eyes: FOUND: EOMI, NOT FOUND: scleral icterus ENMT (Brief) ENMT: FOUND: mucosa moist Neck (Brief) Neck: NOT FOUND: adenopathy, tenderness Respiratory (Brief) Respiratory: FOUND: clear all marie, equal bilaterally, symmetrical Cardiovascular (Brief) Cardiac: FOUND: regular rate, regular rhythm Abdomen (Brief) Abdominal: FOUND: BS normo active x4, soft Extremities (Brief) Extremity : Extremity Finding: FOUND: clubbing, cyanosis, deformity, discoloration, edema, laceration, other, pain, reddened, warm Lymphatic (Brief) NOT FOUND: adenopathy Musculoskeletal (Brief) NOT FOUND: tenderness Integumentary (Brief) FOUND: dry, warm, NOT FOUND: rash Neurologic (Brief) FOUND: Babinski, DTR 2/4 all extremities, cerebellar, cranial 2-12 intact, other , patellar DTR 2/4, sensory, NOT FOUND: motor (no acute motor deficit) Psychiatric (Brief) FOUND: alert, attentive, normal affect, oriented Laboratory Laboratory Tests Test 10/02/16 15:11 10/02/16 22:04 10/03/16 04:19 Ionized Calcium (Measured) 0.91MMOL/L Stool Cyclospora species Detection Negative Stool Rotavirus A PCR Negative Stool Adenovirus (PCR) Negative Stool Astrovirus (PCR) Negative Stool Campylobacter PCR Negative Stool C. difficile Toxin (PCR) Negative Stool Cryptosporidium PCR Negative Stool E. coli Shiga Toxins Negative Stool E coli O157 PCR N/a Stool Enterotoxigenic Ecoli PCR Negative Stool Enteropathogenic E. coli (PCR Negative Stool Enteroaggregative E. coli PCR Negative Stool Entamoeba (PCR) Negative Stool Giardia Lamblia PCR Negative Stool Salmonella PCR Negative Stool Sapovirus (PCR) Negative Stool Plesiomonas shigelloides PCR Negative Stool Shigella/EIEC (PCR) Negative Stool Yersinia enterocolitica (PCR) Negative Stool Vibrio (PCR) Negative Stool Vibrio cholera (PCR) Negative Stool Norovirus GI/GII PCR Negative White Blood Count 4.0T/MM3 Red Blood Count 2.91M/MM3 Hemoglobin 8.5GM/DL Hematocrit 24.5% Mean Corpuscular Volume 84.2UM3 Mean Corpuscular Hemoglobin 29.2UUG Mean Corpuscular Hemoglobin Concent 34.7GM/DL RDW Standard Deviation 51.1FL Platelet Count 30T/MM3 Mean Platelet Volume 9.9UM3 Neutrophils % (Manual) 55.0% Band Neutrophils % 16.0% Lymphocytes % (Manual) 16.0% Monocytes % (Manual) 8.0% Eosinophils % (Manual) 5.0% Absolute Neutrophils (Manual) 2.2T/MM3 Band Neutrophils # 0.6T/MM3 Lymphocytes # (Manual) 0.6T/MM3 Monocytes # (Manual) 0.3T/MM3 Eosinophils # (Manual) 0.2T/MM3 Red Cell Morphology Comment Normal Turbidity < 20 Sodium Level 141MEQ/L Potassium Level 3.4MEQ/L Chloride Level 103MEQ/L Carbon Dioxide Level 29MEQ/L Anion Gap 9MEQ/L Blood Urea Nitrogen < 2.0MG/DL Creatinine 0.4MG/DL Glomerular Filtration Rate Calc 155 BUN/Creatinine Ratio RATIO Glucose Level 90MG/DL Calculated Osmolality MOSM/KG Calcium Level 7.0MG/DL Phosphorus Level 1.4MG/DL Magnesium Level 1.6MG/DL Icterus Index < 2 Albumin 2.9G/DL Chemistry Specimen Hemolysis < 15 Sepsis Diagnostic Criteria Sepsis SIRS Criteria: Pulse >= 90 beats/min, WBC >=12,000 or <=4,000 Severe Sepsis None Seen Assessment & Plan Assessment 1. Neutropenic fever. Presented on 09/25 with temp of 100.2. Has been afebrile since. Admitted with IV antibiotic coverage to include Vancomycin,Levaquin and Cefapine. Filgastrim given daily since 09/25/2016. Will continue until ANC is greater than 1.5 2. Eosinophilia of 34 % Question etiology. Allergy to med or reactive. 3. Thrombocytopenia. Post chemotherapy suppression vs DIC Platelets 62K , 40K 09/28/16, and today platelets 26K Will follow. Alimta/carboplatin chemotherapy, cycle 1 on 09/20/16. Platelets 13K yesterday. Was given one unit platelets. Platelets 25K today. 4. Anemia. Hgb 7.7 on 09/27 after transfusion 8.2 on admission. Dropped to 6.8. 9 after transfusion. Suspect Peptic ulcer disease with acute blood loss. Retic count low at 0.1% suggesting marrow suppression from chemotherapy. Ferritin and B 12 elevated. Nosebleeds also contributing and had nosebleed this morning. Bleeding exacerbated by prophylactic lovenox. She weighs 53Kg and had lovenox 40 mg given on 09/25 late in evening and had another 40 mg given at 9 am on 09/26. Will hold Lovenox. Consider EGD after WBC and PLT recovery. Hemoglobin 8.1 on , 7. 4 yesterday. Given 1 unit packed RBCs. Hemoglobin today is 8.3. 5. 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 S/P radiation to humerus and painful pelvic mets. Completed XRT mid August and then started systemic therapy with Alimta Carboplatin on 09/20/16. 6. N/V have been problem since diagnosiss and with radiation. Had problems last week after chemotherapy. IV fluids and zofran given on Tue, and Tuesday. She also had famitoldine for burning . This has improved but concern for peptic ulcer disease is present. Continues with intermittent nausea/ vomiting. Scopolamine added. 7. COPD Oxygen dependent 8. Bone metastasis. Pathologic fracture, right humerus. Irradiated. Xgeva given 08/30/16. 9. Rash after IV contrast and Xgeva. Suspect contrast allergy. 10. H/o HTN 10/02/2016 Pt with rising wbc. afebrile pt now to receive plts no new c/o eating well on O2 on IV antibiotics vanc/levaquin/cefapine on granix Consider check IgG levels too. ? has she been a smoker? 10/03/16 WF in nad in with neutropenic fever. now with improving counts, afebrile, no source of infx on levaquin only now. renal function ok Plan continue granix d/c levaquin observe plts also obesrve anemia likely reduce dose of carbo alimta next cycle, renal function ok. pt to be placed on folic acid and b12 po also. Plan/Intensity of Service I have seen and examined the patient. I agree with the plan of care outlined by Suzanne Garcia APRN. Code Status Do Not Resuscitate Hospital Course Summary Disclaimer The visit summary below is not to be considered part of the above Progress Note. Hospital Course Summary 09/25 Admit Inpatient admission for treatment of neutropenic fever-anticipate greater than 2 midnight of care needed. Neutropenic precautions. Start cefepime, vancomycin, and levofloxacin for empiric antimicrobial coverage. Granix to help increase WBC. IVF for volume support secondary to n/v. Zofran prn nausea. Hold antihypertensives due to sepsis syndrome - monitor BP. SCD and Lovenox for DVT prevention due to CA. Continue supplemental O2 and Neb treatments. Consult with Dr Pelayo for ONC eval. Monitor lab. DNR as per pt's request. Care to return to Dr Brower at time of discharge. 09/26 Doing okay this afternoon. Not having f/c. Loose stool has stopped - no bowel movements. Feels some rumbling in ab, like she could have stool soon. Nausea decreased. Ate 25% of breakfast and 50% of lunch. Breathing stable - not feeling increased SOA or congestion with IVF. Continue cefepime, vancomycin, and levofloxacin for empiric antimicrobial coverage. Continue neutropenic precautions. Respiratory PCR panel negative. Stool PCR panel pending (pt not produced sample). Granix 300mcg given this am due to decreased WBC - recheck CBC in am to monitor response. Continue IVF for volume support secondary to n/v. HGB with decreased from admission - transfuse 1 unit pRBC. Hold antihypertensives due to sepsis syndrome - monitor BP. Continue supplemental O2 and Neb treatments. Add nasal saline due to dry nasal passages from O2. Consult with Dr Nanney for ONC eval. Recheck BMP in am due to medication and IVF use. Repeat CBC in am due to neutropenic fever. 5/1 Rough night-had nose bleed. Notes congestion to nose, but afraid to blow nose due to worry about resumption of bleeding. Breathing feeling well-not SOA or having cough or congestion. No nausea, but appetite decreased. Food doesn't taste right which decreases her appetite. No ab pain or bloating. Passing flatus. Not had stool today. Urinating well. No mouth pain or pain with swallowing. Granix 300mcg given this am due to persistent neutropenia - recheck CBC in am to monitor response. HGB decreased to 7.7 - transfuse 1 unit pRBC. ONC recommends keeping HGB greater than 8. Stop Lovenox and ASA due to low platelets and nosebleed. Nursing reports pt refusing SCD due to discomfort. Encourage ambulation. Decrease IVF to 75 cc/hr. Oral drive still decreased. Replace potassium - 20mEg today at noon and evening meal. Will give 400mg MagOx at noon as Mg 1.7. BP stable without medication - will continue to hold. Continue supplemental O2 and Neb treatments. Dr Pelayo did evaluate pt this morning. Case discussed with him. Recheck CMP and Mg in am due to medication and IVF use. Repeat CBC in am due to neutropenic fever. 5/2 Feeling rough. Notes congestion and cough. Stools loose-passed blood. More nausea and less appetite. Tired and weak. Not feeling SOA or having pain with breathing. Denies mouth pain or pain with swallowing. No f/c. Urinating well. Magnesium decrease to 1.5. Potassium 3.2. WBC 0.9, HGB 8.4, Platelets 40. Continue cefepime, vancomycin, and levofloxacin for empiric antimicrobial coverage. Granix 300mcg given this am due to persistent neutropenia - recheck CBC in am to monitor response. Continue IVF at 75 cc/hr. Oral drive still decreased. Replace potassium - 20mEg today at noon and evening meal. IV magnesium 2 grams due to decreased magnesium. BP stable without medication - will continue to hold. Continue supplemental O2 and Neb treatments. Add Mucinex DM BID due to congestion. Change Protonix to 40mg IV BID for enhanced GI protection. Recheck CMP and Mg in am due to medication and IVF use. Repeat CBC in am due to neutropenic fever. 09/29 About the same. Mild, persistent nausea. Minimal appetite. Breathing stable-not having increased SOA, cough or congestion. No chest pressure or pain. Some slight swelling to legs. Potassium 3.1. Mg 1.9. WBC 0.7 with ANC 280. HGB 8.1. Platelets 26. Continue cefepime, vancomycin, and levofloxacin for empiric antimicrobial coverage. Give Granix 300mcg today due to persistent neutropenia. Start Scopolamine patch due to persistent nausea - No Phenergan due to use of Reglan. Replace potassium - IV Boluses x4. Will restart lisinopril at 10mg q hs (home dose 20). Norvasc on hold. 09/30 No f/c. Appetite and nausea about the same. Breathing stable without increased congestion or cough. Nasal congestion, but able to use saline without nose bleeds. Urinating well. Note slight increased edema to legs. Not dizzy or unsteady when up. Continue cefepime, vancomycin, and levofloxacin for empiric antimicrobial coverage. Continue Granix 300mcg today due to persistent neutropenia. Transfuse 1 unit of pRBC and Platelets. Decrease IVF to 50 cc/hr. Spironolactone 50mg x1 to help edema and preserve potassium. Will give oral potassium 20mEg with lunch and evening meal today. Increase lisinopril to 20mg q hs. Norvasc on hold. 10/01 About the same. No f/c. Breathing stable-starting to mobilize some secretions. No nose bleeds. No nausea, but appetite low. Not having ab pain. Ambulating well -not dizzy or unsteady when up. LAB: WBC 1.3 with ANC 767. HGB 8.3. Platelets 25. Potassium 2.9. Mg 1.3. Continue cefepime, vancomycin, and levofloxacin for empiric antimicrobial coverage. Continue Granix 300mcg SQ daily until ANC greater than 1500. Will give 2 grams magnesium IV due to low magnesium. Potassium IV bolus and start Oral KCl 20mEq TID with meals - monitor potassium due to lisinopril use. Will d/c IVF. Continue lisinopril 20mg q hs. Norvasc on hold. BP stable. 10/02/16 Neutropenic fever - no fever since 4/29/17. No evidence of infection. Today tineo day 7 of triple abx therapy. Will DC Vancomycin and Cefepime; continue with Levaquin. Still pancytopenic - platelets are 16K and a platelet pack has been ordered. WBC improved to 2.2 and hgb is 8.4. Rt arm swelling & pain - venous duplex to r/o VTE. Consult Dr. Siddiqui on Tuesday to evaluate. She also has pitting edema to both legs. She is fluid positive 14.6L since admission and her weight has increased by >4 kg. IVF have already been dc'd. Will give Lasix 20 mg IV x1. Hypokalemia and hypomg - continue KDur TID frequency; IV mg has already been ordered by Dr. Forman. Port-a-cath f/u - will need to ask Dr. Myrick about f/u on Tuesday. Nausea - more intense today. Continue PRNs. Start Culturelle d/t diarrhea and abx use. GI panel was negative. Hypocalcemia - continue oral Vit D + Ca. Consider IV replacement. Is receiving Xgeva. D/W Dr. Drummond (director [facility] for [facility]) - recommends oral replacement (no need for IV) - most important is to replace mg. [place] records reviewed - last note from Dr. Brower was 07/12/16 when she was dx with back muscle strain and Rx Flexeril 10/03/16 Neutropenic fever - WBC improved to 4 today. Continues on Levaquin; Vanco and cefepime were dc'd yesterday. Afebrile. Platelets improved to 30 following transfusion. Rt arm swelling & pain - venous duplex this morning. Consult Dr. Siddiqui on Tuesday to evaluate. Diuresed well with Lasix 20 mg yesterday. Weight decreased to 56.1 kg. Leg swelling improved. Hypokalemia and hypomg - being replaced IV. Port-a-cath f/u - will need to ask Dr. Myrick about f/u on Tuesday. Nausea - improved today. Continue supportive care. Hypocalcemia - continue oral Vit D + Ca. Improved to 7. SAMANTHA DRUMMOND October 03, 2016 13:29
[2016-10-03] MEDS: CYANOCOBALAMIN (B-12) 500mcg TABLET PO SCH (13:54)
[2016-10-03] MEDS: MAGNESIUM SULFATE 1 G in D5W 100 ML IV SCH ×2 (13:55→15:24)
--- NOTE | 2016-10-03 17:45 | DI ---
Indication: ITS.REASON: rt arm swelling PROCEDURE: US VENOUS DUPLEX, UPPER EXT RT: Encounter: Initial Comparison: None Technique: Color Doppler duplex and grayscale sonographic imaging of the right upper extremity was performed. FINDINGS: There is no evidence for acute deep venous thrombosis in the right arm. The right internal jugular, subclavian, axillary and paired brachial veins were evaluated; compression and augmentation were applied where possible. In addition, color and pulsed Doppler demonstrate appropriate spontaneous flow, cardiac pulsatility and variation with respiration. Images were taken of the patient's port region without obvious sonographic abnormality. IMPRESSION: No evidence of acute DVT in the right upper extremity. There is a preliminary report by [facility]. .
--- NOTE | 2016-10-03 18:32 | NUR ---
Shift Summary Patient alert and oriented x3. VSS. On 2L NC, which is baseline. Patient calm and cooperative with cares. Up with standby assist in room. Patient ambulated in halls with family and this nurse today. Patient states she is fatigued but no complaints of pain. Patient nauseated once this morning, otherwise no complaints of n/v. Adequate intake and output today. IV locked right PAC, flushed and aspirated today. Currently resting in bed.
[2016-10-03] MEDS: LISINOPRIL 20 MG TABLET PO SCH (21:53)
[2016-10-04] VITALS (10 sets, daily range): BP systolic 109–125; BP diastolic 58–67; PULSE 86–97; RESP 18–20; TEMP 95.5–97.2; O2SAT 94–97
[2016-10-04] MEDS: ALBUTEROL/IPRATROPIUM INHAL. 2.5mg-0.5mg/3ml Neb. AEROSOL SCH ×4 (02:47→20:47)
[2016-10-04 05:00] LABS: HCT - HEMATOCRIT 24.3 % (36-46); HGB - HEMOGLOBIN 8.2 GM/DL (12-16); MEAN CORPUSCULAR HGB 28.7 UUG (26-34); MEAN CORPUSCULAR HGB CONC(MCHC 33.7 GM/DL (31-37); RED BLOOD COUNT 2.86 M/MM3 (4.00-5.20); WBC - WHITE BLOOD COUNT 4.9 T/MM3 (4.5-11.0)
--- NOTE | 2016-10-04 05:26 | NUR ---
Shift A/O x3, 2L/NC, VSS, up with SBA- gait steady. No c/o, PAC to R chest CDI- was able to draw lab from it and flushes well.
[2016-10-04 05:27] LABS: ALBUMIN 2.8 G/DL (3.5-5.0); ANION GAP 8 MEQ/L (5-15); BLOOD UREA NITROGEN < 2.0 MG/DL (7-17); CHLORIDE 102 MEQ/L (98-107); CO2 - CARBON DIOXIDE 30 MEQ/L (22-30); CREATININE 0.4 MG/DL (0.7-1.2); GLOMERULAR FILTRATION RATE 155; GLUCOSE 97 MG/DL (65-110); MAGNESIUM 1.9 MG/DL (1.6-2.3); PHOSPHORUS 2.3 MG/DL (2.5-4.5); POTASSIUM 3.4 MEQ/L (3.6-5); SODIUM 140 MEQ/L (134-144)
[2016-10-04 06:18] LABS: BAND NEUTROPHILS # 1.1 T/MM3; LYMPHOCYTES # (MANUAL) 0.3 T/MM3 (1-4.8); METAMYELOCYTES # 0.1 T/MM3; MONOCYTES # (MANUAL) 0.7 T/MM3 (0-0.8); MYELOCYTES # 0.1 T/MM3; NEUTROPHILS #(MANUAL)-ABSOLUTE 2.5 T/MM3 (1.8-7.7); TOTAL CELLS COUNTED 100 %
[2016-10-04] MEDS: CALCIUM 600mg + VIT D 400 TABLET PO SCH ×2 (08:41→21:11)
[2016-10-04] MEDS: LACTOBACILLUS (15B cfu) CAPSULE PO SCH ×3 (08:42→17:06)
[2016-10-04] MEDS: GUAIFENESIN DM 600mg/30mg TABLET PO SCH ×2 (08:42→21:11)
[2016-10-04] MEDS: DICYCLOMINE 20 MG TABLET PO SCH ×3 (08:42→17:06)
[2016-10-04] MEDS: CYANOCOBALAMIN (B-12) 500mcg TABLET PO SCH (08:42)
[2016-10-04] MEDS: PANTOPRAZOLE 40mg INJECTION IV SCH (08:43)
[2016-10-04] MEDS: TBO-FILGRASTIM 300mcg/0.5ml INJECTION SQ SCH (08:43)
[2016-10-04] MEDS: SALINE NASAL SPRAY 45ml EA NOSTRIL SCH ×4 (08:48→21:12)
--- NOTE | 2016-10-04 09:38 | DI ---
Indication: ITS.REASON: Pathologic fx, increase pain PROCEDURE: SHOULDER RIGHT 2-3 VIEWS: Encounter: Initial Comparison: None Findings: There is a probable pathologic fracture of the proximal humerus diaphysis with moderate the appearance of the cortical and medullary bone. No definite periosteal reaction. No dislocation. Impression: Acute pathologic fracture of the proximal humeral diaphysis with underlying bony destructive process. .
--- NOTE | 2016-10-04 10:16 | CONSPD ---
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 I suspect this has slightly displaced her fracture causing her increase in pain and swelling. Recommend resuming sling use at this time. Discussed surgical options with the patient, with the possibility of intramedullary nail. She is rightly concerned about the possibility of danial- operative complications such as bleeding and infection. I also spoke about the same with Dr. Forman. With her pancytopenia and thrombocytopenia, I recommended continued conservative management with her sling and pain medication prn. Dr. Forman was planning to speak with the Dr. Pelayo regarding the chemo schedule, but unlikely that would be delayed or discontinued to allow for improvement in WBC or Platelets. Ice and or heat prn to shoulder. TID elbow and wrist ROM. (2) Lung cancer Status: Chronic (3) COPD (chronic obstructive pulmonary disease) Status: Chronic Qualifiers: COPD type: emphysema Emphysema type: unspecified Qualified Codes: J43.9 - Emphysema, unspecified (4) HTN (hypertension) Status: Chronic Qualifiers: Hypertension type: essential hypertension Qualified Codes: I10 - Essential (primary) hypertension (5) Neutropenic fever Status: Resolved (6) Pancytopenia Status: Acute Ortho HPI HPI Elements Location: FOUND shoulder (right) Injury: Yes (DOI 08/03/16) Pain: FOUND throbbing, FOUND ache Onset: Sudden Radiating: Yes (Biceps) Severity: FOUND mild, FOUND moderate Duration: FOUND several days Previous Surgery: No Previous Injury: Yes (Pathologic Right Proximal Humerus Fx, 08-03-16) Aggrevated by: FOUND pushing, FOUND getting out of a chair, FOUND reaching shoes/socks, FOUND overhead use Associated Symptoms: FOUND swelling, FOUND warmth, NOT FOUND numbness Treatments Tried: FOUND bracing, FOUND pain medications X-ray Findings: FOUND other (Pathologic proximal humerus fx, mildly displaced from previous, delayed healing, osteopenia) Recommendation: FOUND other (Not a good surgical candidate with pancytopenia. Recommend resuming sling.) HPI 76 yo female, known to my outpatient practice for pathologic right proximal humerus fx secondary to lung mets. c/o worsening right shoulder pain and swelling. Patient has been out of her sling since admission last week and has been using the arm for pushing out of bed and other activities. Unknown why the sling was discontinued. Had doppler and ruled out UE DVT. Review of Systems Constitutional: REPORTS: fatigue, weakness, weight loss Cardiovascular DENIES: chest pain, orthopnea Pulmonary Respiratory: DENIES: cough, dyspnea GI Upper Abdomen: DENIES: vomiting Lower Abdomen: DENIES: diarrhea General: DENIES: burning, hematuria, urgency Musculoskeletal General: other (Fracture right humerus), DENIES: pain Integumentary Skin: DENIES: itching, rash Neurological General: numbness, DENIES: seizures Endocrine DENIES: heat/cold intolerance Hematologic/Lymphatic anemia, frequent nosebleeds All Other Systems Reviewed (remainder of 10-point ROS Neg.) Past Medical History Adult Problem List Updates Patient has a relatively brief past medical history she does have diagnosed lung cancer with widespread metastasis; she has a spastic colon after her colon was perforated during a colonoscopy; she has hypertension; and she has COPD. Surgical History Patient's Surgical History: Patient surgical history is brief: She has had trigger finger operations on both hands; she has had a pus pocket removed from her right neck; and has had her tubes tied in 1971. She also has surgery for a perforated bowel, cause during a colonoscopy and 2004. Right proximal humeral fracture due to bone cancer, lung cancer Current Medications Amlodipine (Norvasc) 5 Mg Tablet, 5 MG PO HS, (Reported) Last Taken: Unknown Dose on 09/24/161999 Aspirin (Beronica) 81 Mg Tablet.dr, 81 MG PO DAILY, (Reported) Last Taken: Unknown Dose on 09/25/16 0800 Calcium Carbonate/Vitamin D3 ( Calcium + D 600 Mg Tablet) 1 Tab Tablet, 2 TAB PO DAILY, (Reported) Last Taken: Unknown Dose on 09/25/16 0800 Chlorthalidone (Chlorthalidone) 25 Mg Tablet, 12.5 MG PO WB, (Reported) Last Taken: Unknown Dose on 09/25/16 0800 Cyclobenzaprine HCl ( Cyclobenzaprine HCl) 10 Mg Tablet, 5 MG PO TID PRN for MUSCLE PAIN, (Reported) Last Taken: Unknown Dose on Unknown Date & Time Dexamethasone (Dexamethasone ) 4 Mg Tablet, 4 MG PO as directed, (Reported) TAKE 2 DAYS BEFORE AND AFTER CHEMO Last Taken: Unknown Dose on 09/21/16 Dicyclomine Hcl (Dicyclomine Hcl) 20 Mg Tablet, 20 MG PO TID, (Reported) Last Taken: Unknown Dose on 09/25/16 0800 Folic Acid (Folic Acid) 1 Mg Tablet , 1 MG PO NOON, (Reported) Last Taken: Unknown Dose on 09/24/16 1200 Hydrocodone/Acetaminophen ( Hydrocodon-Acetaminoph 7.5-325) 7.5-325 Tablet, 1 TAB PO Q6H PRN for PAIN, ( Reported) Last Taken: Unknown Dose on 09/25/16 1030 Ipratropium/Albuterol Sulfate ( Iprat-Albut 0.5-3(2.5) mg/3 ml) 3 Ml Ampul.neb, 1 VIAL AEROSOL Q6H, (Reported) Last Taken: Unknown Dose on 09/25/16 0900 Ketotifen Fumarate (Eye Itch Relief ) 5 Ml Drops, 1 DROP BOTH EYES BID PRN for ITCHING, (Reported) Last Taken: Unknown Dose on Unknown Date & Time Lisinopril (Lisinopril) 20 Mg Tablet, 20 MG PO HS, (Reported) Last Taken: Unknown Dose on 09/24/161999 Loratadine (Allergy) 10 Mg Tablet, 10 MG PO DAILY PRN for ALLERY SYMPTOMS, (Reported) Last Taken: Unknown Dose on Unknown Date & Time Metoclopramide HCl (Reglan) 10 Mg Tablet, 10 MG PO Q6-8HPRN, (Reported) Last Taken: Unknown Dose on 09/25/16 1210 Multivitamins W-Minerals/Lut ( Centrum Silver Tablet) 1 Tab Tablet, 1 TAB PO HS, (Reported) Last Taken: Unknown Dose on 09/24/161999 Ondansetron HCl (Ondansetron HCl) 8 Mg Tablet, 8 MG PO Q8H PRN for NAUSEA &/OR VOMITING, (Reported) Last Taken: Unknown Dose on Unknown Date & Time Pantoprazole Sodium ( Pantoprazole Sodium) 40 Mg Tablet.dr, 40 MG PO DAILY, (Reported) Last Taken: Unknown Dose on 09/25/16 0300 Sodium Chloride (Saline Nasal [place] ) 30 Ml [place], 1 SPRAY EA NOSTRIL QID PRN for PRN ORDERS, (Reported) Last Taken: Unknown Dose on Unknown Date & Time Tetrahydrozoline HCl (Eye Drops) 15 Ml Drops, 1 DROP BOTH EYES DAILY PRN for DRY EYES, (Reported) Last Taken: Unknown Dose on Unknown Date & Time Allergies Allergies: Coded Allergies: No Known Drug Allergies (Verified Allergy, Unknown, 09/25/16) Family History Family History: Family history tells us that her mother at age 74 from a myocardial infarction and her father of an acute appendicitis attack at age 74. Family history otherwise noncontributory Vaccines 03/11/16 02/24/11,02/11/15 02-24-11,02-11-15 08/10/08 Social History Smoking Status: Former smoker Does patient use chewing tobac: No Second Hand Exposure: No Quit Date: May 30, 2004 Substance Use Type: does not use Substance last used: unknown Alcohol Intake: occasionally Last Drink: unknown Marital Status: Sexuality: male partner Housing: house Number of Children: 4 Service: No Current Occupational Status: retired Occupational Hazard: No Advance Directives: Yes DPOA for Healthcare Only Physical Exam General General: well developed, no acute distress Respiratory FOUND non-labored Cardiovascular FOUND regular rate, FOUND regular rhythm Capillary Refill: <2 sec Abdomen Abdominal: FOUND soft, NOT FOUND distended, NOT FOUND tender Musculoskeletal Musculoskeletal : Side: Right (shoulder) Comments TTP proximal R humerus. Mild swelling upper arm. No deformity. Skin intact. NVI. Shoulder ROM not assessed. Musculoskeletal Brief: FOUND: loss of motion, tenderness Integumentary FOUND dry, FOUND pink, FOUND warm Neurologic FOUND intact to light touch, FOUND no deficits Psychiatric FOUND alert, FOUND attentive, FOUND normal affect, FOUND oriented Laboratory Laboratory Tests Test 10/04/16 03:57 White Blood Count 4.9T/MM3 Red Blood Count 2.86M/MM3 Hemoglobin 8.2GM/DL Hematocrit 24.3% Mean Corpuscular Volume 85.0UM3 Mean Corpuscular Hemoglobin 28.7UUG Mean Corpuscular Hemoglobin Concent 33.7GM/DL RDW Standard Deviation 52.8FL Platelet Count 22T/MM3 Mean Platelet Volume UM3 Immature Granulocyte % (Auto) % Neutrophils (%) (Auto) % Lymphocytes (%) (Auto) % Monocytes (%) (Auto) % Eosinophils (%) (Auto) % Basophils (%) (Auto) % Absolute Immature Granulocyte (auto T/MM3 Absolute Neutrophils (auto) T/MM3 Absolute Lymphocytes (auto) T/MM3 Absolute Monocytes (auto) T/MM3 Absolute Eosinophils (auto) T/MM3 Absolute Basophils (auto) T/MM3 Neutrophils % (Manual) 51.0% Band Neutrophils % 22.0% Lymphocytes % (Manual) 7.0% Monocytes % (Manual) 14.0% Basophils % (Manual) 1.0% Metamyelocytes % 3.0% Myelocytes % 2.0% Absolute Neutrophils (Manual) 2.5T/MM3 Band Neutrophils # 1.1T/MM3 Lymphocytes # (Manual) 0.3T/MM3 Monocytes # (Manual) 0.7T/MM3 Basophils # (Manual) 0.0T/MM3 Metamyelocytes # 0.1T/MM3 Myelocytes # 0.1T/MM3 Red Cell Morphology Comment Normal Turbidity < 20 Sodium Level 140MEQ/L Potassium Level 3.4MEQ/L Chloride Level 102MEQ/L Carbon Dioxide Level 30MEQ/L Anion Gap 8MEQ/L Blood Urea Nitrogen < 2.0MG/DL Creatinine 0.4MG/DL Glomerular Filtration Rate Calc 155 BUN/Creatinine Ratio RATIO Glucose Level 97MG/DL Calculated Osmolality MOSM/KG Calcium Level 7.0MG/DL Phosphorus Level 2.3MG/DL Magnesium Level 1.9MG/DL Icterus Index < 2 Albumin 2.8G/DL Parathyroid Hormone (Intact) Pending Chemistry Specimen Hemolysis < 15 ERICK RUBIN MD October 04, 2016 09:59
[2016-10-04] MEDS ORDERED: POTASSIUM CHLORIDE 20 MEQ TABLET PO ONE (11:30)
--- NOTE | 2016-10-04 11:32 | PNPDOC ---
CONSTANTINE AGUAYO PHOTOGRAPHY EDITOR 10/04/16 1117: Subjective Date DATE: 10/04/16 TIME: 11:13 Subjective Harriet is doing a bit better this morning. She had some mild nausea earlier this morning, but it has resolved. She complains of right shoulder pain, and it is now placed in a sling. She states that Dr. Siddiqui stopped in and told her that it isn't healing up as well as hoped, and she might need to have surgery on it. She has been urinating frequently, ever since she received an extra dose of diuresis this morning. She notes that her legs have been looking better, and her weight has gone down. Objective Vital Signs Vital signs Vital Signs Date Time Temp Pulse Resp B/P Pulse Ox O2 Delivery O2 Flow Rate FiO2 10/04/16 10:03 91 10/04/16 09:50 24 96 10/04/16 07:31 97.2 119/63 Nasal Cannula 2.00 Telemetry Rhythm: Sinus Rhythm Height (Feet): 4 Height (Inches): 11.00 Weight (Kilograms): 55.600 General General Appearance: Alert, Orientated x 3, No Acute Distress Eyes (Brief) Eyes: NOT FOUND: scleral icterus ENMT (Brief) ENMT: FOUND: mucosa moist Respiratory (Brief) Respiratory: FOUND: clear all marie, equal bilaterally Cardiovascular (Brief) Cardiac: FOUND: regular rate, regular rhythm Abdomen (Brief) Abdominal: FOUND: BS normo active x4, soft, NOT FOUND: tender Extremities (Brief) Extremity : Side: Bilateral Extremity: leg Extremity Finding: FOUND: edema Comments Swelling to right arm Musculoskeletal (Brief) Musculoskeletal: FOUND: loss of motion (right arm has been placed in a sling), tenderness (right arm) Integumentary (Brief) Integumentary: FOUND: dry, rash (petechiae to Feet), warm Psychiatric (Brief) Psychiatric: FOUND: alert, attentive, normal affect, oriented Laboratory Laboratory Laboratory Tests 10/03/16 04:19 10/04/16 03:57 Laboratory Tests 10/03/16 04:19 10/04/16 03:57 Sepsis Diagnostic Criteria Sepsis SIRS Criteria: Pulse >= 90 beats/min, WBC >=12,000 or <=4,000 Severe Sepsis None Seen Assessment & Plan Problems: (1) Fluid overload Status: Acute Assessment & Plan: Lasix 20 mg IV x2 occasions (2) Pancytopenia Status: Acute Assessment & Plan: 09/26: 1 unit pRBC 09/27: 1 unit pRBC 09/30: 1 unit pRBC and 1 platelet pack 10/02: 1 platelet pack (3) Hypokalemia Status: Acute Assessment & Plan: Not POA (4) 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 (7) Sepsis Status: Resolved Assessment & Plan: Source undetermined. Manifestations: Temp elevation, Tachycardia, Neutropenia (8) Nausea & vomiting Status: Resolved Qualifiers: Vomiting type: unspecified Vomiting Intractability: unspecified Qualified Codes: R11.2 - Nausea with vomiting, unspecified (9) Lung cancer Status: Chronic Assessment & Plan: Started chemo 09/20 On oxygen x3 months (10) COPD (chronic obstructive pulmonary disease) Status: Chronic Qualifiers: COPD type: emphysema Emphysema type: unspecified Qualified Codes: J43.9 - Emphysema, unspecified (11) Chronic respiratory insufficiency Status: Chronic Assessment & Plan: Home O2 at 2L per NC. (12) HTN (hypertension) Status: Chronic Qualifiers: Hypertension type: essential hypertension Qualified Codes: I10 - Essential (primary) hypertension (13) Irritable bowel syndrome (IBS) Status: Chronic (14) Epistaxis Status: Resolved Plan/Intensity of Service Pathologic right humerus fracture: Dr. Siddiqui evaluated Sujata. This morning , and recommends using the sling, and discussed the possibility of surgery. Venous Doppler was negative for DVT. Neutropenic fever has resolved, and white count is 4.9. She is no longer neutropenic. Given lack of identified infectious etiology, and normal vital signs without fever - discontinue Levaquin. Thrombocytopenia: Platelets have decreased again today to 22. Fluid overload: She was given a second dose of Lasix 20 mg IV yesterday, and diuresed well. Her weight has decreased to 55.6 kg. Discussed Port-A-Cath with Dr. Myrick, he is not concerned about follow-up appointment at this time, and will try to stop by the patient's room for reassurance. Hypokalemia and hypomagnesemia: Potassium is still slightly low at 3.4, magnesium has improved to a normal level of 1.9. Hypophosphatemia: Phosphorus improved from 1.4 to 2.3 today following IV replacement yesterday. Hypocalcemia: PTH was found to be elevated at 177. Vitamin D levels are pending. Continue oral vitamin D plus calcium. Consider endocrinology consult. Of note, she was on a thiazide diuretic at home, which is also associated with hypocalcemia. Code Status Do Not Resuscitate Hospital Course Summary Disclaimer The hospital course summary below is not to be considered part of the above Progress Note. Hospital Course Summary 09/25 Admit Inpatient admission for treatment of neutropenic fever-anticipate greater than 2 midnight of care needed. Neutropenic precautions. Start cefepime, vancomycin, and levofloxacin for empiric antimicrobial coverage. Granix to help increase WBC. IVF for volume support secondary to n/v. Zofran prn nausea. Hold antihypertensives due to sepsis syndrome - monitor BP. SCD and Lovenox for DVT prevention due to CA. Continue supplemental O2 and Neb treatments. Consult with Dr Pelayo for ONC eval. Monitor lab. DNR as per pt's request. Care to return to Dr Brower at time of discharge. 09/26 Doing okay this afternoon. Not having f/c. Loose stool has stopped - no bowel movements. Feels some rumbling in ab, like she could have stool soon. Nausea decreased. Ate 25% of breakfast and 50% of lunch. Breathing stable - not feeling increased SOA or congestion with IVF. Continue cefepime, vancomycin, and levofloxacin for empiric antimicrobial coverage. Continue neutropenic precautions. Respiratory PCR panel negative. Stool PCR panel pending (pt not produced sample). Granix 300mcg given this am due to decreased WBC - recheck CBC in am to monitor response. Continue IVF for volume support secondary to n/v. HGB with decreased from admission - transfuse 1 unit pRBC. Hold antihypertensives due to sepsis syndrome - monitor BP. Continue supplemental O2 and Neb treatments. Add nasal saline due to dry nasal passages from O2. Consult with Dr Pelayo for ONC eval. Recheck BMP in am due to medication and IVF use. Repeat CBC in am due to neutropenic fever. / Rough night-had nose bleed. Notes congestion to nose, but afraid to blow nose due to worry about resumption of bleeding. Breathing feeling well-not SOA or having cough or congestion. No nausea, but appetite decreased. Food doesn't taste right which decreases her appetite. No ab pain or bloating. Passing flatus. Not had stool today. Urinating well. No mouth pain or pain with swallowing. Granix 300mcg given this am due to persistent neutropenia - recheck CBC in am to monitor response. HGB decreased to 7.7 - transfuse 1 unit pRBC. ONC recommends keeping HGB greater than 8. Stop Lovenox and ASA due to low platelets and nosebleed. Nursing reports pt refusing SCD due to discomfort. Encourage ambulation. Decrease IVF to 75 cc/hr. Oral drive still decreased. Replace potassium - 20mEg today at noon and evening meal. Will give 400mg MagOx at noon as Mg 1.7. BP stable without medication - will continue to hold. Continue supplemental O2 and Neb treatments. Dr Pelayo did evaluate pt this morning. Case discussed with him. Recheck CMP and Mg in am due to medication and IVF use. Repeat CBC in am due to neutropenic fever. 09/28 Feeling rough. Notes congestion and cough. Stools loose-passed blood. More nausea and less appetite. Tired and weak. Not feeling SOA or having pain with breathing. Denies mouth pain or pain with swallowing. No f/c. Urinating well. Magnesium decrease to 1.5. Potassium 3.2. WBC 0.9, HGB 8.4, Platelets 40. Continue cefepime, vancomycin, and levofloxacin for empiric antimicrobial coverage. Granix 300mcg given this am due to persistent neutropenia - recheck CBC in am to monitor response. Continue IVF at 75 cc/hr. Oral drive still decreased. Replace potassium - 20mEg today at noon and evening meal. IV magnesium 2 grams due to decreased magnesium. BP stable without medication - will continue to hold. Continue supplemental O2 and Neb treatments. Add Mucinex DM BID due to congestion. Change Protonix to 40mg IV BID for enhanced GI protection. Recheck CMP and Mg in am due to medication and IVF use. Repeat CBC in am due to neutropenic fever. 09/29 About the same. Mild, persistent nausea. Minimal appetite. Breathing stable-not having increased SOA, cough or congestion. No chest pressure or pain. Some slight swelling to legs. Potassium 3.1. Mg 1.9. WBC 0.7 with ANC 280. HGB 8.1. Platelets 26. Continue cefepime, vancomycin, and levofloxacin for empiric antimicrobial coverage. Give Granix 300mcg today due to persistent neutropenia. Start Scopolamine patch due to persistent nausea - No Phenergan due to use of Reglan. Replace potassium - IV Boluses x4. Will restart lisinopril at 10mg q hs (home dose 20). Norvasc on hold. 09/30 No f/c. Appetite and nausea about the same. Breathing stable without increased congestion or cough. Nasal congestion, but able to use saline without nose bleeds. Urinating well. Note slight increased edema to legs. Not dizzy or unsteady when up. Continue cefepime, vancomycin, and levofloxacin for empiric antimicrobial coverage. Continue Granix 300mcg today due to persistent neutropenia. Transfuse 1 unit of pRBC and Platelets. Decrease IVF to 50 cc/hr. Spironolactone 50mg x1 to help edema and preserve potassium. Will give oral potassium 20mEg with lunch and evening meal today. Increase lisinopril to 20mg q hs. Norvasc on hold. 10/01 About the same. No f/c. Breathing stable-starting to mobilize some secretions. No nose bleeds. No nausea, but appetite low. Not having ab pain. Ambulating well -not dizzy or unsteady when up. LAB: WBC 1.3 with ANC 767. HGB 8.3. Platelets 25. Potassium 2.9. Mg 1.3. Continue cefepime, vancomycin, and levofloxacin for empiric antimicrobial coverage. Continue Granix 300mcg SQ daily until ANC greater than 1500. Will give 2 grams magnesium IV due to low magnesium. Potassium IV bolus and start Oral KCl 20mEq TID with meals - monitor potassium due to lisinopril use. Will d/c IVF. Continue lisinopril 20mg q hs. Norvasc on hold. BP stable. 10/02/16 Neutropenic fever - no fever since 09/25/16. No evidence of infection. Today tineo day 7 of triple abx therapy. Will DC Vancomycin and Cefepime; continue with Levaquin. Still pancytopenic - platelets are 16K and a platelet pack has been ordered. WBC improved to 2.2 and hgb is 8.4. Rt arm swelling & pain - venous duplex to r/o VTE. Consult Dr. Siddiqui on Tuesday to evaluate. She also has pitting edema to both legs. She is fluid positive 14.6L since admission and her weight has increased by >4 kg. IVF have already been dc'd. Will give Lasix 20 mg IV x1. Hypokalemia and hypomg - continue KDur TID frequency; IV mg has already been ordered by Dr. Forman. Port-a-cath f/u - will need to ask Dr. Myrick about f/u on Tuesday. Nausea - more intense today. Continue PRNs. Start Culturelle d/t diarrhea and abx use. GI panel was negative. Hypocalcemia - continue oral Vit D + Ca. Consider IV replacement. Is receiving Xgeva. D/W Dr. Calle (application spec for [facility]) - recommends oral replacement (no need for IV) - most important is to replace mg. [facility] records reviewed - last note from Dr. Brower was 07/12/16 when she was dx with back muscle strain and Rx Flexeril 10/03/16 Neutropenic fever - WBC improved to 4 today. Continues on Levaquin; Vanco and cefepime were dc'd yesterday. Afebrile. Platelets improved to 30 following transfusion. Rt arm swelling & pain - venous duplex this morning. Consult Dr. Siddiqui on Tuesday to evaluate. Fluid overload: Diuresed well with Lasix 20 mg yesterday. Weight decreased to 56.1 kg. Leg swelling improved. Hypokalemia and hypomg - being replaced IV. Port-a-cath f/u - will need to ask Dr. Myrick about f/u on Tuesday. Nausea - improved today. Continue supportive care. Hypocalcemia - continue oral Vit D + Ca. Improved to 7. 10/04/16 Pathologic right humerus fracture: Dr. Siddiqui evaluated Sujata. This morning , and recommends using the sling, and discussed the possibility of surgery. Venous Doppler was negative for DVT. Neutropenic fever has resolved, and white count is 4.9. She is no longer neutropenic. Given lack of identified infectious etiology, and normal vital signs without fever - discontinue Levaquin. Thrombocytopenia: Platelets have decreased again today to 22. She was given a second dose of Lasix 20 mg IV yesterday, and diuresed well. Her weight has decreased to 55.6 kg. Discussed Port-A-Cath with Dr. Myrick, he is not concerned about follow-up appointment at this time, and will try to stop by the patient's room for reassurance. Hypokalemia and hypomagnesemia: Potassium is still slightly low at 3.4, magnesium has improved to a normal level of 1.9. Hypophosphatemia: Phosphorus improved from 1.4 to 2.3 today following IV replacement yesterday. Hypocalcemia: PTH was found to be elevated at 177. Vitamin D levels are pending. Continue oral vitamin D plus calcium. Consider endocrinology consult. Of note, she was on a thiazide diuretic at home, which is also associated with hypocalcemia. LAUREEN FORMAN MD 10/04/16 1551: Assessment & Plan Assessment 10/04/2016-I reviewed this chart, the patient history, and the PHOTOGRAPHY EDITOR's/PA's documented findings as above. We discussed and formulated the assessment and plan as above with the additions below.-Dr. Forman Patient states she's feeling well. Her arm feels better up in a sling and after taking some pain medication. She denies any other pain other than some occasional chest discomfort which she relates to her lung cancer. She denies feeling short of breath. She is eating and drinking okay. Stools are not as loose. She is urinating without difficulties. She denies any recent bleeding problems. On exam she is alert and oriented and in no acute distress. Chest is clear to auscultation. Cardiovascular reveals a regular rate and rhythm. Abdomen is soft and nontender. Extremities reveal 1-2+ pedal and pretibial edema, but it is improved from yesterday. She does have petechial rash on the lower shins and feet. Her skin is very dry and sloughing. No ulcerations or open areas. Lab was reviewed including potassium of 3.4, phosphorus 2.3, calcium 7.0, magnesium 1.9, albumin 2.8, hemoglobin 8.2, white count 4.9, platelets 22. Regarding pancytopenia, white count continues to improve. Hemoglobin is fairly stable. Platelets are down a little to 22 but no bleeding. Will discuss with Dr. Pelayo. Regarding febrile neutropenia, neutropenia has resolved. Workup for infectious source has been negative. Levaquin was discontinued. Patient has no signs or symptoms of infection at this time. Regarding mild hypophosphatemia, will replace orally. Regarding hypocalcemia, PTH is elevated. She is on calcium and vitamin D. Will increase calcium orally. Regarding right humeral fracture, Dr. Siddiqui stated that one could consider pinning to help with healing when she is medically stable for surgery. I will discuss this with Dr. Pelayo. Continue to follow labs closely. DVT Prophylaxis: SCD'S CONSTANTINE AGUAYO APRN October 04, 2016 11:17 LAUREEN FORMAN MD October 04, 2016 15:51
[2016-10-04] MEDS: FOLIC ACID 1 MG TABLET PO SCH (12:07)
--- NOTE | 2016-10-04 16:19 | NUR ---
CM CM IN TO VISIT WITH PT. SON SIMI CALLED AND SPOKE WITH THIS CM, SON EXPRESSES CONCERN ABOUT MOM BEING HOME ALONE. PT REPORTS DAUGHTER MAY COME BACK FROM [place] TO HELP BUT SHE ISN'T SURE. CM TO SPEAK WITH SON TOMORROW TO DISCUSS FURTHER ABOUT DC PLANS. PT AWARE TO CALL CM SHOULD NEEDS ARISE.
--- NOTE | 2016-10-04 16:56 | PNPDOC ---
Subjective Date DATE: 10/04/16 TIME: 16:41 Patient is feeling stronger. White blood cell count has improved. She is developed rash on her feet. It has the appearance of petechiae. It is dry and scaly and itchy. She continues with nausea. She awoke this morning nauseated and this, away with 1 dose of IV nausea medicine. Review of systems: Gen.: Negative for fever or chills, malaise Eyes: Negative eye discharge, eye pain ENT: Negative for nosebleeds, mouth sores Lymph: Negative enlarged lymph nodes, no night sweats Respiratory: Negative for cough, positive for shortness of breath, negative for hemoptysis, Cardiac: Negative for for chest pain, palpitations, positive for swelling GI: Positive for for nausea, negative for vomiting, negative for diarrhea this is improved since being hospitalized Genitourinary: No urgency, no dysuria, no hematuria Musculoskeletal: Positive for weakness, no joint pain Neurologic: Negative for headache, negative for focal weakness, negative for numbness Objective Vital Signs Vital Signs 10/04/16 10/04/16 10/04/16 10/04/16 07:30 07:31 09:50 09:50 Temp 97.2 Pulse 95 89 88 Resp 18 18 24 B/P 119/63 Pulse Ox 97 96 O2 Delivery Nasal Cannula O2 Flow Rate 2.00 10/04/16 10/04/16 10/04/16 10/04/16 10:03 13:20 15:03 15:08 Temp 95.9 Pulse 91 86 81 Resp 18 24 B/P 120/58 Pulse Ox 97 97 O2 Delivery Nasal Cannula O2 Flow Rate 2.00 10/04/16 15:58 Temp 96.1 Pulse 90 Resp 18 B/P 116/63 Pulse Ox 96 O2 Delivery Nasal Cannula O2 Flow Rate 2.00 Height (Feet): 4 Height (Inches): 11.00 Weight (Kilograms): 55.600 General Alert, No Acute Distress Eyes (Brief) Eyes: FOUND: EOMI, PERRL, NOT FOUND: scleral icterus ENMT (Brief) ENMT: FOUND: mucosa moist, NOT FOUND: lesions Neck (Brief) Neck: NOT FOUND: adenopathy, tenderness Respiratory (Brief) Respiratory: FOUND: clear all marie, equal bilaterally, symmetrical Cardiovascular (Brief) Cardiac: FOUND: regular rate, regular rhythm, NOT FOUND: murmur Abdomen (Brief) Abdominal: FOUND: soft, NOT FOUND: distended, hepatosplenomegaly, tender Extremities (Brief) Extremity : Extremity Finding: FOUND: deformity (right arm in sling), discoloration ( petechiae on the dorsum of both feet), pain, reddened (rash over the top of both feet) Lymphatic (Brief) NOT FOUND: adenopathy Musculoskeletal (Brief) FOUND: loss of motion (right arm in sling), tenderness (right shoulder) Integumentary (Brief) FOUND: dry, warm, NOT FOUND: rash Neurologic (Brief) FOUND: cranial 2-12 intact, sensory, NOT FOUND: motor (no acute motor deficit) Psychiatric (Brief) FOUND: alert, attentive, normal affect, oriented Laboratory Item Value Date Time Platelet Count 22 T/MM3 *L 10/04/16356 Platelet Count 30 T/MM3 L # 10/03/169 Platelet Count 16 T/MM3 *L # 10/02/16 0402 Platelet Count 25 T/MM3 *L # 10/01/16 0502 White Blood Count 2.2 T/MM3 L # 10/02/16 0402 White Blood Count 4.0 T/MM3 L # 10/03/16 0419 White Blood Count 4.9 T/MM3 10/04/16356 Hemoglobin 8.2 GM/DL L 10/04/16356 Hemoglobin 8.5 GM/DL L 10/03/16 041 Calcium Level 7.0 MG/DL L 10/04/16356 Phosphorus Level 2.3 MG/DL L 10/04/16356 Phosphorus Level 1.4 MG/DL L 10/03/16418 Calcium Level 7.0 MG/DL L # 10/03/16 041 Parathyroid Hormone (Intact) 177.3 PG/ML H 10/04/16356 Potassium Level 3.4 MEQ/L L 10/04/16356 Creatinine 0.4 MG/DL L 10/04/16356 Laboratory Tests Test 10/04/16 03:57 10/04/16 10:06 White Blood Count 4.9T/MM3 Red Blood Count 2.86M/MM3 Hemoglobin 8.2GM/DL Hematocrit 24.3% Mean Corpuscular Volume 85.0UM3 Mean Corpuscular Hemoglobin 28.7UUG Mean Corpuscular Hemoglobin Concent 33.7GM/DL RDW Standard Deviation 52.8FL Platelet Count 22T/MM3 Mean Platelet Volume UM3 Immature Granulocyte % (Auto) % Neutrophils (%) (Auto) % Lymphocytes (%) (Auto) % Monocytes (%) (Auto) % Eosinophils (%) (Auto) % Basophils (%) (Auto) % Absolute Immature Granulocyte (auto T/MM3 Absolute Neutrophils (auto) T/MM3 Absolute Lymphocytes (auto) T/MM3 Absolute Monocytes (auto) T/MM3 Absolute Eosinophils (auto) T/MM3 Absolute Basophils (auto) T/MM3 Neutrophils % (Manual) 51.0% Band Neutrophils % 22.0% Lymphocytes % (Manual) 7.0% Monocytes % (Manual) 14.0% Basophils % (Manual) 1.0% Metamyelocytes % 3.0% Myelocytes % 2.0% Absolute Neutrophils (Manual) 2.5T/MM3 Band Neutrophils # 1.1T/MM3 Lymphocytes # (Manual) 0.3T/MM3 Monocytes # (Manual) 0.7T/MM3 Basophils # (Manual) 0.0T/MM3 Metamyelocytes # 0.1T/MM3 Myelocytes # 0.1T/MM3 Red Cell Morphology Comment Normal Turbidity < 20 Sodium Level 140MEQ/L Potassium Level 3.4MEQ/L Chloride Level 102MEQ/L Carbon Dioxide Level 30MEQ/L Anion Gap 8MEQ/L Blood Urea Nitrogen < 2.0MG/DL Creatinine 0.4MG/DL Glomerular Filtration Rate Calc 155 BUN/Creatinine Ratio RATIO Glucose Level 97MG/DL Calculated Osmolality MOSM/KG Calcium Level 7.0MG/DL Phosphorus Level 2.3MG/DL Magnesium Level 1.9MG/DL Icterus Index < 2 Albumin 2.8G/DL Parathyroid Hormone (Intact) 177.3PG/ML Chemistry Specimen Hemolysis < 15 25-Hydroxy Vitamin D Total Pending Vitamin D 1,25-Dihydroxy Pending Sepsis Diagnostic Criteria Sepsis SIRS Criteria: Pulse >= 90 beats/min, WBC >=12,000 or <=4,000 Severe Sepsis None Seen Assessment & Plan Assessment 1. Neutropenic fever. Presented on 09/25 with temp of 100.2. Has been afebrile since. Admitted with IV antibiotic coverage to include Vancomycin,Levaquin and Cefapine. Filgastrim given daily 09/25/2016. to 10/02. WBC improved. 2. Eosinophilia of 34 % Question etiology. Allergy to med or reactive. 0% eos. 3. Thrombocytopenia. Post chemotherapy suppression vs DIC Platelets 62K , 40K 09/28/16, and today platelets 26K Will follow. Alimta/carboplatin chemotherapy, cycle 1 on 09/20/16. Platelets 13K . Was given one unit platelets. Platelets 25K on 10/03/16. 22K on 10/04/16. Will follow. 4. Anemia. Hgb 7.7 on 09/27 after transfusion 8.2 on admission. Dropped to 6.8. 9 after transfusion. Suspect Peptic ulcer disease with acute blood loss. Retic count low at 0.1% suggesting marrow suppression from chemotherapy. Ferritin and B 12 elevated. Nosebleeds also contributing and had nosebleed this morning. Bleeding exacerbated by prophylactic lovenox. She weighs 53Kg and had lovenox 40 mg given on 09/25 late in evening and had another 40 mg given at 9 am on 09/26. Will hold Lovenox. Consider EGD after WBC and PLT recovery. Hgb 8.2 on 10/04/16. 5. 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 S/P radiation to humerus and painful pelvic mets. Completed XRT mid August and then started systemic therapy with Alimta Carboplatin on 09/20/16. 6. N/V have been problem since diagnosiss and with radiation. Had problems last week after chemotherapy. IV fluids and zofran given on Tue, and Tuesday. She also had famitoldine for burning . This has improved but concern for peptic ulcer disease is present. Continues with intermittent nausea/ vomiting. Will follow 7. COPD Oxygen dependent 8. Bone metastasis. Pathologic fracture, right humerus. Irradiated. Xgeva given 08/30/16. 9. Rash after IV contrast and Xgeva. Suspect contrast allergy. 10. H/o HTN 11. Hypocalcemia. This may be secondary to bone metastasis, Xgeva, vitamin D deficiency. She currently has a PTH that is markedly elevated. On calcium supplementation. Will follow discussed care with Dr. Forman 10/02/2016 Pt with rising wbc. afebrile pt now to receive plts no new c/o eating well on O2 on IV antibiotics vanc/levaquin/cefapine on granix Consider check IgG levels too. ? has she been a smoker? 10/03/16 W[place] in nad in with neutropenic fever. now with improving counts, afebrile, no source of infx on levaquin only now. renal function ok Plan continue granix d/c levaquin observe plts also obesrve anemia likely reduce dose of carbo alimta next cycle, renal function ok. pt to be placed on folic acid and b12 po also. Plan/Intensity of Service Follow counts Suspect she will need platelets tomorrow. Consider EGD for evaluation of the nausea it when platelets recovered. This can be done as an outpatient Code Status Do Not Resuscitate Hospital Course Summary Disclaimer The visit summary below is not to be considered part of the above Progress Note. Hospital Course Summary 09/25 Admit Inpatient admission for treatment of neutropenic fever-anticipate greater than 2 midnight of care needed. Neutropenic precautions. Start cefepime, vancomycin, and levofloxacin for empiric antimicrobial coverage. Granix to help increase WBC. IVF for volume support secondary to n/v. Zofran prn nausea. Hold antihypertensives due to sepsis syndrome - monitor BP. SCD and Lovenox for DVT prevention due to CA. Continue supplemental O2 and Neb treatments. Consult with Dr Pelayo for ONC eval. Monitor lab. DNR as per pt's request. Care to return to Dr Brower at time of discharge. 09/26 Doing okay this afternoon. Not having f/c. Loose stool has stopped - no bowel movements. Feels some rumbling in ab, like she could have stool soon. Nausea decreased. Ate 25% of breakfast and 50% of lunch. Breathing stable - not feeling increased SOA or congestion with IVF. Continue cefepime, vancomycin, and levofloxacin for empiric antimicrobial coverage. Continue neutropenic precautions. Respiratory PCR panel negative. Stool PCR panel pending (pt not produced sample). Granix 300mcg given this am due to decreased WBC - recheck CBC in am to monitor response. Continue IVF for volume support secondary to n/v. HGB with decreased from admission - transfuse 1 unit pRBC. Hold antihypertensives due to sepsis syndrome - monitor BP. Continue supplemental O2 and Neb treatments. Add nasal saline due to dry nasal passages from O2. Consult with Dr Pelayo for ONC eval. Recheck BMP in am due to medication and IVF use. Repeat CBC in am due to neutropenic fever. 5/ Rough night-had nose bleed. Notes congestion to nose, but afraid to blow nose due to worry about resumption of bleeding. Breathing feeling well-not SOA or having cough or congestion. No nausea, but appetite decreased. Food doesn't taste right which decreases her appetite. No ab pain or bloating. Passing flatus. Not had stool today. Urinating well. No mouth pain or pain with swallowing. Granix 300mcg given this am due to persistent neutropenia - recheck CBC in am to monitor response. HGB decreased to 7.7 - transfuse 1 unit pRBC. ONC recommends keeping HGB greater than 8. Stop Lovenox and ASA due to low platelets and nosebleed. Nursing reports pt refusing SCD due to discomfort. Encourage ambulation. Decrease IVF to 75 cc/hr. Oral drive still decreased. Replace potassium - 20mEg today at noon and evening meal. Will give 400mg MagOx at noon as Mg 1.7. BP stable without medication - will continue to hold. Continue supplemental O2 and Neb treatments. Dr Pelayo did evaluate pt this morning. Case discussed with him. Recheck CMP and Mg in am due to medication and IVF use. Repeat CBC in am due to neutropenic fever. 5/ Feeling rough. Notes congestion and cough. Stools loose-passed blood. More nausea and less appetite. Tired and weak. Not feeling SOA or having pain with breathing. Denies mouth pain or pain with swallowing. No f/c. Urinating well. Magnesium decrease to 1.5. Potassium 3.2. WBC 0.9, HGB 8.4, Platelets 40. Continue cefepime, vancomycin, and levofloxacin for empiric antimicrobial coverage. Granix 300mcg given this am due to persistent neutropenia - recheck CBC in am to monitor response. Continue IVF at 75 cc/hr. Oral drive still decreased. Replace potassium - 20mEg today at noon and evening meal. IV magnesium 2 grams due to decreased magnesium. BP stable without medication - will continue to hold. Continue supplemental O2 and Neb treatments. Add Mucinex DM BID due to congestion. Change Protonix to 40mg IV BID for enhanced GI protection. Recheck CMP and Mg in am due to medication and IVF use. Repeat CBC in am due to neutropenic fever. 09/29 About the same. Mild, persistent nausea. Minimal appetite. Breathing stable-not having increased SOA, cough or congestion. No chest pressure or pain. Some slight swelling to legs. Potassium 3.1. Mg 1.9. WBC 0.7 with ANC 280. HGB 8.1. Platelets 26. Continue cefepime, vancomycin, and levofloxacin for empiric antimicrobial coverage. Give Granix 300mcg today due to persistent neutropenia. Start Scopolamine patch due to persistent nausea - No Phenergan due to use of Reglan. Replace potassium - IV Boluses x4. Will restart lisinopril at 10mg q hs (home dose 20). Norvasc on hold. 09/30 No f/c. Appetite and nausea about the same. Breathing stable without increased congestion or cough. Nasal congestion, but able to use saline without nose bleeds. Urinating well. Note slight increased edema to legs. Not dizzy or unsteady when up. Continue cefepime, vancomycin, and levofloxacin for empiric antimicrobial coverage. Continue Granix 300mcg today due to persistent neutropenia. Transfuse 1 unit of pRBC and Platelets. Decrease IVF to 50 cc/hr. Spironolactone 50mg x1 to help edema and preserve potassium. Will give oral potassium 20mEg with lunch and evening meal today. Increase lisinopril to 20mg q hs. Norvasc on hold. 10/01 About the same. No f/c. Breathing stable-starting to mobilize some secretions. No nose bleeds. No nausea, but appetite low. Not having ab pain. Ambulating well -not dizzy or unsteady when up. LAB: WBC 1.3 with ANC 767. HGB 8.3. Platelets 25. Potassium 2.9. Mg 1.3. Continue cefepime, vancomycin, and levofloxacin for empiric antimicrobial coverage. Continue Granix 300mcg SQ daily until ANC greater than 1500. Will give 2 grams magnesium IV due to low magnesium. Potassium IV bolus and start Oral KCl 20mEq TID with meals - monitor potassium due to lisinopril use. Will d/c IVF. Continue lisinopril 20mg q hs. Norvasc on hold. BP stable. 10/02/16 Neutropenic fever - no fever since 09/25/16. No evidence of infection. Today tineo day 7 of triple abx therapy. Will DC Vancomycin and Cefepime; continue with Levaquin. Still pancytopenic - platelets are 16K and a platelet pack has been ordered. WBC improved to 2.2 and hgb is 8.4. Rt arm swelling & pain - venous duplex to r/o VTE. Consult Dr. Siddiqui on Tuesday to evaluate. She also has pitting edema to both legs. She is fluid positive 14.6L since admission and her weight has increased by >4 kg. IVF have already been dc'd. Will give Lasix 20 mg IV x1. Hypokalemia and hypomg - continue KDur TID frequency; IV mg has already been ordered by Dr. Forman. Port-a-cath f/u - will need to ask Dr. Myrick about f/u on Tuesday. Nausea - more intense today. Continue PRNs. Start Culturelle d/t diarrhea and abx use. GI panel was negative. Hypocalcemia - continue oral Vit D + Ca. Consider IV replacement. Is receiving Xgeva. D/W Dr. Calle (electronic equipment trades worker for [facility]) - recommends oral replacement (no need for IV) - most important is to replace mg. [facility] records reviewed - last note from Dr. Brower was 07/12/16 when she was dx with back muscle strain and Rx Flexeril 10/03/16 Neutropenic fever - WBC improved to 4 today. Continues on Levaquin; Vanco and cefepime were dc'd yesterday. Afebrile. Platelets improved to 30 following transfusion. Rt arm swelling & pain - venous duplex this morning. Consult Dr. Siddiqui on Tuesday to evaluate. Fluid overload: Diuresed well with Lasix 20 mg yesterday. Weight decreased to 56.1 kg. Leg swelling improved. Hypokalemia and hypomg - being replaced IV. Port-a-cath f/u - will need to ask Dr. Myrick about f/u on Tuesday. Nausea - improved today. Continue supportive care. Hypocalcemia - continue oral Vit D + Ca. Improved to 7. 10/04/16 Pathologic right humerus fracture: Dr. Siddiqui evaluated Suj[place]. This morning , and recommends using the sling, and discussed the possibility of surgery. Venous Doppler was negative for DVT. Neutropenic fever has resolved, and white count is 4.9. She is no longer neutropenic. Given lack of identified infectious etiology, and normal vital signs without fever - discontinue Levaquin. Thrombocytopenia: Platelets have decreased again today to 22. She was given a second dose of Lasix 20 mg IV yesterday, and diuresed well. Her weight has decreased to 55.6 kg. Discussed Port-A-Cath with Dr. Myrick, he is not concerned about follow-up appointment at this time, and will try to stop by the patient's room for reassurance. Hypokalemia and hypomagnesemia: Potassium is still slightly low at 3.4, magnesium has improved to a normal level of 1.9. Hypophosphatemia: Phosphorus improved from 1.4 to 2.3 today following IV replacement yesterday. Hypocalcemia: PTH was found to be elevated at 177. Vitamin D levels are pending. Continue oral vitamin D plus calcium. Consider endocrinology consult. Of note, she was on a thiazide diuretic at home, which is also associated with hypocalcemia. Medication List: Current Medications Medications (Trade) Dose Ordered Sig/Ryan Start Time Stop Time Status Last Admin Dose Admin Sodium Chloride (Normal Saline IV) 1,000 ml @ 100 mls/hr Q10H 09/25/16 19:35 09/26/16 09:42 DC 09/25/16 20:25 100 MLS/HR Acetaminophen/ Hydrocodone Bitart ([place] 7.5/325) 1 tab Q6H PRN 09/25/16 19:45 10/04/16 08:41 1 TAB Hydromorphone HCl (Dilaudid) 0.5 mg Q2H PRN 09/25/16 19:45 Ondansetron HCl (Zofran) 4 mg Q6H PRN 09/25/16 19:45 10/01/16 07:58 4 MG Aspirin (Ecotrin) 81 mg DAILY 09/26/16 09:00 09/27/16 09:40 DC 09/27/16 08:21 81 MG Cyclobenzaprine HCl (Flexeril) 5 mg TID PRN 09/25/16 19:45 Dicyclomine HCl (Bentyl) 20 mg TID 09/25/16 21:00 09/26/16 06:27 DC 09/25/16 22:00 20 MG Folic Acid (Folate) 1 mg NOON 09/26/16 12:00 10/04/16 12:07 1 MG Albuterol/ Ipratropium (Duoneb) 3 ml Q6H 09/25/16 19:45 09/26/16 09:42 DC 09/26/16 09:32 3 ML Metoclopramide HCl (Reglan) 10 mg Q6HR PRN 09/25/16 19:45 10/02/16 13:10 10 MG Pantoprazole Sodium 40 mg 40 mg ACB 09/26/16 06:30 09/28/16 11:55 DC 09/28/16 06:05 40 MG Cefepime HCl 2 g/ Sodium Chloride 100 ml @ 200 mls/hr Q12HR 09/25/16 21:00 09/25/16 21:00 DC Levofloxacin/ Dextrose/Water (LEVAQUIN 750 mg IVPB/D5W) 150 ml @ 100 mls/hr Q24H 09/26/16 06:30 10/03/16 13:21 DC 10/03/16 06:54 100 MLS/HR Albuterol Sulfate (Proventil 2.5 Mg/3 ml) 2.5 mg Q4HR PRN 09/25/16 19:45 10/02/16 09:43 2.5 MG Enoxaparin Sodium 40 mg 40 mg DAILY 09/26/16 09:00 09/27/16 09:32 DC 09/26/16 08:35 40 MG Cefepime HCl/ Sodium Chloride (Maxipime/NS) 100 ml @ 200 mls/hr Q6H 09/26/16 09:00 10/02/16 13:05 DC 10/02/16 10:11 200 MLS/HR Dicyclomine HCl 20 mg 20 mg AC30 09/26/16 07:30 10/04/16 12:07 20 MG Vancomycin HCl 1 g/Sodium Chloride 250 ml @ 250 mls/hr Q12H 09/26/16 08:00 09/28/16 10:17 DC 09/28/16 08:14 250 MLS/HR Sodium Chloride (NS) 500 ml @ 0 mls/hr Q0M 09/26/16 09:37 09/28/16 13:24 DC 09/28/16 09:58 0 MLS/HR Albuterol/ Ipratropium 3 ml 3 ml RTQID 09/26/16 11:00 09/27/16 08:48 DC 09/27/16 06:46 3 ML Potassium Chloride/Sodium Chloride (Normal Saline w/ KCl 20 Meq) 1,000 ml @ 100 mls/hr Q10H 09/26/16 09:45 09/27/16 10:42 DC 09/27/16 06:32 100 MLS/HR Sodium Chloride (DEEP SEA Nasal [place]) 2 spray QID 09/26/16 17:00 10/04/16 12:08 2 SPRAY Albuterol/ Ipratropium 3 ml 3 ml Q6HR 09/27/16 09:00 10/04/16 15:08 3 ML Sodium Chloride 500 ml @ 0 mls/hr Q0M PRN 09/27/16 09:30 10/02/16 04:04 0 MLS/HR Sodium Chloride 500 ml @ 0 mls/hr Q0M 09/27/16 09:40 09/28/16 13:24 DC Potassium Chloride/Sodium Chloride 1,000 ml @ 75 mls/hr [id number] 09/27/16 10:45 09/30/16 09:03 DC 09/29/16 22:47 75 MLS/HR Magnesium Sulfate/ Dextrose 100 ml @ 50 mls/hr Q2H 09/28/16 09:00 09/28/16 12:59 DC 09/28/16 12:57 50 MLS/HR Vancomycin HCl/ Sodium Chloride (Vancocin/NS) 500 ml @ 250 mls/hr Q12H 09/28/16 16:00 10/02/16 13:05 DC 10/02/16 04:58 250 MLS/HR Guaifenesin/ Dextromethorphan (Mucinex Dm 600/ 30 Mg Tablet) 1 tab Q12HR 09/28/16 12:00 10/04/16 08:42 1 TAB Pantoprazole Sodium 40 mg 40 mg BID 09/28/16 12:00 10/04/16 11:30 DC 10/04/16 08:43 40 MG Potassium Chloride/ Lidocaine HCl/ Sodium Chloride (KCl/Xylocaine 1%/NS) 106 ml @ 50 mls/hr Q2H8M 09/29/16 09:00 09/29/16 17:28 DC 09/29/16 14:00 50 MLS/HR Calcium/Vitamin D (Caltrate + D) 1 tab BID 09/29/16 21:00 10/04/16 08:41 1 TAB Lisinopril (Prinivil) 10 mg HS 09/29/16 22:00 09/30/16 09:03 DC 09/29/16 20:13 10 MG Scopolamine HBr (Transderm-Scop) 1.5 mg Q3D 09/29/16 11:30 10/02/16 10:13 1.5 MG Scopolamine HBr 1 removal 1 removal Q3D 10/02/16 11:45 10/02/16 10:13 1 REMOVAL Sodium Chloride 500 ml @ 0 mls/hr Q0M 09/30/16 08:02 09/30/16 11:14 DC Potassium Chloride/Sodium Chloride (Normal Saline w/ KCl 20 Meq) 1,000 ml @ 50 mls/hr Q20H 09/30/16 09:00 10/01/16 14:20 DC 10/01/16 06:32 50 MLS/HR Lisinopril (Prinivil) 20 mg HS 09/30/16 22:00 10/03/16 21:53 20 MG Metoclopramide HCl (REGLAN Inj) 10 mg Q6HR PRN 09/30/16 12:15 10/03/16 07:53 10 MG Potassium Chloride 20 meq 20 meq TIDWM 10/01/16 08:00 10/02/16 07:54 DC 10/01/16 16:44 20 MEQ Magnesium Sulfate/ Dextrose (Magnesium Sulfate Ivpb) 100 ml @ 50 mls/hr Q2H 10/01/16 09:30 10/01/16 13:29 DC 10/01/16 12:40 50 MLS/HR Potassium Chloride 20 meq 20 meq TIDWM 10/01/16 12:00 UNV Potassium Chloride/Sterile Water (KCl/Water) 105 ml @ 50 mls/hr Q2H6M 10/01/16 13:30 10/01/16 21:53 DC 10/01/16 23:36 50 MLS/HR Tbo-Filgrastim (Granix) 300 mcg DAILY 10/01/16 15:00 10/04/16 09:20 DC 10/02/16 10:12 300 MCG Potassium Chloride 20 meq 20 meq TIDWM 10/02/16 08:00 10/02/16 14:00 DC 10/02/16 13:13 20 MEQ Sodium Chloride (NS) 500 ml @ 0 mls/hr Q0M 10/02/16 08:36 Lactobacillus Acidophilus 2 cap 2 cap TIDWM 10/02/16 17:30 10/04/16 12:07 2 CAP Magnesium Sulfate/ Dextrose/Water (Magnesium Sulfate/D5W) 102 ml @ 100 mls/hr Q1H2M 10/03/16 10:45 10/03/16 13:35 DC 10/03/16 15:24 100 MLS/HR Cyanocobalamin (Vit. B-12) 1,000 mcg DAILY 10/03/16 13:30 10/04/16 08:42 1,000 MCG Pantoprazole Sodium (Protonix) 40 mg ACB 10/05/16 06:30 Sodium Phosphate (K-Phos *Neutral* Tablet) 250 mg WM 10/04/16 17:30 Calcium Carbonate (Caltrate) 600 mg BID 10/04/16 21:00 Lab results: Laboratory Tests Test 10/02/16 22:04 10/03/16 04:19 10/04/16 03:57 10/04/16 10:06 Stool Cyclospora species Detection Negative Stool Rotavirus A PCR Negative Stool Adenovirus (PCR) Negative Stool Astrovirus (PCR) Negative Stool Campylobacter PCR Negative Stool C. difficile Toxin (PCR) Negative Stool Cryptosporidium PCR Negative Stool E. coli Shiga Toxins Negative Stool E coli O157 PCR N/a Stool Enterotoxigenic Ecoli PCR Negative Stool Enteropathogenic E. coli (PCR Negative Stool Enteroaggregative E. coli PCR Negative Stool Entamoeba (PCR) Negative Stool Giardia Lamblia PCR Negative Stool Salmonella PCR Negative Stool Sapovirus (PCR) Negative Stool Plesiomonas shigelloides PCR Negative Stool Shigella/EIEC (PCR) Negative Stool Yersinia enterocolitica (PCR) Negative Stool Vibrio (PCR) Negative Stool Vibrio cholera (PCR) Negative Stool Norovirus GI/GII PCR Negative White Blood Count 4.0T/MM3 4.9T/MM3 Red Blood Count 2.91M/MM3 2.86M/MM3 Hemoglobin 8.5GM/DL 8.2GM/DL Hematocrit 24.5% 24.3% Mean Corpuscular Volume 84.2UM3 85.0UM3 Mean Corpuscular Hemoglobin 29.2UUG 28.7UUG Mean Corpuscular Hemoglobin Concent 34.7GM/DL 33.7GM/DL RDW Standard Deviation 51.1FL 52.8FL Platelet Count 30T/MM3 22T/MM3 Mean Platelet Volume 9.9UM3 UM3 Neutrophils % (Manual) 55.0% 51.0% Band Neutrophils % 16.0% 22.0% Lymphocytes % (Manual) 16.0% 7.0% Monocytes % (Manual) 8.0% 14.0% Eosinophils % (Manual) 5.0% Absolute Neutrophils (Manual) 2.2T/MM3 2.5T/MM3 Band Neutrophils # 0.6T/MM3 1.1T/MM3 Lymphocytes # (Manual) 0.6T/MM3 0.3T/MM3 Monocytes # (Manual) 0.3T/MM3 0.7T/MM3 Eosinophils # (Manual) 0.2T/MM3 Red Cell Morphology Comment Normal Normal Turbidity < 20 < 20 Sodium Level 141MEQ/L 140MEQ/L Potassium Level 3.4MEQ/L 3.4MEQ/L Chloride Level 103MEQ/L 102MEQ/L Carbon Dioxide Level 29MEQ/L 30MEQ/L Anion Gap 9MEQ/L 8MEQ/L Blood Urea Nitrogen < 2.0MG/DL < 2.0MG/DL Creatinine 0.4MG/DL 0.4MG/DL Glomerular Filtration Rate Calc 155 155 BUN/Creatinine Ratio RATIO RATIO Glucose Level 90MG/DL 97MG/DL Calculated Osmolality MOSM/KG MOSM/KG Calcium Level 7.0MG/DL 7.0MG/DL Phosphorus Level 1.4MG/DL 2.3MG/DL Magnesium Level 1.6MG/DL 1.9MG/DL Icterus Index < 2 < 2 Albumin 2.9G/DL 2.8G/DL Chemistry Specimen Hemolysis < 15 < 15 Immature Granulocyte % (Auto) % Neutrophils (%) (Auto) % Lymphocytes (%) (Auto) % Monocytes (%) (Auto) % Eosinophils (%) (Auto) % Basophils (%) (Auto) % Absolute Immature Granulocyte (auto T/MM3 Absolute Neutrophils (auto) T/MM3 Absolute Lymphocytes (auto) T/MM3 Absolute Monocytes (auto) T/MM3 Absolute Eosinophils (auto) T/MM3 Absolute Basophils (auto) T/MM3 Basophils % (Manual) 1.0% Metamyelocytes % 3.0% Myelocytes % 2.0% Basophils # (Manual) 0.0T/MM3 Metamyelocytes # 0.1T/MM3 Myelocytes # 0.1T/MM3 Parathyroid Hormone (Intact) 177.3PG/ML My orders: Orders-BRENDEN PELAYO Vitamin D 25-Hydroxy - Ams (10/04/16 08:30) Vitamin D 1,25 Dihydroxy - Ams (10/04/16 08:30) Cbc W/Auto Diff-Reflex Manual (10/05/16 04:00) Cmp - Comprehensive Metabolic (10/05/16 04:00) Magnesium (10/05/16 04:00) LDH (10/05/16 04:00) BRENDEN PELAYO October 04, 2016 16:45
[2016-10-04] MEDS: PHOSPHORUS 250 MG TABLET PO SCH (17:06)
--- NOTE | 2016-10-04 17:40 | NUR ---
STATUS PT A/O X3. STANDBY ASSIST. PT ON 2L O2 PER NC, WEARS THIS AT HOME. DENIES SOA AT THIS TIME. PRN NORCO GIVEN FOR PAIN DOCUMENTED. DENIES NAUSEA. PORT FLUSHES AND ASPIRATES WELL. SLING TO RIGHT ARM. PT RESTING ON EDGE OF BED VISITING WITH FAMILY. WILL CONTINUE TO MONITOR.
[2016-10-04] MEDS: CALCIUM CARBONATE 600 MG TABLET PO SCH (21:12)
[2016-10-04] MEDS: LISINOPRIL 20 MG TABLET PO SCH (21:13)
[2016-10-05] VITALS (11 sets, daily range): BP systolic 112–140; BP diastolic 57–69; PULSE 78–101; RESP 16–20; TEMP 96.9–97.5; O2SAT 91–97
[2016-10-05] MEDS: ALBUTEROL/IPRATROPIUM INHAL. 2.5mg-0.5mg/3ml Neb. AEROSOL SCH ×4 (02:56→19:06)
[2016-10-05 04:51] LABS: HCT - HEMATOCRIT 24.2 % (36-46); HGB - HEMOGLOBIN 8.1 GM/DL (12-16); MEAN CORPUSCULAR HGB CONC(MCHC 33.5 GM/DL (31-37); MEAN CORPUSCULAR VOLUME 86.7 UM3 (80-100); MEAN PLATELET VOLUME 11.6 UM3 (9.4-12.4); RED BLOOD COUNT 2.79 M/MM3 (4.00-5.20); WBC - WHITE BLOOD COUNT 4.9 T/MM3 (4.5-11.0)
[2016-10-05 05:00] LABS: ALBUMIN 2.7 G/DL (3.5-5.0); ALBUMIN/GLOBULIN RATIO 1.1 RATIO (1.1-2.2); ALKALINE PHOSPHATASE 94 U/L (38-126); ALT (SGPT) 41 U/L (9-52); ANION GAP 9 MEQ/L (5-15); AST (SGOT) 20 U/L (14-36); BUN/CREATININE RATIO 15 RATIO (6-26); CALCIUM 8.2 MG/DL (8.4-10.2); CHLORIDE 101 MEQ/L (98-107); CO2 - CARBON DIOXIDE 32 MEQ/L (22-30); CREATININE 0.4 MG/DL (0.7-1.2); GLOMERULAR FILTRATION RATE 155; GLUCOSE 98 MG/DL (65-110); LDH 675 U/L (313-618); MAGNESIUM 1.5 MG/DL (1.6-2.3); SODIUM 142 MEQ/L (134-144); TOTAL PROTEIN 5.1 G/DL (6.3-8.2)
--- NOTE | 2016-10-05 05:27 | NUR ---
Shift Up to BR with SBA, gait steady. 2L/NC, VSS, alert and able to make needs known. Sling in place to right arm. No N/V, norco x1 this shift. PAC to right chest CDI, aspirates and flushes without difficulty.
[2016-10-05 06:15] LABS: BAND NEUTROPHILS # 0.6 T/MM3; LYMPHOCYTES # (MANUAL) 0.6 T/MM3 (1-4.8); MONOCYTES # (MANUAL) 0.6 T/MM3 (0-0.8); NEUTROPHILS #(MANUAL)-ABSOLUTE 3.1 T/MM3 (1.8-7.7); TOTAL CELLS COUNTED 100 %
[2016-10-05] MEDS: PANTOPRAZOLE 40 MG TABLET PO SCH (06:45)
[2016-10-05] MEDS: GUAIFENESIN DM 600mg/30mg TABLET PO SCH ×2 (08:18→19:59)
[2016-10-05] MEDS: LACTOBACILLUS (15B cfu) CAPSULE PO SCH ×3 (08:18→16:41)
[2016-10-05] MEDS: DICYCLOMINE 20 MG TABLET PO SCH ×3 (08:18→16:41)
[2016-10-05] MEDS: CALCIUM 600mg + VIT D 400 TABLET PO SCH ×2 (08:19→19:59)
[2016-10-05] MEDS: CALCIUM CARBONATE 600 MG TABLET PO SCH ×2 (08:19→20:00)
[2016-10-05] MEDS: PHOSPHORUS 250 MG TABLET PO SCH ×3 (08:19→16:41)
[2016-10-05] MEDS: CYANOCOBALAMIN (B-12) 500mcg TABLET PO SCH (08:20)
[2016-10-05] MEDS: SALINE NASAL SPRAY 45ml EA NOSTRIL SCH ×4 (08:21→20:02)
[2016-10-05] MEDS: MAGNESIUM SULFATE 1 G in D5W 100 ML IV SCH ×2 (08:25→09:46)
[2016-10-05] MEDS: SCOPOLAMINE 1.5 MG PATCH TD SCH (12:05)
[2016-10-05] MEDS: SCOPOLAMINE PATCH REMOVAL TD SCH (12:05)
[2016-10-05] MEDS: FOLIC ACID 1 MG TABLET PO SCH (12:06)
--- NOTE | 2016-10-05 12:22 | PDORTHOPN ---
Subjective Date DATE: 10/05/16 TIME: 12:19 Subjective Mrs. Juarez is seen while she eats her lunch today. She reports her pain is controlled and that the sling has been helping. No other complaints at this time. Objective Vital Signs Vital signs Vital Signs 10/05/16 10/05/16 10/05/16 10/05/16 02:51 02:51 03:00 04:00 Temp 97.0 Pulse 130 111 101 Resp 18 20 B/P 138/64 Pulse Ox 95 91 O2 Delivery Nasal Cannula O2 Flow Rate 2.00 10/05/16 10/05/16 10/05/16 10/05/16 08:00 08:16 09:37 09:37 Temp 97.2 Pulse 91 80 Resp 18 18 20 B/P 140/68 Pulse Ox 93 97 O2 Delivery Nasal Cannula Nasal Cannula O2 Flow Rate 2.00 2.00 10/05/16 10/05/16 10/05/16 09:37 09:37 11:26 Temp 96.9 Pulse 88 86 87 Resp 18 B/P 119/62 Pulse Ox 95 O2 Delivery Nasal Cannula O2 Flow Rate 2.00 Height (Feet): 4 Height (Inches): 11.00 Weight (Kilograms): 55.400 General General Appearance: Alert, Orientated x 3, No Acute Distress Respiratory (Brief) Respiratory Brief: FOUND: non-labored Cardiovascular (Brief) Cardiac: FOUND: calf easily compressible, calf soft, nontender Capillary Refill: <2 sec Musculoskeletal (Brief) Musculoskeletal Brief: FOUND: deformity, loss of motion (right shoulder), tenderness (proximal right humerus) Integumentary (Brief) Integumentary Brief: FOUND dry, FOUND pink, FOUND warm Neurologic (Brief) Neurological Brief: FOUND: extremities w/o deficits, neuro intact Psychiatric (Brief) Psychiatric Brief: FOUND: no acute distress Laboratory Laboratory Laboratory Tests 10/04/16 03:57 10/05/16 04:05 Laboratory Tests 10/04/16 03:57 10/05/16 04:05 Assessment & Plan Problems: (1) 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 (2) Lung cancer Status: Chronic (3) COPD (chronic obstructive pulmonary disease) Status: Chronic Qualifiers: COPD type: emphysema Emphysema type: unspecified Qualified Codes: J43.9 - Emphysema, unspecified (4) HTN (hypertension) Status: Chronic Qualifiers: Hypertension type: essential hypertension Qualified Codes: I10 - Essential (primary) hypertension (5) Neutropenic fever Status: Resolved (6) Pancytopenia Status: Acute Hospital Course Summary Disclaimer The visit summary below is not to be considered part of the above Progress Note. Hospital Course 09/25 Admit Inpatient admission for treatment of neutropenic fever-anticipate greater than 2 midnight of care needed. Neutropenic precautions. Start cefepime, vancomycin, and levofloxacin for empiric antimicrobial coverage. Granix to help increase WBC. IVF for volume support secondary to n/v. Zofran prn nausea. Hold antihypertensives due to sepsis syndrome - monitor BP. SCD and Lovenox for DVT prevention due to CA. Continue supplemental O2 and Neb treatments. Consult with Dr Pelayo for ONC evdavid. Monitor lab. DNR as per pt's request. Care to return to Dr Brower at time of discharge. 09/26 Doing okay this afternoon. Not having f/c. Loose stool has stopped - no bowel movements. Feels some rumbling in ab, like she could have stool soon. Nausea decreased. Ate 25% of breakfast and 50% of lunch. Breathing stable - not feeling increased SOA or congestion with IVF. Continue cefepime, vancomycin, and levofloxacin for empiric antimicrobial coverage. Continue neutropenic precautions. Respiratory PCR panel negative. Stool PCR panel pending (pt not produced sample). Granix 300mcg given this am due to decreased WBC - recheck CBC in am to monitor response. Continue IVF for volume support secondary to n/v. HGB with decreased from admission - transfuse 1 unit pRBC. Hold antihypertensives due to sepsis syndrome - monitor BP. Continue supplemental O2 and Neb treatments. Add nasal saline due to dry nasal passages from O2. Consult with Dr Pelayo for ONC eval. Recheck BMP in am due to medication and IVF use. Repeat CBC in am due to neutropenic fever. 09/27 Rough night-had nose bleed. Notes congestion to nose, but afraid to blow nose due to worry about resumption of bleeding. Breathing feeling well-not SOA or having cough or congestion. No nausea, but appetite decreased. Food doesn't taste right which decreases her appetite. No ab pain or bloating. Passing flatus. Not had stool today. Urinating well. No mouth pain or pain with swallowing. Granix 300mcg given this am due to persistent neutropenia - recheck CBC in am to monitor response. HGB decreased to 7.7 - transfuse 1 unit pRBC. ONC recommends keeping HGB greater than 8. Stop Lovenox and ASA due to low platelets and nosebleed. Nursing reports pt refusing SCD due to discomfort. Encourage ambulation. Decrease IVF to 75 cc/hr. Oral drive still decreased. Replace potassium - 20mEg today at noon and evening meal. Will give 400mg MagOx at noon as Mg 1.7. BP stable without medication - will continue to hold. Continue supplemental O2 and Neb treatments. Dr Pelayo did evaluate pt this morning. Case discussed with him. Recheck CMP and Mg in am due to medication and IVF use. Repeat CBC in am due to neutropenic fever. 09/28 Feeling rough. Notes congestion and cough. Stools loose-passed blood. More nausea and less appetite. Tired and weak. Not feeling SOA or having pain with breathing. Denies mouth pain or pain with swallowing. No f/c. Urinating well. Magnesium decrease to 1.5. Potassium 3.2. WBC 0.9, HGB 8.4, Platelets 40. Continue cefepime, vancomycin, and levofloxacin for empiric antimicrobial coverage. Granix 300mcg given this am due to persistent neutropenia - recheck CBC in am to monitor response. Continue IVF at 75 cc/hr. Oral drive still decreased. Replace potassium - 20mEg today at noon and evening meal. IV magnesium 2 grams due to decreased magnesium. BP stable without medication - will continue to hold. Continue supplemental O2 and Neb treatments. Add Mucinex DM BID due to congestion. Change Protonix to 40mg IV BID for enhanced GI protection. Recheck CMP and Mg in am due to medication and IVF use. Repeat CBC in am due to neutropenic fever. 09/29 About the same. Mild, persistent nausea. Minimal appetite. Breathing stable-not having increased SOA, cough or congestion. No chest pressure or pain. Some slight swelling to legs. Potassium 3.1. Mg 1.9. WBC 0.7 with ANC 280. HGB 8.1. Platelets 26. Continue cefepime, vancomycin, and levofloxacin for empiric antimicrobial coverage. Give Granix 300mcg today due to persistent neutropenia. Start Scopolamine patch due to persistent nausea - No Phenergan due to use of Reglan. Replace potassium - IV Boluses x4. Will restart lisinopril at 10mg q hs (home dose 20). Norvasc on hold. 09/30 No f/c. Appetite and nausea about the same. Breathing stable without increased congestion or cough. Nasal congestion, but able to use saline without nose bleeds. Urinating well. Note slight increased edema to legs. Not dizzy or unsteady when up. Continue cefepime, vancomycin, and levofloxacin for empiric antimicrobial coverage. Continue Granix 300mcg today due to persistent neutropenia. Transfuse 1 unit of pRBC and Platelets. Decrease IVF to 50 cc/hr. Spironolactone 50mg x1 to help edema and preserve potassium. Will give oral potassium 20mEg with lunch and evening meal today. Increase lisinopril to 20mg q hs. Norvasc on hold. 10/01 About the same. No f/c. Breathing stable-starting to mobilize some secretions. No nose bleeds. No nausea, but appetite low. Not having ab pain. Ambulating well -not dizzy or unsteady when up. LAB: WBC 1.3 with ANC 767. HGB 8.3. Platelets 25. Potassium 2.9. Mg 1.3. Continue cefepime, vancomycin, and levofloxacin for empiric antimicrobial coverage. Continue Granix 300mcg SQ daily until ANC greater than 1500. Will give 2 grams magnesium IV due to low magnesium. Potassium IV bolus and start Oral KCl 20mEq TID with meals - monitor potassium due to lisinopril use. Will d/c IVF. Continue lisinopril 20mg q hs. Norvasc on hold. BP stable. 10/02/16 Neutropenic fever - no fever since 09/25/16. No evidence of infection. Today tineo day 7 of triple abx therapy. Will DC Vancomycin and Cefepime; continue with Levaquin. Still pancytopenic - platelets are 16K and a platelet pack has been ordered. WBC improved to 2.2 and hgb is 8.4. Rt arm swelling & pain - venous duplex to r/o VTE. Consult Dr. Siddiqui on Tuesday to evaluate. She also has pitting edema to both legs. She is fluid positive 14.6L since admission and her weight has increased by >4 kg. IVF have already been dc'd. Will give Lasix 20 mg IV x1. Hypokalemia and hypomg - continue KDur TID frequency; IV mg has already been ordered by Dr. Forman. Port-a-cath f/u - will need to ask Dr. Myrick about f/u on Tuesday. Nausea - more intense today. Continue PRNs. Start Culturelle d/t diarrhea and abx use. GI panel was negative. Hypocalcemia - continue oral Vit D + Ca. Consider IV replacement. Is receiving Xgeva. D/W Dr. Calle (preparation supervisor canning for [facility]) - recommends oral replacement (no need for IV) - most important is to replace mg. [place] records reviewed - last note from Dr. Brower was 07/12/16 when she was dx with back muscle strain and Rx Flexeril 10/03/16 Neutropenic fever - WBC improved to 4 today. Continues on Levaquin; Vanco and cefepime were dc'd yesterday. Afebrile. Platelets improved to 30 following transfusion. Rt arm swelling & pain - venous duplex this morning. Consult Dr. Siddiqui on Tuesday to evaluate. Fluid overload: Diuresed well with Lasix 20 mg yesterday. Weight decreased to 56.1 kg. Leg swelling improved. Hypokalemia and hypomg - being replaced IV. Port-a-cath f/u - will need to ask Dr. Myrick about f/u on Tuesday. Nausea - improved today. Continue supportive care. Hypocalcemia - continue oral Vit D + Ca. Improved to 7. 10/04/16 Pathologic right humerus fracture: Dr. Siddiqui evaluated Suj[place]. This morning , and recommends using the sling, and discussed the possibility of surgery. Venous Doppler was negative for DVT. Neutropenic fever has resolved, and white count is 4.9. She is no longer neutropenic. Given lack of identified infectious etiology, and normal vital signs without fever - discontinue Levaquin. Thrombocytopenia: Platelets have decreased again today to 22. She was given a second dose of Lasix 20 mg IV yesterday, and diuresed well. Her weight has decreased to 55.6 kg. Discussed Port-A-Cath with Dr. Myrick, he is not concerned about follow-up appointment at this time, and will try to stop by the patient's room for reassurance. Hypokalemia and hypomagnesemia: Potassium is still slightly low at 3.4, magnesium has improved to a normal level of 1.9. Hypophosphatemia: Phosphorus improved from 1.4 to 2.3 today following IV replacement yesterday. Hypocalcemia: PTH was found to be elevated at 177. Vitamin D levels are pending. Continue oral vitamin D plus calcium. Consider endocrinology consult. Of note, she was on a thiazide diuretic at home, which is also associated with hypocalcemia. TONI PUGH October 05, 2016 12:22
--- NOTE | 2016-10-05 14:04 | PNPDOC ---
KAR HIRSCH BUSINESS ASSISTANT 10/05/16 1404: Subjective Date DATE: 10/05/16 TIME: 14:03 Sitting on bedside, alone in room. Alert and oriented, pleasant affect. States nausea this morning, no emesis. Denies shortness of air currently, intermittent cough persists; symptoms not increased. Continues with loose/watery stools General: No fever, no night sweats Eyes: No redness, no pain, no diplopia ENT: No mouth sores, no trouble swallowing Cardiac: No chest pain no palpitations Pulmonary: No cough, no shortness of breath, no wheezing Abdomen: No pain, no nausea vomiting, no diarrhea or constipation : No urgency, frequency, dysuria, or hematuria Musculoskeletal: No arthritis, no myalgias Neurological: No headaches, no focal weakness Skin: No rash, no sores Psychiatric: No anxiety, no depression Objective Vital Signs Vital Signs 10/05/16 10/05/16 10/05/16 10/05/16 02:51 02:51 03:00 04:00 Temp 97.0 Pulse 130 111 101 Resp 18 20 B/P 138/64 Pulse Ox 95 91 O2 Delivery Nasal Cannula O2 Flow Rate 2.00 10/05/16 10/05/16 10/05/16 10/05/16 08:00 08:16 09:37 09:37 Temp 97.2 Pulse 91 80 Resp 18 18 20 B/P 140/68 Pulse Ox 93 97 O2 Delivery Nasal Cannula Nasal Cannula O2 Flow Rate 2.00 2.00 10/05/16 10/05/16 10/05/16 09:37 09:37 11:26 Temp 96.9 Pulse 88 86 87 Resp 18 B/P 119/62 Pulse Ox 95 O2 Delivery Nasal Cannula O2 Flow Rate 2.00 Height (Feet): 4 Height (Inches): 11.00 Weight (Kilograms): 55.400 Eyes (Brief) Eyes: FOUND: EOMI, PERRL, NOT FOUND: scleral icterus ENMT (Brief) ENMT: FOUND: mucosa moist, NOT FOUND: lesions Neck (Brief) Neck: NOT FOUND: adenopathy, tenderness Respiratory (Brief) Respiratory: FOUND: clear all marie, equal bilaterally, symmetrical Cardiovascular (Brief) Cardiac: FOUND: regular rate, regular rhythm, NOT FOUND: murmur Abdomen (Brief) Abdominal: FOUND: soft, NOT FOUND: distended, hepatosplenomegaly, tender Extremities (Brief) Extremity : Extremity Finding: FOUND: deformity (right arm in sling), discoloration ( petechiae on the dorsum of both feet), pain, reddened (rash over the top of both feet) Lymphatic (Brief) NOT FOUND: adenopathy Musculoskeletal (Brief) FOUND: loss of motion (right arm in sling), tenderness (right shoulder) Integumentary (Brief) FOUND: dry, warm, NOT FOUND: rash Neurologic (Brief) FOUND: cranial 2-12 intact, sensory, NOT FOUND: motor (no acute motor deficit) Psychiatric (Brief) FOUND: alert, attentive, normal affect, oriented Laboratory Laboratory Tests Test 10/05/16 04:05 White Blood Count 4.9T/MM3 Red Blood Count 2.79M/MM3 Hemoglobin 8.1GM/DL Hematocrit 24.2% Mean Corpuscular Volume 86.7UM3 Mean Corpuscular Hemoglobin 29.0UUG Mean Corpuscular Hemoglobin Concent 33.5GM/DL RDW Standard Deviation 54.5FL Platelet Count 30T/MM3 Mean Platelet Volume 11.6UM3 Immature Granulocyte % (Auto) % Neutrophils (%) (Auto) % Lymphocytes (%) (Auto) % Monocytes (%) (Auto) % Eosinophils (%) (Auto) % Basophils (%) (Auto) % Absolute Immature Granulocyte (auto T/MM3 Absolute Neutrophils (auto) T/MM3 Absolute Lymphocytes (auto) T/MM3 Absolute Monocytes (auto) T/MM3 Absolute Eosinophils (auto) T/MM3 Absolute Basophils (auto) T/MM3 Neutrophils % (Manual) 63.0% Band Neutrophils % 12.0% Lymphocytes % (Manual) 13.0% Monocytes % (Manual) 12.0% Absolute Neutrophils (Manual) 3.1T/MM3 Band Neutrophils # 0.6T/MM3 Lymphocytes # (Manual) 0.6T/MM3 Monocytes # (Manual) 0.6T/MM3 Red Cell Morphology Comment Normal Turbidity < 20 Sodium Level 142MEQ/L Potassium Level 4.0MEQ/L Chloride Level 101MEQ/L Carbon Dioxide Level 32MEQ/L Anion Gap 9MEQ/L Blood Urea Nitrogen 6.0MG/DL Creatinine 0.4MG/DL Glomerular Filtration Rate Calc 155 BUN/Creatinine Ratio 15RATIO Glucose Level 98MG/DL Calculated Osmolality 271MOSM/KG Calcium Level 8.2MG/DL Magnesium Level 1.5MG/DL Total Bilirubin 0.50MG/DL Icterus Index < 2 Aspartate Amino Transf (AST/SGOT) 20U/L Alanine Aminotransferase (ALT/SGPT) 41U/L Alkaline Phosphatase 94U/L Lactate Dehydrogenase 675U/L Total Protein 5.1G/DL Albumin 2.7G/DL Globulin 2.4G/DL Albumin/Globulin Ratio 1.1RATIO Chemistry Specimen Hemolysis < 15 Sepsis Diagnostic Criteria Sepsis SIRS Criteria: Pulse >= 90 beats/min, WBC >=12,000 or <=4,000 Severe Sepsis None Seen Assessment & Plan Assessment 1. Neutropenic fever. Presented on 09/25 with temp of 100.2. Has been afebrile since. Admitted with IV antibiotic coverage to include Vancomycin,Levaquin and Cefapine. Filgastrim given daily 09/25/2016. to 10/02. WBC improved. 2. Eosinophilia of 34 % Question etiology. Allergy to med or reactive. 0% eos. 3. Thrombocytopenia. Post chemotherapy suppression vs DIC Platelets 62K , 40K 09/28/16, and today platelets 26K Will follow. Alimta/carboplatin chemotherapy, cycle 1 on 09/20/16. Platelets 13K . Was given one unit platelets. Platelets 25K on 10/03/16. 22K on 10/04/16, 30K today. Continue to follow. 4. Anemia. Hgb 7.7 on 09/27 after transfusion 8.2 on admission. Dropped to 6.8. 9 after transfusion. Suspect Peptic ulcer disease with acute blood loss. Retic count low at 0.1% suggesting marrow suppression from chemotherapy. Ferritin and B 12 elevated. Nosebleeds also contributing and had nosebleed this morning. Bleeding exacerbated by prophylactic lovenox. She weighs 53Kg and had lovenox 40 mg given on 09/25 late in evening and had another 40 mg given at 9 am on 09/26. Will hold Lovenox. Consider EGD after WBC and PLT recovery. Hgb 8.2 on 10/04/16,8.1 today. 5. 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 S/P radiation to humerus and painful pelvic mets. Completed XRT mid August and then started systemic therapy with Alimta Carboplatin on 09/20/16. 6. N/V have been problem since diagnosiss and with radiation. Had problems last week after chemotherapy. IV fluids and zofran given on Tue, and Tuesday. She also had famitoldine for burning . This has improved but concern for peptic ulcer disease is present. Continues with intermittent nausea/ vomiting. Will follow 7. COPD Oxygen dependent, stable. 8. Bone metastasis. Pathologic fracture, right humerus. Irradiated. Xgeva given 08/30/16. 9. Rash after IV contrast and Xgeva. Suspect contrast allergy. 10. Hypocalcemia. This may be secondary to bone metastasis, Xgeva, vitamin D deficiency. She currently has a PTH that is markedly elevated. On calcium supplementation. Will follow. Plan/Intensity of Service Follow counts Suspect she will need platelets tomorrow. Consider EGD for evaluation of the nausea it when platelets recovered. This can be done as an outpatient Code Status Do Not Resuscitate Hospital Course Summary Disclaimer The visit summary below is not to be considered part of the above Progress Note. Hospital Course Summary 09/25 Admit Inpatient admission for treatment of neutropenic fever-anticipate greater than 2 midnight of care needed. Neutropenic precautions. Start cefepime, vancomycin, and levofloxacin for empiric antimicrobial coverage. Granix to help increase WBC. IVF for volume support secondary to n/v. Zofran prn nausea. Hold antihypertensives due to sepsis syndrome - monitor BP. SCD and Lovenox for DVT prevention due to CA. Continue supplemental O2 and Neb treatments. Consult with Dr Pelayo for ONC eval. Monitor lab. DNR as per pt's request. Care to return to Dr Brower at time of discharge. 09/26 Doing okay this afternoon. Not having f/c. Loose stool has stopped - no bowel movements. Feels some rumbling in ab, like she could have stool soon. Nausea decreased. Ate 25% of breakfast and 50% of lunch. Breathing stable - not feeling increased SOA or congestion with IVF. Continue cefepime, vancomycin, and levofloxacin for empiric antimicrobial coverage. Continue neutropenic precautions. Respiratory PCR panel negative. Stool PCR panel pending (pt not produced sample). Granix 300mcg given this am due to decreased WBC - recheck CBC in am to monitor response. Continue IVF for volume support secondary to n/v. HGB with decreased from admission - transfuse 1 unit pRBC. Hold antihypertensives due to sepsis syndrome - monitor BP. Continue supplemental O2 and Neb treatments. Add nasal saline due to dry nasal passages from O2. Consult with Dr Pelayo for ONC eval. Recheck BMP in am due to medication and IVF use. Repeat CBC in am due to neutropenic fever. 5/ Rough night-had nose bleed. Notes congestion to nose, but afraid to blow nose due to worry about resumption of bleeding. Breathing feeling well-not SOA or having cough or congestion. No nausea, but appetite decreased. Food doesn't taste right which decreases her appetite. No ab pain or bloating. Passing flatus. Not had stool today. Urinating well. No mouth pain or pain with swallowing. Granix 300mcg given this am due to persistent neutropenia - recheck CBC in am to monitor response. HGB decreased to 7.7 - transfuse 1 unit pRBC. ONC recommends keeping HGB greater than 8. Stop Lovenox and ASA due to low platelets and nosebleed. Nursing reports pt refusing SCD due to discomfort. Encourage ambulation. Decrease IVF to 75 cc/hr. Oral drive still decreased. Replace potassium - 20mEg today at noon and evening meal. Will give 400mg MagOx at noon as Mg 1.7. BP stable without medication - will continue to hold. Continue supplemental O2 and Neb treatments. Dr Pelayo did evaluate pt this morning. Case discussed with him. Recheck CMP and Mg in am due to medication and IVF use. Repeat CBC in am due to neutropenic fever. 5/ Feeling rough. Notes congestion and cough. Stools loose-passed blood. More nausea and less appetite. Tired and weak. Not feeling SOA or having pain with breathing. Denies mouth pain or pain with swallowing. No f/c. Urinating well. Magnesium decrease to 1.5. Potassium 3.2. WBC 0.9, HGB 8.4, Platelets 40. Continue cefepime, vancomycin, and levofloxacin for empiric antimicrobial coverage. Granix 300mcg given this am due to persistent neutropenia - recheck CBC in am to monitor response. Continue IVF at 75 cc/hr. Oral drive still decreased. Replace potassium - 20mEg today at noon and evening meal. IV magnesium 2 grams due to decreased magnesium. BP stable without medication - will continue to hold. Continue supplemental O2 and Neb treatments. Add Mucinex DM BID due to congestion. Change Protonix to 40mg IV BID for enhanced GI protection. Recheck CMP and Mg in am due to medication and IVF use. Repeat CBC in am due to neutropenic fever. 09/29 About the same. Mild, persistent nausea. Minimal appetite. Breathing stable-not having increased SOA, cough or congestion. No chest pressure or pain. Some slight swelling to legs. Potassium 3.1. Mg 1.9. WBC 0.7 with ANC 280. HGB 8.1. Platelets 26. Continue cefepime, vancomycin, and levofloxacin for empiric antimicrobial coverage. Give Granix 300mcg today due to persistent neutropenia. Start Scopolamine patch due to persistent nausea - No Phenergan due to use of Reglan. Replace potassium - IV Boluses x4. Will restart lisinopril at 10mg q hs (home dose 20). Norvasc on hold. 09/30 No f/c. Appetite and nausea about the same. Breathing stable without increased congestion or cough. Nasal congestion, but able to use saline without nose bleeds. Urinating well. Note slight increased edema to legs. Not dizzy or unsteady when up. Continue cefepime, vancomycin, and levofloxacin for empiric antimicrobial coverage. Continue Granix 300mcg today due to persistent neutropenia. Transfuse 1 unit of pRBC and Platelets. Decrease IVF to 50 cc/hr. Spironolactone 50mg x1 to help edema and preserve potassium. Will give oral potassium 20mEg with lunch and evening meal today. Increase lisinopril to 20mg q hs. Norvasc on hold. 10/01 About the same. No f/c. Breathing stable-starting to mobilize some secretions. No nose bleeds. No nausea, but appetite low. Not having ab pain. Ambulating well -not dizzy or unsteady when up. LAB: WBC 1.3 with ANC 767. HGB 8.3. Platelets 25. Potassium 2.9. Mg 1.3. Continue cefepime, vancomycin, and levofloxacin for empiric antimicrobial coverage. Continue Granix 300mcg SQ daily until ANC greater than 1500. Will give 2 grams magnesium IV due to low magnesium. Potassium IV bolus and start Oral KCl 20mEq TID with meals - monitor potassium due to lisinopril use. Will d/c IVF. Continue lisinopril 20mg q hs. Norvasc on hold. BP stable. 10/02/16 Neutropenic fever - no fever since 09/25/16. No evidence of infection. Today tineo day 7 of triple abx therapy. Will DC Vancomycin and Cefepime; continue with Levaquin. Still pancytopenic - platelets are 16K and a platelet pack has been ordered. WBC improved to 2.2 and hgb is 8.4. Rt arm swelling & pain - venous duplex to r/o VTE. Consult Dr. Siddiqui on Tuesday to evaluate. She also has pitting edema to both legs. She is fluid positive 14.6L since admission and her weight has increased by >4 kg. IVF have already been dc'd. Will give Lasix 20 mg IV x1. Hypokalemia and hypomg - continue KDur TID frequency; IV mg has already been ordered by Dr. Forman. Port-a-cath f/u - will need to ask Dr. Myrick about f/u on Tuesday. Nausea - more intense today. Continue PRNs. Start Culturelle d/t diarrhea and abx use. GI panel was negative. Hypocalcemia - continue oral Vit D + Ca. Consider IV replacement. Is receiving Xgeva. D/W Dr. Calle (doll surgeon for [facility]) - recommends oral replacement (no need for IV) - most important is to replace mg. [place] records reviewed - last note from Dr. Brower was 07/12/16 when she was dx with back muscle strain and Rx Flexeril 10/03/16 Neutropenic fever - WBC improved to 4 today. Continues on Levaquin; Vanco and cefepime were dc'd yesterday. Afebrile. Platelets improved to 30 following transfusion. Rt arm swelling & pain - venous duplex this morning. Consult Dr. Siddiqui on Tuesday to evaluate. Fluid overload: Diuresed well with Lasix 20 mg yesterday. Weight decreased to 56.1 kg. Leg swelling improved. Hypokalemia and hypomg - being replaced IV. Port-a-cath f/u - will need to ask Dr. Myrick about f/u on Tuesday. Nausea - improved today. Continue supportive care. Hypocalcemia - continue oral Vit D + Ca. Improved to 7. 10/04/16 Pathologic right humerus fracture: Dr. Siddiqui evaluated Suj[place]. This morning , and recommends using the sling, and discussed the possibility of surgery. Venous Doppler was negative for DVT. Neutropenic fever has resolved, and white count is 4.9. She is no longer neutropenic. Given lack of identified infectious etiology, and normal vital signs without fever - discontinue Levaquin. Thrombocytopenia: Platelets have decreased again today to 22. She was given a second dose of Lasix 20 mg IV yesterday, and diuresed well. Her weight has decreased to 55.6 kg. Discussed Port-A-Cath with Dr. Myrick, he is not concerned about follow-up appointment at this time, and will try to stop by the patient's room for reassurance. Hypokalemia and hypomagnesemia: Potassium is still slightly low at 3.4, magnesium has improved to a normal level of 1.9. Hypophosphatemia: Phosphorus improved from 1.4 to 2.3 today following IV replacement yesterday. Hypocalcemia: PTH was found to be elevated at 177. Vitamin D levels are pending. Continue oral vitamin D plus calcium. Consider endocrinology consult. Of note, she was on a thiazide diuretic at home, which is also associated with hypocalcemia. WILMA EDWARDS MD 10/06/16 0824: Assessment & Plan Plan/Intensity of Service The patient is seen and examined by me. Are formulated the plan of care. I reviewed and agree with the above note by Suzanne Hirsch APRN. KAR HIRSCH APRN October 05, 2016 14:04 WILMA EDWARDS MD October 06, 2016 08:24 WILMA EDWARDS MD October 06, 2016 08:24 signs without fever - discontinue Levaquin. Thrombocytopenia: Platelets have decreased again today to 22. She was given a second dose of Lasix 20 mg IV yesterday, and diuresed well. Her weight has decreased to 55.6 kg. Discussed Port-A-Cath with Dr. Myrick, he is not concerned about follow-up appointment at this time, and will try to stop by the patient's room for reassurance. Hypokalemia and hypomagnesemia: Potassium is still slightly low at 3.4, magnesium has improved to a normal level of 1.9. Hypophosphatemia: Phosphorus improved from 1.4 to 2.3 today following IV replacement yesterday. Hypocalcemia: PTH was found to be elevated at 177. Vitamin D levels are pending. Continue oral vitamin D plus calcium. Consider endocrinology consult. Of note, she was on a thiazide diuretic at home, which is also associated with hypocalcemia. WILMA EDWARDS MD 10/06/16 0824: Assessment & Plan Plan/Intensity of Service The patient is seen and examined by me. Are formulated the plan of care. I reviewed and agree with the above note by Suzanne Hirsch APRN. KAR HIRSCH APRN October 05, 2016 14:04 WILMA EDWARDS MD October 06, 2016 08:24
--- NOTE | 2016-10-05 16:31 | PNPDOC ---
CRISTIAN KLEIN V ANESTHESIOLOGY TEACHER 10/05/16 1622: Subjective Date DATE: 10/05/16 TIME: 16:17 Subjective Harriet is seen today in follow up while resting in bed. She is currently breathing on 2 liters of oxygen by nasal cannula without evidence of distress. She denies having any pain currently on examination. She states that she is feeling better today and has been able to eat without having nausea. Right arm in sling. Noted 2+ bilateral lower extremity edema, which patient feels is improved. Given that she has had her legs elevated today. Objective Vital Signs Vital signs Vital Signs Date Time Temp Pulse Resp B/P Pulse Ox O2 Delivery O2 Flow Rate FiO2 10/05/16 15:39 84 10/05/16 15:28 18 10/05/16 15:14 97.5 127/69 96 Nasal Cannula 2.00 Telemetry Rhythm: Sinus Rhythm Height (Feet): 4 Height (Inches): 11.00 Weight (Kilograms): 55.400 General General Appearance: Alert, Orientated x 3, Cooperative, No Acute Distress Eyes (Brief) Eyes: FOUND: EOMI ENMT (Brief) ENMT: FOUND: mucosa moist, normal dentition, NOT FOUND: pharnyx erythema Neck (Brief) Neck: FOUND: midline, NOT FOUND: adenopathy, carotid bruits, tracheal deviation Respiratory (Brief) Respiratory: FOUND: clear all marie, equal bilaterally, NOT FOUND: wheezes Cardiovascular (Brief) Cardiac: FOUND: regular rate, regular rhythm, NOT FOUND: murmur, pedal edema Capillary Refill: <2 sec Abdomen (Brief) Abdominal: FOUND: BS normo active x4, soft, NOT FOUND: distended, tender Extremities (Brief) Extremity : Side: Right Extremity: arm (sling) Lymphatic (Brief) Lymphatic: NOT FOUND: adenopathy Musculoskeletal (Brief) Musculoskeletal: NOT FOUND: tenderness Integumentary (Brief) Integumentary: FOUND: dry, pink, warm Neurologic (Brief) Neurological: FOUND: cranial 2-12 intact Psychiatric (Brief) Psychiatric: FOUND: alert, attentive, normal affect, oriented Laboratory Laboratory Laboratory Tests 10/04/16 03:57 10/05/16 04:05 Laboratory Tests 10/04/16 03:57 10/05/16 04:05 Sepsis Diagnostic Criteria Sepsis SIRS Criteria: Pulse >= 90 beats/min, WBC >=12,000 or <=4,000 Severe Sepsis None Seen Assessment & Plan Problems: (1) Fluid overload Status: Acute Assessment & Plan: Lasix 20 mg IV x2 occasions (2) Pancytopenia Status: Acute Assessment & Plan: 09/26: 1 unit pRBC 09/27: 1 unit pRBC 09/30: 1 unit pRBC and 1 platelet pack 10/02: 1 platelet pack (3) Hypokalemia Status: Acute Assessment & Plan: Not POA (4) 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 (7) Sepsis Status: Resolved Assessment & Plan: Source undetermined. Manifestations: Temp elevation, Tachycardia, Neutropenia (8) Nausea & vomiting Status: Resolved Qualifiers: Vomiting type: unspecified Vomiting Intractability: unspecified Qualified Codes: R11.2 - Nausea with vomiting, unspecified (9) Lung cancer Status: Chronic Assessment & Plan: Started chemo 09/20 On oxygen x3 months (10) COPD (chronic obstructive pulmonary disease) Status: Chronic Qualifiers: COPD type: emphysema Emphysema type: unspecified Qualified Codes: J43.9 - Emphysema, unspecified (11) Chronic respiratory insufficiency Status: Chronic Assessment & Plan: Home O2 at 2L per NC. (12) HTN (hypertension) Status: Chronic Qualifiers: Hypertension type: essential hypertension Qualified Codes: I10 - Essential (primary) hypertension (13) Irritable bowel syndrome (IBS) Status: Chronic (14) Epistaxis Status: Resolved Plan/Intensity of Service 10/05/16 Appreciate multiple consultations including O[facility] and oncology team given complexity of patients illness. In today with sling for immobilization of right arm for support of pathologic humerus fracture. Continue to monitor fluid status and daily weights. Weight continues to be trending down and is at 55.4 kilograms today. No further diuresis at this time. Neutropenia resolved (ANC 3600) and thrombocytopenia have both improved. Platelet today is slightly up at 30 and WBC count is normal. Hypocalcemia- continue on oral supplementation. Consult placed for PT and OT to evaluate strength. Consider IRU screen Code Status Do Not Resuscitate Hospital Course Summary Disclaimer The hospital course summary below is not to be considered part of the above Progress Note. Hospital Course Summary 09/25 Admit Inpatient admission for treatment of neutropenic fever-anticipate greater than 2 midnight of care needed. Neutropenic precautions. Start cefepime, vancomycin, and levofloxacin for empiric antimicrobial coverage. Granix to help increase WBC. IVF for volume support secondary to n/v. Zofran prn nausea. Hold antihypertensives due to sepsis syndrome - monitor BP. SCD and Lovenox for DVT prevention due to CA. Continue supplemental O2 and Neb treatments. Consult with Dr Pelayo for ONC eval. Monitor lab. DNR as per pt's request. Care to return to Dr Brower at time of discharge. 09/26 Doing okay this afternoon. Not having f/c. Loose stool has stopped - no bowel movements. Feels some rumbling in ab, like she could have stool soon. Nausea decreased. Ate 25% of breakfast and 50% of lunch. Breathing stable - not feeling increased SOA or congestion with IVF. Continue cefepime, vancomycin, and levofloxacin for empiric antimicrobial coverage. Continue neutropenic precautions. Respiratory PCR panel negative. Stool PCR panel pending (pt not produced sample). Granix 300mcg given this am due to decreased WBC - recheck CBC in am to monitor response. Continue IVF for volume support secondary to n/v. HGB with decreased from admission - transfuse 1 unit pRBC. Hold antihypertensives due to sepsis syndrome - monitor BP. Continue supplemental O2 and Neb treatments. Add nasal saline due to dry nasal passages from O2. Consult with Dr Pelayo for ONC eval. Recheck BMP in am due to medication and IVF use. Repeat CBC in am due to neutropenic fever. 09/27 Rough night-had nose bleed. Notes congestion to nose, but afraid to blow nose due to worry about resumption of bleeding. Breathing feeling well-not SOA or having cough or congestion. No nausea, but appetite decreased. Food doesn't taste right which decreases her appetite. No ab pain or bloating. Passing flatus. Not had stool today. Urinating well. No mouth pain or pain with swallowing. Granix 300mcg given this am due to persistent neutropenia - recheck CBC in am to monitor response. HGB decreased to 7.7 - transfuse 1 unit pRBC. ONC recommends keeping HGB greater than 8. Stop Lovenox and ASA due to low platelets and nosebleed. Nursing reports pt refusing SCD due to discomfort. Encourage ambulation. Decrease IVF to 75 cc/hr. Oral drive still decreased. Replace potassium - 20mEg today at noon and evening meal. Will give 400mg MagOx at noon as Mg 1.7. BP stable without medication - will continue to hold. Continue supplemental O2 and Neb treatments. Dr Pelayo did evaluate pt this morning. Case discussed with him. Recheck CMP and Mg in am due to medication and IVF use. Repeat CBC in am due to neutropenic fever. 09/28 Feeling rough. Notes congestion and cough. Stools loose-passed blood. More nausea and less appetite. Tired and weak. Not feeling SOA or having pain with breathing. Denies mouth pain or pain with swallowing. No f/c. Urinating well. Magnesium decrease to 1.5. Potassium 3.2. WBC 0.9, HGB 8.4, Platelets 40. Continue cefepime, vancomycin, and levofloxacin for empiric antimicrobial coverage. Granix 300mcg given this am due to persistent neutropenia - recheck CBC in am to monitor response. Continue IVF at 75 cc/hr. Oral drive still decreased. Replace potassium - 20mEg today at noon and evening meal. IV magnesium 2 grams due to decreased magnesium. BP stable without medication - will continue to hold. Continue supplemental O2 and Neb treatments. Add Mucinex DM BID due to congestion. Change Protonix to 40mg IV BID for enhanced GI protection. Recheck CMP and Mg in am due to medication and IVF use. Repeat CBC in am due to neutropenic fever. 09/29 About the same. Mild, persistent nausea. Minimal appetite. Breathing stable-not having increased SOA, cough or congestion. No chest pressure or pain. Some slight swelling to legs. Potassium 3.1. Mg 1.9. WBC 0.7 with ANC 280. HGB 8.1. Platelets 26. Continue cefepime, vancomycin, and levofloxacin for empiric antimicrobial coverage. Give Granix 300mcg today due to persistent neutropenia. Start Scopolamine patch due to persistent nausea - No Phenergan due to use of Reglan. Replace potassium - IV Boluses x4. Will restart lisinopril at 10mg q hs (home dose 20). Norvasc on hold. 09/30 No f/c. Appetite and nausea about the same. Breathing stable without increased congestion or cough. Nasal congestion, but able to use saline without nose bleeds. Urinating well. Note slight increased edema to legs. Not dizzy or unsteady when up. Continue cefepime, vancomycin, and levofloxacin for empiric antimicrobial coverage. Continue Granix 300mcg today due to persistent neutropenia. Transfuse 1 unit of pRBC and Platelets. Decrease IVF to 50 cc/hr. Spironolactone 50mg x1 to help edema and preserve potassium. Will give oral potassium 20mEg with lunch and evening meal today. Increase lisinopril to 20mg q hs. Norvasc on hold. 10/01 About the same. No f/c. Breathing stable-starting to mobilize some secretions. No nose bleeds. No nausea, but appetite low. Not having ab pain. Ambulating well -not dizzy or unsteady when up. LAB: WBC 1.3 with ANC 767. HGB 8.3. Platelets 25. Potassium 2.9. Mg 1.3. Continue cefepime, vancomycin, and levofloxacin for empiric antimicrobial coverage. Continue Granix 300mcg SQ daily until ANC greater than 1500. Will give 2 grams magnesium IV due to low magnesium. Potassium IV bolus and start Oral KCl 20mEq TID with meals - monitor potassium due to lisinopril use. Will d/c IVF. Continue lisinopril 20mg q hs. Norvasc on hold. BP stable. 10/02/16 Neutropenic fever - no fever since 09/25/16. No evidence of infection. Today tineo day 7 of triple abx therapy. Will DC Vancomycin and Cefepime; continue with Levaquin. Still pancytopenic - platelets are 16K and a platelet pack has been ordered. WBC improved to 2.2 and hgb is 8.4. Rt arm swelling & pain - venous duplex to r/o VTE. Consult Dr. Siddiqui on Tuesday to evaluate. She also has pitting edema to both legs. She is fluid positive 14.6L since admission and her weight has increased by >4 kg. IVF have already been dc'd. Will give Lasix 20 mg IV x1. Hypokalemia and hypomg - continue KDur TID frequency; IV mg has already been ordered by Dr. Forman. Port-a-cath f/u - will need to ask Dr. Myrick about f/u on Tuesday. Nausea - more intense today. Continue PRNs. Start Culturelle d/t diarrhea and abx use. GI panel was negative. Hypocalcemia - continue oral Vit D + Ca. Consider IV replacement. Is receiving Xgeva. D/W Dr. Calle (leather production machine operator for [facility]) - recommends oral replacement (no need for IV) - most important is to replace mg. [facility] records reviewed - last note from Dr. Brower was 07/12/16 when she was dx with back muscle strain and Rx Flexeril 10/03/16 Neutropenic fever - WBC improved to 4 today. Continues on Levaquin; Vanco and cefepime were dc'd yesterday. Afebrile. Platelets improved to 30 following transfusion. Rt arm swelling & pain - venous duplex this morning. Consult Dr. Siddiqui on Tuesday to evaluate. Fluid overload: Diuresed well with Lasix 20 mg yesterday. Weight decreased to 56.1 kg. Leg swelling improved. Hypokalemia and hypomg - being replaced IV. Port-a-cath f/u - will need to ask Dr. Myrick about f/u on Tuesday. Nausea - improved today. Continue supportive care. Hypocalcemia - continue oral Vit D + Ca. Improved to 7. 10/04/16 Pathologic right humerus fracture: Dr. Siddiqui evaluated Sujata. This morning , and recommends using the sling, and discussed the possibility of surgery. Venous Doppler was negative for DVT. Neutropenic fever has resolved, and white count is 4.9. She is no longer neutropenic. Given lack of identified infectious etiology, and normal vital signs without fever - discontinue Levaquin. Thrombocytopenia: Platelets have decreased again today to 22. She was given a second dose of Lasix 20 mg IV yesterday, and diuresed well. Her weight has decreased to 55.6 kg. Discussed Port-A-Cath with Dr. Myrick, he is not concerned about follow-up appointment at this time, and will try to stop by the patient's room for reassurance. Hypokalemia and hypomagnesemia: Potassium is still slightly low at 3.4, magnesium has improved to a normal level of 1.9. Hypophosphatemia: Phosphorus improved from 1.4 to 2.3 today following IV replacement yesterday. Hypocalcemia: PTH was found to be elevated at 177. Vitamin D levels are pending. Continue oral vitamin D plus calcium. Consider endocrinology consult. Of note, she was on a thiazide diuretic at home, which is also associated with hypocalcemia. 10/05/16 Appreciate multiple consultations including Artur and oncology team given complexity of patients illness. In today with sling for immobilization of right arm for support of pathologic humerus fracture. Continue to monitor fluid status and daily weights. Weight continues to be trending down and is at 55.4 kilograms today. No further diuresis at this time. Neutropenia resolved (ANC 3600) and thrombocytopenia have both improved. Platelet today is slightly up at 30 and WBC count is normal. Hypocalcemia- continue on oral supplementation. Consult placed for PT and OT to evaluate strength. Consider IRU screen LAUREEN FORMAN MD 10/05/16 1702: Assessment & Plan Assessment 10/05/2016-I reviewed this chart, the patient history, and the ANESTHESIOLOGY TEACHER's/PA's documented findings as above. We discussed and formulated the assessment and plan as above with the additions below.-Dr. Forman Patient states she's feeling okay today. Breathing is doing pretty well. She has chest pain when she coughs but otherwise denies any chest pain. She is eating and drinking okay. She still has some edema in her legs. On exam she is alert and oriented 3. Chest is clear to auscultation. Cardiovascular reveals a regular rate and rhythm. Abdomen is soft and nontender. Extremities reveal 2+ lower extremity edema Lab today shows calcium has improved to 8.2. Magnesium is mildly low at 1.5. White count and hemoglobin are fairly stable. Platelets are up to 30. We'll continue to monitor CBC, renal panel and magnesium. Place magnesium IV. The patient is on oral phosphorus replacement and we will recheck that tomorrow. Agree with PT OT eval and treat DVT Prophylaxis: SCD'S CRISTIAN KLEIN APRN October 05, 2016 16:22 LAUREEN FORMAN MD October 05, 2016 17:02
--- NOTE | 2016-10-05 17:09 | NUR ---
STATUS pt is alert and oriented X3. pt has had some pain and was given prn pain meds as charted. pt gets up ad cata. pt has sat in the chair this shift as well as rested in bed. pt is on O2-2L NC and wears 2L at home. pt visited with her daughter in law this am. pt worked with PT and OT this shift and ambulated in the reece. pt is watching television in the chair while waiting on dinner. call light within reach.
[2016-10-05] MEDS: LISINOPRIL 20 MG TABLET PO SCH (20:01)
[2016-10-05] MEDS: ALBUTEROL INH.SOLN. 2.5mg/3ml (0.083%) Neb. AEROSOL PRN (21:24)
[2016-10-06] VITALS (11 sets, daily range): BP systolic 127–154; BP diastolic 58–69; PULSE 85–100; RESP 18; TEMP 96–96.8; O2SAT 90–97
[2016-10-06] MEDS: ALBUTEROL/IPRATROPIUM INHAL. 2.5mg-0.5mg/3ml Neb. AEROSOL SCH ×4 (03:10→20:53)
--- NOTE | 2016-10-06 05:35 | NUR ---
Status Pt up ad cata in room, on 2L O2- home use. PAC to right chest used for lab draw, draws and flushes well. Pain x1 to right arm, has sling in place.
[2016-10-06 05:50] LABS: HCT - HEMATOCRIT 23.5 % (36-46); HGB - HEMOGLOBIN 7.8 GM/DL (12-16); MEAN CORPUSCULAR HGB CONC(MCHC 33.2 GM/DL (31-37); MEAN CORPUSCULAR VOLUME 87.4 UM3 (80-100); MEAN PLATELET VOLUME 12.8 UM3 (9.4-12.4); RED BLOOD COUNT 2.69 M/MM3 (4.00-5.20); WBC - WHITE BLOOD COUNT 4.9 T/MM3 (4.5-11.0)
[2016-10-06] MEDS: PANTOPRAZOLE 40 MG TABLET PO SCH (05:54)
[2016-10-06 06:01] LABS: ALBUMIN 2.7 G/DL (3.5-5.0); ANION GAP 7 MEQ/L (5-15); BUN/CREATININE RATIO 15 RATIO (6-26); CALCIUM 8.2 MG/DL (8.4-10.2); CHLORIDE 101 MEQ/L (98-107); CO2 - CARBON DIOXIDE 34 MEQ/L (22-30); CREATININE 0.4 MG/DL (0.7-1.2); GLOMERULAR FILTRATION RATE 155; GLUCOSE 98 MG/DL (65-110); MAGNESIUM 1.6 MG/DL (1.6-2.3); PHOSPHORUS 4.3 MG/DL (2.5-4.5); POTASSIUM 3.7 MEQ/L (3.6-5); SODIUM 142 MEQ/L (134-144)
[2016-10-06 06:57] LABS: BAND NEUTROPHILS # 0.1 T/MM3; EOSINOPHILS # (MANUAL) 0.2 T/MM3 (0-0.5); LYMPHOCYTES # (MANUAL) 1.3 T/MM3 (1-4.8); METAMYELOCYTES # 0.4 T/MM3; MONOCYTES # (MANUAL) 0.5 T/MM3 (0-0.8); MYELOCYTES # 0.1 T/MM3; NEUTROPHILS #(MANUAL)-ABSOLUTE 2.3 T/MM3 (1.8-7.7); NUCLEATED RED BLOOD CELLS 1; TOTAL CELLS COUNTED 100 %
[2016-10-06 06:58] LABS: ANISOCYTOSIS 1+; POIKILOCYTOSIS 1+
[2016-10-06] MEDS: LACTOBACILLUS (15B cfu) CAPSULE PO SCH ×3 (07:57→17:31)
[2016-10-06] MEDS: GUAIFENESIN DM 600mg/30mg TABLET PO SCH ×2 (07:57→20:50)
[2016-10-06] MEDS: PHOSPHORUS 250 MG TABLET PO SCH ×3 (07:57→17:30)
[2016-10-06] MEDS: CALCIUM 600mg + VIT D 400 TABLET PO SCH ×2 (07:57→20:50)
[2016-10-06] MEDS: DICYCLOMINE 20 MG TABLET PO SCH ×3 (07:57→17:31)
[2016-10-06] MEDS: CYANOCOBALAMIN (B-12) 500mcg TABLET PO SCH (07:57)
[2016-10-06] MEDS: CALCIUM CARBONATE 600 MG TABLET PO SCH ×2 (07:58→20:49)
[2016-10-06] MEDS: SALINE NASAL SPRAY 45ml EA NOSTRIL SCH ×4 (07:58→20:52)
--- NOTE | 2016-10-06 08:35 | NUR ---
IRU referral received and therapy notes available. Patient PT/OT performance advises supervision to modified independent level of function. Both recommend home with home health. Patient does not appear to require intensive inpatient therapy at this time. night club manager notified.
--- NOTE | 2016-10-06 09:57 | NUR ---
ANIVAL CM TALKED WITH SON SIMI PT DOES NOT QUALIFY FOR IRU AND THERAPY SUGGEST HOME WITH HOME HEALTH. PT HAS CHOSEN [facility], SON IS IN AGREEMENT. PT SON AND ARE TAKING VACATION TO HELP PT WHEN SHE GOES HOME.
--- NOTE | 2016-10-06 10:50 | PNPDOC ---
Subjective Date DATE: 10/06/16 TIME: 10:44 Patient feeling fairly well today. No nausea or vomiting. Cough with mild shortness of breath. This is related to the current weather. Review of systems: Gen.: Negative for fever or chills, positive for malaise Eyes: Negative eye discharge, eye pain ENT: Negative for nosebleeds, mouth sores Lymph: Negative enlarged lymph nodes, no night sweats Respiratory: Positive for cough, shortness of breath, negative for hemoptysis, Cardiac: Negative for chest pain, palpitations, or swelling GI: Negative for nausea, negative for vomiting, negative for diarrhea Genitourinary: No urgency, no dysuria, no hematuria Musculoskeletal: Positive for weakness, no joint pain Neurologic: Negative for headache, negative for focal weakness, negative for numbness Objective Vital Signs Vital Signs 10/06/16 10/06/16 10/06/16 10/06/16 00:00 03:06 03:06 03:15 Temp 96.5 Pulse 86 88 84 Resp 18 18 B/P 128/58 Pulse Ox 95 95 O2 Delivery Nasal Cannula O2 Flow Rate 2.00 10/06/16 10/06/16 10/06/16 10/06/16 04:00 07:32 09:00 09:32 Temp 96.1 96.2 Pulse 85 88 88 Resp 18 18 18 20 B/P 127/60 133/67 Pulse Ox 94 96 95 O2 Delivery Nasal Cannula Nasal Cannula O2 Flow Rate 2.00 2.00 10/06/16 10/06/16 09:32 09:43 Pulse 98 94 Height (Feet): 4 Height (Inches): 11.00 Weight (Kilograms): 54.500 General Alert, No Acute Distress Eyes (Brief) Eyes: FOUND: EOMI, PERRL, NOT FOUND: scleral icterus ENMT (Brief) ENMT: FOUND: mucosa moist, NOT FOUND: lesions Neck (Brief) Neck: NOT FOUND: adenopathy, tenderness Respiratory (Brief) Respiratory: FOUND: clear all marie, equal bilaterally, symmetrical Cardiovascular (Brief) Cardiac: FOUND: pedal edema (2+ bilaterally), regular rate, regular rhythm, NOT FOUND: murmur Abdomen (Brief) Abdominal: FOUND: soft, NOT FOUND: distended, hepatosplenomegaly, tender Extremities (Brief) Extremity : Extremity Finding: FOUND: deformity (right arm in sling), discoloration ( petechiae on the dorsum of both feet), pain, reddened (rash over the top of both feet) Lymphatic (Brief) NOT FOUND: adenopathy Musculoskeletal (Brief) FOUND: loss of motion (right arm in sling), tenderness (right shoulder) Integumentary (Brief) FOUND: dry, warm, NOT FOUND: rash Neurologic (Brief) FOUND: cranial 2-12 intact, NOT FOUND: motor (no acute motor deficit), sensory Psychiatric (Brief) FOUND: alert, attentive, normal affect, oriented Laboratory Item Value Date Time Eosinophils % (Manual) 5.0 % H 10/03/16 0419 White Blood Count 4.9 T/MM3 10/06/16 05 Hemoglobin 7.8 GM/DL L 10/06/16 05 Platelet Count 49 T/MM3 L # 10/06/16 05 Platelet Count 30 T/MM3 L # 10/05/16 0405 Platelet Count 22 T/MM3 *L 10/04/16 0357 Neutrophils % (Manual) 46.0 % 10/06/16 05 Neutrophils % (Manual) 63.0 % 10/05/16 0405 Band Neutrophils % 3.0 % 10/06/16 05 Band Neutrophils % 12.0 % H # 10/05/16 0405 Absolute Neutrophils (Manual) 2.3 T/MM3 10/06/16 05 Absolute Neutrophils (Manual) 3.1 T/MM3 10/05/16 0405 Absolute Neutrophils (Manual) 2.5 T/MM3 10/04/16 0357 Calcium Level 8.2 MG/DL L 10/06/16 0511 25-Hydroxy Vitamin D Total 33 ng/mL 10/04/16 1006 Parathyroid Hormone (Intact) 177.3 PG/ML H 10/04/16 0357 Laboratory Tests Test 10/06/16 05:11 White Blood Count 4.9T/MM3 Red Blood Count 2.69M/MM3 Hemoglobin 7.8GM/DL Hematocrit 23.5% Mean Corpuscular Volume 87.4UM3 Mean Corpuscular Hemoglobin 29.0UUG Mean Corpuscular Hemoglobin Concent 33.2GM/DL RDW Standard Deviation 54.6FL Platelet Count 49T/MM3 Mean Platelet Volume 12.8UM3 Neutrophils % (Manual) 46.0% Band Neutrophils % 3.0% Lymphocytes % (Manual) 26.0% Reactive Lymphocytes % 1.0% Monocytes % (Manual) 10.0% Eosinophils % (Manual) 4.0% Metamyelocytes % 8.0% Myelocytes % 2.0% Absolute Neutrophils (Manual) 2.3T/MM3 Band Neutrophils # 0.1T/MM3 Lymphocytes # (Manual) 1.3T/MM3 Reactive Lymphocytes # 0.0T/MM3 Monocytes # (Manual) 0.5T/MM3 Eosinophils # (Manual) 0.2T/MM3 Metamyelocytes # 0.4T/MM3 Myelocytes # 0.1T/MM3 Nucleated Red Blood Cells 1 Poikilocytosis 1+ Anisocytosis 1+ Red Cell Morphology Comment Abnormal Turbidity < 20 Sodium Level 142MEQ/L Potassium Level 3.7MEQ/L Chloride Level 101MEQ/L Carbon Dioxide Level 34MEQ/L Anion Gap 7MEQ/L Blood Urea Nitrogen 6.0MG/DL Creatinine 0.4MG/DL Glomerular Filtration Rate Calc 155 BUN/Creatinine Ratio 15RATIO Glucose Level 98MG/DL Calculated Osmolality 271MOSM/KG Calcium Level 8.2MG/DL Phosphorus Level 4.3MG/DL Magnesium Level 1.6MG/DL Icterus Index < 2 Albumin 2.7G/DL Chemistry Specimen Hemolysis < 15 Sepsis Diagnostic Criteria Sepsis SIRS Criteria: Pulse >= 90 beats/min, WBC >=12,000 or <=4,000 Severe Sepsis None Seen Assessment & Plan Assessment 1. Neutropenic fever. Presented on 09/25 with temp of 100.2. Has been afebrile since. Admitted with IV antibiotic coverage to include Vancomycin,Levaquin and Cefapine. Filgastrim given daily 09/25/2016. to 10/02. WBC improved at 4.9 with ANC of 2.3 on 10/06/16.. 2. Eosinophilia of 34 % Question etiology. Allergy to med or reactive. 0% eos. 10/06/16 eosinophils 4%. 3. Thrombocytopenia. Post chemotherapy suppression vs DIC Platelets 62K , 40K 09/28/16, and today platelets 26K Will follow. Alimta/carboplatin chemotherapy, cycle 1 on 09/20/16. Platelets 13K . Was given one unit platelets. Platelets 25K on 10/03/16. 22K on 10/04/16. Improved to 40 9K on . Will follow. 4. Anemia. Hgb 7.7 on 09/27 after transfusion 8.2 on admission. Dropped to 6.8. 9 after transfusion. Suspect Peptic ulcer disease with acute blood loss. Retic count low at 0.1% suggesting marrow suppression from chemotherapy. Ferritin and B 12 elevated. Nosebleeds also contributing and had nosebleed this morning. Bleeding exacerbated by prophylactic lovenox. She weighs 53Kg and had lovenox 40 mg given on 09/25 late in evening and had another 40 mg given at 9 am on 09/26. Will hold Lovenox. Consider EGD after WBC and PLT recovery. Hgb 8.2 on 10/04/16. Dropped to 7.8 on 10/06/16. Will transfuse. 5. 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 S/P radiation to humerus and painful pelvic mets. Completed XRT mid August and then started systemic therapy with Alimta Carboplatin on 09/20/16. 6. N/V have been problem since diagnosiss and with radiation. Had problems last week after chemotherapy. IV fluids and zofran given on Tue, and Tuesday. She also had famitoldine for burning . This has improved but concern for peptic ulcer disease is present. Continues with intermittent nausea/ vomiting. This is improved on 10/06/16 Will follow 7. COPD Oxygen dependent 8. Bone metastasis. Pathologic fracture, right humerus. Irradiated. Xgeva given 08/30/16. 9. Rash after IV contrast and Xgeva. Suspect contrast allergy. 10. H/o HTN 11. Hypocalcemia. This may be secondary to bone metastasis, Xgeva, vitamin D deficiency. She currently has a PTH that is markedly elevated. On calcium supplementation. Calcium improved to 8.2 on 10/06/16 Will follow discussed care with Dr. Forman 10/02/2016 Pt with rising wbc. afebrile pt now to receive plts no new c/o eating well on O2 on IV antibiotics vanc/levaquin/cefapine on granix Consider check IgG levels too. ? has she been a smoker? 10/03/16 WF in nad in with neutropenic fever. now with improving counts, afebrile, no source of infx on levaquin only now. renal function ok Plan continue granix d/c levaquin observe plts also obesrve anemia likely reduce dose of carbo alimta next cycle, renal function ok. pt to be placed on folic acid and b12 po also. Plan/Intensity of Service Transfuse 2 units packed red blood cells Probable home tomorrow Code Status Do Not Resuscitate Hospital Course Summary Disclaimer The visit summary below is not to be considered part of the above Progress Note. Hospital Course Summary 09/25 Admit Inpatient admission for treatment of neutropenic fever-anticipate greater than 2 midnight of care needed. Neutropenic precautions. Start cefepime, vancomycin, and levofloxacin for empiric antimicrobial coverage. Granix to help increase WBC. IVF for volume support secondary to n/v. Zofran prn nausea. Hold antihypertensives due to sepsis syndrome - monitor BP. SCD and Lovenox for DVT prevention due to CA. Continue supplemental O2 and Neb treatments. Consult with Dr Pelayo for ONC eval. Monitor lab. DNR as per pt's request. Care to return to Dr Brower at time of discharge. 09/26 Doing okay this afternoon. Not having f/c. Loose stool has stopped - no bowel movements. Feels some rumbling in ab, like she could have stool soon. Nausea decreased. Ate 25% of breakfast and 50% of lunch. Breathing stable - not feeling increased SOA or congestion with IVF. Continue cefepime, vancomycin, and levofloxacin for empiric antimicrobial coverage. Continue neutropenic precautions. Respiratory PCR panel negative. Stool PCR panel pending (pt not produced sample). Granix 300mcg given this am due to decreased WBC - recheck CBC in am to monitor response. Continue IVF for volume support secondary to n/v. HGB with decreased from admission - transfuse 1 unit pRBC. Hold antihypertensives due to sepsis syndrome - monitor BP. Continue supplemental O2 and Neb treatments. Add nasal saline due to dry nasal passages from O2. Consult with Dr Pelayo for ONC eval. Recheck BMP in am due to medication and IVF use. Repeat CBC in am due to neutropenic fever. 09/27 Rough night-had nose bleed. Notes congestion to nose, but afraid to blow nose due to worry about resumption of bleeding. Breathing feeling well-not SOA or having cough or congestion. No nausea, but appetite decreased. Food doesn't taste right which decreases her appetite. No ab pain or bloating. Passing flatus. Not had stool today. Urinating well. No mouth pain or pain with swallowing. Granix 300mcg given this am due to persistent neutropenia - recheck CBC in am to monitor response. HGB decreased to 7.7 - transfuse 1 unit pRBC. ONC recommends keeping HGB greater than 8. Stop Lovenox and ASA due to low platelets and nosebleed. Nursing reports pt refusing SCD due to discomfort. Encourage ambulation. Decrease IVF to 75 cc/hr. Oral drive still decreased. Replace potassium - 20mEg today at noon and evening meal. Will give 400mg MagOx at noon as Mg 1.7. BP stable without medication - will continue to hold. Continue supplemental O2 and Neb treatments. Dr Pelayo did evaluate pt this morning. Case discussed with him. Recheck CMP and Mg in am due to medication and IVF use. Repeat CBC in am due to neutropenic fever. 09/28 Feeling rough. Notes congestion and cough. Stools loose-passed blood. More nausea and less appetite. Tired and weak. Not feeling SOA or having pain with breathing. Denies mouth pain or pain with swallowing. No f/c. Urinating well. Magnesium decrease to 1.5. Potassium 3.2. WBC 0.9, HGB 8.4, Platelets 40. Continue cefepime, vancomycin, and levofloxacin for empiric antimicrobial coverage. Granix 300mcg given this am due to persistent neutropenia - recheck CBC in am to monitor response. Continue IVF at 75 cc/hr. Oral drive still decreased. Replace potassium - 20mEg today at noon and evening meal. IV magnesium 2 grams due to decreased magnesium. BP stable without medication - will continue to hold. Continue supplemental O2 and Neb treatments. Add Mucinex DM BID due to congestion. Change Protonix to 40mg IV BID for enhanced GI protection. Recheck CMP and Mg in am due to medication and IVF use. Repeat CBC in am due to neutropenic fever. 09/29 About the same. Mild, persistent nausea. Minimal appetite. Breathing stable-not having increased SOA, cough or congestion. No chest pressure or pain. Some slight swelling to legs. Potassium 3.1. Mg 1.9. WBC 0.7 with ANC 280. HGB 8.1. Platelets 26. Continue cefepime, vancomycin, and levofloxacin for empiric antimicrobial coverage. Give Granix 300mcg today due to persistent neutropenia. Start Scopolamine patch due to persistent nausea - No Phenergan due to use of Reglan. Replace potassium - IV Boluses x4. Will restart lisinopril at 10mg q hs (home dose 20). Norvasc on hold. 09/30 No f/c. Appetite and nausea about the same. Breathing stable without increased congestion or cough. Nasal congestion, but able to use saline without nose bleeds. Urinating well. Note slight increased edema to legs. Not dizzy or unsteady when up. Continue cefepime, vancomycin, and levofloxacin for empiric antimicrobial coverage. Continue Granix 300mcg today due to persistent neutropenia. Transfuse 1 unit of pRBC and Platelets. Decrease IVF to 50 cc/hr. Spironolactone 50mg x1 to help edema and preserve potassium. Will give oral potassium 20mEg with lunch and evening meal today. Increase lisinopril to 20mg q hs. Norvasc on hold. 10/01 About the same. No f/c. Breathing stable-starting to mobilize some secretions. No nose bleeds. No nausea, but appetite low. Not having ab pain. Ambulating well -not dizzy or unsteady when up. LAB: WBC 1.3 with ANC 767. HGB 8.3. Platelets 25. Potassium 2.9. Mg 1.3. Continue cefepime, vancomycin, and levofloxacin for empiric antimicrobial coverage. Continue Granix 300mcg SQ daily until ANC greater than 1500. Will give 2 grams magnesium IV due to low magnesium. Potassium IV bolus and start Oral KCl 20mEq TID with meals - monitor potassium due to lisinopril use. Will d/c IVF. Continue lisinopril 20mg q hs. Norvasc on hold. BP stable. 10/02/16 Neutropenic fever - no fever since 09/25/16. No evidence of infection. Today tineo day 7 of triple abx therapy. Will DC Vancomycin and Cefepime; continue with Levaquin. Still pancytopenic - platelets are 16K and a platelet pack has been ordered. WBC improved to 2.2 and hgb is 8.4. Rt arm swelling & pain - venous duplex to r/o VTE. Consult Dr. Siddiqui on Tuesday to evaluate. She also has pitting edema to both legs. She is fluid positive 14.6L since admission and her weight has increased by >4 kg. IVF have already been dc'd. Will give Lasix 20 mg IV x1. Hypokalemia and hypomg - continue KDur TID frequency; IV mg has already been ordered by Dr. Forman. Port-a-cath f/u - will need to ask Dr. Myrick about f/u on Tuesday. Nausea - more intense today. Continue PRNs. Start Culturelle d/t diarrhea and abx use. GI panel was negative. Hypocalcemia - continue oral Vit D + Ca. Consider IV replacement. Is receiving Xgeva. D/W Dr. Calle (assistant controller for [facility]) - recommends oral replacement (no need for IV) - most important is to replace mg. [place] records reviewed - last note from Dr. Brower was 07/12/16 when she was dx with back muscle strain and Rx Flexeril 10/03/16 Neutropenic fever - WBC improved to 4 today. Continues on Levaquin; Vanco and cefepime were dc'd yesterday. Afebrile. Platelets improved to 30 following transfusion. Rt arm swelling & pain - venous duplex this morning. Consult Dr. Siddiqui on Tuesday to evaluate. Fluid overload: Diuresed well with Lasix 20 mg yesterday. Weight decreased to 56.1 kg. Leg swelling improved. Hypokalemia and hypomg - being replaced IV. Port-a-cath f/u - will need to ask Dr. Myrick about f/u on Tuesday. Nausea - improved today. Continue supportive care. Hypocalcemia - continue oral Vit D + Ca. Improved to 7. 10/04/16 Pathologic right humerus fracture: Dr. Siddiqui evaluated Sujata. This morning , and recommends using the sling, and discussed the possibility of surgery. Venous Doppler was negative for DVT. Neutropenic fever has resolved, and white count is 4.9. She is no longer neutropenic. Given lack of identified infectious etiology, and normal vital signs without fever - discontinue Levaquin. Thrombocytopenia: Platelets have decreased again today to 22. She was given a second dose of Lasix 20 mg IV yesterday, and diuresed well. Her weight has decreased to 55.6 kg. Discussed Port-A-Cath with Dr. Myrick, he is not concerned about follow-up appointment at this time, and will try to stop by the patient's room for reassurance. Hypokalemia and hypomagnesemia: Potassium is still slightly low at 3.4, magnesium has improved to a normal level of 1.9. Hypophosphatemia: Phosphorus improved from 1.4 to 2.3 today following IV replacement yesterday. Hypocalcemia: PTH was found to be elevated at 177. Vitamin D levels are pending. Continue oral vitamin D plus calcium. Consider endocrinology consult. Of note, she was on a thiazide diuretic at home, which is also associated with hypocalcemia. 10/05/16 Appreciate multiple consultations including Artur and oncology team given complexity of patients illness. In today with sling for immobilization of right arm for support of pathologic humerus fracture. Continue to monitor fluid status and daily weights. Weight continues to be trending down and is at 55.4 kilograms today. No further diuresis at this time. Neutropenia resolved (ANC 3600) and thrombocytopenia have both improved. Platelet today is slightly up at 30 and WBC count is normal. Hypocalcemia- continue on oral supplementation. Consult placed for PT and OT to evaluate strength. Consider IRU screen BRENDEN PELAYO October 06, 2016 10:47
[2016-10-06] MEDS ORDERED: FUROSEMIDE 20 MG/2 ML INJECTION IV ONE (11:00)
[2016-10-06] MEDS ORDERED: DiphenhydrAMINE 25 MG CAPSULE PO ONE (11:00)
[2016-10-06] MEDS: FOLIC ACID 1 MG TABLET PO SCH (11:40)
--- NOTE | 2016-10-06 11:48 | NUR ---
PT COULD NOT GET NORCO DOWN HER THROAT AND SHE SPIT IT OUT IN THE TRASH. WASTED NORCO WITH DANIEL VENEGAS AND PULLED A SECOND ONE FOR PT TO TAKE. PT RATES PAIN 7/10 IN RIGHT SHOULDER
--- NOTE | 2016-10-06 18:13 | PNPDOC ---
Subjective Date DATE: 10/06/16 TIME: 18:06 Subjective The patient states she's feeling okay today. She has some occasional shortness of breath which she relates to her COPD and "the weather". She is eating okay. She denies any pain currently. She continues to have some moderate lower extremity edema. She's been up walking without difficulties. Objective Vital Signs Vital signs Vital Signs Date Time Temp Pulse Resp B/P Pulse Ox O2 Delivery O2 Flow Rate FiO2 10/06/16 16:25 96.0 93 18 134/66 95 Nasal Cannula 2.00 GEN-alert, oriented, no acute distress CV-regular rate and rhythm CHEST-clear to auscultation bilaterally with decreased breath sounds in the bases ABD-soft, nontender, nondistended with positive bowel sounds -no Kelly EXT-2+ edema pretibial and pedal NEURO-no focal deficits SKIN-warm and dry, skin on the lower legs and feet is dry and scaly Telemetry Rhythm: Sinus Rhythm Height (Feet): 4 Height (Inches): 11.00 Weight (Kilograms): 54.500 Laboratory Laboratory Laboratory Tests 10/05/16 04:05 10/06/16 05:11 Laboratory Tests 10/05/16 04:05 10/06/16 05:11 Sepsis Diagnostic Criteria Sepsis SIRS Criteria: Pulse >= 90 beats/min, WBC >=12,000 or <=4,000 Severe Sepsis None Seen Assessment & Plan Problems: (1) Fluid overload Status: Acute Assessment & Plan: Lasix 20 mg IV x2 occasions (2) Pancytopenia Status: Acute Assessment & Plan: 09/26: 1 unit pRBC 09/27: 1 unit pRBC 09/30: 1 unit pRBC and 1 platelet pack 10/02: 1 platelet pack (3) Hypokalemia Status: Acute Assessment & Plan: Not POA (4) 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 (7) Sepsis Status: Resolved Assessment & Plan: Source undetermined. Manifestations: Temp elevation, Tachycardia, Neutropenia (8) Nausea & vomiting Status: Resolved Qualifiers: Vomiting type: unspecified Vomiting Intractability: unspecified Qualified Codes: R11.2 - Nausea with vomiting, unspecified (9) Lung cancer Status: Chronic Assessment & Plan: Started chemo 09/20 On oxygen x3 months (10) COPD (chronic obstructive pulmonary disease) Status: Chronic Qualifiers: COPD type: emphysema Emphysema type: unspecified Qualified Codes: J43.9 - Emphysema, unspecified (11) Chronic respiratory insufficiency Status: Chronic Assessment & Plan: Home O2 at 2L per NC. (12) HTN (hypertension) Status: Chronic Qualifiers: Hypertension type: essential hypertension Qualified Codes: I10 - Essential (primary) hypertension (13) Irritable bowel syndrome (IBS) Status: Chronic (14) Epistaxis Status: Resolved Assessment 10/06/2016 Overall, the patient appears to be doing better. She continues to have fluid overload. Platelets and white count have improved significantly. Hemoglobin is down to 7.8 and 2 units of blood was ordered by oncology but will not be given until tomorrow due to [place] needing to find specific blood for the patient. We'll give Lasix tomorrow morning prior to blood transfusion and then repeat after the first unit of blood. We'll continue current treatment for the patient's COPD. The patient is doing well off of antibiotics after having neutropenic fever. Workup was negative for infection. Hypocalcemia is markedly improved today with calcium level of 8.2. Magnesium and phosphorus are normal. Repeat CBC and renal panel tomorrow. Per case management, IRU did screen the patient and she is doing "too good" to need to go to IRU. She has declined the offer of senior living. She will likely go home with home health, possibly tomorrow after transfusion. Discussed today with the patient's nurse, case management, and Dr. Pelayo. DVT Prophylaxis: SCD'S Code Status Do Not Resuscitate Hospital Course Summary Disclaimer The hospital course summary below is not to be considered part of the above Progress Note. Hospital Course Summary 09/25 Admit Inpatient admission for treatment of neutropenic fever-anticipate greater than 2 midnight of care needed. Neutropenic precautions. Start cefepime, vancomycin, and levofloxacin for empiric antimicrobial coverage. Granix to help increase WBC. IVF for volume support secondary to n/v. Zofran prn nausea. Hold antihypertensives due to sepsis syndrome - monitor BP. SCD and Lovenox for DVT prevention due to CA. Continue supplemental O2 and Neb treatments. Consult with Dr Pelayo for ONC eval. Monitor lab. DNR as per pt's request. Care to return to Dr Brower at time of discharge. 09/26 Doing okay this afternoon. Not having f/c. Loose stool has stopped - no bowel movements. Feels some rumbling in ab, like she could have stool soon. Nausea decreased. Ate 25% of breakfast and 50% of lunch. Breathing stable - not feeling increased SOA or congestion with IVF. Continue cefepime, vancomycin, and levofloxacin for empiric antimicrobial coverage. Continue neutropenic precautions. Respiratory PCR panel negative. Stool PCR panel pending (pt not produced sample). Granix 300mcg given this am due to decreased WBC - recheck CBC in am to monitor response. Continue IVF for volume support secondary to n/v. HGB with decreased from admission - transfuse 1 unit pRBC. Hold antihypertensives due to sepsis syndrome - monitor BP. Continue supplemental O2 and Neb treatments. Add nasal saline due to dry nasal passages from O2. Consult with Dr Pelayo for ONC eval. Recheck BMP in am due to medication and IVF use. Repeat CBC in am due to neutropenic fever. 09/27 Rough night-had nose bleed. Notes congestion to nose, but afraid to blow nose due to worry about resumption of bleeding. Breathing feeling well-not SOA or having cough or congestion. No nausea, but appetite decreased. Food doesn't taste right which decreases her appetite. No ab pain or bloating. Passing flatus. Not had stool today. Urinating well. No mouth pain or pain with swallowing. Granix 300mcg given this am due to persistent neutropenia - recheck CBC in am to monitor response. HGB decreased to 7.7 - transfuse 1 unit pRBC. ONC recommends keeping HGB greater than 8. Stop Lovenox and ASA due to low platelets and nosebleed. Nursing reports pt refusing SCD due to discomfort. Encourage ambulation. Decrease IVF to 75 cc/hr. Oral drive still decreased. Replace potassium - 20mEg today at noon and evening meal. Will give 400mg MagOx at noon as Mg 1.7. BP stable without medication - will continue to hold. Continue supplemental O2 and Neb treatments. Dr Pelayo did evaluate pt this morning. Case discussed with him. Recheck CMP and Mg in am due to medication and IVF use. Repeat CBC in am due to neutropenic fever. 09/28 Feeling rough. Notes congestion and cough. Stools loose-passed blood. More nausea and less appetite. Tired and weak. Not feeling SOA or having pain with breathing. Denies mouth pain or pain with swallowing. No f/c. Urinating well. Magnesium decrease to 1.5. Potassium 3.2. WBC 0.9, HGB 8.4, Platelets 40. Continue cefepime, vancomycin, and levofloxacin for empiric antimicrobial coverage. Granix 300mcg given this am due to persistent neutropenia - recheck CBC in am to monitor response. Continue IVF at 75 cc/hr. Oral drive still decreased. Replace potassium - 20mEg today at noon and evening meal. IV magnesium 2 grams due to decreased magnesium. BP stable without medication - will continue to hold. Continue supplemental O2 and Neb treatments. Add Mucinex DM BID due to congestion. Change Protonix to 40mg IV BID for enhanced GI protection. Recheck CMP and Mg in am due to medication and IVF use. Repeat CBC in am due to neutropenic fever. 09/29 About the same. Mild, persistent nausea. Minimal appetite. Breathing stable-not having increased SOA, cough or congestion. No chest pressure or pain. Some slight swelling to legs. Potassium 3.1. Mg 1.9. WBC 0.7 with ANC 280. HGB 8.1. Platelets 26. Continue cefepime, vancomycin, and levofloxacin for empiric antimicrobial coverage. Give Granix 300mcg today due to persistent neutropenia. Start Scopolamine patch due to persistent nausea - No Phenergan due to use of Reglan. Replace potassium - IV Boluses x4. Will restart lisinopril at 10mg q hs (home dose 20). Norvasc on hold. 09/30 No f/c. Appetite and nausea about the same. Breathing stable without increased congestion or cough. Nasal congestion, but able to use saline without nose bleeds. Urinating well. Note slight increased edema to legs. Not dizzy or unsteady when up. Continue cefepime, vancomycin, and levofloxacin for empiric antimicrobial coverage. Continue Granix 300mcg today due to persistent neutropenia. Transfuse 1 unit of pRBC and Platelets. Decrease IVF to 50 cc/hr. Spironolactone 50mg x1 to help edema and preserve potassium. Will give oral potassium 20mEg with lunch and evening meal today. Increase lisinopril to 20mg q hs. Norvasc on hold. 10/01 About the same. No f/c. Breathing stable-starting to mobilize some secretions. No nose bleeds. No nausea, but appetite low. Not having ab pain. Ambulating well -not dizzy or unsteady when up. LAB: WBC 1.3 with ANC 767. HGB 8.3. Platelets 25. Potassium 2.9. Mg 1.3. Continue cefepime, vancomycin, and levofloxacin for empiric antimicrobial coverage. Continue Granix 300mcg SQ daily until ANC greater than 1500. Will give 2 grams magnesium IV due to low magnesium. Potassium IV bolus and start Oral KCl 20mEq TID with meals - monitor potassium due to lisinopril use. Will d/c IVF. Continue lisinopril 20mg q hs. Norvasc on hold. BP stable. 10/02/16 Neutropenic fever - no fever since 09/25/16. No evidence of infection. Today tineo day 7 of triple abx therapy. Will DC Vancomycin and Cefepime; continue with Levaquin. Still pancytopenic - platelets are 16K and a platelet pack has been ordered. WBC improved to 2.2 and hgb is 8.4. Rt arm swelling & pain - venous duplex to r/o VTE. Consult Dr. Siddiqui on Tuesday to evaluate. She also has pitting edema to both legs. She is fluid positive 14.6L since admission and her weight has increased by >4 kg. IVF have already been dc'd. Will give Lasix 20 mg IV x1. Hypokalemia and hypomg - continue KDur TID frequency; IV mg has already been ordered by Dr. Forman. Port-a-cath f/u - will need to ask Dr. Myrick about f/u on Tuesday. Nausea - more intense today. Continue PRNs. Start Culturelle d/t diarrhea and abx use. GI panel was negative. Hypocalcemia - continue oral Vit D + Ca. Consider IV replacement. Is receiving Xgeva. D/W Dr. Calle (professional services specialist for [facility]) - recommends oral replacement (no need for IV) - most important is to replace mg. [facility] records reviewed - last note from Dr. Brower was 07/12/16 when she was dx with back muscle strain and Rx Flexeril 10/03/16 Neutropenic fever - WBC improved to 4 today. Continues on Levaquin; Vanco and cefepime were dc'd yesterday. Afebrile. Platelets improved to 30 following transfusion. Rt arm swelling & pain - venous duplex this morning. Consult Dr. Siddiqui on Tuesday to evaluate. Fluid overload: Diuresed well with Lasix 20 mg yesterday. Weight decreased to 56.1 kg. Leg swelling improved. Hypokalemia and hypomg - being replaced IV. Port-a-cath f/u - will need to ask Dr. Myrick about f/u on Tuesday. Nausea - improved today. Continue supportive care. Hypocalcemia - continue oral Vit D + Ca. Improved to 7. 10/04/16 Pathologic right humerus fracture: Dr. Siddiqui evaluated [place]. This morning , and recommends using the sling, and discussed the possibility of surgery. Venous Doppler was negative for DVT. Neutropenic fever has resolved, and white count is 4.9. She is no longer neutropenic. Given lack of identified infectious etiology, and normal vital signs without fever - discontinue Levaquin. Thrombocytopenia: Platelets have decreased again today to 22. She was given a second dose of Lasix 20 mg IV yesterday, and diuresed well. Her weight has decreased to 55.6 kg. Discussed Port-A-Cath with Dr. Myrick, he is not concerned about follow-up appointment at this time, and will try to stop by the patient's room for reassurance. Hypokalemia and hypomagnesemia: Potassium is still slightly low at 3.4, magnesium has improved to a normal level of 1.9. Hypophosphatemia: Phosphorus improved from 1.4 to 2.3 today following IV replacement yesterday. Hypocalcemia: PTH was found to be elevated at 177. Vitamin D levels are pending. Continue oral vitamin D plus calcium. Consider endocrinology consult. Of note, she was on a thiazide diuretic at home, which is also associated with hypocalcemia. 10/05/16 Appreciate multiple consultations including [facility] and oncology team given complexity of patients illness. In today with sling for immobilization of right arm for support of pathologic humerus fracture. Continue to monitor fluid status and daily weights. Weight continues to be trending down and is at 55.4 kilograms today. No further diuresis at this time. Neutropenia resolved (ANC 3600) and thrombocytopenia have both improved. Platelet today is slightly up at 30 and WBC count is normal. Hypocalcemia- continue on oral supplementation. Consult placed for PT and OT to evaluate strength. Consider IRU screen LAUREEN FORMAN MD October 06, 2016 18:13
--- NOTE | 2016-10-06 18:43 | NUR ---
STATUS PT CURRENTLY RESTING IN BED. PT UP AD ERIC ABOUT ROOM. FRIENDLY AND COOPERATIVE WITH STAFF. DENIES NAUSEA. DENIES NEEDS. PORT A CATH FLUSHES AND ASPIRATES WELL.
[2016-10-06] MEDS: LISINOPRIL 20 MG TABLET PO SCH (20:50)
[2016-10-07] VITALS (12 sets, daily range): BP systolic 109–141; BP diastolic 54–84; PULSE 67–104; RESP 16–18; TEMP 96.4–98.6; O2SAT 89–96
[2016-10-07] MEDS: ALBUTEROL/IPRATROPIUM INHAL. 2.5mg-0.5mg/3ml Neb. AEROSOL SCH ×4 (01:30→21:11)
[2016-10-07] MEDS: ALBUTEROL INH.SOLN. 2.5mg/3ml (0.083%) Neb. AEROSOL PRN (04:29)
[2016-10-07 05:02] LABS: ANION GAP 9 MEQ/L (5-15); BUN/CREATININE RATIO 13 RATIO (6-26); CALCIUM 7.5 MG/DL (8.4-10.2); CHLORIDE 102 MEQ/L (98-107); CO2 - CARBON DIOXIDE 32 MEQ/L (22-30); CREATININE 0.4 MG/DL (0.7-1.2); GLOMERULAR FILTRATION RATE 155; GLUCOSE 92 MG/DL (65-110); HCT - HEMATOCRIT 24.5 % (36-46); HGB - HEMOGLOBIN 8.1 GM/DL (12-16); MEAN CORPUSCULAR HGB 28.8 UUG (26-34); MEAN CORPUSCULAR HGB CONC(MCHC 33.1 GM/DL (31-37); MEAN CORPUSCULAR VOLUME 87.2 UM3 (80-100); POTASSIUM 3.6 MEQ/L (3.6-5); RED BLOOD COUNT 2.81 M/MM3 (4.00-5.20); SODIUM 143 MEQ/L (134-144); WBC - WHITE BLOOD COUNT 6.7 T/MM3 (4.5-11.0)
[2016-10-07] MEDS: PANTOPRAZOLE 40 MG TABLET PO SCH (06:31)
[2016-10-07] MEDS: DICYCLOMINE 20 MG TABLET PO SCH ×3 (06:31→17:55)
[2016-10-07 07:17] LABS: ANISOCYTOSIS 2+; BAND NEUTROPHILS # 0.7 T/MM3; LYMPHOCYTES # (MANUAL) 1.7 T/MM3 (1-4.8); METAMYELOCYTES # 0.2 T/MM3; MONOCYTES # (MANUAL) 1.1 T/MM3 (0-0.8); MYELOCYTES # 0.5 T/MM3; NEUTROPHILS #(MANUAL)-ABSOLUTE 2.5 T/MM3 (1.8-7.7); NUCLEATED RED BLOOD CELLS 2; POIKILOCYTOSIS 1+; TOTAL CELLS COUNTED 100 %
[2016-10-07] MEDS ORDERED: FUROSEMIDE 20 MG/2 ML INJECTION IV ONE (08:00)
[2016-10-07] MEDS: CALCIUM CARBONATE 600 MG TABLET PO SCH ×2 (08:09→21:03)
[2016-10-07] MEDS: PHOSPHORUS 250 MG TABLET PO SCH ×3 (08:09→17:55)
[2016-10-07] MEDS: SALINE NASAL SPRAY 45ml EA NOSTRIL SCH ×4 (08:09→21:03)
[2016-10-07] MEDS: CYANOCOBALAMIN (B-12) 500mcg TABLET PO SCH (08:09)
[2016-10-07] MEDS: CALCIUM 600mg + VIT D 400 TABLET PO SCH ×2 (08:09→21:03)
[2016-10-07] MEDS: GUAIFENESIN DM 600mg/30mg TABLET PO SCH ×2 (08:09→21:03)
[2016-10-07] MEDS: LACTOBACILLUS (15B cfu) CAPSULE PO SCH ×3 (08:09→17:55)
--- NOTE | 2016-10-07 09:03 | NUR ---
CM CM PLACED CALL TO SON. DC TODAY OR TOMORROW PER DR. VAN. DAUGHTER IN LAW TO TRANSPORT PT. PT ANTICIPATED TO GO HOME WITH [facility]. SON REPORTS HE HAS ARRANGED FOR PEOPLE TO HELP "SIT" WITH MOM AFTER DISMISSAL. PT SON AWARE TO CALL CM SHOULD NEEDS [facility]ISE.
--- NOTE | 2016-10-07 10:43 | PDORTHOPN ---
Subjective Date DATE: 10/07/16 TIME: 10:42 Subjective Mrs. Juarez reports her pain is controlled and that the sling has been helping. No other complaints at this time. Objective Vital Signs Vital signs Vital Signs 10/07/16 10/07/16 10/07/16 10/07/16 00:00 01:27 01:27 01:36 Temp 98.6 Pulse 67 90 88 Resp 18 22 B/P 109/54 Pulse Ox 92 96 O2 Delivery Nasal Cannula O2 Flow Rate 2.00 10/07/16 10/07/16 10/07/16 10/07/16 04:26 04:26 04:31 04:44 Temp 96.4 Pulse 92 94 94 Resp 18 18 B/P 126/84 Pulse Ox 96 92 O2 Delivery Nasal Cannula O2 Flow Rate 2.00 10/07/16 10/07/16 10/07/16 10/07/16 08:00 08:30 08:30 08:44 Temp 97.2 Pulse 104 88 86 Resp 18 16 B/P 141/65 Pulse Ox 92 95 O2 Delivery Nasal Cannula O2 Flow Rate 2.00 Height (Feet): 4 Height (Inches): 11.00 Weight (Kilograms): 74.000 General General Appearance: Alert, Orientated x 3, No Acute Distress Respiratory (Brief) Respiratory Brief: FOUND: non-labored Cardiovascular (Brief) Cardiac: FOUND: calf easily compressible, calf soft, nontender Capillary Refill: <2 sec Musculoskeletal (Brief) Musculoskeletal Brief: FOUND: deformity, loss of motion (right shoulder), tenderness (proximal right humerus) Integumentary (Brief) Integumentary Brief: FOUND dry, FOUND pink, FOUND warm Neurologic (Brief) Neurological Brief: FOUND: extremities w/o deficits, neuro intact Psychiatric (Brief) Psychiatric Brief: FOUND: no acute distress Laboratory Laboratory Laboratory Tests 10/06/16 05:11 10/07/16 04:38 Laboratory Tests 10/06/16 05:11 10/07/16 04:38 Assessment & Plan Problems: (1) 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 Continue medical management. After discharge will require follow up for repeat X-ray. (2) Lung cancer Status: Chronic (3) COPD (chronic obstructive pulmonary disease) Status: Chronic Qualifiers: COPD type: emphysema Emphysema type: unspecified Qualified Codes: J43.9 - Emphysema, unspecified (4) HTN (hypertension) Status: Chronic Qualifiers: Hypertension type: essential hypertension Qualified Codes: I10 - Essential (primary) hypertension (5) Neutropenic fever Status: Resolved (6) Pancytopenia Status: Acute Hospital Course Summary Disclaimer The visit summary below is not to be considered part of the above Progress Note. Hospital Course 09/25 Admit Inpatient admission for treatment of neutropenic fever-anticipate greater than 2 midnight of care needed. Neutropenic precautions. Start cefepime, vancomycin, and levofloxacin for empiric antimicrobial coverage. Granix to help increase WBC. IVF for volume support secondary to n/v. Zofran prn nausea. Hold antihypertensives due to sepsis syndrome - monitor BP. SCD and Lovenox for DVT prevention due to CA. Continue supplemental O2 and Neb treatments. Consult with Dr Pelayo for ONC eval. Monitor lab. DNR as per pt's request. Care to return to Dr Brower at time of discharge. 09/26 Doing okay this afternoon. Not having f/c. Loose stool has stopped - no bowel movements. Feels some rumbling in ab, like she could have stool soon. Nausea decreased. Ate 25% of breakfast and 50% of lunch. Breathing stable - not feeling increased SOA or congestion with IVF. Continue cefepime, vancomycin, and levofloxacin for empiric antimicrobial coverage. Continue neutropenic precautions. Respiratory PCR panel negative. Stool PCR panel pending (pt not produced sample). Granix 300mcg given this am due to decreased WBC - recheck CBC in am to monitor response. Continue IVF for volume support secondary to n/v. HGB with decreased from admission - transfuse 1 unit pRBC. Hold antihypertensives due to sepsis syndrome - monitor BP. Continue supplemental O2 and Neb treatments. Add nasal saline due to dry nasal passages from O2. Consult with Dr Pelayo for ONC eval. Recheck BMP in am due to medication and IVF use. Repeat CBC in am due to neutropenic fever. 09/27 Rough night-had nose bleed. Notes congestion to nose, but afraid to blow nose due to worry about resumption of bleeding. Breathing feeling well-not SOA or having cough or congestion. No nausea, but appetite decreased. Food doesn't taste right which decreases her appetite. No ab pain or bloating. Passing flatus. Not had stool today. Urinating well. No mouth pain or pain with swallowing. Granix 300mcg given this am due to persistent neutropenia - recheck CBC in am to monitor response. HGB decreased to 7.7 - transfuse 1 unit pRBC. ONC recommends keeping HGB greater than 8. Stop Lovenox and ASA due to low platelets and nosebleed. Nursing reports pt refusing SCD due to discomfort. Encourage ambulation. Decrease IVF to 75 cc/hr. Oral drive still decreased. Replace potassium - 20mEg today at noon and evening meal. Will give 400mg MagOx at noon as Mg 1.7. BP stable without medication - will continue to hold. Continue supplemental O2 and Neb treatments. Dr Pelayo did evaluate pt this morning. Case discussed with him. Recheck CMP and Mg in am due to medication and IVF use. Repeat CBC in am due to neutropenic fever. 09/28 Feeling rough. Notes congestion and cough. Stools loose-passed blood. More nausea and less appetite. Tired and weak. Not feeling SOA or having pain with breathing. Denies mouth pain or pain with swallowing. No f/c. Urinating well. Magnesium decrease to 1.5. Potassium 3.2. WBC 0.9, HGB 8.4, Platelets 40. Continue cefepime, vancomycin, and levofloxacin for empiric antimicrobial coverage. Granix 300mcg given this am due to persistent neutropenia - recheck CBC in am to monitor response. Continue IVF at 75 cc/hr. Oral drive still decreased. Replace potassium - 20mEg today at noon and evening meal. IV magnesium 2 grams due to decreased magnesium. BP stable without medication - will continue to hold. Continue supplemental O2 and Neb treatments. Add Mucinex DM BID due to congestion. Change Protonix to 40mg IV BID for enhanced GI protection. Recheck CMP and Mg in am due to medication and IVF use. Repeat CBC in am due to neutropenic fever. 09/29 About the same. Mild, persistent nausea. Minimal appetite. Breathing stable-not having increased SOA, cough or congestion. No chest pressure or pain. Some slight swelling to legs. Potassium 3.1. Mg 1.9. WBC 0.7 with ANC 280. HGB 8.1. Platelets 26. Continue cefepime, vancomycin, and levofloxacin for empiric antimicrobial coverage. Give Granix 300mcg today due to persistent neutropenia. Start Scopolamine patch due to persistent nausea - No Phenergan due to use of Reglan. Replace potassium - IV Boluses x4. Will restart lisinopril at 10mg q hs (home dose 20). Norvasc on hold. 09/30 No f/c. Appetite and nausea about the same. Breathing stable without increased congestion or cough. Nasal congestion, but able to use saline without nose bleeds. Urinating well. Note slight increased edema to legs. Not dizzy or unsteady when up. Continue cefepime, vancomycin, and levofloxacin for empiric antimicrobial coverage. Continue Granix 300mcg today due to persistent neutropenia. Transfuse 1 unit of pRBC and Platelets. Decrease IVF to 50 cc/hr. Spironolactone 50mg x1 to help edema and preserve potassium. Will give oral potassium 20mEg with lunch and evening meal today. Increase lisinopril to 20mg q hs. Norvasc on hold. 10/01 About the same. No f/c. Breathing stable-starting to mobilize some secretions. No nose bleeds. No nausea, but appetite low. Not having ab pain. Ambulating well -not dizzy or unsteady when up. LAB: WBC 1.3 with ANC 767. HGB 8.3. Platelets 25. Potassium 2.9. Mg 1.3. Continue cefepime, vancomycin, and levofloxacin for empiric antimicrobial coverage. Continue Granix 300mcg SQ daily until ANC greater than 1500. Will give 2 grams magnesium IV due to low magnesium. Potassium IV bolus and start Oral KCl 20mEq TID with meals - monitor potassium due to lisinopril use. Will d/c IVF. Continue lisinopril 20mg q hs. Norvasc on hold. BP stable. 10/02/16 Neutropenic fever - no fever since 09/25/16. No evidence of infection. Today tineo day 7 of triple abx therapy. Will DC Vancomycin and Cefepime; continue with Levaquin. Still pancytopenic - platelets are 16K and a platelet pack has been ordered. WBC improved to 2.2 and hgb is 8.4. Rt arm swelling & pain - venous duplex to r/o VTE. Consult Dr. Siddiqui on Tuesday to evaluate. She also has pitting edema to both legs. She is fluid positive 14.6L since admission and her weight has increased by >4 kg. IVF have already been dc'd. Will give Lasix 20 mg IV x1. Hypokalemia and hypomg - continue KDur TID frequency; IV mg has already been ordered by Dr. Forman. Port-a-cath f/u - will need to ask Dr. Myrick about f/u on Tuesday. Nausea - more intense today. Continue PRNs. Start Culturelle d/t diarrhea and abx use. GI panel was negative. Hypocalcemia - continue oral Vit D + Ca. Consider IV replacement. Is receiving Xgeva. D/W Dr. Calle (button tufter for [facility]) - recommends oral replacement (no need for IV) - most important is to replace mg. [place] records reviewed - last note from Dr. Brower was 07/12/16 when she was dx with back muscle strain and Rx Flexeril 10/03/16 Neutropenic fever - WBC improved to 4 today. Continues on Levaquin; Vanco and cefepime were dc'd yesterday. Afebrile. Platelets improved to 30 following transfusion. Rt arm swelling & pain - venous duplex this morning. Consult Dr. Siddiqui on Tuesday to evaluate. Fluid overload: Diuresed well with Lasix 20 mg yesterday. Weight decreased to 56.1 kg. Leg swelling improved. Hypokalemia and hypomg - being replaced IV. Port-a-cath f/u - will need to ask Dr. Myrick about f/u on Tuesday. Nausea - improved today. Continue supportive care. Hypocalcemia - continue oral Vit D + Ca. Improved to 7. 10/04/16 Pathologic right humerus fracture: Dr. Siddiqui evaluated Suj[place]. This morning , and recommends using the sling, and discussed the possibility of surgery. Venous Doppler was negative for DVT. Neutropenic fever has resolved, and white count is 4.9. She is no longer neutropenic. Given lack of identified infectious etiology, and normal vital signs without fever - discontinue Levaquin. Thrombocytopenia: Platelets have decreased again today to 22. She was given a second dose of Lasix 20 mg IV yesterday, and diuresed well. Her weight has decreased to 55.6 kg. Discussed Port-A-Cath with Dr. Myrick, he is not concerned about follow-up appointment at this time, and will try to stop by the patient's room for reassurance. Hypokalemia and hypomagnesemia: Potassium is still slightly low at 3.4, magnesium has improved to a normal level of 1.9. Hypophosphatemia: Phosphorus improved from 1.4 to 2.3 today following IV replacement yesterday. Hypocalcemia: PTH was found to be elevated at 177. Vitamin D levels are pending. Continue oral vitamin D plus calcium. Consider endocrinology consult. Of note, she was on a thiazide diuretic at home, which is also associated with hypocalcemia. 10/05/16 Appreciate multiple consultations including Artur and oncology team given complexity of patients illness. In today with sling for immobilization of right arm for support of pathologic humerus fracture. Continue to monitor fluid status and daily weights. Weight continues to be trending down and is at 55.4 kilograms today. No further diuresis at this time. Neutropenia resolved (ANC 3600) and thrombocytopenia have both improved. Platelet today is slightly up at 30 and WBC count is normal. Hypocalcemia- continue on oral supplementation. Consult placed for PT and OT to evaluate strength. Consider IRU screen TONI PUGH October 07, 2016 10:43
--- NOTE | 2016-10-07 10:47 | PNPDOC ---
KAR GARCIA PHARMACOLOGY ASSOCIATE 10/07/16 1047: Subjective Date DATE: 10/07/16 TIME: 10:47 Sitting on bedside, pleasant affect. Verbalizes feeling better. No fever, chills , night sweats. She is eating and drinking well. No further nausea. Continues with pedal edema, but slowly improving. Denies cough or shortness of air today. Normal stool yesterday and today. Voiding normally General: No fever, no night sweats Eyes: No redness, no pain, no diplopia ENT: No mouth sores, no trouble swallowing Cardiac: No chest pain no palpitations. Positive pedal edema Pulmonary: No cough, no shortness of breath, no wheezing Abdomen: No pain, no nausea vomiting, no diarrhea or constipation : No urgency, frequency, dysuria, or hematuria Musculoskeletal: No arthritis, no myalgias Neurological: No headaches, no focal weakness Skin: Pale. Mild rash bilateral lower legs. Psychiatric: No anxiety, no depression Objective Vital Signs Vital Signs 10/07/16 10/07/16 10/07/16 10/07/16 00:00 01:27 01:27 01:36 Temp 98.6 Pulse 67 90 88 Resp 18 22 B/P 109/54 Pulse Ox 92 96 O2 Delivery Nasal Cannula O2 Flow Rate 2.00 10/07/16 10/07/16 10/07/16 10/07/16 04:26 04:26 04:31 04:44 Temp 96.4 Pulse 92 94 94 Resp 18 18 B/P 126/84 Pulse Ox 96 92 O2 Delivery Nasal Cannula O2 Flow Rate 2.00 10/07/16 10/07/16 10/07/16 10/07/16 08:00 08:30 08:30 08:44 Temp 97.2 Pulse 104 88 86 Resp 18 16 B/P 141/65 Pulse Ox 92 95 O2 Delivery Nasal Cannula O2 Flow Rate 2.00 Height (Feet): 4 Height (Inches): 11.00 Weight (Kilograms): 74.000 General Alert, Orientated x 3, No Acute Distress Eyes (Brief) Eyes: FOUND: EOMI, PERRL, NOT FOUND: scleral icterus ENMT (Brief) ENMT: FOUND: mucosa moist, NOT FOUND: lesions Neck (Brief) Neck: NOT FOUND: adenopathy, tenderness Respiratory (Brief) Respiratory: FOUND: clear all marie, equal bilaterally, other (diminished breath sounds bilateral posterior.), symmetrical, NOT FOUND: wheezes Cardiovascular (Brief) Cardiac: FOUND: pedal edema (1+ bilateral), regular rate, regular rhythm, NOT FOUND: murmur Abdomen (Brief) Abdominal: FOUND: soft, NOT FOUND: distended, hepatosplenomegaly, tender Extremities (Brief) Extremity : Extremity Finding: FOUND: deformity (right arm in sling), discoloration ( petechiae on the dorsum of both feet), pain, reddened (rash over the top of both feet) Lymphatic (Brief) NOT FOUND: adenopathy Musculoskeletal (Brief) FOUND: loss of motion (right arm in sling), tenderness (right shoulder) Integumentary (Brief) FOUND: dry, warm, NOT FOUND: rash Neurologic (Brief) FOUND: cranial 2-12 intact, sensory, NOT FOUND: motor (no acute motor deficit/ limited motion right arm because of sling.) Psychiatric (Brief) FOUND: alert, attentive, normal affect, oriented Laboratory Laboratory Tests Test 10/07/16 04:38 White Blood Count 6.7T/MM3 Red Blood Count 2.81M/MM3 Hemoglobin 8.1GM/DL Hematocrit 24.5% Mean Corpuscular Volume 87.2UM3 Mean Corpuscular Hemoglobin 28.8UUG Mean Corpuscular Hemoglobin Concent 33.1GM/DL RDW Standard Deviation 54.5FL Platelet Count 88T/MM3 Mean Platelet Volume 12.0UM3 Neutrophils % (Manual) 37.0% Band Neutrophils % 11.0% Lymphocytes % (Manual) 26.0% Monocytes % (Manual) 16.0% Metamyelocytes % 3.0% Myelocytes % 7.0% Absolute Neutrophils (Manual) 2.5T/MM3 Band Neutrophils # 0.7T/MM3 Lymphocytes # (Manual) 1.7T/MM3 Monocytes # (Manual) 1.1T/MM3 Metamyelocytes # 0.2T/MM3 Myelocytes # 0.5T/MM3 Nucleated Red Blood Cells 2 Poikilocytosis 1+ Anisocytosis 2+ Red Cell Morphology Comment Abnormal Turbidity < 20 Sodium Level 143MEQ/L Potassium Level 3.6MEQ/L Chloride Level 102MEQ/L Carbon Dioxide Level 32MEQ/L Anion Gap 9MEQ/L Blood Urea Nitrogen 5.0MG/DL Creatinine 0.4MG/DL Glomerular Filtration Rate Calc 155 BUN/Creatinine Ratio 13RATIO Glucose Level 92MG/DL Calculated Osmolality 272MOSM/KG Calcium Level 7.5MG/DL Icterus Index < 2 Chemistry Specimen Hemolysis < 15 Sepsis Diagnostic Criteria Sepsis SIRS Criteria: Pulse >= 90 beats/min, WBC >=12,000 or <=4,000 Severe Sepsis None Seen Assessment & Plan Assessment 1. Neutropenic fever. Presented on 09/25 with temp of 100.2. Has been afebrile since. Admitted with IV antibiotic coverage to include Vancomycin,Levaquin and Cefapine. Filgastrim given daily 09/25/2016. to 10/02. WBC improved, normal today at 6.7. 2. Eosinophilia of 34 % Question etiology. Allergy to med or reactive. 0% eos. 3. Thrombocytopenia. Post chemotherapy suppression vs DIC Platelets 62K , 40K 09/28/16, and today platelets 26K Will follow. Alimta/carboplatin chemotherapy, cycle 1 on 09/20/16. Platelets 13K . Was given one unit platelets. Platelets 25K on 10/03/16. 22K on 10/04/16, 30K on 10/05/16, and 88K today. Continue to follow. 4. Anemia. Hgb 7.7 on 09/27 after transfusion 8.2 on admission. Dropped to 6.8. 9 after transfusion. Suspect Peptic ulcer disease with acute blood loss. Retic count low at 0.1% suggesting marrow suppression from chemotherapy. Ferritin and B 12 elevated. Nosebleeds also contributing and had nosebleed this morning. Bleeding exacerbated by prophylactic lovenox. She weighs 53Kg and had lovenox 40 mg given on 09/25 late in evening and had another 40 mg given at 9 am on 09/26. Will hold Lovenox. Consider EGD after WBC and PLT recovery. Hgb 8.2 on 10/04/16. Hemoglobin 7.8 yesterday and packed RBCs ordered, will be given today. Hemoglobin 8.1 today. 5. 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 S/P radiation to humerus and painful pelvic mets. Completed XRT mid August and then started systemic therapy with Alimta Carboplatin on 09/20/16. 6. N/V have been problem since diagnosiss and with radiation. Had problems last week after chemotherapy. IV fluids and zofran given on Tue, and Tuesday. She also had famitoldine for burning . This has improved but concern for peptic ulcer disease is present. No nausea vomiting for over 24 hours. 7. COPD Oxygen dependent, stable. 8. Bone metastasis. Pathologic fracture, right humerus. Irradiated. Xgeva given 08/30/16. 9. Rash after IV contrast and Xgeva. Suspect contrast allergy. 10. Hypocalcemia. This may be secondary to bone metastasis, Xgeva, vitamin D deficiency. She currently has a PTH that is markedly elevated. On calcium supplementation. Will follow. Plan/Intensity of Service Transfuse 2 units packed red blood cells, ordered yesterday, but not available until today. Discussed plan of care with patient. Continue supportive care. Will follow closely upon dismissal. See uSzanne Garcia [employer] next week, labs twice a week. Follow-up with Dr. Pelayo 10/18/16 with labs, chest x-ray and chemotherapy. She has no questions. Code Status Do Not Resuscitate Hospital Course Summary Disclaimer The visit summary below is not to be considered part of the above Progress Note. Hospital Course Summary 09/25 Admit Inpatient admission for treatment of neutropenic fever-anticipate greater than 2 midnight of care needed. Neutropenic precautions. Start cefepime, vancomycin, and levofloxacin for empiric antimicrobial coverage. Granix to help increase WBC. IVF for volume support secondary to n/v. Zofran prn nausea. Hold antihypertensives due to sepsis syndrome - monitor BP. SCD and Lovenox for DVT prevention due to CA. Continue supplemental O2 and Neb treatments. Consult with Dr Pelayo for ONC eval. Monitor lab. DNR as per pt's request. Care to return to Dr Brower at time of discharge. 09/26 Doing okay this afternoon. Not having f/c. Loose stool has stopped - no bowel movements. Feels some rumbling in ab, like she could have stool soon. Nausea decreased. Ate 25% of breakfast and 50% of lunch. Breathing stable - not feeling increased SOA or congestion with IVF. Continue cefepime, vancomycin, and levofloxacin for empiric antimicrobial coverage. Continue neutropenic precautions. Respiratory PCR panel negative. Stool PCR panel pending (pt not produced sample). Granix 300mcg given this am due to decreased WBC - recheck CBC in am to monitor response. Continue IVF for volume support secondary to n/v. HGB with decreased from admission - transfuse 1 unit pRBC. Hold antihypertensives due to sepsis syndrome - monitor BP. Continue supplemental O2 and Neb treatments. Add nasal saline due to dry nasal passages from O2. Consult with Dr Pelayo for ONC eval. Recheck BMP in am due to medication and IVF use. Repeat CBC in am due to neutropenic fever. 09/27 Rough night-had nose bleed. Notes congestion to nose, but afraid to blow nose due to worry about resumption of bleeding. Breathing feeling well-not SOA or having cough or congestion. No nausea, but appetite decreased. Food doesn't taste right which decreases her appetite. No ab pain or bloating. Passing flatus. Not had stool today. Urinating well. No mouth pain or pain with swallowing. Granix 300mcg given this am due to persistent neutropenia - recheck CBC in am to monitor response. HGB decreased to 7.7 - transfuse 1 unit pRBC. ONC recommends keeping HGB greater than 8. Stop Lovenox and ASA due to low platelets and nosebleed. Nursing reports pt refusing SCD due to discomfort. Encourage ambulation. Decrease IVF to 75 cc/hr. Oral drive still decreased. Replace potassium - 20mEg today at noon and evening meal. Will give 400mg MagOx at noon as Mg 1.7. BP stable without medication - will continue to hold. Continue supplemental O2 and Neb treatments. Dr Pelayo did evaluate pt this morning. Case discussed with him. Recheck CMP and Mg in am due to medication and IVF use. Repeat CBC in am due to neutropenic fever. 5/ Feeling rough. Notes congestion and cough. Stools loose-passed blood. More nausea and less appetite. Tired and weak. Not feeling SOA or having pain with breathing. Denies mouth pain or pain with swallowing. No f/c. Urinating well. Magnesium decrease to 1.5. Potassium 3.2. WBC 0.9, HGB 8.4, Platelets 40. Continue cefepime, vancomycin, and levofloxacin for empiric antimicrobial coverage. Granix 300mcg given this am due to persistent neutropenia - recheck CBC in am to monitor response. Continue IVF at 75 cc/hr. Oral drive still decreased. Replace potassium - 20mEg today at noon and evening meal. IV magnesium 2 grams due to decreased magnesium. BP stable without medication - will continue to hold. Continue supplemental O2 and Neb treatments. Add Mucinex DM BID due to congestion. Change Protonix to 40mg IV BID for enhanced GI protection. Recheck CMP and Mg in am due to medication and IVF use. Repeat CBC in am due to neutropenic fever. 09/29 About the same. Mild, persistent nausea. Minimal appetite. Breathing stable-not having increased SOA, cough or congestion. No chest pressure or pain. Some slight swelling to legs. Potassium 3.1. Mg 1.9. WBC 0.7 with ANC 280. HGB 8.1. Platelets 26. Continue cefepime, vancomycin, and levofloxacin for empiric antimicrobial coverage. Give Granix 300mcg today due to persistent neutropenia. Start Scopolamine patch due to persistent nausea - No Phenergan due to use of Reglan. Replace potassium - IV Boluses x4. Will restart lisinopril at 10mg q hs (home dose 20). Norvasc on hold. 09/30 No f/c. Appetite and nausea about the same. Breathing stable without increased congestion or cough. Nasal congestion, but able to use saline without nose bleeds. Urinating well. Note slight increased edema to legs. Not dizzy or unsteady when up. Continue cefepime, vancomycin, and levofloxacin for empiric antimicrobial coverage. Continue Granix 300mcg today due to persistent neutropenia. Transfuse 1 unit of pRBC and Platelets. Decrease IVF to 50 cc/hr. Spironolactone 50mg x1 to help edema and preserve potassium. Will give oral potassium 20mEg with lunch and evening meal today. Increase lisinopril to 20mg q hs. Norvasc on hold. 10/01 About the same. No f/c. Breathing stable-starting to mobilize some secretions. No nose bleeds. No nausea, but appetite low. Not having ab pain. Ambulating well -not dizzy or unsteady when up. LAB: WBC 1.3 with ANC 767. HGB 8.3. Platelets 25. Potassium 2.9. Mg 1.3. Continue cefepime, vancomycin, and levofloxacin for empiric antimicrobial coverage. Continue Granix 300mcg SQ daily until ANC greater than 1500. Will give 2 grams magnesium IV due to low magnesium. Potassium IV bolus and start Oral KCl 20mEq TID with meals - monitor potassium due to lisinopril use. Will d/c IVF. Continue lisinopril 20mg q hs. Norvasc on hold. BP stable. 10/02/16 Neutropenic fever - no fever since 09/25/16. No evidence of infection. Today tineo day 7 of triple abx therapy. Will DC Vancomycin and Cefepime; continue with Levaquin. Still pancytopenic - platelets are 16K and a platelet pack has been ordered. WBC improved to 2.2 and hgb is 8.4. Rt arm swelling & pain - venous duplex to r/o VTE. Consult Dr. Siddiqui on Tuesday to evaluate. She also has pitting edema to both legs. She is fluid positive 14.6L since admission and her weight has increased by >4 kg. IVF have already been dc'd. Will give Lasix 20 mg IV x1. Hypokalemia and hypomg - continue KDur TID frequency; IV mg has already been ordered by Dr. Forman. Port-a-cath f/u - will need to ask Dr. Myrick about f/u on Tuesday. Nausea - more intense today. Continue PRNs. Start Culturelle d/t diarrhea and abx use. GI panel was negative. Hypocalcemia - continue oral Vit D + Ca. Consider IV replacement. Is receiving Xgeva. D/W Dr. Calle (digital solutions architect for [facility]) - recommends oral replacement (no need for IV) - most important is to replace mg. [place] records reviewed - last note from Dr. Brower was 07/12/16 when she was dx with back muscle strain and Rx Flexeril 10/03/16 Neutropenic fever - WBC improved to 4 today. Continues on Levaquin; Vanco and cefepime were dc'd yesterday. Afebrile. Platelets improved to 30 following transfusion. Rt arm swelling & pain - venous duplex this morning. Consult Dr. Siddiqui on Tuesday to evaluate. Fluid overload: Diuresed well with Lasix 20 mg yesterday. Weight decreased to 56.1 kg. Leg swelling improved. Hypokalemia and hypomg - being replaced IV. Port-a-cath f/u - will need to ask Dr. Myrick about f/u on Tuesday. Nausea - improved today. Continue supportive care. Hypocalcemia - continue oral Vit D + Ca. Improved to 7. 10/04/16 Pathologic right humerus fracture: Dr. Siddiqui evaluated Sujata. This morning , and recommends using the sling, and discussed the possibility of surgery. Venous Doppler was negative for DVT. Neutropenic fever has resolved, and white count is 4.9. She is no longer neutropenic. Given lack of identified infectious etiology, and normal vital signs without fever - discontinue Levaquin. Thrombocytopenia: Platelets have decreased again today to 22. She was given a second dose of Lasix 20 mg IV yesterday, and diuresed well. Her weight has decreased to 55.6 kg. Discussed Port-A-Cath with Dr. Myrick, he is not concerned about follow-up appointment at this time, and will try to stop by the patient's room for reassurance. Hypokalemia and hypomagnesemia: Potassium is still slightly low at 3.4, magnesium has improved to a normal level of 1.9. Hypophosphatemia: Phosphorus improved from 1.4 to 2.3 today following IV replacement yesterday. Hypocalcemia: PTH was found to be elevated at 177. Vitamin D levels are pending. Continue oral vitamin D plus calcium. Consider endocrinology consult. Of note, she was on a thiazide diuretic at home, which is also associated with hypocalcemia. 10/05/16 Appreciate multiple consultations including Artur and oncology team given complexity of patients illness. In today with sling for immobilization of right arm for support of pathologic humerus fracture. Continue to monitor fluid status and daily weights. Weight continues to be trending down and is at 55.4 kilograms today. No further diuresis at this time. Neutropenia resolved (ANC 3600) and thrombocytopenia have both improved. Platelet today is slightly up at 30 and WBC count is normal. Hypocalcemia- continue on oral supplementation. Consult placed for PT and OT to evaluate strength. Consider IRU screen BRENDEN PELAYO 10/07/16 8994: Assessment & Plan Assessment Patient examined, chart reviewed I participated development of the plan of care of this patient. Agree with documentation by Suzanne Garcia. Platelets and white count continued to improve. Awaiting crossmatch to be able to give blood. Her hemoglobin was 7.8 yesterday is up to 8.1. D level CXXV dihydroxy D was elevated at 275. 25-hydroxy D was low normal at 33. We'll continue supportive care look at patient going home soon in follow-up in the office on October 12 with Suzanne Garcia and follow-up with me for chemotherapy on October 18. Plan/Intensity of Service Transfusion Home soon Xgeva next week, 10/12 with Suzanne Garcia Follow-up for possible chemotherapy on October 18. KAR GARCIA APRN October 07, 2016 10:47 BRENDEN PELAYO October 07, 2016 16:48
[2016-10-07] MEDS: FOLIC ACID 1 MG TABLET PO SCH (12:06)
--- NOTE | 2016-10-07 16:49 | PNPDOC ---
Subjective Date DATE: 10/07/16 TIME: 16:42 Subjective Patient states she's feeling okay today. She thinks her swelling in her legs is down. She denies any pain. She is breathing okay. She was taking a nap this afternoon. Her blood from [place] has still not arrived yet. She denies any lightheadedness. She think she'll be ready for discharge tomorrow after blood transfusion. Objective Vital Signs Vital signs Vital Signs Date Time Temp Pulse Resp B/P Pulse Ox O2 Delivery O2 Flow Rate FiO2 10/07/16 15:30 97.6 101 18 135/69 89 Nasal Cannula 2.00 GEN-alert, oriented, no acute distress CV- irregular CHEST-clear to auscultation bilaterally ABD-soft, nontender, nondistended with positive bowel sounds -no Kelly EXT-2+ lower extremity edema NEURO-no focal deficits SKIN-warm and dry and without rashes Telemetry Rhythm: Sinus Rhythm Height (Feet): 4 Height (Inches): 11.00 Weight (Kilograms): 74.000 Laboratory Laboratory Laboratory Tests 10/06/16 05:11 10/07/16 04:38 Laboratory Tests 10/06/16 05:11 10/07/16 04:38 Sepsis Diagnostic Criteria Sepsis SIRS Criteria: Pulse >= 90 beats/min, WBC >=12,000 or <=4,000 Severe Sepsis None Seen Assessment & Plan Problems: (1) Fluid overload Status: Acute Assessment & Plan: Lasix 20 mg IV x2 occasions (2) Pancytopenia Status: Acute Assessment & Plan: 09/26: 1 unit pRBC 09/27: 1 unit pRBC 09/30: 1 unit pRBC and 1 platelet pack 10/02: 1 platelet pack (3) Hypokalemia Status: Acute Assessment & Plan: Not POA (4) 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 (7) Sepsis Status: Resolved Assessment & Plan: Source undetermined. Manifestations: Temp elevation, Tachycardia, Neutropenia (8) Nausea & vomiting Status: Resolved Qualifiers: Vomiting type: unspecified Vomiting Intractability: unspecified Qualified Codes: R11.2 - Nausea with vomiting, unspecified (9) Lung cancer Status: Chronic Assessment & Plan: Started chemo 09/20 On oxygen x3 months (10) COPD (chronic obstructive pulmonary disease) Status: Chronic Qualifiers: COPD type: emphysema Emphysema type: unspecified Qualified Codes: J43.9 - Emphysema, unspecified (11) Chronic respiratory insufficiency Status: Chronic Assessment & Plan: Home O2 at 2L per NC. (12) HTN (hypertension) Status: Chronic Qualifiers: Hypertension type: essential hypertension Qualified Codes: I10 - Essential (primary) hypertension (13) Irritable bowel syndrome (IBS) Status: Chronic (14) Epistaxis Status: Resolved Assessment 10/07/2016 Neutropenic fever-resolved, off antibiotics and doing well Pancytopenia-markedly improved with white count 6.7 and platelets 88. Still anemic with hemoglobin of 8.1-discussed with Dr. Pelayo and he is planning on transfusion of 2 units of blood. We are waiting blood from [place]. 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 Hopefully transfuse 2 units of blood tonight. Give Lasix IV tomorrow. Plan for home tomorrow. Discussed with Dr. Pelayo. DVT Prophylaxis: SCD'S Code Status Do Not Resuscitate Hospital Course Summary Disclaimer The hospital course summary below is not to be considered part of the above Progress Note. Hospital Course Summary 09/25 Admit Inpatient admission for treatment of neutropenic fever-anticipate greater than 2 midnight of care needed. Neutropenic precautions. Start cefepime, vancomycin, and levofloxacin for empiric antimicrobial coverage. Granix to help increase WBC. IVF for volume support secondary to n/v. Zofran prn nausea. Hold antihypertensives due to sepsis syndrome - monitor BP. SCD and Lovenox for DVT prevention due to CA. Continue supplemental O2 and Neb treatments. Consult with Dr Pelayo for ONC eval. Monitor lab. DNR as per pt's request. Care to return to Dr Brower at time of discharge. 09/26 Doing okay this afternoon. Not having f/c. Loose stool has stopped - no bowel movements. Feels some rumbling in ab, like she could have stool soon. Nausea decreased. Ate 25% of breakfast and 50% of lunch. Breathing stable - not feeling increased SOA or congestion with IVF. Continue cefepime, vancomycin, and levofloxacin for empiric antimicrobial coverage. Continue neutropenic precautions. Respiratory PCR panel negative. Stool PCR panel pending (pt not produced sample). Granix 300mcg given this am due to decreased WBC - recheck CBC in am to monitor response. Continue IVF for volume support secondary to n/v. HGB with decreased from admission - transfuse 1 unit pRBC. Hold antihypertensives due to sepsis syndrome - monitor BP. Continue supplemental O2 and Neb treatments. Add nasal saline due to dry nasal passages from O2. Consult with Dr Pelayo for ONC eval. Recheck BMP in am due to medication and IVF use. Repeat CBC in am due to neutropenic fever. 5/ Rough night-had nose bleed. Notes congestion to nose, but afraid to blow nose due to worry about resumption of bleeding. Breathing feeling well-not SOA or having cough or congestion. No nausea, but appetite decreased. Food doesn't taste right which decreases her appetite. No ab pain or bloating. Passing flatus. Not had stool today. Urinating well. No mouth pain or pain with swallowing. Granix 300mcg given this am due to persistent neutropenia - recheck CBC in am to monitor response. HGB decreased to 7.7 - transfuse 1 unit pRBC. ONC recommends keeping HGB greater than 8. Stop Lovenox and ASA due to low platelets and nosebleed. Nursing reports pt refusing SCD due to discomfort. Encourage ambulation. Decrease IVF to 75 cc/hr. Oral drive still decreased. Replace potassium - 20mEg today at noon and evening meal. Will give 400mg MagOx at noon as Mg 1.7. BP stable without medication - will continue to hold. Continue supplemental O2 and Neb treatments. Dr Pelayo did evaluate pt this morning. Case discussed with him. Recheck CMP and Mg in am due to medication and IVF use. Repeat CBC in am due to neutropenic fever. 5/2 Feeling rough. Notes congestion and cough. Stools loose-passed blood. More nausea and less appetite. Tired and weak. Not feeling SOA or having pain with breathing. Denies mouth pain or pain with swallowing. No f/c. Urinating well. Magnesium decrease to 1.5. Potassium 3.2. WBC 0.9, HGB 8.4, Platelets 40. Continue cefepime, vancomycin, and levofloxacin for empiric antimicrobial coverage. Granix 300mcg given this am due to persistent neutropenia - recheck CBC in am to monitor response. Continue IVF at 75 cc/hr. Oral drive still decreased. Replace potassium - 20mEg today at noon and evening meal. IV magnesium 2 grams due to decreased magnesium. BP stable without medication - will continue to hold. Continue supplemental O2 and Neb treatments. Add Mucinex DM BID due to congestion. Change Protonix to 40mg IV BID for enhanced GI protection. Recheck CMP and Mg in am due to medication and IVF use. Repeat CBC in am due to neutropenic fever. 09/29 About the same. Mild, persistent nausea. Minimal appetite. Breathing stable-not having increased SOA, cough or congestion. No chest pressure or pain. Some slight swelling to legs. Potassium 3.1. Mg 1.9. WBC 0.7 with ANC 280. HGB 8.1. Platelets 26. Continue cefepime, vancomycin, and levofloxacin for empiric antimicrobial coverage. Give Granix 300mcg today due to persistent neutropenia. Start Scopolamine patch due to persistent nausea - No Phenergan due to use of Reglan. Replace potassium - IV Boluses x4. Will restart lisinopril at 10mg q hs (home dose 20). Norvasc on hold. 09/30 No f/c. Appetite and nausea about the same. Breathing stable without increased congestion or cough. Nasal congestion, but able to use saline without nose bleeds. Urinating well. Note slight increased edema to legs. Not dizzy or unsteady when up. Continue cefepime, vancomycin, and levofloxacin for empiric antimicrobial coverage. Continue Granix 300mcg today due to persistent neutropenia. Transfuse 1 unit of pRBC and Platelets. Decrease IVF to 50 cc/hr. Spironolactone 50mg x1 to help edema and preserve potassium. Will give oral potassium 20mEg with lunch and evening meal today. Increase lisinopril to 20mg q hs. Norvasc on hold. 10/01 About the same. No f/c. Breathing stable-starting to mobilize some secretions. No nose bleeds. No nausea, but appetite low. Not having ab pain. Ambulating well -not dizzy or unsteady when up. LAB: WBC 1.3 with ANC 767. HGB 8.3. Platelets 25. Potassium 2.9. Mg 1.3. Continue cefepime, vancomycin, and levofloxacin for empiric antimicrobial coverage. Continue Granix 300mcg SQ daily until ANC greater than 1500. Will give 2 grams magnesium IV due to low magnesium. Potassium IV bolus and start Oral KCl 20mEq TID with meals - monitor potassium due to lisinopril use. Will d/c IVF. Continue lisinopril 20mg q hs. Norvasc on hold. BP stable. 10/02/16 Neutropenic fever - no fever since 09/25/16. No evidence of infection. Today tineo day 7 of triple abx therapy. Will DC Vancomycin and Cefepime; continue with Levaquin. Still pancytopenic - platelets are 16K and a platelet pack has been ordered. WBC improved to 2.2 and hgb is 8.4. Rt arm swelling & pain - venous duplex to r/o VTE. Consult Dr. Siddiqui on Tuesday to evaluate. She also has pitting edema to both legs. She is fluid positive 14.6L since admission and her weight has increased by >4 kg. IVF have already been dc'd. Will give Lasix 20 mg IV x1. Hypokalemia and hypomg - continue KDur TID frequency; IV mg has already been ordered by Dr. Forman. Port-a-cath f/u - will need to ask Dr. Myrick about f/u on Tuesday. Nausea - more intense today. Continue PRNs. Start Culturelle d/t diarrhea and abx use. GI panel was negative. Hypocalcemia - continue oral Vit D + Ca. Consider IV replacement. Is receiving Xgeva. D/W Dr. Calle (community relations advisor for [facility]) - recommends oral replacement (no need for IV) - most important is to replace mg. [place] records reviewed - last note from Dr. Brower was 07/12/16 when she was dx with back muscle strain and Rx Flexeril 10/03/16 Neutropenic fever - WBC improved to 4 today. Continues on Levaquin; Vanco and cefepime were dc'd yesterday. Afebrile. Platelets improved to 30 following transfusion. Rt arm swelling & pain - venous duplex this morning. Consult Dr. Siddiqui on Tuesday to evaluate. Fluid overload: Diuresed well with Lasix 20 mg yesterday. Weight decreased to 56.1 kg. Leg swelling improved. Hypokalemia and hypomg - being replaced IV. Port-a-cath f/u - will need to ask Dr. Myrick about f/u on Tuesday. Nausea - improved today. Continue supportive care. Hypocalcemia - continue oral Vit D + Ca. Improved to 7. 10/04/16 Pathologic right humerus fracture: Dr. Siddiqui evaluated [place]. This morning , and recommends using the sling, and discussed the possibility of surgery. Venous Doppler was negative for DVT. Neutropenic fever has resolved, and white count is 4.9. She is no longer neutropenic. Given lack of identified infectious etiology, and normal vital signs without fever - discontinue Levaquin. Thrombocytopenia: Platelets have decreased again today to 22. She was given a second dose of Lasix 20 mg IV yesterday, and diuresed well. Her weight has decreased to 55.6 kg. Discussed Port-A-Cath with Dr. Myrick, he is not concerned about follow-up appointment at this time, and will try to stop by the patient's room for reassurance. Hypokalemia and hypomagnesemia: Potassium is still slightly low at 3.4, magnesium has improved to a normal level of 1.9. Hypophosphatemia: Phosphorus improved from 1.4 to 2.3 today following IV replacement yesterday. Hypocalcemia: PTH was found to be elevated at 177. Vitamin D levels are pending. Continue oral vitamin D plus calcium. Consider endocrinology consult. Of note, she was on a thiazide diuretic at home, which is also associated with hypocalcemia. 10/05/16 Appreciate multiple consultations including [facility] and oncology team given complexity of patients illness. In today with sling for immobilization of right arm for support of pathologic humerus fracture. Continue to monitor fluid status and daily weights. Weight continues to be trending down and is at 55.4 kilograms today. No further diuresis at this time. Neutropenia resolved (ANC 3600) and thrombocytopenia have both improved. Platelet today is slightly up at 30 and WBC count is normal. Hypocalcemia- continue on oral supplementation. Consult placed for PT and OT to evaluate strength. Consider IRU screen 10/06/2016 Overall, the patient appears to be doing better. She continues to have fluid overload. Platelets and white count have improved significantly. Hemoglobin is down to 7.8 and 2 units of blood was ordered by oncology but will not be given until tomorrow due to [facility] needing to find specific blood for the patient. We'll give Lasix tomorrow morning prior to blood transfusion and then repeat after the first unit of blood. We'll continue current treatment for the patient's COPD. The patient is doing well off of antibiotics after having neutropenic fever. Workup was negative for infection. Hypocalcemia is markedly improved today with calcium level of 8.2. Magnesium and phosphorus are normal. Repeat CBC and renal panel tomorrow. Per case management, IRU did screen the patient and she is doing "too good" to need to go to IRU. She has declined the offer of retirement. She will likely go home with home health, possibly tomorrow after transfusion. Discussed today with the patient's nurse, case management, and Dr. Pelayo. LAUREEN FORMAN MD October 07, 2016 16:49
[2016-10-07] MEDS: ONDANSETRON 4mg/2ml INJECTION IV PRN (17:55)
--- NOTE | 2016-10-07 19:51 | NUR ---
status Pt A/o x3, V/S stable on 2L, chronic for home. Pt ambulating well up at cata in room, calls with needs. Urine output good for shift, 2 BM this shift. 1x with nausea before dinner, PRN zofran given. Pain rated at 7/10, PRN pain meds given 1x, stated 3/10 after. PAC flushed and aspirates well. Low appetite still, has been eating at each meal.
[2016-10-07] MEDS: LISINOPRIL 20 MG TABLET PO SCH (21:03)
[2016-10-08] VITALS (7 sets, daily range): BP systolic 130–138; BP diastolic 62–68; PULSE 90–93; RESP 16–24; TEMP 95.7–96.7; O2SAT 93–96
[2016-10-08] MEDS: ALBUTEROL/IPRATROPIUM INHAL. 2.5mg-0.5mg/3ml Neb. AEROSOL SCH ×3 (02:46→14:42)
[2016-10-08] MEDS: NORMAL SALINE 500 ML IV SCH ×2 (03:18→03:19)
--- NOTE | 2016-10-08 04:02 | NUR ---
Blood Transfusion Taught patient before blood administration about potential signs/symptoms of transfusion reaction. Gave 2 units of PC's. Vital signs stable throughout. Denied pain, chills, itching, or other symptoms of transfusion reactions. Premedicated with Benadryl and gave 20 mg Lasix between units of blood per Dr. Forman. Pt had significant urine output. Will continue to monitor for S/S's of transfusion reaction.
[2016-10-08 04:55] LABS: HCT - HEMATOCRIT 32.5 % (36-46); MEAN CORPUSCULAR HGB CONC(MCHC 33.8 GM/DL (31-37); MEAN CORPUSCULAR VOLUME 85.8 UM3 (80-100); MEAN PLATELET VOLUME 11.8 UM3 (9.4-12.4); RED BLOOD COUNT 3.79 M/MM3 (4.00-5.20); WBC - WHITE BLOOD COUNT 8.2 T/MM3 (4.5-11.0)
[2016-10-08 05:03] LABS: ANION GAP 11 MEQ/L (5-15); BUN/CREATININE RATIO 12 RATIO (6-26); CALCIUM 7.8 MG/DL (8.4-10.2); CHLORIDE 99 MEQ/L (98-107); CO2 - CARBON DIOXIDE 33 MEQ/L (22-30); CREATININE 0.5 MG/DL (0.7-1.2); GLOMERULAR FILTRATION RATE 120; GLUCOSE 96 MG/DL (65-110); POTASSIUM 3.4 MEQ/L (3.6-5); SODIUM 143 MEQ/L (134-144)
[2016-10-08 06:36] LABS: BAND NEUTROPHILS # 1.1 T/MM3; BASOPHILS # (MANUAL) 0.1 T/MM3 (0-0.2); EOSINOPHILS # (MANUAL) 0.3 T/MM3 (0-0.5); LYMPHOCYTES # (MANUAL) 1.1 T/MM3 (1-4.8); METAMYELOCYTES # 0.6 T/MM3; MONOCYTES # (MANUAL) 1.6 T/MM3 (0-0.8); MYELOCYTES # 0.6 T/MM3; NEUTROPHILS #(MANUAL)-ABSOLUTE 2.9 T/MM3 (1.8-7.7); NUCLEATED RED BLOOD CELLS 4; POIKILOCYTOSIS 1+; TOTAL CELLS COUNTED 100 %
[2016-10-08 06:37] LABS: POLYCHROMASIA 1+
[2016-10-08] MEDS: PANTOPRAZOLE 40 MG TABLET PO SCH (06:38)
[2016-10-08] MEDS: ONDANSETRON 4mg/2ml INJECTION IV PRN (07:47)
[2016-10-08] MEDS: DICYCLOMINE 20 MG TABLET PO SCH ×2 (07:49→11:51)
[2016-10-08] MEDS: LACTOBACILLUS (15B cfu) CAPSULE PO SCH ×2 (07:50→11:54)
[2016-10-08] MEDS: PHOSPHORUS 250 MG TABLET PO SCH ×2 (07:50→11:53)
[2016-10-08] MEDS: CYANOCOBALAMIN (B-12) 500mcg TABLET PO SCH (07:51)
[2016-10-08] MEDS: CALCIUM 600mg + VIT D 400 TABLET PO SCH (07:51)
[2016-10-08] MEDS: GUAIFENESIN DM 600mg/30mg TABLET PO SCH (07:51)
[2016-10-08] MEDS: CALCIUM CARBONATE 600 MG TABLET PO SCH (07:51)
[2016-10-08] MEDS: SALINE NASAL SPRAY 45ml EA NOSTRIL SCH ×2 (07:52→11:55)
[2016-10-08] MEDS ORDERED: FUROSEMIDE 20 MG/2 ML INJECTION IV ONE (08:00)
--- NOTE | 2016-10-08 08:00 | NUR ---
RECEIVED REPORT PATIENT IS ALERT AND ORIENTED. VERBALIZES TOLERABLE PAIN TO RIGHT UPPER EXTREMITY AND BACK. KEEPS SLING TO RIGHT EXTREMITY.ON 2 L NC THIS MORNING. PATIENT REFUSES TO WEAR SCD's TODAY.
[2016-10-08] MEDS: SCOPOLAMINE 1.5 MG PATCH TD SCH (11:52)
[2016-10-08] MEDS: SCOPOLAMINE PATCH REMOVAL TD SCH (11:52)
[2016-10-08] MEDS: FOLIC ACID 1 MG TABLET PO SCH (11:53)
--- NOTE | 2016-10-08 13:24 | PNPDOC ---
Subjective Date DATE: 10/08/16 TIME: 13:14 Ambulating in room. Denies fever, chills, night sweats. States infrequent nonproductive cough. Denies shortness of air. No nausea today. Normal stooling. Intermittent right arm discomfort, denies currently. Feeling slightly improved. States infrequent crampy type pain LLQ. Normal voiding. Normal stool yesterday. General: No fever, no night sweats Eyes: No redness, no pain, no diplopia ENT: No mouth sores, no trouble swallowing Cardiac: No chest pain no palpitations Pulmonary: Positive nonproductive, infrequent, no shortness of breath, no wheezing Abdomen: Infrequent cramping LLQ, no nausea vomiting, no diarrhea or constipation : No urgency, frequency, dysuria, or hematuria Musculoskeletal: Right arm in sling. Intermittent right arm discomfort. Neurological: No headaches, no focal weakness Skin: No rash, no sores Psychiatric: No anxiety, no depression Objective Vital Signs Vital Signs 10/08/16 10/08/16 10/08/16 10/08/16 02:41 02:41 02:50 03:53 Temp 96.7 Pulse 88 86 90 Resp 20 24 B/P 132/62 Pulse Ox 96 95 O2 Delivery Nasal Cannula O2 Flow Rate 2.00 10/08/16 10/08/16 10/08/16 10/08/16 07:30 07:33 09:02 09:02 Temp 96.1 Pulse 90 90 88 85 Resp 16 18 B/P 138/65 Pulse Ox 93 O2 Delivery Nasal Cannula O2 Flow Rate 2.00 10/08/16 10/08/16 09:02 12:22 Temp 96.0 Pulse 90 Resp 18 16 B/P 130/64 Pulse Ox 95 95 O2 Delivery Nasal Cannula O2 Flow Rate 2.00 Height (Feet): 4 Height (Inches): 11.00 Weight (Kilograms): 54.100 General Alert, Orientated x 3, No Acute Distress Eyes (Brief) Eyes: FOUND: EOMI, PERRL, NOT FOUND: scleral icterus ENMT (Brief) ENMT: FOUND: mucosa moist, NOT FOUND: lesions Neck (Brief) Neck: NOT FOUND: adenopathy, tenderness Respiratory (Brief) Respiratory: FOUND: clear all marie, equal bilaterally, other (diminished breath sounds bilateral posterior.), symmetrical, NOT FOUND: wheezes Cardiovascular (Brief) Cardiac: FOUND: pedal edema (1+ bilateral), regular rate, regular rhythm, NOT FOUND: murmur Abdomen (Brief) Abdominal: FOUND: BS normo active x4, soft, NOT FOUND: distended, hepatosplenomegaly, tender Extremities (Brief) Extremity : Extremity Finding: FOUND: deformity (right arm in sling), discoloration ( petechiae on the dorsum of both feet), pain, reddened (rash over the top of both feet) Lymphatic (Brief) NOT FOUND: adenopathy Musculoskeletal (Brief) FOUND: loss of motion (right arm in sling), tenderness (right shoulder) Integumentary (Brief) FOUND: dry, rash (petechial rash bilateral lower extremities, fading/improving) , warm Neurologic (Brief) FOUND: cranial 2-12 intact, sensory, NOT FOUND: motor (no acute motor deficit/ limited motion right arm because of sling.) Psychiatric (Brief) FOUND: alert, attentive, normal affect, oriented Laboratory Laboratory Tests Test 10/07/16 17:16 10/08/16 04:31 Lab Scanned Report BLOOD BANK [id number] White Blood Count 8.2T/MM3 Red Blood Count 3.79M/MM3 Hemoglobin 11.0GM/DL Hematocrit 32.5% Mean Corpuscular Volume 85.8UM3 Mean Corpuscular Hemoglobin 29.0UUG Mean Corpuscular Hemoglobin Concent 33.8GM/DL RDW Standard Deviation 51.1FL Platelet Count 125T/MM3 Mean Platelet Volume 11.8UM3 Immature Granulocyte % (Auto) % Neutrophils (%) (Auto) % Lymphocytes (%) (Auto) % Monocytes (%) (Auto) % Eosinophils (%) (Auto) % Basophils (%) (Auto) % Absolute Immature Granulocyte (auto T/MM3 Absolute Neutrophils (auto) T/MM3 Absolute Lymphocytes (auto) T/MM3 Absolute Monocytes (auto) T/MM3 Absolute Eosinophils (auto) T/MM3 Absolute Basophils (auto) T/MM3 Neutrophils % (Manual) 35.0% Band Neutrophils % 14.0% Lymphocytes % (Manual) 13.0% Monocytes % (Manual) 19.0% Eosinophils % (Manual) 4.0% Basophils % (Manual) 1.0% Metamyelocytes % 7.0% Myelocytes % 7.0% Absolute Neutrophils (Manual) 2.9T/MM3 Band Neutrophils # 1.1T/MM3 Lymphocytes # (Manual) 1.1T/MM3 Monocytes # (Manual) 1.6T/MM3 Eosinophils # (Manual) 0.3T/MM3 Basophils # (Manual) 0.1T/MM3 Metamyelocytes # 0.6T/MM3 Myelocytes # 0.6T/MM3 Nucleated Red Blood Cells 4 Polychromasia 1+ Poikilocytosis 1+ Red Cell Morphology Comment Abnormal Turbidity < 20 Sodium Level 143MEQ/L Potassium Level 3.4MEQ/L Chloride Level 99MEQ/L Carbon Dioxide Level 33MEQ/L Anion Gap 11MEQ/L Blood Urea Nitrogen 6.0MG/DL Creatinine 0.5MG/DL Glomerular Filtration Rate Calc 120 BUN/Creatinine Ratio 12RATIO Glucose Level 96MG/DL Calculated Osmolality 273MOSM/KG Calcium Level 7.8MG/DL Icterus Index < 2 Chemistry Specimen Hemolysis < 15 Sepsis Diagnostic Criteria Sepsis SIRS Criteria: Pulse >= 90 beats/min, WBC >=12,000 or <=4,000 Severe Sepsis None Seen Assessment & Plan Assessment 1. Neutropenic fever. Presented on 09/25 with temp of 100.2. Has been afebrile since. Admitted with IV antibiotic coverage to include Vancomycin,Levaquin and Cefapine. Filgastrim given daily 09/25/2016. to 10/02. WBC improved. WBC today 8.2, ANC 2.9 2. Eosinophilia of 34 % Question etiology. Allergy to med or reactive. 0% eos. 3. Thrombocytopenia. Post chemotherapy suppression vs DIC Platelets 62K , 40K 09/28/16, and today platelets 26K Will follow. Alimta/carboplatin chemotherapy, cycle 1 on 09/20/16. Platelets 13K . Was given one unit platelets. Platelets 25K on 10/03/16. 22K on 10/04/16, 30K on 10/05/16, 88K on 04/15, and 125K today. 4. Anemia. Hgb 7.7 on 09/27 after transfusion 8.2 on admission. Dropped to 6.8. 9 after transfusion. Suspect Peptic ulcer disease with acute blood loss. Retic count low at 0.1% suggesting marrow suppression from chemotherapy. Ferritin and B 12 elevated. Nosebleeds also contributing and had nosebleed this morning. Bleeding exacerbated by prophylactic lovenox. She weighs 53Kg and had lovenox 40 mg given on 09/25 late in evening and had another 40 mg given at 9 am on 09/26. Will hold Lovenox. Consider EGD after WBC and PLT recovery. Hgb 8.2 on 10/04/16,8.1 10/08/11, and HGB 11.0 today following 2 units packed RBCs. 5. 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 S/P radiation to humerus and painful pelvic mets. Completed XRT mid August and then started systemic therapy with Alimta Carboplatin on 09/20/16. 6. N/V have been problem since diagnosiss and with radiation. Had problems last week after chemotherapy. IV fluids and zofran given on Tue, and Tuesday. She also had famitoldine for burning . This has improved but concern for peptic ulcer disease is present. Continues with intermittent nausea/ vomiting. Will follow 7. COPD Oxygen dependent, stable. 8. Bone metastasis. Pathologic fracture, right humerus. Irradiated. Xgeva given 08/30/16. 9. Rash after IV contrast and Xgeva. Suspect contrast allergy. 10. Hypocalcemia. This may be secondary to bone metastasis, Xgeva, vitamin D deficiency. She currently has a PTH that is markedly elevated. On calcium supplementation. Will follow. Plan/Intensity of Service Oncology okay with dismissal. RTC Suzanne Garcia 10/12/16 with labs, Xgeva, follow- up with Dr. Pelayo 10/18/16 with chest x-ray, labs, and possible chemotherapy Code Status Do Not Resuscitate Hospital Course Summary Disclaimer The visit summary below is not to be considered part of the above Progress Note. Hospital Course Summary 09/25 Admit Inpatient admission for treatment of neutropenic fever-anticipate greater than 2 midnight of care needed. Neutropenic precautions. Start cefepime, vancomycin, and levofloxacin for empiric antimicrobial coverage. Granix to help increase WBC. IVF for volume support secondary to n/v. Zofran prn nausea. Hold antihypertensives due to sepsis syndrome - monitor BP. SCD and Lovenox for DVT prevention due to CA. Continue supplemental O2 and Neb treatments. Consult with Dr Pelayo for ONC eval. Monitor lab. DNR as per pt's request. Care to return to Dr Brower at time of discharge. 09/26 Doing okay this afternoon. Not having f/c. Loose stool has stopped - no bowel movements. Feels some rumbling in ab, like she could have stool soon. Nausea decreased. Ate 25% of breakfast and 50% of lunch. Breathing stable - not feeling increased SOA or congestion with IVF. Continue cefepime, vancomycin, and levofloxacin for empiric antimicrobial coverage. Continue neutropenic precautions. Respiratory PCR panel negative. Stool PCR panel pending (pt not produced sample). Granix 300mcg given this am due to decreased WBC - recheck CBC in am to monitor response. Continue IVF for volume support secondary to n/v. HGB with decreased from admission - transfuse 1 unit pRBC. Hold antihypertensives due to sepsis syndrome - monitor BP. Continue supplemental O2 and Neb treatments. Add nasal saline due to dry nasal passages from O2. Consult with Dr Pelayo for ONC lobo. Recheck BMP in am due to medication and IVF use. Repeat CBC in am due to neutropenic fever. 09/27 Rough night-had nose bleed. Notes congestion to nose, but afraid to blow nose due to worry about resumption of bleeding. Breathing feeling well-not SOA or having cough or congestion. No nausea, but appetite decreased. Food doesn't taste right which decreases her appetite. No ab pain or bloating. Passing flatus. Not had stool today. Urinating well. No mouth pain or pain with swallowing. Granix 300mcg given this am due to persistent neutropenia - recheck CBC in am to monitor response. HGB decreased to 7.7 - transfuse 1 unit pRBC. ONC recommends keeping HGB greater than 8. Stop Lovenox and ASA due to low platelets and nosebleed. Nursing reports pt refusing SCD due to discomfort. Encourage ambulation. Decrease IVF to 75 cc/hr. Oral drive still decreased. Replace potassium - 20mEg today at noon and evening meal. Will give 400mg MagOx at noon as Mg 1.7. BP stable without medication - will continue to hold. Continue supplemental O2 and Neb treatments. Dr Pelayo did evaluate pt this morning. Case discussed with him. Recheck CMP and Mg in am due to medication and IVF use. Repeat CBC in am due to neutropenic fever. 09/28 Feeling rough. Notes congestion and cough. Stools loose-passed blood. More nausea and less appetite. Tired and weak. Not feeling SOA or having pain with breathing. Denies mouth pain or pain with swallowing. No f/c. Urinating well. Magnesium decrease to 1.5. Potassium 3.2. WBC 0.9, HGB 8.4, Platelets 40. Continue cefepime, vancomycin, and levofloxacin for empiric antimicrobial coverage. Granix 300mcg given this am due to persistent neutropenia - recheck CBC in am to monitor response. Continue IVF at 75 cc/hr. Oral drive still decreased. Replace potassium - 20mEg today at noon and evening meal. IV magnesium 2 grams due to decreased magnesium. BP stable without medication - will continue to hold. Continue supplemental O2 and Neb treatments. Add Mucinex DM BID due to congestion. Change Protonix to 40mg IV BID for enhanced GI protection. Recheck CMP and Mg in am due to medication and IVF use. Repeat CBC in am due to neutropenic fever. 09/29 About the same. Mild, persistent nausea. Minimal appetite. Breathing stable-not having increased SOA, cough or congestion. No chest pressure or pain. Some slight swelling to legs. Potassium 3.1. Mg 1.9. WBC 0.7 with ANC 280. HGB 8.1. Platelets 26. Continue cefepime, vancomycin, and levofloxacin for empiric antimicrobial coverage. Give Granix 300mcg today due to persistent neutropenia. Start Scopolamine patch due to persistent nausea - No Phenergan due to use of Reglan. Replace potassium - IV Boluses x4. Will restart lisinopril at 10mg q hs (home dose 20). Norvasc on hold. 09/30 No f/c. Appetite and nausea about the same. Breathing stable without increased congestion or cough. Nasal congestion, but able to use saline without nose bleeds. Urinating well. Note slight increased edema to legs. Not dizzy or unsteady when up. Continue cefepime, vancomycin, and levofloxacin for empiric antimicrobial coverage. Continue Granix 300mcg today due to persistent neutropenia. Transfuse 1 unit of pRBC and Platelets. Decrease IVF to 50 cc/hr. Spironolactone 50mg x1 to help edema and preserve potassium. Will give oral potassium 20mEg with lunch and evening meal today. Increase lisinopril to 20mg q hs. Norvasc on hold. 10/01 About the same. No f/c. Breathing stable-starting to mobilize some secretions. No nose bleeds. No nausea, but appetite low. Not having ab pain. Ambulating well -not dizzy or unsteady when up. LAB: WBC 1.3 with ANC 767. HGB 8.3. Platelets 25. Potassium 2.9. Mg 1.3. Continue cefepime, vancomycin, and levofloxacin for empiric antimicrobial coverage. Continue Granix 300mcg SQ daily until ANC greater than 1500. Will give 2 grams magnesium IV due to low magnesium. Potassium IV bolus and start Oral KCl 20mEq TID with meals - monitor potassium due to lisinopril use. Will d/c IVF. Continue lisinopril 20mg q hs. Norvasc on hold. BP stable. 10/02/16 Neutropenic fever - no fever since 09/25/16. No evidence of infection. Today tineo day 7 of triple abx therapy. Will DC Vancomycin and Cefepime; continue with Levaquin. Still pancytopenic - platelets are 16K and a platelet pack has been ordered. WBC improved to 2.2 and hgb is 8.4. Rt arm swelling & pain - venous duplex to r/o VTE. Consult Dr. Siddiqui on Tuesday to evaluate. She also has pitting edema to both legs. She is fluid positive 14.6L since admission and her weight has increased by >4 kg. IVF have already been dc'd. Will give Lasix 20 mg IV x1. Hypokalemia and hypomg - continue KDur TID frequency; IV mg has already been ordered by Dr. Forman. Port-a-cath f/u - will need to ask Dr. Myrick about f/u on Tuesday. Nausea - more intense today. Continue PRNs. Start Culturelle d/t diarrhea and abx use. GI panel was negative. Hypocalcemia - continue oral Vit D + Ca. Consider IV replacement. Is receiving Xgeva. D/W Dr. Calle (automation machine operator for [facility]) - recommends oral replacement (no need for IV) - most important is to replace mg. [facility] records reviewed - last note from Dr. Brower was 07/12/16 when she was dx with back muscle strain and Rx Flexeril 10/03/16 Neutropenic fever - WBC improved to 4 today. Continues on Levaquin; Vanco and cefepime were dc'd yesterday. Afebrile. Platelets improved to 30 following transfusion. Rt arm swelling & pain - venous duplex this morning. Consult Dr. Siddiqui on Tuesday to evaluate. Fluid overload: Diuresed well with Lasix 20 mg yesterday. Weight decreased to 56.1 kg. Leg swelling improved. Hypokalemia and hypomg - being replaced IV. Port-a-cath f/u - will need to ask Dr. Myrick about f/u on Tuesday. Nausea - improved today. Continue supportive care. Hypocalcemia - continue oral Vit D + Ca. Improved to 7. 10/04/16 Pathologic right humerus fracture: Dr. Siddiqui evaluated Sujata. This morning , and recommends using the sling, and discussed the possibility of surgery. Venous Doppler was negative for DVT. Neutropenic fever has resolved, and white count is 4.9. She is no longer neutropenic. Given lack of identified infectious etiology, and normal vital signs without fever - discontinue Levaquin. Thrombocytopenia: Platelets have decreased again today to 22. She was given a second dose of Lasix 20 mg IV yesterday, and diuresed well. Her weight has decreased to 55.6 kg. Discussed Port-A-Cath with Dr. Myrick, he is not concerned about follow-up appointment at this time, and will try to stop by the patient's room for reassurance. Hypokalemia and hypomagnesemia: Potassium is still slightly low at 3.4, magnesium has improved to a normal level of 1.9. Hypophosphatemia: Phosphorus improved from 1.4 to 2.3 today following IV replacement yesterday. Hypocalcemia: PTH was found to be elevated at 177. Vitamin D levels are pending. Continue oral vitamin D plus calcium. Consider endocrinology consult. Of note, she was on a thiazide diuretic at home, which is also associated with hypocalcemia. 10/05/16 Appreciate multiple consultations including [facility] and oncology team given complexity of patients illness. In today with sling for immobilization of right arm for support of pathologic humerus fracture. Continue to monitor fluid status and daily weights. Weight continues to be trending down and is at 55.4 kilograms today. No further diuresis at this time. Neutropenia resolved (ANC 3600) and thrombocytopenia have both improved. Platelet today is slightly up at 30 and WBC count is normal. Hypocalcemia- continue on oral supplementation. Consult placed for PT and OT to evaluate strength. Consider IRU screen 10/06/2016 Overall, the patient appears to be doing better. She continues to have fluid overload. Platelets and white count have improved significantly. Hemoglobin is down to 7.8 and 2 units of blood was ordered by oncology but will not be given until tomorrow due to [facility] needing to find specific blood for the patient. We'll give Lasix tomorrow morning prior to blood transfusion and then repeat after the first unit of blood. We'll continue current treatment for the patient's COPD. The patient is doing well off of antibiotics after having neutropenic fever. Workup was negative for infection. Hypocalcemia is markedly improved today with calcium level of 8.2. Magnesium and phosphorus are normal. Repeat CBC and renal panel tomorrow. Per case management, IRU did screen the patient and she is doing "too good" to need to go to IRU. She has declined the offer of retirement. She will likely go home with home health, possibly tomorrow after transfusion. Discussed today with the patient's nurse, case management, and Dr. Pelayo. KAR GARCIA APRN October 08, 2016 13:17
[2016-10-08] MEDS ORDERED: CYAN500T2 PO (15:31)
[2016-10-08] MEDS ORDERED: SCOP1PAT TD (15:31)
--- NOTE | 2016-10-08 16:23 | NUR ---
DISCHARGED PATIENT DISCHARGE AND MEDICATION INSTRUCTION ARE GIVE. NO FURTHER QUESTIONS ASKED. PATIENT'S PORT A CATH IS HEP LOCKED AND DE-ACCESSED. PATIENT LEAVES WITH OWN O2 TANK AT 2L NC. PATIENT IS WHEEL TO FAMILY CAR. FAMILY FRIEND GIVES HER A RIDE HOME.
--- NOTE | 2016-10-08 20:29 | DSPDOC ---
General Date Date DATE: 10/08/16 TIME: 20:16 Attending Physician Jessica Forman MD Admitting Physician Jessica Forman MD Consulting Physician Celestine Siddiqui MD, Dr. 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4) Immature Granulocyte % (Auto) % (0.0-0.5) Neutrophils (%) (Auto) % (33-66) Lymphocytes (%) (Auto) % (23-45) Monocytes (%) (Auto) % (0-9.0) Eosinophils (%) (Auto) % (0-4) Basophils (%) (Auto) % (0-2) Absolute Immature Granulocyte (auto T/MM3 (0.00-0.03) Absolute Neutrophils (auto) T/MM3 (1.8-7.7) Absolute Lymphocytes (auto) T/MM3 (1-4.8) Absolute Monocytes (auto) T/MM3 (0-0.8) Absolute Eosinophils (auto) T/MM3 (0-0.5) Absolute Basophils (auto) T/MM3 (0-0.2) Neutrophils % (Manual) 35.0% (33-66) Band Neutrophils % 14.0% (0-6) Lymphocytes % (Manual) 13.0% (23-45) Monocytes % (Manual) 19.0% (0-9.0) Eosinophils % (Manual) 4.0% (0-4) Basophils % (Manual) 1.0% (0-2) Metamyelocytes % 7.0% (0-0) Myelocytes % 7.0% (0-0) Absolute Neutrophils (Manual) 2.9T/MM3 (1.8-7.7) Band Neutrophils # 1.1T/MM3 Lymphocytes # (Manual) 1.1T/MM3 (1-4.8) Monocytes # (Manual) 1.6T/MM3 (0-0.8) Eosinophils # (Manual) 0.3T/MM3 (0-0.5) Basophils # (Manual) 0.1T/MM3 (0-0.2) Metamyelocytes # 0.6T/MM3 Myelocytes # 0.6T/MM3 Nucleated Red Blood Cells 4 Polychromasia 1+ Poikilocytosis 1+ Red Cell Morphology Comment Abnormal Turbidity < 20 (0-20) Sodium Level 143MEQ/L (134-144) Potassium Level 3.4MEQ/L (3.6-5) Chloride Level 99MEQ/L (98-107) Carbon Dioxide Level 33MEQ/L (22-30) Anion Gap 11MEQ/L (5-15) Blood Urea Nitrogen 6.0MG/DL (7-17) Creatinine 0.5MG/DL (0.7-1.2) Glomerular Filtration Rate Calc 120 BUN/Creatinine Ratio 12RATIO (6-26) Glucose Level 96MG/DL (65-110) Calculated Osmolality 273MOSM/KG (261-280) Calcium Level 7.8MG/DL (8.4-10.2) Icterus Index < 2 (0-7) Chemistry Specimen Hemolysis < 15 (0-25) Microbiology Blood cultures negative from admission Radiology Chest x-ray on admission shows no pneumonia Right upper extremity ultrasound shows no DVT Right shoulder x-ray shows acute pathologic fracture of the proximal humeral diaphysis with underlying bony destructive process History of Present Illness This is a 76-year-old female who was recently diagnosed with metastatic lung carcinoma to her pelvis and to her right humerus. The patient is currently receiving chemotherapy. Her first round of chemotherapy was started approximately one week ago. Since beginning her chemotherapy patients had recurrent episodes of nausea and vomiting and diarrhea. During this past week patient was treated in the oncology clinic 3 with IV fluids. The patient continues to have nausea and vomiting and diarrhea. The patients increasing weakness. The patient had low-grade fever chills and sweats at home. Temperature documented as high as 100.2. The patient was referred into the emergency department for evaluation. In the emergency department the patients workup was unremarkable except for neutropenia. The ER provider discussed the case with the on-call oncologist. It was recommended that the patient be admitted for a fever and neutropenia workup. The patients chest x-ray was unremarkable. The patients urine was negative. The patients physical examination does not lend itself to any obvious source of infection other than the nausea and vomiting. Hospital Course The patient was admitted with neutropenic fever. She was started on Levaquin, vancomycin and cefepime. Infectious workup was entirely negative. Vancomycin and cefepime were discontinued after 7 days. Levaquin was continued until the patient was no longer neutropenic. Fevers did resolve early in the hospital course. Dr. Pelayo was consulted regarding pancytopenia and non-small cell lung cancer. The patient was started on Granix to help with white count. She received a total of 5 units of packed red blood cells for anemia and 2 platelet pheresis packs for thrombocytopenia. On the day of discharge white count was 8.2 , hemoglobin 11.0, and platelets 125. The patient did have hypocalcemia but this improved with vitamin D and calcium replacement. Dr. Siddiqui was consulted regarding the patient's arm fracture and recommended more consistent use of her sling. He recommended considering surgical repair when the patient was finished with chemotherapy and given an okay by Dr. Pelayo. The patient was given Lasix intermittently for fluid overload. On discharge she still has some mild lower extremity edema which should resolve on its own. The patient was continued on her usual oxygen for chronic hypoxia from COPD and lung cancer. The patient had physical therapy and occupational therapy during the hospital course. She was screened but found to be doing too well to need inpatient rehabilitation. On 10/08/2016 it was felt patient was stable for dismissal to home. On exam she is alert and oriented and in no acute distress. Chest is clear to auscultation. Cardiovascular reveals a regular rate and rhythm. Abdomen is soft and nontender. Extremities reveal +1 lower extremity edema. Greater than 30 minutes of time was spent seeing and evaluating the patient, discussing with case management and consultants, and arranging discharge plans. 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 (7) Sepsis Status: Resolved Assessment & Plan: Source undetermined. Manifestations: Temp elevation, Tachycardia, Neutropenia (8) Nausea & vomiting Status: Resolved (9) Lung cancer Status: Chronic Assessment & Plan: Started chemo 09/20 On oxygen x3 months (10) COPD (chronic obstructive pulmonary disease) Status: Chronic (11) Chronic respiratory insufficiency Status: Chronic Assessment & Plan: Home O2 at 2L per NC. (12) HTN (hypertension) Status: Chronic (13) Irritable bowel syndrome (IBS) Status: Chronic (14) Epistaxis Status: Resolved Code Status Do Not Resuscitate Home Meds Active Scripts Cyanocobalamin (Vitamin B-12) (Vitamin B-12) 500 Mcg Tablet, 1000 MCG PO DAILY, #30 TAB Prov:JESSICA FORMAN MD 10/08/16 Scopolamine (Transderm-Scop) 1 Each Patch.td72, 1 REMOVAL TD Q3D Y for nausea, # 4 Prov:JESSICA FORMAN MD 10/08/16 Reported Medications Tetrahydrozoline HCl (Eye Drops) 15 Ml Drops, 1 DROP BOTH EYES DAILY Y for DRY EYES 09/25/16 Pantoprazole Sodium (Pantoprazole Sodium) 40 Mg Tablet.dr, 40 MG PO DAILY 09/25/16 Ondansetron HCl (Ondansetron HCl) 8 Mg Tablet, 8 MG PO Q8H Y for NAUSEA &/OR VOMITING 09/25/16 Dexamethasone (Dexamethasone) 4 Mg Tablet, 4 MG PO as directed TAKE 2 DAYS BEFORE AND AFTER CHEMO 4/17/17 Folic Acid (Folic Acid) 1 Mg Tablet, 1 MG PO NOON 09/10/16 Metoclopramide HCl (Reglan) 10 Mg Tablet, 10 MG PO Q6-8HPRN 09/10/16 Hydrocodone/Acetaminophen (Hydrocodon-Acetaminoph 7.5-325) 7.5-325 Tablet, 1 TAB PO Q6H Y for PAIN 08/24/16 Cyclobenzaprine HCl (Cyclobenzaprine HCl) 10 Mg Tablet, 5 MG PO TID Y for MUSCLE PAIN 08/24/16 Sodium Chloride (Saline Nasal Homer) 30 Ml Homer, 1 SPRAY EA NOSTRIL QID Y for PRN ORDERS 11/05/15 Ketotifen Fumarate (Eye Itch Relief) 5 Ml Drops, 1 DROP BOTH EYES BID Y for ITCHING 11/05/15 Loratadine (Allergy) 10 Mg Tablet, 10 MG PO DAILY Y for ALLERY SYMPTOMS 11/05/15 Ipratropium/Albuterol Sulfate (Iprat-Albut 0.5-3(2.5) mg/3 ml) 3 Ml Ampul.neb, 1 VIAL AEROSOL Q6H 11/05/15 Lisinopril (Lisinopril) 20 Mg Tablet, 20 MG PO HS 08/10/08 Dicyclomine Hcl (Dicyclomine Hcl) 20 Mg Tablet, 20 MG PO TID 08/10/08 Multivitamins W-Minerals/Lut (Centrum Silver Tablet) 1 Tab Tablet, 1 TAB PO HS 08/10/08 Calcium Carbonate/Vitamin D3 (Calcium + D 600 Mg Tablet) 1 Tab Tablet, 2 TAB PO DAILY 08/10/08 Discontinued Reported Medications Chlorthalidone (Chlorthalidone) 25 Mg Tablet, 12.5 MG PO WB 11/05/15 Aspirin (Beronica) 81 Mg Tablet.dr, 81 MG PO DAILY 08/10/08 Amlodipine (Norvasc) 5 Mg Tablet, 5 MG PO HS 08/10/08 Face to Face Encounter I met with patient on the day of dismissal and discussed follow up appointments , medications, and safety plan. Discharge Disposition Dismiss to home with home health Copies To 1: BRENDEN PELAYO Copies To 2: MUKUND HOPKINS II, MD; CELESTINE SIDDIQUI MD, STEPHANIE L MD October 08, 2016 20:19
[2016-10-09] MEDS ORDERED: POTASSIUM CHLORIDE 20 MEQ TABLET PO SCH (08:00)
== END 2016-10-08 16:23 | disposition home health service (06) | DRG 809 ==
LOC: ED 16:46 → EDHOLD 19:30 → MED 19:55
PROVIDERS: ADMIT Emergency Medicine; ATTEND Internal Medicine
PROC: 30233N1 Transfusion of Nonautologous Red Blood Cells into Peripheral Vein, Percutaneous Approach (ICD-10-PCS; principal; 2016-09-26)
PROC: 30233R1 Transfusion of Nonautologous Platelets into Peripheral Vein, Percutaneous Approach (ICD-10-PCS; 2016-09-30)
DX: D70.9 Neutropenia, unspecified (principal); C34.11 Malignant neoplasm of upper lobe, right bronchus or lung; C79.51 Secondary malignant neoplasm of bone; J96.11 Chronic respiratory failure with hypoxia; R50.81 Fever presenting with conditions classified elsewhere; E87.6 Hypokalemia; E83.42 Hypomagnesemia; M84.5 Pathological fracture in neoplastic disease; D61.810 Antineoplastic chemotherapy induced pancytopenia; E83.51 Hypocalcemia; J43.9 Emphysema, unspecified; E87.70 Fluid overload, unspecified; I10 Essential (primary) hypertension; R11.2 Nausea with vomiting, unspecified; Z66 Do not resuscitate; K58.9 Irritable bowel syndrome, unspecified; L27.0 Generalized skin eruption due to drugs and medicaments taken internally; T45.1X5A Adverse effect of antineoplastic and immunosuppressive drugs, initial encounter; T50.8X5D Adverse effect of diagnostic agents, subsequent encounter; Z79.82 Long term (current) use of aspirin; Z87.891 Personal history of nicotine dependence; Z79.899 Other long term (current) drug therapy; Z99.81 Dependence on supplemental oxygen
CPT/HCPCS: 36415; 80048; 80053; 80069; 80202; 81003; 82306; 82330; 82607; 82652; 82728; 82746; 83540; 83605; 83615; 83690; 83735; 83970; 84145; 85007; 85018; 85025; 85027; 85045; 85379; 85384; 85610; 85730; 86850; 86860; 86870; 86880; 86900; 86901; 86922; 87040; 87486; 87507; 87581; 87633; 87798; 94640; 96361; 96365; 96372; 96375

== ENCOUNTER → 2016-09-27 | Outpatient (CLI) | payer MEDICARE, BC ==
[~2016-09-27] MED LIST changes: +ONDA-56 PO; +PANT40TA27 PO; +TETR-47 BOTH EYES
== END ==
LOC: LABN 11:44
PROVIDERS: ATTEND Internal Medicine Hematology & Oncology
DX: C34.11 Malignant neoplasm of upper lobe, right bronchus or lung (principal); C78.7 Secondary malignant neoplasm of liver and intrahepatic bile duct
CPT/HCPCS: 82272

== ENCOUNTER → 2016-10-18 | Outpatient (CLI) | payer MEDICARE, BC ==
[~2016-10-18] MED LIST changes: -AMLO5TAB PO; -ASPI81TA84 PO; -CHLO25TA2 PO; +CYAN500T2 PO; +SCOP1PAT TD
--- NOTE | 2016-10-18 10:57 | DI ---
Indication: ITS.REASON: C34.11 RT LUNG CA CHEST, PA LATERAL: Comparison: 09/25/2016 Technique: Single AP upright chest Findings: Patient shows normal heart and mediastinum. Patient still shows a port in place on the right side. No acute new pulmonary findings are seen with mild stable chronic changes of slight hyperaeration. Degenerative changes persist in the thoracic spine and about the shoulders. Impression: Similar appearance the previous study with no acute cardiopulmonary findings but mild chronic basilar lung changes persist. Heart size is stable. .
== END ==
LOC: IMA 10:07
PROVIDERS: ATTEND Internal Medicine Hematology & Oncology
DX: C34.11 Malignant neoplasm of upper lobe, right bronchus or lung (principal)

== ENCOUNTER 2016-10-21 18:32 | Emergency (ER) | payer MEDICARE, BC ==
[~2016-10-21] VITALS: Ht 149.9 cm; Wt 57.9 kg
[2016-10-21 18:35] VITALS: Ht 149.9 cm; Wt 57.9 kg
--- OUTSIDE RECORDS SUMMARY | 2016-10-21 18:36 | XMS REPORT | Continuity of Care Document ---
Author Author [facility] Organization [facility] Address Unknown Phone Unavailable Support Name Relationship Address Phone MUKUND HOPKINS II, MD Caregiver [address] [place] [address] Unavailable BRENDEN MCNEIL Caregiver [phone] [place] [address] Unavailable SIMI JUAREZ Next Of Kin [address] [place] [address] C Insurance Providers Guarantor Harriet Juarez Address [address] [place] [address] C Email DENIED 16 Payer [facility] Policy Number [id number] Subscriber's Name Harriet Juarez Relationship 18 Self Group Number [id number] Payer Medicare Policy Number [id number] Subscriber's Name Harriet Juarez Relationship 18 Self Problems Active Problems Medical Problem Onset Date Status Anxiety Unknown Acute Back pain Unknown Acute COPD (chronic obstructive pulmonary disease) Unknown Chronic Chronic respiratory insufficiency Unknown Chronic Epistaxis Unknown Resolved Fluid overload Unknown Acute HTN (hypertension) Unknown Chronic Hypokalemia Unknown Acute Hypomagnesemia Unknown Resolved Irritable bowel syndrome (IBS) Unknown Chronic Low back strain Unknown Acute Lung cancer Unknown Chronic Nausea & vomiting Unknown Resolved Night terror Unknown Acute Pancytopenia Unknown Acute 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 Pharyngitis Unknown Acute Sepsis Unknown Resolved Sinusitis Unknown Acute Spastic colon Unknown Tachycardia Unknown Resolved Past Problems Medical Problem Onset Date COPD (chronic obstructive pulmonary disease) Unknown Flank pain Unknown Hypoxia Unknown Lumbar strain Unknown Neutropenic fever Unknown Right humeral fracture Unknown Tick bite with subsequent removal of tick Unknown Medications Current Home Medications Medication Dose Units Route Directions Days Qty Instructions Start Date Calcium Carbonate/Vitamin D3 (Calcium + D 600 Mg Tablet) 1 Tab Tablet 2 Tab Oral Daily 08/10/08 Cyanocobalamin (Vitamin B-12) (Vitamin B-12) 500 Mcg Tablet 1,000 Mcg Oral Daily 30 Tablet 10/08/16 Cyclobenzaprine Hcl 10 Mg Tablet 5 Mg Oral Three Times A Day as needed for Muscle Pain 08/24/16 Dexamethasone 4 Mg Tablet 4 Mg Oral As Directed TAKE 2 DAYS BEFORE AND AFTER CHEMO 09/13/16 Dicyclomine Hcl 20 Mg Tablet 20 Mg Oral Three Times A Day Folic Acid 1 Mg Tablet 1 Mg Oral Give At Noon 09/10/16 Hydrocodone/Acetaminophen (Hydrocodon-Acetaminoph [...] 10 Mg Oral Every 6-8 Hours Prn 09/10/16 Multivitamins W-Minerals/Lut (Centrum Silver Tablet) 1 Tab Tablet 1 Tab Oral Bedtime 08/10/08 Ondansetron Hcl 8 Mg Tablet 8 Mg Oral Every 8 Hours as needed for Nausea &/ Or Vomiting 09/25/16 Pantoprazole Sodium 40 Mg Tablet. 40 Mg Oral Daily 09/25/16 Scopolamine (Transderm-Scop) 1 Each Patch.td72 1 Removal Transderm Every 3 Days as needed for Nausea 4 10/08/16 Sodium Chloride (Saline Nasal [place]) 30 Ml [place] 1 [place] Each Nostril Four Times Daily as needed for Prn Orders 11/05/15 Tetrahydrozoline Hcl (Eye Drops) 15 Ml Drops 1 Drop Both Eyes Daily as needed for Dry Eyes 09/25/16 Past Home Medications Medication Directions Ordered Status Alendronate Sodium 70 Mg Tablet, 70 Mg Oral Weekly 11/05/15 Discontinued Amlodipine Besylate (Norvasc) 5 Mg Tablet, 5 Mg Oral Bedtime 08/10/08 Discontinued Aspirin (Beronica) 81 Mg Tablet.dr 81 Mg Oral Daily 08/10/08 Discontinued Chlorthalidone 25 Mg Tablet, 12.5 Mg Oral Give With Breakfast 11/05/15 Discontinued Tetrahydrozoline Hcl (Eye Drops) 15 Ml Drops, 1 Drop Both Eyes Daily as needed for Prn Orders 11/05/15 Discontinued Social History Social History Problem Response Recorded Date/Time Onset Date Status Hx Substance Use No 09/25/2016 5:47pm Not Applicable Not Applicable Hx Alcohol Use Y BEER VERY OCC. 09/25/2016 5:47pm Not Applicable Not Applicable Has the pt used tobacco in the last 12 months No 09/25/2016 8:06pm Not Applicable Not Applicable Tobacco Usage none 11/05/2015 12:26pm Not Applicable Not Applicable Hospital Discharge Instructions Current inpatient/outpatient. Discharge instructions are currently unavailable. Plan of Care Current inpatient/outpatient. The plan of care is currently unavailable Functional Status No functional status results. Allergies, Adverse Reactions, Alerts Allergen Type Severity Reaction Status Last Updated No Known Drug Allergies Allergy Unknown Active 09/25/16 Immunizations Query Response on File Recorded Date/Time Hx Influenza Vaccination Y 03-11-16 09/25/16 8:06pm Hx Pneumococcal Vaccination Y 02-24-11,02-11-15 09/25/16 8:06pm Hx Influenza Vaccination Y 03-11-16 09/25/16 8:06pm Hx Tetanus Diptheria Y 08/10/08 07/26/14 1:30am Influenza Vaccine Hx 03/11/16 09/26/16 9:01am Pneumococcal PCV13 Vaccine Hx 02/24/11 08/03/16 8:31pm Tdap Vaccine Hx 08/10/08 08/03/16 8:31pm Vital Signs Acute Vital Signs Vital Response Date/Time Temperature (Fahrenheit) 96.0 deg F (96.8 - 99.1) 10/08/2016 12:22pm Temperature (Calculated Celsius) 35.14198 degrees C (36.0 - 37.3) 10/08/2016 12:22pm Temperature Source Oral 09/13/2016 8:52am Pulse Rate (adult) 90 bpm (60 - 100) 10/08/2016 12:22pm Respiratory Rate 16 breaths/min (10 - 20) 10/08/2016 12:22pm O2 Sat by Pulse Oximetry 95 % (90 - 100) 10/08/2016 12:22pm Oxygen Delivery Method Nasal Cannula 10/08/2016 2:40pm Oxygen Delivery Method Nasal Cannula 10/08/2016 12:22pm Oxygen Flow Rate 2.00 L/min 10/08/2016 2:40pm Blood Pressure 130/64 mm Hg 10/08/2016 12:22pm Blood Pressure Source Automatic Cuff 10/08/2016 12:22pm Height (Feet) 4 feet 10/08/2016 1:24pm Height (Inches) 11.00 inches 10/08/2016 1:24pm Weight (Kilograms) 54.100 kg 10/08/2016 7:29am Body Mass Index (BMI) 23.9 09/25/2016 8:03pm Results Laboratory Results Test Name Result Units Flags Reference Collection Date/Time Result Date/ Time Comments C-Reactive Protein 57.2 MG/L H 0-9 08/05/2016 12:43pm 08/05/2016 1:05pm Erythrocyte Sedimentation Rate 22 mm/h 0-23 08/05/2016 12:43pm 2016 12:39am Sedimentation Rate performed at [facility], [address] [place] [address] Sql Server Developer Bandar Wesley DO Immunoglobulin G 1129.45 MG/DL 700-1600 08/23/2016 11:12am 08/23/2016 11:53am Immunoglobulin A 311.14 MG/DL 70-400 08/23/2016 11:12am 08/23/2016 11: 53am Immunoglobulin M 75.09 MG/DL 40-230 08/23/2016 11:12am 08/23/2016 11: 53am Zusd-0-Olhahbubsvyni 3.16 mcg/mL H 08/23/2016 11:12am 08/25/2016 1: 07pm Reference Range: 1.21 - 2.70 Test Performed by: [facility] [address] [place] [address] Beta-2 Microglobulin, S performed at [facility], [address] [place] [address] Sql Server Developer Juliana Rob MD Immunoglobulin D 6 mg/dL <=10 08/23/2016 11:12am 08/25/2016 1:54pm Test Performed by: [facility] [address] [place] [address] Immunoglobulin D performed at [facility], [address] [place] [address] Sql Server Developer Juliana Rob MD Immunoglobulin E 58 IU/mL 0-100 08/23/2016 11:1208/23/2016 9:51pm IgE (Immunoglobulin E) performed at [facility], [address] [place] [address] Sql Server Developer Bandar Welsey DO Serum Total Protein 6.6 g/dL 6.0-7.6 08/23/2016 11:1208/23/2016 9: 51pm Immunoelectrophoresis, no IMQ performed at [facility], [address] [place] [address] Sql Server Developer Bandar Wesley DO Albumin (PEP) 2.9 g/dL 2.6-4.5 08/23/2016 11:1208/25/2016 1:19pm Cpvyv-4-Bajvkfcpp 0.7 g/dL H 0.3-0.5 08/23/2016 11:08/25/2016 1: 19pm Dcymb-9-Bphdgupxw 1.1 g/dL 0.6-1.2 08/23/2016 11:08/25/2016 1: 19pm Lqfx-3-Dolhtpoc 0.4 g/dL 0.4-0.6 08/23/2016 11:1208/25/2016 1:19pm Hcrg-5-Enpqlslv 0.4 g/dL 0.2-0.5 08/23/2016 11:08/25/2016 1:19pm Gamma Globulins 1.1 g/dL 0.4-1.7 08/23/2016 11:08/25/2016 1:19pm Albumin % (PEP) 44.1 % L 48.7-61.8 08/23/2016 11:1208/25/2016 1:19pm Odspw-8-Vbuuxiwmd (%) 10.3 % H 3.4-8.3 08/23/2016 11:1208/25/2016 1: 19pm Jaemh-3-Zxijuusiu (%) 16.6 % 8.4-17.5 08/23/2016 11:08/25/2016 1: 19pm Qumg-7-Zuhracik (%) 5.6 % 5.4-8.9 08/23/2016 11:1208/25/2016 1:19pm Nvxj-2-Cntynkzk (%) 6.1 % 3.8-7.7 08/23/2016 11:12am 08/25/2016 1:19pm Gamma Globulins (%) 17.3 % 8.1-23.0 08/23/2016 11:12am 08/25/2016 1: 19pm Immunoelectrophoresis, no IMQ performed at [facility], [address] [place] [address] Sql Server Developer Bandar Wesley DO Protein Electrophoresis Comment - 08/23/2016 11:12am 08/25/2016 1: 19pm Increased alpha-1 fraction. No monoclonal peaks or restricted areas observed by immunofixation. Free [place]/Lambda Light Chain Ratio 1.94 H 08/23/2016 11:12am 2016 1:22pm Reference Range: 0.2600-1.65 Test Performed by: [address] [address] Immunoglobulin Free Light Chains, Serum performed at [facility], [address] [place] [address] Sql Server Developer Juliana Rob MD Free [place] Light Chains 5.46 mg/dL H 08/23/2016 11:12am 08/25/2016 1: 22pm Reference Range: 0.3300-1.94 Free [place] Light Chains 2.82 mg/dL H () 08/23/2016 11:12am 08/25/2016 1 :22pm Reference Range: 0.5700-2.63 Test Performed by: [address] [address] Immunoglobulin Free Light Chains, Serum performed at [facility], [address] [place] [address] Sql Server Developer Juliana Rob MD Reference Range: 0.5700-2.63 --- 08/25/16 1322 --- IFLCLA previously reported as: 2.82 H mg/dL Reference Range: 0.5700-2.63 Test Performed by: [address] [address] Immunoglobulin Free Light Chains, Serum performed at [facility], [address] [place] [address] Sql Server Developer Juliana Rob MD Troponin I < 0.012 ng/ml 0-0.12 08/24/2016 1:47pm 08/24/2016 2:22pm Troponin values with a difference of 55% increase from orginal troponin value represent a true biological DELTA value. (%increase Calc=Orginal Troponin value, divided by subsequent Troponin value, multiplied by 100) Urine WBC 1-3 /HPF 0-5 08/24/2016 3:49pm 08/24/2016 4:07pm Urine RBC 0-1 /HPF 0-3 08/24/2016 3:49pm 08/24/2016 4:07pm Urine Squamous Epithelial Cells 0-5 08/24/2016 3:49pm 08/24/2016 4: 07pm Urine Bacteria TRACE H NEGATIVE 08/24/2016 3:49pm 08/24/2016 4:07pm Urine Culture Indicated CULT NOT INDICATED 08/24/2016 3:49pm 2016 4:07pm Neutrophils (%) (Auto) 78.4 % H 33-66 09/23/2016 9:53am 09/23/2016 9: 58am Lymphocytes (%) (Auto) 2.2 % L 23-45 09/23/2016 9:53am 09/23/2016 9: 58am Monocytes (%) (Auto) 1.9 % 0-9.0 09/23/2016 9:53am 09/23/2016 9:58am Eosinophils (%) (Auto) 17.3 % H 0-4 09/23/2016 9:53am 09/23/2016 9:58am Basophils (%) (Auto) 0.0 % 0-2 09/23/2016 9:53am 09/23/2016 9:58am Immature Granulocyte % (Auto) 0.2 % 0.0-0.5 09/23/2016 9:53am 2016 9:58am Absolute Neutrophils (auto) 5.0 T/MM3 1.8-7.7 09/23/2016 9:53am 2016 9:58am Absolute Lymphocytes (auto) 0.1 T/MM3 L 1-4.8 09/23/2016 9:53am 2016 9:58am Absolute Monocytes (auto) 0.1 T/MM3 0-0.8 09/23/2016 9:53am 09/23/2016 9:58am Absolute Eosinophils (auto) 1.1 T/MM3 H 0-0.5 09/23/2016 9:53am 2016 9:58am Absolute Basophils (auto) 0.0 T/MM3 0-0.2 09/23/2016 9:53am 09/23/2016 9:58am Absolute Immature Granulocyte (auto 0.01 T/MM3 0.00-0.03 09/23/2016 9: 53am 09/23/2016 9:58am Carcinoembryonic Antigen 116.00 UG/L H 0-3.0 09/20/2016 8:14am 2016 9:04am White Blood Count 8.2 T/MM3 4.5-11.0 10/08/2016 4:3110/08/2016 5: 06am Red Blood Count 3.79 M/MM3 L 4.00-5.20 10/08/2016 4:3110/08/2016 5: 06am Hemoglobin 11.0 GM/DL D L 12-16 10/08/2016 4:3110/08/2016 5:06am Hematocrit 32.5 % D L 36-46 10/08/2016 4:3110/08/2016 5:06am Mean Corpuscular Volume 85.8 UM3 80-100 10/08/2016 4:3110/08/2016 5: 06am Mean Corpuscular Hemoglobin 29.0 UUG 26-34 10/08/2016 4:312016 5:06am Mean Corpuscular Hemoglobin Concent 33.8 GM/DL 31-37 10/08/2016 4:3110/08/2016 5:06am RDW Standard Deviation 51.1 FL H 36.9-50.2 10/08/2016 4:3110/08/2016 5:06am Platelet Count 125 T/MM3 D L 130-400 10/08/2016 4:3110/08/2016 5:06am Mean Platelet Volume 11.8 UM3 9.4-12.4 10/08/2016 4:3110/08/2016 5: 06am Neutrophils % (Manual) 35.0 % 33-66 10/08/2016 4:3110/08/2016 6: 37am Band Neutrophils % 14.0 % H 0-6 10/08/2016 4:10/08/2016 6:37am Lymphocytes % (Manual) 13.0 % L 23-45 10/08/2016 4:10/08/2016 6: 37am Monocytes % (Manual) 19.0 % H 0-9.0 10/08/2016 4:10/08/2016 6:37am Eosinophils % (Manual) 4.0 % 0-4 10/08/2016 4:10/08/2016 6:37am Basophils % (Manual) 1.0 % 0-2 10/08/2016 4:10/08/2016 6:37am Metamyelocytes % 7.0 % H 0-0 10/08/2016 4:10/08/2016 6:37am Myelocytes % 7.0 % H 0-0 10/08/2016 4:10/08/2016 6:37am Reactive Lymphocytes % 1.0 % H 0-0 10/06/2016 5:10/06/2016 6:58am Band Neutrophils # 1.1 T/MM3 10/08/2016 4:10/08/2016 6:37am Absolute Neutrophils (Manual) 2.9 T/MM3 1.8-7.7 10/08/2016 4:10/08 6:37am Lymphocytes # (Manual) 1.1 T/MM3 1-4.8 10/08/2016 4:10/08/2016 6: 37am Monocytes # (Manual) 1.6 T/MM3 H 0-0.8 10/08/2016 4:10/08/2016 6: 37am Eosinophils # (Manual) 0.3 T/MM3 0-0.5 10/08/2016 4:10/08/2016 6: 37am Basophils # (Manual) 0.1 T/MM3 0-0.2 10/08/2016 4:10/08/2016 6: 37am Metamyelocytes # 0.6 T/MM3 10/08/2016 4:10/08/2016 6:37am Myelocytes # 0.6 T/MM3 10/08/2016 4:10/08/2016 6:37am Reactive Lymphocytes # 0.0 T/MM3 0-0 10/06/2016 5:11a10/06/2016 6: 58am Nucleated Red Blood Cells 4 10/08/2016 4:31am 10/08/2016 6:37am Red Cell Morphology Comment ABNORMAL 10/08/2016 4:31am 10/08/2016 6 :37am Anisocytosis 2+ 10/07/2016 4:38am 10/07/2016 7:17am Poikilocytosis 1+ 10/08/2016 4:31am 10/08/2016 6:37am Hypochromasia 1+ 09/26/2016 3:59am 09/26/2016 6:16am Polychromasia 1+ 10/08/2016 4:31am 10/08/2016 6:37am Helmet Cells 1+ 09/28/2016 4:12am 09/28/2016 6:48am Ovalocytes 1+ 09/30/2016 5:14am 09/30/2016 6:44am Absolute Reticulocyte Count 0.0059 T/MM3 L 0.0300-0.0900 09/27/2016 4: 20am 09/27/2016 6:27am Percent Reticulocyte Count 0.2 % L 0.6-1.7 09/27/2016 4:2009/27/2016 6:27am Immature Reticulocyte Fraction 4.4 % 3.3-14.5 09/27/2016 4:202016 6:27am Reticulocyte Hgb Content (CHr) 28.4 PG L 30.8-36.6 09/27/2016 4:2005/2016 6:27am Prothromb Time International Ratio 1.37 H 0.76-1.04 09/27/2016 6:2409/27/2016 6:42am THERAPUTIC RANGE=2.00-3.00 FOR ANTI-THROMBOSIS THERAPUTIC RANGE=2.50-3.50 FOR IMPLANTED VALVE Activated Partial Thromboplast Time 28.2 SEC 24-36 09/27/2016 6:24am 7:50am Fibrinogen 409 MG/DL 175-450 09/27/2016 6:24am 09/27/2016 7:50am D-Dimer 779 NG/ML H 0-230 09/27/2016 6:24am 09/27/2016 7:50am <230 NG/ ML D-DU=PRESUMPTIVE NEGATIVE FOR PE OR DVT >230 NG/ML D-DU=ADDITIONAL EVAL FOR PE OR DVT RECOMMENDED Icterus Index < 2 0-7 10/08/2016 4:3110/08/2016 5:03am Chemistry Specimen Hemolysis < 15 0-25 10/08/2016 4:3110/08/2016 5 :03am 0-25: Specimen Exhibited No Hemolysis. Turbidity < 20 0-20 10/08/2016 4:3110/08/2016 5:03am Sodium Level 143 MEQ/L 134-144 10/08/2016 4:3110/08/2016 5:03am Potassium Level 3.4 MEQ/L L 3.6-5 10/08/2016 4:3110/08/2016 5:03am Chloride Level 99 MEQ/L 98-107 10/08/2016 4:3110/08/2016 5:03am Carbon Dioxide Level 33 MEQ/L H 22-30 10/08/2016 4:3110/08/2016 5: 03am Anion Gap 11 MEQ/L 5-15 10/08/2016 4:3110/08/2016 5:03am Blood Urea Nitrogen 6.0 MG/DL L 7-17 10/08/2016 4:3110/08/2016 5: 03am Creatinine 0.5 MG/DL L 0.7-1.2 10/08/2016 4:3110/08/2016 5:03am BUN/Creatinine Ratio 12 RATIO 6-26 10/08/2016 4:3110/08/2016 5:03am Glomerular Filtration Rate Calc 120 10/08/2016 4:3110/08/2016 5: 03am Glucose Level 96 MG/DL 65-110 10/08/2016 4:3110/08/2016 5:03am Calculated Osmolality 273 MOSM/KG 261-280 10/08/2016 4:3110/08/2016 5:03am Calcium Level 7.8 MG/DL L 8.4-10.2 10/08/2016 4:3110/08/2016 5:03am Ionized Calcium (Measured) 0.91 MMOL/L L 1.12-1.32 10/02/2016 3:11pm 10/2016 4:18pm Phosphorus Level 4.3 MG/DL 2.5-4.5 10/06/2016 5:11am 10/06/2016 6:01am Total Bilirubin 0.50 MG/DL 0.20-1.30 10/05/2016 4:05am 10/05/2016 5: 00am Alkaline Phosphatase 94 U/L 38-126 10/05/2016 4:0510/05/2016 5:00am Total Protein 5.1 G/DL L 6.3-8.2 10/05/2016 4:0510/05/2016 5:00am Albumin 2.7 G/DL L 3.5-5.0 10/06/2016 5:11am 10/06/2016 6:01am Globulin 2.4 G/DL 2.4-3.6 10/05/2016 4:0510/05/2016 5:00am Albumin/Globulin Ratio 1.1 RATIO 1.1-2.2 10/05/2016 4:05am 10/05/2016 5 :00am Aspartate Amino Transf (AST/SGOT) 20 U/L 14-36 10/05/2016 4:05am 2016 5:00am Alanine Aminotransferase (ALT/SGPT) 41 U/L 9-52 10/05/2016 4:05am 10/05 5:00am Lactate Dehydrogenase 675 U/L H 313-618 10/05/2016 4:05am 10/05/2016 5: 00am Lipase 78 U/L 23-300 09/25/2016 5:27pm 09/25/2016 5:42pm Magnesium Level 1.6 MG/DL 1.6-2.3 10/06/2016 5:11am 10/06/2016 6:01am Plasma Lactate 0.6 MMOL/L 0.6-2.2 09/25/2016 10:39pm 09/25/2016 11: 22pm Procalcitonin 0.07 NG/ML 09/25/2016 7:05pm 09/25/2016 7:35pm PCT </= 0.5 ng/mL - sepsis not likely; PCT >0.5 and </=2 ng/mL - sepsis possible; PCT >2 ng/mL - sepsis likely; PCT >/=10 ng/mL - systemic inflammatory response - sepsis or septic shock highly indicated. Iron Level 96 UG/DL 37-170 09/26/2016 10:21am 09/27/2016 2:03am Ferritin 1060 NG/ML H 11-264 09/26/2016 10:21am 09/27/2016 4:22am Vitamin B12 Level 633 PG/ML 239-931 09/26/2016 10:21am 09/27/2016 3: 12am Folate > 20.0 NG/ML H 2.76-20 09/26/2016 10:21am 09/27/2016 3:12am NORMAL ADULT RANGE: 2.76->20 ng/mL Vancomycin Level Trough 15.29 UG/ML 15-20 10/01/2016 3:40pm 10/01/2016 4:07pm Parathyroid Hormone (Intact) 177.3 PG/ML H 12.1-64.0 10/04/2016 3:57am 10/04/2016 10:21am Stool Campylobacter PCR NEGATIVE NEGATIVE 10/02/2016 10:04pm 2016 12:06am Stool C. difficile Toxin (PCR) NEGATIVE NEGATIVE 10/02/2016 10:04pm 10/03/2016 12:06am Stool Plesiomonas shigelloides PCR NEGATIVE NEGATIVE 10/02/2016 10: 04pm 10/03/2016 12:06am Stool Salmonella PCR NEGATIVE NEGATIVE 10/02/2016 10:04pm 10/03/2016 12:06am Stool Vibrio (PCR) NEGATIVE NEGATIVE 10/02/2016 10:04pm 10/03/2016 12 :06am Stool Vibrio cholera (PCR) NEGATIVE NEGATIVE 10/02/2016 10:04pm 10/03 12:06am Stool Yersinia enterocolitica (PCR) NEGATIVE NEGATIVE 10/02/2016 10: 04pm 10/03/2016 12:06am Stool Enteroaggregative E. coli PCR NEGATIVE NEGATIVE 10/02/2016 10: 04pm 10/03/2016 12:06am Stool Enteropathogenic E. coli (PCR NEGATIVE NEGATIVE 10/02/2016 10: 04pm 10/03/2016 12:06am Stool Enterotoxigenic Ecoli PCR NEGATIVE NEGATIVE 10/02/2016 10:04pm 10/03/2016 12:06am Stool E. coli Shiga Toxins NEGATIVE NEGATIVE 10/02/2016 10:04pm 10/03 12:06am Stool E coli O157 PCR N/A NA/NEG 10/02/2016 10:04pm 10/03/2016 12: 06am Stool Shigella/EIEC (PCR) NEGATIVE NEGATIVE 10/02/2016 10:04pm 2016 12:06am Stool Cryptosporidium PCR NEGATIVE NEGATIVE 10/02/2016 10:04pm 2016 12:06am Stool Cyclospora species Detection NEGATIVE NEGATIVE 10/02/2016 10: 04pm 10/03/2016 12:06am Stool Entamoeba (PCR) NEGATIVE NEGATIVE 10/02/2016 10:04pm 2016 12:06am Stool Giardia Lamblia PCR NEGATIVE NEGATIVE 10/02/2016 10:04pm 2016 12:06am Stool Adenovirus (PCR) NEGATIVE NEGATIVE 10/02/2016 10:04pm 2016 12:06am Stool Astrovirus (PCR) NEGATIVE NEGATIVE 10/02/2016 10:04pm 2016 12:06am Stool Norovirus GI/GII PCR NEGATIVE NEGATIVE 10/02/2016 10:04pm 10/03 12:06am Stool Rotavirus A PCR NEGATIVE NEGATIVE 10/02/2016 10:04pm 2016 12:06am Stool Sapovirus (PCR) NEGATIVE NEGATIVE 10/02/2016 10:04pm 2016 12:06am Adenovirus (PCR) NEGATIVE NEGATIVE 09/26/2016 10:06am 09/26/2016 11: 40am Coronavirus Type 229E (PCR) NEGATIVE NEGATIVE 09/26/2016 10:06am 11:40am Coronavirus Type HKU1 (PCR) NEGATIVE NEGATIVE 09/26/2016 10:06am 11:40am Coronavirus Type NL63 (PCR) NEGATIVE NEGATIVE 09/26/2016 10:06am 11:40am Coronavirus Type OC43 (PCR) NEGATIVE NEGATIVE 09/26/2016 10:06am 11:40am Human Metapneumovirus (PCR) NEGATIVE NEGATIVE 09/26/2016 10:06am 11:40am Enterovirus/Rhinovirus (PCR) NEGATIVE NEGATIVE 09/26/2016 10:06am 11:40am Influenza Virus Type A (PCR) NEGATIVE NEGATIVE 09/26/2016 10:06am 11:40am Influenza Virus Type B (PCR) NEGATIVE NEGATIVE 09/26/2016 10:06am 11:40am Parainfluenza Type 1 (PCR) NEGATIVE NEGATIVE 09/26/2016 10:06am 09/26 11:40am Parainfluenza Type 2 (PCR) NEGATIVE NEGATIVE 09/26/2016 10:06am 09/26 11:40am Parainfluenza Type 3 (PCR) NEGATIVE NEGATIVE 09/26/2016 10:06am 09/26 11:40am Parainfluenza Type 4 (PCR) NEGATIVE NEGATIVE 09/26/2016 10:06am 09/26 11:40am Respiratory Syncytial Virus (PCR) NEGATIVE NEGATIVE 09/26/2016 10: 06am 09/26/2016 11:40am Bordetella parapertussis DNA (PCR) NEGATIVE NEGATIVE 09/26/2016 10: 06am 09/26/2016 11:40am Chlamydia pneumoniae DNA (PCR) NEGATIVE NEGATIVE 09/26/2016 10:06am 09/26/2016 11:40am Mycoplasma pneumoniae (PCR) NEGATIVE NEGATIVE 09/26/2016 10:06am 11:40am Urine Collection Type CLEANCATCH-MIDSTREAM 09/25/2016 6:20pm 2016 6:34pm Urine Color YELLOW YELLOW 09/25/2016 6:20pm 09/25/2016 6:34pm Urine Turbidity CLEAR CLEAR 09/25/2016 6:20pm 09/25/2016 6:34pm Urine Specific [place] 1.010 L 1.015-1.025 09/25/2016 6:20pm 2016 6:34pm Urine pH 6.5 5.0-8.0 09/25/2016 6:20pm 09/25/2016 6:34pm Urine Leukocyte Esterase NEGATIVE NEGATIVE 09/25/2016 6:20pm 2016 6:34pm Urine Nitrite NEGATIVE NEGATIVE 09/25/2016 6:20pm 09/25/2016 6:34pm Urine Protein NEGATIVE NEGATIVE 09/25/2016 6:20pm 09/25/2016 6:34pm Urine Glucose (UA) NEGATIVE NEGATIVE 09/25/2016 6:20pm 09/25/2016 6: 34pm Urine Ketones 3+ A NEGATIVE 09/25/2016 6:20pm 09/25/2016 6:34pm Urine Urobilinogen 0.2 EU/DL NORMAL 09/25/2016 6:20pm 09/25/2016 6: 34pm Urine Bilirubin NEGATIVE NEGATIVE 09/25/2016 6:20pm 09/25/2016 6: 34pm Urine Blood NEGATIVE NEGATIVE 09/25/2016 6:20pm 09/25/2016 6:34pm Urinalysis Comment MICROSCOPIC NOT IND. 09/25/2016 6:20pm 2016 6:34pm Vitamin D 1,25-Dihydroxy 275 pg/mL H 18-78 10/04/2016 10:06am 2016 10:15pm ADDITIONAL INFORMATION This test was developed and its performance characteristics determined by [facility] in a manner consistent with CLIA requirements. This test has not been cleared or approved by the U.S. Food and Drug Administration. Test Performed by: [address] [address] Vitamin D, 1,25-Dihydroxy performed at [facility], [address] [place], [place] [id number] Sql Server Developer Juliana Rob MD 25-Hydroxy Vitamin D Total 33 ng/mL 30-100 10/04/2016 10:06am 2016 12:08pm Note new methodology, reference range and reporting of Vitamin D total only. A level consistently >200 is potentially toxic. Vitamin D, 25-Hydroxy performed at [facility], [address] [place] [address] Sql Server Developer Bandar Wesley DO Stool Occult Blood POSITIVE A 09/27/2016 UNK 09/27/2016 12:05pm Stool Occult Blood Sample #2 POSITIVE A 09/27/2016 UNK 09/27/2016 12 :05pm Stool Occult Blood Sample #3 POSITIVE A 09/27/2016 UNK 09/27/2016 12 :05pm Microbiology Results Procedure Source Organism/Result Collection Date/Time Result Date/Time Result Status Blood Culture Peripheral/Iv Start NO GROWTH AFTER 5 DAYS 09/25/2016 7:05pm 09/30/2016 7:07pm Final Procedures Procedure Status Date Provider(s) X-ray exam of humerus Completed 08/03/16 Ct upper extremity w/o dye Completed 08/03/16 Emergency dept visit Completed 08/03/16 Mri joint upr extr w/o&w/dye Completed 08/10/16 Bone imaging whole body Completed 08/10/16 [id number]"TECHNETIUM TC-99M MEDRONATE, DIAGNOSTIC, PER STUDY DO Completed [...] Complete cbc w/auto diff wbc Completed 08/13/16 [id number]"INFUSION, NORMAL SALINE SOLUTION , 250 CC" Completed 08/13/16 [id number]"LOW OSMOLAR CONTRAST MATERIAL, 300-399 MG/ML IODINE C [...] Complete cbc w/auto diff wbc Completed 08/30/16 [id number]"INFUSION, NORMAL SALINE SOLUTION , 250 CC" Completed 08/30/16 [id number]"LOW OSMOLAR CONTRAST MATERIAL, 300-399 MG/ML IODINE C [...] Completed 08/24/16 Emergency dept visit Completed 08/24/16 [id number] ITEM OR SERVICE Completed 08/24/16 [id number] ITEM OR SERVICE Completed 08/24/16 [id number] ITEM OR SERVICE Completed 08/24/16 [id number] ITEM OR SERVICE Completed 08/24/16 [id number] ITEM OR SERVICE Completed 08/24/16 [id number] ITEM OR SERVICE Completed 08/24/16 [id number] ITEM OR SERVICE Completed 08/24/16 [id number] ITEM OR SERVICE Completed 08/24/16 [id number] ITEM OR SERVICE Completed 08/24/16 [id number] ITEM OR SERVICE Completed 08/24/16 [id number] ITEM OR SERVICE Completed 08/24/16 591252"HOSPITAL OBSERVATION SERVICE, PER HOUR" Completed 08/24/16 [id number]"HOSPITAL OBSERVATION SERVICE, PER HOUR" Completed 08/24/16 [id number]"HOSPITAL OBSERVATION SERVICE, PER HOUR" Completed 08/24/16 Routine venipuncture Completed 09/13/16 Insert tunneled cv cath Completed 09/13/16 ELI LEONG MD, FACS, CWS Fluoroguide for vein device Completed 09/13/16 Complete cbc w/auto diff wbc Completed 09/13/16 Airway inhalation treatment Completed 09/13/16 [id number] ITEM OR SERVICE Completed 09/13/16 [id number] ITEM OR SERVICE Completed 09/13/16 308409"PORT, INDWELLING (IMPLANTABLE)" Completed 09/13/16 [id number]"INJECTION, CEFAZOLIN SODIUM, 500 MG" Completed 09/13/16 [id number]"INJECTION, HEPARIN SODIUM, (HEPARIN LOCK FLUSH), PER Completed [id number]"INJECTION, KETOROLAC TROMETHAMINE, PER 15 MG" Completed 09/13/16 [id number]"INJECTION, ONDANSETRON HYDROCHLORIDE, PER 1 MG" Completed 09/13/16 382253"INJECTION, FENTANYL CITRATE, 0.1 MG" Completed 09/13/16 380226"INJECTION, FENTANYL CITRATE, 0.1 MG" Completed 09/13/16 [id number]"RINGERS LACTATE INFUSION, UP TO 1000 CC" Completed 09/13/16 Comprehen metabolic panel Completed 09/22/16 Lactate (ld) (ldh) enzyme Completed 09/22/16 Assay of magnesium Completed 09/22/16 Complete cbc w/auto diff wbc Completed 09/22/16 Occult bld feces 1-3 tests Completed 09/27/16 Encounters Encounter Location Arrival/Admit Date Discharge/Depart Date Attending Provider Registered [facility] 09/27/16 11:44am BRENDEN MCNEIL Discharged Inpatient [facility] 09/25/16 7:30pm 10/08/16 4:23pm LAUREEN VAN MD Registered [facility] 09/23/16 9:42am BRENDEN MCNEIL [facility] 09/22/16 11:22am BRENDEN MCNEIL Departed Surgical Day Care [facility] 09/13/16 5:41am 09/13/16 11 :10am ELI LEONG FACS, MD Registered [facility] 08/30/16 11:35am BRENDEN MCNEIL Discharged Inpatient (obs) [facility] 08/24/16 4:26pm 08/25/16 2: 32pm GABRIELLE FREEMAN DO Registered [facility] 08/23/16 1:24pm EDMUND DONAHUE MD Registered [facility] 08/23/16 1:21pm BRENDEN MCNEIL Registered [facility] 08/23/16 10:56am BRENDEN MCNEIL Registered [facility] 08/19/16 12:25pm EDUMND DONAHUE MD Registered [facility] 08/16/16 3:23pm BRENDEN MCNEIL Registered [facility] 08/13/16 9:22am BRENDEN MCNEIL Registered [facility] 08/10/16 8:12am CELESTINE RUBIN MD Registered Clinic [facility] 08/05/16 11:28am CELESTINE RUBIN MD Departed Emergency Room [facility] 08/03/16 8:08pm 08/03/16 10: 00pm LASHONDA BRANNON DO
--- OUTSIDE RECORDS SUMMARY | 2016-10-21 18:36 | XMS REPORT | Continuity of Care Document ---
Author Author LIVE Organization LIVE Address Unknown Phone Unavailable Support Name Relationship Address Phone DEBORAH AMAYA MD Caregiver [facility] [address] [place] [address] Unavailable ANDREW FELICIANO MD Caregiver [address] [place] [address] [place] [phone] SIMI JUAREZ Next Of Kin [address] [place] [address] C Insurance Providers Payer Name Policy Number Subscriber Name Relationship Medicare [id number] Harriet Juarez 18 Self [facility] [id number] Harriet Juarez 18 Self Advance Directives Directive [...] 20 Mg PO DAILY 08/10/08 Active Ipratropium [place] [address] [place] EA NOSTRIL NEEDED 08/30/10 Active Social History [...] F (96.8 - 99.1) Temperature (Calculated Celsius) 35.79416 degrees C (36.0 - 37.3) Pulse Rate [...] Has specimen been collected/obtained? Y Urine Specific [place] August 10, 2008 5:07pm 1.015 - Has [...] Encounters Encounter Location Date/Time Departed Emergency Room [facility] 07/26/14 1:25am Recent Diagnosis
--- OUTSIDE RECORDS SUMMARY | 2016-10-21 18:46 | XMS REPORT | Continuity of Care Document ---
Author Author [facility] LIVE Organization [facility] LIVE Address Unknown Phone Unavailable Support Name Relationship Address Phone DEBORAH AMAYA MD Caregiver [facility] [address] [place] [address] Unavailable ANDREW FELICIANO MD Caregiver [address] [place] [address] [place] [phone] SIMI JUAREZ Next Of Kin [address] [place] [address] C Insurance Providers Payer Name Policy Number Subscriber Name Relationship Medicare [id number] Harriet Juarez 18 Self [facility] [id number] Harriet Juarez 18 Self Advance Directives Directive [...] 20 Mg PO DAILY 08/10/08 Active Ipratropium [place] 2 [place] EA NOSTRIL NEEDED 08/30/10 Active Social History [...] F (96.8 - 99.1) Temperature (Calculated Celsius) 35.95136 degrees C (36.0 - 37.3) Pulse Rate [...] Has specimen been collected/obtained? Y Urine Specific [place] August 10, 2008 5:07pm 1.015 - Has [...] Encounters Encounter Location Date/Time Departed Emergency Room [facility] 07/26/14 1:25am Recent Diagnosis
[2016-10-21] MEDS ORDERED: CYAN10009 PO (18:52)
[2016-10-21] MEDS ORDERED: SCOP1PAT TOP (18:53)
[2016-10-21] MEDS ORDERED: GUAI600T PO (18:55)
[2016-10-21] MEDS ORDERED: ALBUTEROL/IPRATROPIUM INHAL. 2.5mg-0.5mg/3ml Neb. AEROSOL ONE (19:00)
--- NOTE | 2016-10-21 19:22 | ERPDOC ---
Departure Disposition Decision Date: October 21, 2016 Disposition Decision Time: 20:14 Disposition: 01 DISCHARGED HOME, SELF-CARE Impression Impression Impression: Primary Impression: COPD (chronic obstructive pulmonary disease) COPD type: COPD with acute exacerbation Qualified Codes: J44.1 - Chronic obstructive pulmonary disease with (acute) exacerbation Additional Impression: Shingles rash Herpes zoster complications: without complications Qualified Codes: B02.9 - Zoster without complications Severity: Moderate Condition: Stable Seen By: Mid-level only Referrals: MUKUND HOPKINS II, MD (Family) Patient Instructions: COPD (Chronic Obstructive Pulmonary Disease) (ED), Shingles (ED) Problems/Meds/Labs Reviewed?: Yes Medications reviewed and manag: Yes Additional Instructions: Take the Acyclovir as prescribed for the shingles. Take the Zithromax as prescribed as well as the Prednisone for the wheezing and shortness of breath. I do want you to use your Albuterol inhaler as needed as well every 4 hours. Follow up with your primary care provider if any further issues/concerns. Follow up care ordered?: Yes Mental Status: Alert, Oriented Scripts Acyclovir (Acyclovir) 800 Mg Tablet 1 TAB PO 5XD, #35 TAB 0 Refills Prov: LYDIA JAIMES Michael BI SPECIALIST 10/21/16 Azithromycin (Zithromax) 250 Mg Tablet 1 TAB PO DAILY, #5 TAB 0 Refills TAKE TWO ON DAY ONE, THEN ONE TAB DAILY UNTIL ALL TAKEN. Prov: LYDIA JAIMES Michael BI SPECIALIST 10/21/16 Prednisone (Prednisone) 20 Mg Tablet 20 MG PO PER COMMENTS, #15 TAB 0 Refills Take 3 tablets by mouth for 2 days, then 2 tablets by mouth daily for 3 days, then 1 tablet by mouth daily for 3 days then stop. Prov: LYDIA JAIMES Michael BI SPECIALIST 10/21/16 HPI - Dyspnea General Chief Complaint: Dyspnea/Respdistress Stated Complaint: DIFF BREATHING Time Seen by Provider: 18:41 Source: patient, family Exam Limitations: no limitations HPI - Dyspnea Initial Comments She has a history of lung cancer with mets and is getting chemotherapy. She does also have COPD. Over the last 3 day she has had some increasing SOA and wheezing. Did get an RT treatment today in clinic and then one this evening but they are not really helping much. She did get 1 liter of NS daily the last 3 days as well after her chemo treatment. She also did get a Neulasta treatment 2 days ago. Denies any fever but has had some chills. Is having some slight chest pressure. She also noted a rash on the left buttocks 5 days ago that has spread some. It is not really itchy or painful. Occurred At: home Onset/Timing: Gradual Duration: other (Over the last 3 days) Severity: moderate Activities at Onset: none Prior Episodes/Possible Cause: occasional episodes Associated Symptoms: chest pain (tightness), fever/chills (chills), rash (on left buttocks), shortness of breath, DENIES: cough, diaphoresis, headaches, loss of appetite, malaise, nausea/vomiting, seizure, syncope, weakness Hx of Similar Symptoms: No Allergies: Coded Allergies: No Known Drug Allergies (Verified Allergy, Unknown, 09/25/16) Past History Patient Surgical History Patient surgical history is brief: She has had trigger finger operations on both hands; she has had a pus pocket removed from her right neck; and has had her tubes tied in 1971. She also has surgery for a perforated bowel, cause during a colonoscopy and 2004. Right proximal humeral fracture due to bone cancer, lung cancer Past Medical History Metabolic: cancer, hypertension ENMT: other Respiratory: COPD GI: IBS Surgical History General: colonoscopy, exploratory laparotomy Family History Family PMH: FOUND: other Vaccines Hx Influenza Vaccination: Yes (03-11-16) Hx Pneumococcal Vaccination: Yes (02-24-11,02-11-15) Hx Tetanus Diptheria: Yes (08/10/08) Social History Does patient use chewing tobac: No Second Hand Exposure: No Quit Date: May 30, 2004 Substance Use Type: does not use Substance last used: unknown Alcohol Intake: occasionally Last Drink: unknown Marital Status: Sexuality: male partner Housing: house Number of Children: 4 Service: No Current Occupational Status: retired Occupational Hazard: No Review of Systems Constitutional Constitutional: chills, DENIES: dizziness, fatigue, fever, weakness Cardiovascular Cardiac: chest pain Rhythm/Rate: DENIES: irregular beat, palpitations Pulmonary Respiratory: dyspnea, DENIES: cough, sputum, tachypnea GI Upper Abdomen: DENIES: nausea, pain, vomiting Lower Abdomen: DENIES: constipation, diarrhea, pain Integumentary Skin: rash Neurological General: DENIES: headache, numbness, tingling, weakness Physical Exam General General Nourishment: well nourished, well developed, appears stated age, no acute distress, adult General Body Habitus: well groomed Vitals and Pain First Documented Vital Signs Date Time Temp Pulse Resp B/P Pulse Ox O2 Delivery O2 Flow Rate FiO2 10/21/16 18:35 98.7 90 24 149/66 98 Room Air Weight: Kilograms: 57.900 Height (feet): 4 Height (inches): 11.00 Triage Pain Scale: RN VS reviewed by Provider: Yes Normal Exams: Neck: Full range of motion, without adenopathy, JVD, bruits or thyromegaly CV: Regular rate and rhythm, without murmur or gallop, Pulses 2+ all extremities, capillary refill, <2 seconds all ext., no pedal edema noted Abdomen: Bowel sounds positive, soft, non-tender, non-distended, no hepatosplenomegaly, masses or bruits noted Lymphatic: No lymphadenopathy, or lymphedema noted Neurologic: Patient is alert, and oriented Psychiatric: Patient exhibits, appropriate attention, emotion and affect Respiratory (brief) Respiratory: FOUND: wheezes (throughout bilateral lobes) Integumentary (brief) Integumentary Brief: FOUND: rash (She has two areas of dark red, circular slightly scabbed discrete lesions on the left buttocks consistent with a shingles rash.) Differential Diagnoses Considering: Acute Bronchitis, Acute Respiratory Failure, COPD Exacerbation, Pneumonia, Other (shingles, allergic reaction, cellulitis) Progress Results/Orders Orders Procedure Category Date Status Time Albuterol/Ipratropium PHA 10/21/16 Complete (Duoneb) 19:00 Methylprednisolone PHA 10/21/16 Complete Sod Succ (Solu-Medrol 19:00 Iv Lock (Ed Only) EDM 10/21/16 Transmitted 18:54 Cbc W/Auto LAB 10/21/16 Complete Diff-Reflex Manual Bmp - Basic Metabolic LAB 10/21/16 Complete Panel Chest, Pa & Lateral RAD 10/21/16 Taken Troponin I W LAB 10/21/16 Complete Hemolysis Index Acyclovir (Zovirax) PHA 10/21/16 Complete 19:30 Albuterol Sulfate PHA 10/21/16 Complete (Proventil 2.5 Mg/3 Ml 20:15 Azithromycin PHA 10/21/16 Complete (Zithromax 500 Mg) 20:15 Heparin Flush PHA 10/21/16 Complete (Heparin Flush) 20:30 Lab Results Laboratory Tests Test 10/21/16 19:37 White Blood Count 16.9T/MM3 Red Blood Count 3.57M/MM3 Hemoglobin 10.6GM/DL Hematocrit 32.0% Mean Corpuscular Volume 89.6UM3 Mean Corpuscular Hemoglobin 29.7UUG Mean Corpuscular Hemoglobin Concent 33.1GM/DL RDW Standard Deviation 58.0FL Platelet Count 187T/MM3 Mean Platelet Volume 11.0UM3 Immature Granulocyte % (Auto) % Neutrophils (%) (Auto) % Lymphocytes (%) (Auto) % Monocytes (%) (Auto) % Eosinophils (%) (Auto) % Basophils (%) (Auto) % Absolute Immature Granulocyte (auto T/MM3 Absolute Neutrophils (auto) T/MM3 Absolute Lymphocytes (auto) T/MM3 Absolute Monocytes (auto) T/MM3 Absolute Eosinophils (auto) T/MM3 Absolute Basophils (auto) T/MM3 Neutrophils % (Manual) 88.0% Band Neutrophils % 6.0% Lymphocytes % (Manual) 5.0% Monocytes % (Manual) 1.0% Absolute Neutrophils (Manual) 14.9T/MM3 Band Neutrophils # 1.0T/MM3 Lymphocytes # (Manual) 0.8T/MM3 Monocytes # (Manual) 0.2T/MM3 Poikilocytosis 2+ Anisocytosis 2+ Red Cell Morphology Comment Abnormal Turbidity < 20 Sodium Level 141MEQ/L Potassium Level 3.9MEQ/L Chloride Level 102MEQ/L Carbon Dioxide Level 29MEQ/L Anion Gap 10MEQ/L Blood Urea Nitrogen 13.0MG/DL Creatinine 0.4MG/DL Glomerular Filtration Rate Calc 155 BUN/Creatinine Ratio 33RATIO Glucose Level 102MG/DL Calculated Osmolality 271MOSM/KG Calcium Level 8.1MG/DL Icterus Index < 2 Troponin I < 0.012ng/ml Chemistry Specimen Hemolysis < 15 Medications Current ED Medications Albuterol/ Ipratropium (Duoneb) 3 ml O ONCE AEROSOL Last administered on 19:24; Start 10/21/16 at 19:00; Stop 10/21/16 at 19:01; Status DC Methylprednisolone Sodium Succinate (Solu-Medrol) 125 mg O ONCE IV Last administered on 10/21/16 19:39; Start 10/21/16 at 19:00; Stop 10/21/16 at 19:01 ; Status DC Acyclovir (Zovirax) 800 mg O ONCE PO Last administered on 10/21/16 20:00; Start 10/21/16 at 19:30; Stop 10/21/16 at 19:31; Status DC Albuterol Sulfate (Proventil 2.5 Mg/3 ml) 2.5 mg O ONCE AEROSOL Last administered on 10/21/16 20:17; Start 10/21/16 at 20:15; Stop 10/21/16 at 20:16 ; Status DC Azithromycin (ZITHROMAX 500 mg) 500 mg O ONCE PO Last administered on 20:28; Start 10/21/16 at 20:15; Stop 10/21/16 at 20:16; Status DC Heparin Sodium (Porcine) (Heparin Flush) 500 unit O ONCE IV Last administered on 10/21/16 20:28; Start 10/21/16 at 20:30; Stop 10/21/16 at 20:31; Status DC Progress Progress 2011- Her lungs are much more CTA however she does not feel much better after the RT tx. Chest xray does have some increased infiltrates. WBC is 16.9 but is down from 25 from this mornings labs. She did recently get an injection of neulasta and I do feel this is likely the reason for the elevated WBC. O2 sats are 94% on 2 L NC. She does have O2 at home. Given her chemo, lung cancer, and increased infiltrates will cover her with Zithromax. Prednisone and Albuterol for the wheezing. Will have her start Acyclovir for the shingles as well. FU with Oncologist if any further concerns. Xray Xray : Reason for Exam: dyspnea Xray: CXR PA/Lat Interpretation: Abnormal (increased infiltrates in right lower lobe) LYDIA JAIMES APRN October 21, 2016 19:21
[2016-10-21] MEDS ORDERED: ACYCLOVIR 800 MG TABLET PO ONE (19:30)
[2016-10-21 19:44] LABS: HGB - HEMOGLOBIN 10.6 GM/DL (12-16); MEAN CORPUSCULAR HGB 29.7 UUG (26-34); MEAN CORPUSCULAR HGB CONC(MCHC 33.1 GM/DL (31-37); MEAN CORPUSCULAR VOLUME 89.6 UM3 (80-100); RED BLOOD COUNT 3.57 M/MM3 (4.00-5.20); WBC - WHITE BLOOD COUNT 16.9 T/MM3 (4.5-11.0)
[2016-10-21 19:55] LABS: ANION GAP 10 MEQ/L (5-15); BUN/CREATININE RATIO 33 RATIO (6-26); CALCIUM 8.1 MG/DL (8.4-10.2); CHLORIDE 102 MEQ/L (98-107); CO2 - CARBON DIOXIDE 29 MEQ/L (22-30); CREATININE 0.4 MG/DL (0.7-1.2); GLOMERULAR FILTRATION RATE 155; GLUCOSE 102 MG/DL (65-110); POTASSIUM 3.9 MEQ/L (3.6-5); SODIUM 141 MEQ/L (134-144)
[2016-10-21 20:05] LABS: LYMPHOCYTES # (MANUAL) 0.8 T/MM3 (1-4.8); MONOCYTES # (MANUAL) 0.2 T/MM3 (0-0.8); NEUTROPHILS #(MANUAL)-ABSOLUTE 14.9 T/MM3 (1.8-7.7); TOTAL CELLS COUNTED 100 %
[2016-10-21 20:06] LABS: ANISOCYTOSIS 2+; POIKILOCYTOSIS 2+
[2016-10-21] MEDS ORDERED: AZITHROMYCIN 500 MG TABLET PO ONE (20:15)
[2016-10-21] MEDS ORDERED: ALBUTEROL INH.SOLN. 2.5mg/3ml (0.083%) Neb. AEROSOL ONE (20:15)
[2016-10-21] MEDS ORDERED: ACYC800T PO (20:16)
[2016-10-21] MEDS ORDERED: AZIT250T PO (20:16)
[2016-10-21] MEDS ORDERED: PRED20TA PO (20:16)
[2016-10-21 20:40] VITALS: BP 153/67; PULSE 92; RESP 16; TEMP 98.7; O2SAT 98
--- NOTE | 2016-10-22 08:04 | DI ---
INDICATION: ITS.REASON: chest pain and shortness of breath, recent chemotherapy treatment PROCEDURE: CHEST 2-VIEWS UPRIGHT (PA \T\ LAT) Encounter: Initial COMPARISON: October 18, 2016 FINDINGS: Slightly increased opacities in the posterior lower lobes compared to the prior study. Upper lung marie are clear. No pleural effusion or pneumothorax. Right internal jugular central venous port catheter is accessed with a needle. IV tubing is seen projecting over the right lung field with a hub present. Heart size and mediastinal contours are stable. Pulmonary vascularity appears normal. Old mid thoracic compression fractures. Impression: Increasing lower lobe airspace opacities could be due to atelectasis or developing pneumonia. Recommend clinical and laboratory correlation. .
== END 2016-10-21 20:40 | disposition home or self-care (01) ==
LOC: ED 18:32
DX: J44.1 Chronic obstructive pulmonary disease with (acute) exacerbation (principal); B02.9 Zoster without complications
CPT/HCPCS: 36000; 71020; 80048; 84484; 85025; 94640; 96374; 99284; A9270; J1642; J2930; J7611

== ENCOUNTER 2017-06-06 12:17 | Observation (INO) ==
[2017-06-06 12:51] VITALS: BMI 22.2
--- NOTE | 2017-06-06 13:09 | History & Physical Report ---
History of Present Illness Date: 06/06/17 Chief complaint: very weak HPI: Harriet Juarez is a 77 year old woman with metastatic lung cancer. She was directly [place] [facility] Pelayo's office with fever of 101 and possible pneumonia. Labs were done in the office. White count was 8.9, hemoglobin 7.8, platelets 90,000. Bands were 8%, metamyelocytes 2%, myelocytes 1 %. Sodium is 139, potassium 4.3, BUN 7, creatinine 0.6, calcium 7.6, alkaline phosphatase 161, LDH 1228. CEA is trending up, currently at 430. Influenza swabs were obtained, but are pending. Harriet was accompanied by her [id number] and her neice. She became ill on 06/03/17, with nausea and vomiting and weakness. She's been complaining of a headache. She's had a slight decrease in appetite. She has chronic COPD and uses oxygen (3L at rest and 4L with activity) but has felt more short of breath. She has had a cough that's productive of clear or creamy sputum. She notes sinus congestion, but this is chronic. Her family added that she's been complaining of muscle achiness and has been irritable. Harriet denies dizziness , acute visual changes, new paresthesias (occasional has numbness/tingling in her fingers), sore throat or dysphagia, falls/injuries. Her last chemo was on -- it's been held due to thrombocytopenia. Review of Systems All systems PM: 10-point ROS was reviewed, no additional remarkable complaints except - Constitutional Constitutional: Present: as per HPI, chills, weakness - EENMT Eyes: Present: requires corrective lenses. Absent: change in vision (no acute changes - has had decreased vision since starting chemo) Nose: Present: other (chronic nasal congestion) Mouth/Throat: Absent: sore throat, changes in swallowing, painful swallowing - Cardiovascular Cardiovascular: Absent: chest pain, edema Vascular: Absent: pedal edema - Respiratory Respiratory: Present: as per HPI, cough, dyspnea - Gastrointestinal Gastrointestinal: Present: as per HPI, constipation, nausea, vomiting - Genitourinary Genitourinary: Absent: dysuria - Musculoskeletal Musculoskeletal: Present: muscle weakness, myalgias. Absent: abnormal gait - Integumentary/Breasts Integumentary: Absent: rash, wounds - Neurological Neurological: Present: headache(s), paresthesias (occasional paresthesias to fingertips), weakness. Absent: abnormal gait, confusion, dizziness, frequent falls - Psychiatric Psychiatric: Absent: anxiety, depression - Endocrine Endocrine: Absent: palpitations - Hematologic/Lymphatic Hematologic/Lymphatic: Present: easy bruising - Allergic/Immunologic Allergic/Immunologic: Absent: seasonal rhinorrhea Past Medical History Stage IV adenocarcinoma, with pulmonary primary COPD, on chronic oxygen (3L at rest, 4L with activity) Pain from bone metastasis, on [place] Chemotherapy induced anemia HTN OA History of shingles Cataracts Surgical History: Hand Surgery, Trigger Finger 1989, Colonoscopy, during colonoscopy she suffered perforation Family History: Mother ( at age 76) Heart attack Bone cancer Family History Updates: Harriet is the youngest of 11 sisters - she is the last living one. 4 sisters with breast cancer; another sister had gastric cancer. 3 of them had COPD; a couple sisters had diabetes. 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 Leonarda Simms - Dr. Wiggins Onc - Dr. Pelayo Ortho - Dr. Siddiqui Medications Home Medications Medication Instructions Recorded Confirmed Type Dicyclomine HCl 20 mg PO TID #0 08/10/08 06/06/17 History Ipratropium/Albuterol Sulfate 1 vial AEROSOL Q6H #0 11/05/15 06/06/17 History [Iprat-Albut 0.5-3(2.5) mg/3 ml] Hydrocodone/Acetaminophen 1 tab PO Q4H PRN #0 08/24/16 06/06/17 History [Hydrocodon-Acetaminoph 7.5-325] Folic Acid 1 mg PO NOON #0 09/10/16 06/06/17 History Ondansetron HCl 8 mg PO Q8H PRN #0 09/25/16 06/06/17 History Cyanocobalamin (Vitamin B-12) 1,000 mcg PO WS #0 10/21/16 06/06/17 History [Vitamin B-12] Calcium Carbonate/Vitamin D3 1 cap PO BIDBL 11/17/16 06/06/17 History [Calcium 600-Vit D3 500 Softgel] Lactobacillus Acidophilus 1 cap PO DAILY 11/17/16 06/06/17 History [Probiotic] Multivit-Min/FA/Lycopen/Lutein 1 tab PO WS 11/18/16 06/06/17 History [Centrum Silver Tablet] Escitalopram [Lexapro] 10 mg PO DAILY 01/15/17 06/06/17 History Metoclopramide [Reglan] 10 mg PO Q6-8HR PRN 01/15/17 06/06/17 History Pantoprazole Sodium [Protonix] 40 mg PO DAILY 01/15/17 06/06/17 History Propylene Glycol/Peg 400 1 drop EACH EYE DAILY PRN 01/15/17 06/06/17 History [Lubricant Eye Drops] Umeclidinium Brm/Vilanterol Tr 62.5 mcg IH DAILY 01/15/17 06/06/17 History [Anoro Ellipta 62.5-25 Mcg INH] diphenhydrAMINE HCl [Benadryl] 25 mg PO DAILY 01/15/17 06/06/17 History Acetaminophen [Tylenol] 1,000 mg PO NOTE PRN 02/08/17 06/06/17 History lisinopril 20 mg tablet 10 mg PO WS #0 tab 03/10/17 06/06/17 History Cyclobenzaprine HCl 5 mg PO TID PRN 06/06/17 06/06/17 History Dexamethasone Po [Decadron] 8 mg PO DAILY 06/06/17 06/06/17 History methylPREDNISolone [Medrol] 32 mg PO DAILY 06/06/17 06/06/17 History Allergies Allergy/AdvReac Type Severity Reaction Status Date / Time iodine Allergy Intermediate Rash Verified 04/12/17 12:43 Exam Vital Signs: Temperature 100.2 F 06/06/17 12:35 Pulse Rate 105 H 06/06/17 12:35 Respiratory Rate 40 H 06/06/17 12:35 Blood Pressure 140/58 H 06/06/17 12:35 Pulse Oximetry 99 06/06/17 12:35 Height/Weight/BMI: Height 1.5 m Weight 50 kg Body Mass Index 22.2 Assessment and Plan (1) Fever Current visit: Yes Status: Acute Assessment and Plan: Impression Nausea/vomiting/diarrhea-RLL 06/06/17 Orthostasis-in office-RLL 06/06/17 Stage IV adenocarcinoma, with pulmonary primary. Last chemo 05/09/17. COPD, on chronic oxygen (3L at rest, 4L with activity) Pain from bone metastasis, on [place] Chemotherapy induced anemia and thrombocytopenia HTN Plan Admit to observation status, under the hospitalist service. Consult placed to Dr. Pelayo. Suspect pneumonia, LLL -CBC, CMP, LDH, CEA, BC x2 done per Dr. Pelayo -check UA, viral respiratory panel, urine legionella, urine strep pneumo, CXR, and right shoulder x-ray. N/V -NS 1L @ 200 mL/hr -Zofran PRN -Regular diet as tolerated COPD, no wheezing -DuoNeb Q4h -Pulmicort -cont O2 (baseline = 3L at rest, 4L with activity) Chronic anemia & thrombocytopenia = monitor -hgb ranges between upper-7s to low 10s; 7.8 on admission -plt over last 2 months have ranged from 49-145; 90 on admission Advanced directives -DNR -Son is DPOA -Has a living will DVT Prophylaxis: SCD's Resuscitation Status: Do Not Resuscitate - Physician Narrative Physician: Bree Nunes MD Narrative: Date: 06/06/17 Time: 2014 I have independently evaluated and examined this patient. I reviewed the chart, the patient's history, and the DATA DEVELOPER/PA's documented findings as above. We discussed and formulated the assessment and plan as above with additions as below: Mrs. Arango seen earlier today with family at the bedside. She describes cough with minimal sputum production in addition to nausea, vomiting, and development of diarrhea-most noticeable today. Fever was reported earlier today and on arrival. She was orthostatic at the oncology office with 12 point drop in systolic blood pressure and pulse increasing by 12 in conjunction with standing. She is hospitalized for further assessment and for volume replacement. NAD, alert, fluent speech, oxygen saturation stable on 3 L when seen Conjunctiva clear, sclera anicteric, facial structure symmetric Respirations nonlabored, rhonchi at the bases Pulse regular Abdomen soft, moderately distended, moderately tender to palpation in the epigastrium and left lower quadrant without guarding, bowel sounds present Without edema MAEW C. difficile toxin pending; respiratory viral panel negative. Chest x-ray reviewed by myself-no evidence of pneumonia or other focal process. Radiology notes spiculated mass best seen on CT. X-ray of the right shoulder was also obtained demonstrating healing of previously identified proximal humeral fracture. LDH up from baseline (1228-usually about 600) UA unremarkable. Contact isolation pending stool study, gentle hydration, continue to monitor orthostatics. No evidence of acute pulmonary process radiographically. Discussed with Dr. Pelayo, old records reviewed for comparison lab values. Hospital Course Summary Disclaimer: The visit summary below is not to be considered part of the above Progress Note. Hospital Course: 06/06/17: Admitted for suspected pneumonia, observation status. Dr. Pelayo consulted. IVF were given due to recent n/v. Respiratory panel and CXR ordered on arrival. Addendum entered and electronically signed by Reva Santillan APRN 06/06/17 15: 28: Pt has been up to the bathroom about every 20 minutes since admission. She's having diarrhea. This presents a safety issue with SCDs, and these will be placed on hold for now. Check GI panel.
[2017-06-06] MEDS ORDERED: ONDANSETRON 4 MG/2 ML INJECTION IVP PRN (13:27)
[2017-06-06] MEDS ORDERED: CYCLOBENZAPRINE 10 MG TABLET PO PRN (14:17)
[2017-06-06] MEDS ORDERED: SYSTANE EYE DROPS 0.7ml EACH EYE PRN (14:17)
[2017-06-06] MEDS ORDERED: ACETAMINOPHEN 500 MG TABLET PO PRN (14:17)
[2017-06-06] MEDS ORDERED: DIPHENHYDRAMINE 25 MG PO PRN (14:24)
--- NOTE | 2017-06-06 14:49 | XRay Report ---
Indication: LLL crackles, fever XR chest 2V: Comparison: 05/28/2017 Technique: PA and lateral chest Findings: Patient still showed some mild chronic appearing lung changes. A spiculated lesion described on the previous CT study is just not well demonstrated on today's plain radiographs. Heart, central vascular mediastinum are unremarkable. No marked change in appearance of the port identified. Patient shows a healing fracture of the neck region of the right humerus which was seen on the old study. No other acute new bony findings identified with a stable midthoracic compression deformities unchanged since February exam. Impression: 1. Mild chronic appearing changes with no acute new abnormality identified. The spiculated mass in the right upper chest seen on prior CT is just not well demonstrated on plain radiography. 2. Stable heart size. 3. Stable midthoracic compression deformities .
[2017-06-06] MEDS: ALBUTEROL/IPRATROPIUM 2.5mg-0.5mg/3ml NEB AEROSOL SCH ×3 (15:03→23:30)
[2017-06-06] MEDS: NS 1,000 ML IV SCH ×2 (15:17→20:31)
--- NOTE | 2017-06-06 16:16 | XRay Report ---
Indication: hx metastatic lesion to right humerus XR shoulder RT 2-3 views: Comparison: 03/10/2017 Technique: Three-view exam Findings: Since that study there has been no marked change in the orientation of the previously noted proximal humeral fracture but there does seem to be some continuing healing with less distinct fracture line. Callus formation persists. There still potential for some diffuse bony permeation impaction suggesting this was originally a pathologic fracture through a bony lesion. No new fractures are noted. Patient shows a port in place in the right upper chest. Impression: Continuing fracture healing involving the proximal humerus with no change in bony alignment .
[2017-06-06] MEDS: HYDROCODONE/APAP 7.5 MG/325 MG TABLET PO PRN ×2 (16:38→21:04)
[2017-06-06] MEDS ORDERED: --POM--LISINOPRIL 20 MG TABLET PO SCH (17:30)
[2017-06-06] MEDS: CYANOCOBALAMIN 500 MCG PO SCH (18:01)
[2017-06-06] MEDS: --POM--LISINOPRIL 20 MG TABLET PO SCH (18:06)
[2017-06-06] MEDS: DICYCLOMINE 20 MG PO PRN (18:10)
[2017-06-06] MEDS: BUDESONIDE INH.SOLN 0.5mg/2ml NEB AEROSOL SCH (19:30)
[2017-06-07] MEDS: ALBUTEROL/IPRATROPIUM 2.5mg-0.5mg/3ml NEB AEROSOL SCH ×5 (03:25→19:25)
[2017-06-07] MEDS: NS 1,000 ML IV SCH ×3 (04:58→20:52)
[2017-06-07] MEDS: --POM--PANTOPRAZOLE 40 MG TABLET PO SCH (05:48)
[2017-06-07] MEDS: BUDESONIDE INH.SOLN 0.5mg/2ml NEB AEROSOL SCH ×2 (07:30→19:25)
[2017-06-07] MEDS: HYDROCODONE/APAP 7.5 MG/325 MG TABLET PO PRN ×3 (08:09→18:21)
[2017-06-07] MEDS: VIT D PO SCH ×2 (08:11→13:50)
[2017-06-07] MEDS: ESCITALOPRAM 10 MG PO SCH (08:11)
[2017-06-07] MEDS: CALCIUM PO SCH ×2 (08:11→13:50)
[2017-06-07] MEDS: LACTOBACILLUS PO SCH (08:11)
--- NOTE | 2017-06-07 09:44 | Consult Note ---
<Starr Garcia - Last Filed: 06/07/17 16:09> Oncology HPI - Data of Consult Patient: known to practice within the last 3 years Consult date: 06/07/17 Requesting Physician: Bree Nunes MD Primary Care Provider: Dmitri Brower II, MD Family Provider: Dmitri Brower II, MD - Consult Narrative History of present illness: Well known patient to Dr. Pelayo with NSCLC was seen in clinic yesterday,, scheduled to receive cycle 2 of Abraxane. She reported several days of generalized aching, weakness, vomiting, and productive cough. Noted to have temperature elevation. Dr. Pelayo discussed w/ hospitalist; patient admitted for observation, immunocompromised patient with possible pneumonia/sepsis. Alone in room at time of intake. Alert and oriented. Continues to complain of shortness of air with minimal exertion, occasional cough, productive of clear/ white mucus. Denies pain currently. No nausea or vomiting. Reports loose/watery stools yesterday, no BM yet today. Denies dysuria/hematuria. History of Present Illness --06/2016: Right hip pain. --08/03/16: Fracture of right humerus with large lytic destructive lesion in the humeral head and neck. --08/16/16: Biopsy of right iliac bone, adenocarcinoma consistent with pulmonary primary. --08/20/16-09/17/16: Radiation therapy to right hip/pelvis and right shoulder. --09/20/16: Cycle 1 of Alimta/Carbo. --12/27/16: Blood transfusion given for HGB of 7.0. --05/02/17: Cycle 1 of Abraxane. Review of Systems - Constitutional Constitutional: Present: fever(s), malaise - EENT Eyes: Absent: loss of vision Mouth/Throat: Absent: sore throat, changes in swallowing, painful swallowing - Cardiovascular Cardiovascular: Present: dyspnea on exertion. Absent: chest pain - Respiratory Respiratory: Present: cough, dyspnea, dyspnea on exertion. Absent: hemoptysis - Gastrointestinal Gastrointestinal: Present: diarrhea, nausea, vomiting. Absent: abdominal pain, hematemesis, hematochezia, melena - Genitourinary Genitourinary: Absent: dysuria, urinary frequency - Musculoskeletal Musculoskeletal: Present: muscle weakness - Neurological Neurological: Present: weakness. Absent: confusion, dizziness - Hematologic/Lymphatic Hematologic/Lymphatic: Present: anemia PFSH Patient Stated Medical History Cataracts Yes Dental Problems Yes: dentures-upper and lower Dysphagia Yes: everyone once in a while Hearing Loss Yes: bilat hearing aides Other HEENT Yes: EPISTAXIS Hypertension Yes Chronic Obstructive Pulmonary Yes Disease (COPD) Sleep Apnea No Other Respiratory Yes: LUNG CA Diabetes Mellitus Type 2 No Gastroesophageal Reflux Yes Disease Hx Kidney Stones No Anemia Yes Osteoarthritis Yes Other Musculoskeletal Yes: ARTHRITIS, FX RT SHOULDER Shingles Yes: HIP, CALF Chemotherapy Yes: last tx 01/2017 Post Menopausal Yes Leukemia No Clinic Medical History (Last Reviewed 03/10/17 @ 13:54 by Erick Siddiqui MD) Anxiety (Acute Medical) Cataract (Acute Medical) Emphysema/COPD (Acute Medical) High blood pressure (Acute Medical) Osteoarthritis (Acute Medical) Surgical History: Hand Surgery, Trigger Finger 1989, Colonoscopy, during colonoscopy she suffered perforation Family History: Family History (Last Reviewed 03/10/17 @ 13:54 by Erick Siddiqui MD) Mother Heart attack Bone cancer Sister Breast cancer Diabetes sister stomach cancer - Social History Smoking status: Former smoker (started smoking at age 15, quit around 2002) Substance use type: does not use Alcohol intake frequency: does not drink Does patient use chewing tobacco?: No Social history: PCP - Dr. Leonarda Simms - Dr. Wiggins Onc - Dr. Pelayo Ortho - Dr. Siddiqui Medications Home Medications Medication Instructions Recorded Confirmed Type Dicyclomine HCl 20 mg PO TID #0 08/10/08 06/06/17 History Ipratropium/Albuterol Sulfate 1 vial AEROSOL Q6H #0 11/05/15 06/06/17 History [Iprat-Albut 0.5-3(2.5) mg/3 ml] Hydrocodone/Acetaminophen 1 tab PO Q4H PRN #0 08/24/16 06/06/17 History [Hydrocodon-Acetaminoph 7.5-325] Folic Acid 1 mg PO NOON #0 09/10/16 06/06/17 History Ondansetron HCl 8 mg PO Q8H PRN #0 09/25/16 06/06/17 History Cyanocobalamin (Vitamin B-12) 1,000 mcg PO WS #0 10/21/16 06/06/17 History [Vitamin B-12] Calcium Carbonate/Vitamin D3 1 cap PO BIDBL 11/17/16 06/06/17 History [Calcium 600-Vit D3 500 Softgel] Lactobacillus Acidophilus 1 cap PO DAILY 11/17/16 06/06/17 History [Probiotic] Multivit-Min/FA/Lycopen/Lutein 1 tab PO WS 11/18/16 06/06/17 History [Centrum Silver Tablet] Escitalopram [Lexapro] 10 mg PO DAILY 01/15/17 06/06/17 History Metoclopramide [Reglan] 10 mg PO Q6-8HR PRN 01/15/17 06/06/17 History Pantoprazole Sodium [Protonix] 40 mg PO DAILY 01/15/17 06/06/17 History Propylene Glycol/Peg 400 1 drop EACH EYE DAILY PRN 01/15/17 06/06/17 History [Lubricant Eye Drops] Umeclidinium Brm/Vilanterol Tr 62.5 mcg IH DAILY 01/15/17 06/06/17 History [Anoro Ellipta 62.5-25 Mcg INH] diphenhydrAMINE HCl [Benadryl] 25 mg PO DAILY 01/15/17 06/06/17 History Acetaminophen [Tylenol] 1,000 mg PO NOTE PRN 02/08/17 06/06/17 History lisinopril 20 mg tablet 10 mg PO WS #0 tab 03/10/17 06/06/17 History Cyclobenzaprine HCl 5 mg PO TID PRN 06/06/17 06/06/17 History Dexamethasone Po [Decadron] 8 mg PO DAILY 06/06/17 06/06/17 History methylPREDNISolone [Medrol] 32 mg PO DAILY 06/06/17 06/06/17 History Allergies Allergy/AdvReac Type Severity Reaction Status Date / Time iodine Allergy Intermediate Rash Verified 04/12/17 12:43 Exam Vital signs: Temperature 99.6 F 06/07/17 07:43 Pulse Rate 102 H 06/07/17 07:46 Respiratory Rate 16 06/07/17 07:43 Blood Pressure 134/55 06/07/17 07:46 Pulse Oximetry 98 06/07/17 07:46 Narrative: Acetaminophen (Tylenol) 1,000 mg PO NOTE PRN PRN Reason: Pain Hydrocodone Bitart/Acetaminophen ([place] 7.5/325) 1 tab PO Q4H PRN PRN Reason: P Last Admin: 06/07/17 08:09 Dose: 1 tab Albuterol/Ipratropium (Duoneb) 3 ml AEROSOL Q4H [facility] Last Admin: 06/07/17 07:30 Dose: 3 ml Budesonide (Pulmicort Inhalation) 0.5 mg AEROSOL RTBID [facility] Last Admin: 06/07/17 07:30 Dose: 0.5 mg Calcium/Vitamin D (Caltrate + D) 1 tab PO BIDBL [facility] Last Admin: 06/07/17 08:11 Dose: 1 tab Cyanocobalamin (Vit. B-12) 1,000 mcg PO [facility] Last Admin: 06/06/17 18:01 Dose: 1,000 mcg Cyclobenzaprine HCl (Flexeril) 5 mg PO TID PRN PRN Reason: Pain /Fever Dicyclomine HCl (Bentyl) 20 mg PO TID PRN Last Admin: 06/06/17 18:10 Dose: 20 mg Diphenhydramine HCl (Benadryl) 25 mg PO DAILY PRN PRN Reason: Itching Escitalopram Oxalate (Lexapro) 10 mg PO DAILY [facility] Last Admin: 06/07/17 08:11 Dose: 10 mg Folic Acid (Folate) 1 mg PO NOON [facility] Sodium Chloride (Normal Saline) 1,000 mls @ 100 mls/hr IV .Q10H [facility] Last Admin: 06/07/17 05:52 Dose: 100 mls/hr Lactobacillus Acidophilus (Culturelle) 1 cap PO DAILY [facility] Last Admin: 06/07/17 08:11 Dose: 1 cap Lisinopril (Prinivil) 10 mg PO [facility] Last Admin: 06/06/17 18:06 Dose: 10 mg Multivitamins (Theragran) 1 tab PO [facility] Last Admin: 06/06/17 18:07 Dose: 1 tab --Pom--(Umeclidinium Brm/Vilanterol Tr [ Anoro Ellipta 62.5-2 62.5 mcg PO DAILY [facility] Ondansetron HCl (Zofran) 4 mg IVP Q4H PRN PRN Reason: Nausea &/or vomiting Pantoprazole Sodium (Protonix Tab) 40 mg PO ACB [facility] Last Admin: 06/07/17 05:48 Dose: 40 mg Polyethyl Glycol/Propylene Glycol (Systane Eye Drops) 1 drop EACH EYE DAILY PRN PRN Reason: PRN orders - Constitutional no acute distress, well nourished, well developed - Routine HEENT Exam Head: Present: normocephalic Eye: Present: EOMI ENT: Present: mucous membranes moist - Routine Neck Exam Present: supple. Absent: lymphadenopathy - Routine Respiratory Exam Present: distant breath sounds. Absent: wheezes, crackles - Routine Cardiovascular Exam Present: RRR. Absent: no murmur - Routine Abdominal Exam Present: soft, normoactive bowel sounds, non tender - Routine Extremities Exam Present: full ROM. Absent: no edema - Routine Back/Spine/Pelvis Exam Back/Spine: Absent: vertebral tenderness - Routine Skin Exam Present: intact, dry, pallor - Routine Neurological Exam Present: alert, oriented X3 - Routine Psychiatric Exam Present: normal affect, cooperative Oncology Results - Labs CBC & Chem 7: 06/07/17 03:59 06/07/17 03:59 Labs: Short CBC 06/07/17 Range/Units 03:59 WBC 5.4 (4.5-11.0) T/MM3 Hgb 6.2 L D (12-16) GM/DL Hct 20.1 L D (36-46) % Plt Count 74 L (130-400) T/MM3 BMP 06/07/17 03:59 Sodium 137 Potassium 3.7 Chloride 105 Carbon Dioxide 26 BUN 7.0 Creatinine 0.6 L Glucose 139 H Calcium 6.8 L D Urine 06/06/17 Range/Units 14:37 Urine Color Yellow (YELLOW) Urine Clarity Clear Urine pH 7.0 (5.0-8.0) Ur Specific [place] <=1.005 L (1.015-1.025) Urine Protein Negative (NEGATIVE) Urine Glucose (UA) Negative (NEGATIVE) Assessment and Plan Assessment and Plan: Assessment 1. Stage IV NSCLC with bone metastasis, and new liver metastasis,current treatment Abraxane, last given 05/24/18. Treatment held yesterday, 06/06/17 with acute diarrhea, weakness, possible influenza. C. difficile toxin, respiratory panel, and blood culture results pending 2. Anemia. 3. COPD Continue supportive care. Await culture results. Will give [address] Alfredo discussed plan with patient. She has no questions. <Wade Alfredo - Last Filed: 06/07/17 21:37> Oncology HPI - Data of Consult Requesting Physician: Bree Nunes MD Primary Care Provider: Dmitri Brower II, MD Family Provider: Dmitri Brower II, MD [facility] Patient Stated Medical History Cataracts Yes Dental Problems Yes: dentures-upper and lower Dysphagia Yes: everyone once in a while Hearing Loss Yes: bilat hearing aides Other HEENT Yes: EPISTAXIS Hypertension Yes Chronic Obstructive Pulmonary Yes Disease (COPD) Sleep Apnea No Other Respiratory Yes: LUNG CA Diabetes Mellitus Type 2 No Gastroesophageal Reflux Yes Disease Hx Kidney Stones No Anemia Yes Osteoarthritis Yes Other Musculoskeletal Yes: ARTHRITIS, FX RT SHOULDER Shingles Yes: HIP, CALF Chemotherapy Yes: last tx 01/2017 Post Menopausal Yes Leukemia No Clinic Medical History (Last Reviewed 03/10/17 @ 13:54 by Erick Siddiqui MD) Anxiety (Acute Medical) Cataract (Acute Medical) Emphysema/COPD (Acute Medical) High blood pressure (Acute Medical) Osteoarthritis (Acute Medical) Family History: Family History (Last Reviewed 03/10/17 @ 13:54 by Erick Siddiqui MD) Mother Heart attack Bone cancer Sister Breast cancer Diabetes Exam Vital signs: Temperature 97.0 F 06/07/17 15:00 Pulse Rate 98 06/07/17 15:00 Respiratory Rate 24 06/07/17 19:25 Blood Pressure 123/63 06/07/17 15:00 Pulse Oximetry 98 06/07/17 19:39 Oncology Results - Labs CBC & Chem 7: 06/07/17 03:59 06/07/17 03:59 Labs: Short CBC 06/07/17 Range/Units 03:59 WBC 5.4 (4.5-11.0) T/MM3 Hgb 6.2 L D (12-16) GM/DL Hct 20.1 L D (36-46) % Plt Count 74 L (130-400) T/MM3 BMP 06/07/17 03:59 Sodium 137 Potassium 3.7 Chloride 105 Carbon Dioxide 26 BUN 7.0 Creatinine 0.6 L Glucose 139 H Calcium 6.8 L D Assessment and Plan Assessment and Plan: Patient seen and examined by me. I reviewed and agree with the plan and noted above.
[2017-06-07] MEDS ORDERED: NS FLUSH BAG 500ml IV PRN ×2 (10:50→10:55)
[2017-06-07] MEDS ORDERED: ACETAMINOPHEN 325 MG TABLET PO ONE (10:56)
[2017-06-07] MEDS: MetroNIDAZOLE 500 MG TABLET PO SCH ×2 (13:48→18:21)
[2017-06-07] MEDS: --POM--FOLIC ACID 1 MG TABLET PO SCH (13:50)
[2017-06-07] MEDS: DICYCLOMINE 20 MG PO PRN (13:57)
[2017-06-07] MEDS: --POM--LISINOPRIL 20 MG TABLET PO SCH (18:22)
[2017-06-07] MEDS: CYANOCOBALAMIN 500 MCG PO SCH (18:22)
--- NOTE | 2017-06-07 18:38 | Progress Note ---
- Date 06/07/17 Subjective: Mrs. Juarez was seen earlier today at which time she indicated she didn't feel too bad other than exertional dyspnea which was at baseline. She continues to have some cough but minimal sputum production. Overall she felt like dyspnea was improved. She's had no further nausea or vomiting and had not had any diarrhea for a number of hours. Stool sample was positive for C. difficile. The patient denied fevers or lightheadedness reports her appetite is improved. Dr. Alfredo requested that 1 unit of packed red blood cells be transfused blood transfusion was delayed until late afternoon due to difficulty cross-matching blood apparently and there is still more than half a unit of blood to infuse. Patient will not have anyone available to pick her up following transfusion at this point. Objective Vital signs: Temperature 97.0 F 06/07/17 15:00 Pulse Rate 98 06/07/17 15:00 Respiratory Rate 24 06/07/17 15:00 Blood Pressure 123/63 06/07/17 15:00 Pulse Oximetry 97 -3 L 06/07/17 15:00 Maximum temperature since hospitalization 100.5, 99.6 earlier today 3 stools reported since admission although nurses indicated multiple small stools every 10 minutes yesterday NAD, alert, fluent speech Conjunctiva clear, sclera anicteric, oropharynx clear Respirations nonlabored, decreased airflow throughout, breath sounds clear upper marie, crackles at the bases bilaterally Regular rhythm, S1-S2 Abdomen soft, nontender, normal bowel sounds Ankles without edema Moving all extremities well. Height/Weight/BMI: Height 1.5 m Weight 50.7 kg Body Mass Index 22.2 Results - Labs CBC & Chem 7: 06/07/17 03:59 06/07/17 03:59 Labs: Stool sample positive for C. difficile toxin PCR Ionized calcium 0.93 Microbiology Results: Microbiology 06/06/17 14:37 Urine Legionella Urinary Antigen - Final 06/06/17 14:37 Urine Streptococcus pneumoniae Antigen (M - Final Assessment and Plan (1) C. difficile colitis Problem details: With dehydration Current visit: Yes Status: Acute (2) Fever Current visit: Yes Status: Acute Assessment and Plan: Impression C. difficile colitis Nausea/vomiting-POA, resolved Orthostasis-in office prior to admission, resolved 06/07/17 Dehydration-consistent with C. difficile, improved following fluids Stage IV adenocarcinoma, with pulmonary primary. Last chemo 05/09/17. COPD, on chronic oxygen (3L at rest, 4L with activity) Pain from bone metastasis, on [place] Chemotherapy induced anemia and thrombocytopenia HTN Hypocalcemia Plan GI study positive for C. difficile colitis, metronidazole initiated this morning. Diarrhea associated with C. difficile probable cause of presenting dehydration and orthostasis both of which are better following hydration overnight. With hydration hemoglobin has dropped further and the patient is receiving 1 unit of blood currently after delay getting blood matched. Reassess hemoglobin following transfusion; may require additional blood if hemoglobin is not significantly improved. Nausea and vomiting have subsided with hydration. Radiographically there was no evidence of pneumonia and respiratory viral panel was negative. Respiratory symptoms are clinically improved. Continue Pulmicort/ duo neb for COPD. Oxygenation at baseline. Platelet count remains within recent range. Calcium has been borderline low in the past, ionized calcium low. May require addition of Rocaltrol. Recheck in a.m.-may worsen with transfusion. Anticipate discharge tomorrow morning if hemoglobin stable; offered patient discharge post transfusion this evening but she reported she will not have any transportation available at that time. Advanced directives-DNR, Son is DPOA, has a living will - Physician Narrative Narrative: Date: 06/07/17 Time: 1833 Hospital Course Summary Disclaimer: The visit summary below is not to be considered part of the above Progress Note. Hospital Course: 06/06/17: Admitted for suspected pneumonia and dehydration due to nausea, vomiting , diarrhea, observation status. Dr. Pelayo consulted. IVF were given due to recent n/v. Respiratory panel and CXR both negative shortly after admission. 06/07/17: Stool positive for C. difficile, metronidazole initiated. Hemoglobin down to 6.2 following hydration. Being transfused 1 unit of packed red blood cells. Calcium low-recheck following transfusion.
[2017-06-07] MEDS ORDERED: CALCIUM CARBONATE Chewable 750mg TABLET PO PRN (18:42)
[2017-06-08] MEDS: ALBUTEROL/IPRATROPIUM 2.5mg-0.5mg/3ml NEB AEROSOL SCH ×4 (02:15→16:23)
[2017-06-08] MEDS: HYDROCODONE/APAP 7.5 MG/325 MG TABLET PO PRN ×2 (02:34→16:52)
[2017-06-08] MEDS: --POM--PANTOPRAZOLE 40 MG TABLET PO SCH (06:21)
[2017-06-08] MEDS: BUDESONIDE INH.SOLN 0.5mg/2ml NEB AEROSOL SCH (08:00)
[2017-06-08] MEDS: NS 1,000 ML IV SCH ×2 (08:19→15:07)
[2017-06-08] MEDS: VIT D PO SCH ×2 (08:19→12:21)
[2017-06-08] MEDS: CALCIUM PO SCH ×2 (08:19→12:21)
[2017-06-08] MEDS: MetroNIDAZOLE 500 MG TABLET PO SCH ×2 (08:19→12:20)
[2017-06-08] MEDS: ESCITALOPRAM 10 MG PO SCH (08:20)
[2017-06-08] MEDS: LACTOBACILLUS PO SCH (08:20)
[2017-06-08] MEDS: DICYCLOMINE 20 MG PO PRN (08:23)
[2017-06-08] MEDS ORDERED: NS FLUSH BAG 500ml IV PRN (09:17)
[2017-06-08] MEDS ORDERED: ACETAMINOPHEN 325 MG TABLET PO ONE (09:22)
[2017-06-08] MEDS ORDERED: DiphenhydrAMINE 50 MG/ML INJECTION IVP ONE (09:23)
[2017-06-08] MEDS: --POM--FOLIC ACID 1 MG TABLET PO SCH (12:21)
[2017-06-08] MEDS ORDERED: POTASSIUM ACID PHOSPHATE 500 MG TABLET PO SCH (14:17)
[2017-06-08 15:23] VITALS: BP 151/67; PULSE 98; RESP 18; TEMP 98.8
[2017-06-08 16:26] VITALS: O2SAT 97
[2017-06-08] MEDS: ANORO ELLIPTA PO SCH (16:33)
--- NOTE | 2017-06-08 16:34 | Discharge Summary ---
Discharge Information Date of admission: 06/06/17 12:20 Anticipated date of discharge: 06/08/17 Attending Physician: Jessica Forman MD Primary care physician: Dmitri Brower II, MD Consults: 06/06/17 14:00 Physician Consult [CONS] Routine Consulting Provider: Jimbo Pelayo Reason For Exam: lung cancer Ordering Provider has Notified Recovery Analyst: Yes - Discharge Diagnosis (1) Fever Status: Acute (2) C. difficile colitis Status: Acute C. difficile colitis Nausea/vomiting-POA, resolved Orthostasis-in office prior to admission, resolved 06/07/17 Dehydration-consistent with C. difficile, improved following fluids Stage IV adenocarcinoma, with pulmonary primary. Last chemo 05/09/17. COPD, on chronic oxygen (3L at rest, 4L with activity) Pain from bone metastasis, on [place] Chemotherapy induced anemia and thrombocytopenia HTN Hypocalcemia Mild hypokalemia, hypophosphatemia(patient did not receive her usual K-Phos in the hospital) - Procedures Procedures: None - Laboratory Labs: 06/08/17 15:27 06/08/17 04:11 Laboratory Tests 06/07/17 06/08/17 06/08/17 08:42 04:11 15:27 Hgb 8.9 L D Potassium 3.5 L Calcium 7.0 L Ionized Calcium Anna 0.93 L Phosphorus 2.4 L Magnesium 2.0 Albumin 2.9 L GI panel positive for C. difficile Viral respiratory panel negative - Microbiology Microbiology 06/06/17 14:37 Urine Legionella Urinary Antigen - Final-negative 06/06/17 14:37 Urine Streptococcus pneumoniae Antigen (M - Final-negative - Radiology Radiology: Date of Exam: 06/06/17 Ordering Provider: Reva Santillan APRN Type of Exam(s): XR chest 2V Reason for Exam(s): LLL crackles, fever Indication: LLL crackles, fever XR chest 2V: Comparison: 05/28/2017 Technique: PA and lateral chest Findings: Patient still showed some mild chronic appearing lung changes. A spiculated lesion described on the previous CT study is just not well demonstrated on today's plain radiographs. Heart, central vascular mediastinum are unremarkable. No marked change in appearance of the port identified. Patient shows a healing fracture of the neck region of the right humerus which was seen on the old study. No other acute new bony findings identified with a stable midthoracic compression deformities unchanged since February exam. Impression: 1. Mild chronic appearing changes with no acute new abnormality identified. The spiculated mass in the right upper chest seen on prior CT is just not well demonstrated on plain radiography. 2. Stable heart size. 3. Stable midthoracic compression deformities Date of Exam: 06/06/17 Ordering Provider: Reva Santillan APRN Type of Exam(s): XR shoulder RT 2-3 views Reason for Exam(s): hx metastatic lesion to right humerus Indication: hx metastatic lesion to right humerus XR shoulder RT 2-3 views: Comparison: 03/10/2017 Technique: Three-view exam Findings: Since that study there has been no marked change in the orientation of the previously noted proximal humeral fracture but there does seem to be some continuing healing with less distinct fracture line. Callus formation persists. There still potential for some diffuse bony permeation impaction suggesting this was originally a pathologic fracture through a bony lesion. No new fractures are noted. Patient shows a port in place in the right upper chest. Impression: Continuing fracture healing involving the proximal humerus with no change in bony alignment History of Present Illness HPI: Harriet Juarez is a 77 year old woman with metastatic lung cancer. She was directly admitted to [facility] from Dr. Pelayo's office with fever of 101 and possible pneumonia. Labs were done in the office. White count was 8.9, hemoglobin 7.8, platelets 90,000. Bands were 8%, metamyelocytes 2%, myelocytes 1 %. Sodium is 139, potassium 4.3, BUN 7, creatinine 0.6, calcium 7.6, alkaline phosphatase 161, LDH 1228. CEA is trending up, currently at 430. Influenza swabs were obtained, but are pending. Harriet was accompanied by her [id number] and her neice. She became ill on 06/03/17, with nausea and vomiting and weakness. She's been complaining of a headache. She's had a slight decrease in appetite. She has chronic COPD and uses oxygen (3L at rest and 4L with activity) but has felt more short of breath. She has had a cough that's productive of clear or creamy sputum. She notes sinus congestion, but this is chronic. Her family added that she's been complaining of muscle achiness and has been irritable. Harriet denies dizziness , acute visual changes, new paresthesias (occasional has numbness/tingling in her fingers), sore throat or dysphagia, falls/injuries. Her last chemo was on -- it's been held due to thrombocytopenia. Objective Vital signs: Temperature 98.8 F 06/08/17 15:00 Pulse Rate 98 06/08/17 15:00 Respiratory Rate 18 06/08/17 16:23 Blood Pressure 151/67 H 06/08/17 15:00 Pulse Oximetry 97 06/08/17 16:23 Height/Weight/BMI: Height 1.5 m Weight 54.2 kg Body Mass Index 22.2 Hospital Course This is a general summary of the patient's hospital course. For more details refer to the complete medical record. Hospital course: 06/06/17: Admitted for suspected pneumonia and dehydration due to nausea, vomiting , diarrhea, observation status. Dr. Pelayo consulted. IVF were given due to recent n/v. Respiratory panel and CXR both negative shortly after admission. 06/07/17: Stool positive for C. difficile, metronidazole initiated. Hemoglobin down to 6.2 following hydration. Being transfused 1 unit of packed red blood cells. Calcium low-recheck following transfusion. Impression C. difficile colitis Nausea/vomiting-POA, resolved Orthostasis-in office prior to admission, resolved 06/07/17 Dehydration-consistent with C. difficile, improved following fluids-resolved Stage IV adenocarcinoma, with pulmonary primary. Last chemo 05/09/17. COPD, on chronic oxygen (3L at rest, 4L with activity) Pain from bone metastasis, on [place] Chemotherapy induced anemia and thrombocytopenia HTN Hypocalcemia Anemia Mild hypokalemia Mild hypophosphatemia Physical exam On exam today the patient is alert and oriented and in no acute distress. Chest is clear to auscultation. Cardiovascular reveals an irregularly irregular rhythm. Telemetry shows sinus arrhythmia. She has had this in the past on old EKGs. Abdomen is soft and nontender. Extremities are free of edema. Hospital course The patient was admitted with nausea, vomiting and diarrhea on the eighth. On the ninth, stool for C. difficile was positive. She was started on metronidazole. She is feeling better. She was given IV fluids for dehydration. Hemoglobin did drop to 6.2. She was given 1 unit of blood and hemoglobin improved to 6.9. The decision was made to give 1 more unit of blood on 2017 and hemoglobin post transfusion today is 8.9. Overall, the patient is feeling better. Her oral K-Phos was not given during this hospital course which is likely the cause of her mild low potassium and phosphorus today. We will resume that. Calcium was low at 6.8 and has improved to 7.0. She is typically on calcium with vitamin D twice a day. Vitamin D levels were tested and results are pending. Her calcium with vitamin D will be increased to 3 times a day. The patient does complain of pain in her left leg and has some chronic low back pain. It's possible that her leg pain is radicular and coming from her back. She states she has had several radiology procedures done recently and will follow-up with Dr. Brower. On 06/08/2017 the patient was doing well and it was felt that she was stable for dismissal to home. She will need Flagyl for 12 more days. Her calcium with vitamin D will be increased to 3 times a day. She will need follow-up with Dr. Pelayo next week as scheduled. She'll need follow-up with Dr. Brower next week and follow-up on her vitamin D levels then. Time spent with patient: discharge greater than 30 minutes Discharge Plan - Discharge Disposition Discharge Date: 06/08/17 Disposition: [address] Home [facility] *Condition: Stable Reason For Visit (Visit label in EMR): dehydration, possible pneumonia - Discharge Medications *Discharge Medications: New Calcium 600 + D [Caltrate + D] 1 tab PO TIDWM tablet MetroNIDAZOLE [Flagyl] 500 mg PO TIDWM 12 Days #36 tab Potassium Acid Phosphate Tab [K-Phos Original] 1,000 mg PO WMHS tablet Continue Dicyclomine HCl 20 mg PO TID #0 Hydrocodone/Acetaminophen [Hydrocodon-Acetaminoph 7.5-325] 1 tab PO Q4H PRN # 0 PRN Reason: PAIN Folic Acid 1 mg PO NOON #0 Cyanocobalamin (Vitamin B-12) [Vitamin B-12] 1,000 mcg PO WS #0 Lactobacillus Acidophilus [Probiotic] 1 cap PO DAILY Metoclopramide [Reglan] 10 mg PO Q6-8HR PRN PRN Reason: nausea Pantoprazole Sodium [Protonix] 40 mg PO DAILY Propylene Glycol/Peg 400 [Lubricant Eye Drops] 1 drop EACH EYE DAILY PRN PRN Reason: Prn Orders Escitalopram [Lexapro] 10 mg PO DAILY Umeclidinium Brm/Vilanterol Tr [Anoro Ellipta 62.5-25 Mcg INH] 62.5 mcg IH DAILY Acetaminophen [Tylenol] 1,000 mg PO NOTE PRN PRN Reason: Pain Dexamethasone Po [Decadron] 8 mg PO DAILY Cyclobenzaprine HCl 5 mg PO TID PRN PRN Reason: Pain /Fever Ipratropium/Albuterol Sulfate [Iprat-Albut 0.5-3(2.5) mg/3 ml] 1 vial AEROSOL Q6H #0 Ondansetron HCl 8 mg PO Q8H PRN #0 PRN Reason: NAUSEA &/OR VOMITING Multivit-Min/FA/Lycopen/Lutein [Centrum Silver Tablet] 1 tab PO WS diphenhydrAMINE HCl [Benadryl] 25 mg PO DAILY methylPREDNISolone [Medrol] 32 mg PO DAILY lisinopril 20 mg tablet 10 mg PO WS #0 tab Discontinued Calcium Carbonate/Vitamin D3 [Calcium 600-Vit D3 500 Softgel] 1 cap PO BIDBL - Discharge Packet/Instructions *Diet: Diet as tolerated *Activity: Light activity as tolerated *Pain Management/Treatment: Flexeril or [place] as needed *Wound Care: Not applicable *Expected Signs/Symptoms: Mild fatigue, possible occasional diarrhea. *Notify Physician if: Call your doctor if you have worsening diarrhea, abdominal pain, fevers, shortness of breath, or any other concerning symptoms *During Business Hours Contact: Call Dr. Brower's office *After Business Hours Contact: Call [phone] Brower or [address] Pelayo *Pending Lab/Results: Follow up w/your PCP - Referrals/Follow Up *Referrals/Follow Up: Jimbo Pelayo MD [Physician] - 1 Week Dmitri Brower II, MD [Family Provider] - 1 Week - Patient Handouts Patient Handouts: Blood Transfusion (GEN) Physician Narrative - Narrative Attestation Narrative: Date: 06/08/17 Time: 2142
[2017-06-08] MEDS ORDERED: CALCIUM 600 + VIT D 400 TABLET PO SCH (17:30)
--- NOTE | 2017-06-08 17:30 | Progress Note ---
Oncology Subjective Feeling better today. Wanting to go home. Diarrhea is better. C. difficile was positive. She is having pain in her left leg that is radicular in nature being in the left lateral thigh and extending down into the calf Exam Vital signs: Temperature 98.8 F 06/08/17 15:00 Pulse Rate 98 06/08/17 15:00 Respiratory Rate 18 06/08/17 16:23 Blood Pressure 151/67 H 06/08/17 15:00 Pulse Oximetry 97 06/08/17 16:23 - Constitutional no acute distress, thin - Routine HEENT Exam Eye: Present: EOMI, PERRL Throat: normal inspection Comments: Hard of hearing without hearing aids - Routine Neck Exam Present: supple. Absent: lymphadenopathy - Routine Respiratory Exam Present: decreased breath sounds - Routine Cardiovascular Exam Present: RRR, no murmur - Routine Abdominal Exam Present: soft, non tender - Routine Extremities Exam Present: edema (1+). Absent: cyanosis, clubbing - Routine Neurological Exam Present: alert, oriented X3, CN II-XII intact - Routine Psychiatric Exam Present: normal affect, normal thought process Oncology Results - Labs CBC & Chem 7: 06/08/17 15:27 06/08/17 04:11 Labs: Short CBC 06/07/17 06/08/17 06/08/17 Range/Units 23:36 04:11 15:27 WBC 5.1 (4.5-11.0) T/MM3 Hgb 7.0 L D 6.9 L 8.9 L D (12-16) GM/DL Hct 21.1 L (36-46) % Plt Count 74 L (130-400) T/MM3 BMP 06/08/17 04:11 Sodium 141 Potassium 3.5 L Chloride 109 H Carbon Dioxide 23 BUN 8.0 Creatinine 0.5 L Glucose 125 H Calcium 7.0 L Liver Function 06/08/17 Range/Units 04:11 Albumin 2.9 L (3.5-5.0) G/DL Laboratory Tests 06/07/17 06/08/17 06/08/17 23:36 04:11 15:27 Hgb 7.0 L D 6.9 L 8.9 L D Plt Count 74 L Assessment and Plan Assessment and Plan: Stage IV cancer of the lung with thrombocytopenia and bone metastases limiting therapeutic options. 2. Recurrent anemia currently managed with transfusion. Anemia workup in the past has been negative. 3. 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 Currently stable at 74K. 4. Bone metastasis with pathologic fracture of the right humerus 5. Pain in the left leg radicular. Will evaluate if worsens with MRI Plan patient received transfusion today and will be going home after transfusion. Will obtain lab on Tuesday and see the patient back on Tuesday. - Time Spent With Patient Total time spent is greater than 50% in coordination of care (as documented) at patient's floor/unit and/or counseling patient: less than 15 minutes
== END 2017-06-08 17:45 | disposition home health service (06) ==
LOC: MED → SUATTDRO 12:20 → SRG 12:31
PROVIDERS: ADMIT Internal Medicine; ATTEND Internal Medicine